=== PATIENT | female | born 1975 | race Caucasian/White ===

== ENCOUNTER 2023-05-18 08:14 | Outpatient (OUT) | payer OTHER, SELFPAY ==
--- NOTE | 2023-05-18 | MM_ITS ---
Patient: JOHN MONTAÑO Exam Date: 05/18/2023 : 1975 Gender:F Ordering : DR Pelon Tierney . Admission #: [id number] Family : Order #: [id number] CLICK HERE TO VIEW EXAM RADIOLOGY REPORT PROCEDURE: MM DIAGNOSTIC MAMMO BI COMPARISON: MG MAMM SCREEN 3D LLOYD CAD, 08/06/2022. MG MAMM DIAGNOSTIC 3D LLOYD CAD, 08/18/2022. MG STEREO CORE NDL W CLIP RT, 09/22/2022. MAMMO POST BIOPSY RIGHT, 09/22/2022. INDICATIONS: Z87.898 Calculator Name NCI Breast Cancer Risk Assessment Tool 5 Year Breast Cancer Risk Not Reported. Lifetime Breast Cancer Risk Not Reported. Personal Breast Cancer No Personal Ovarian Cancer No Treatments None Family Cancers None LOCATION: [facility] BREAST COMPOSITION: Heterogeneously dense,which may obscure small masses. FINDINGS: DIAGNOSTIC CATEGORY 2--BENIGN FINDING. NO CHANGE FROM COMPARISON. Scattered benign-appearing nodules are present. Scattered benign-appearing calcifications are present. Scattered benign-appearing lymph nodes are present. RIGHT BREAST: No significant suspicious finding. Stable area of density with microcalcifications partially sampled on previous biopsy. Micro clip marker adjacent on the CC projection but more cranial on the MLO projection, unchanged. LEFT BREAST: No significant suspicious finding. RECOMMENDATIONS: ROUTINE MAMMOGRAM AND CLINICAL EVALUATION IN 12 MONTHS. PLEASE NOTE: A NORMAL MAMMOGRAM DOES NOT EXCLUDE THE POSSIBILITY OF BREAST CANCER. A CLINICALLY SUSPICIOUS PALPABLE LUMP SHOULD BE BIOPSIED. Dictated by: Ercik Hughes MD on 05/18/2023 at 09:08 Approved by: Erick Hughes MD on 05/18/2023 at 09:22
== END 2023-05-18 08:15 | disposition home or self-care (01) ==
PROVIDERS: PCP Family Medicine; Visit Provider Family Medicine
DX: R92.8 Other abnormal and inconclusive findings on diagnostic imaging of breast (principal)
CPT/HCPCS: 77066

== ENCOUNTER 2023-06-22 06:55 | Outpatient (OUT) | payer OTHER, SELFPAY ==
[2023-06-22 07:57] LABS: Basophils Absolute Auto 0.1 10^3/uL (0.0-0.1); Basophils Percent Auto 0.6 % (0.2-2.0); Eosinophils Absolute Auto 0.4 10^3/uL (0.0-0.7); Eosinophils Percent Auto 4.3 % (0.9-7.0); Hematocrit 44.1 % (36.0-48.0); Hemoglobin 14.6 g/dL (12.0-16.0); Immature Granulocytes Abs Auto 0.02 10^3/uL (0.00-0.03); Immature Granulocytes Pct Auto 0.2 % (0.0-0.5); Mean Corpuscular HGB Conc 33.1 g/dL (29.9-35.2); Mean Corpuscular Hemoglobin 32.3 pg (26.7-34.0); Mean Corpuscular Volume 97.6 fL (81.0-99.0); Mean Platelet Volume 11.2 fL (9.5-13.5); Monocytes Absolute Auto 0.8 10^3/uL (0.3-0.8); Monocytes Percent Auto 8.9 % (1.7-12.0); Neutrophils Absolute Auto 4.6 10^3/uL (1.4-6.5); Platelet Count 362 10^3/uL (150-450); Red Blood Count 4.52 10^6/uL (4.20-5.40); Red Cell Distribution Width 12.4 % (11.0-15.0); White Blood Count 8.8 10^3/uL (4.0-11.0)
[2023-06-22 08:07] LABS: Alanine Aminotransferase 14 U/L (14-59); Albumin Globulin Ratio 1.1; Albumin Level 3.9 g/dL (3.4-5.0); Alkaline Phosphatase 61 U/L (46-116); Anion Gap 12.8; Aspartate Amino Transferase 15 U/L (15-37); BUN Creatinine Ratio 18.1; Bilirubin Total 0.4 mg/dL (0.2-1.0); Calcium 8.6 mg/dL (8.5-10.1); Carbon Dioxide 24.7 mmol/L (21.0-32.0); Chloride 102 mmol/L (98-107); Chol HDL Ratio 2.2; Cholesterol 205 mg/dL (<=200); Estimated GFR (African America >60 (>=60); Estimated GFR (Non-African Ame >60 (>=60); Free T3 2.71 pg/mL (2.18-3.98); Globulin 3.5 g/dL; Glucose 86 mg/dL (74-106); HDL Cholesterol 92 mg/dL (40-60); Potassium 3.5 mmol/L (3.5-5.1); Sodium 136 mmol/L (136-145); Thyroid Stimulating Hormone 1.326 uIU/mL (0.358-3.740); Total Protein 7.4 g/dL (6.4-8.2); Triglycerides 60 mg/dL (<=150)
[2023-06-22 08:15] LABS: Estimated Average Glucose 103 mg/dL; Glycohemoglobin A1C 5.2 % (4.5-6.2)
== END 2023-06-22 06:56 | disposition home or self-care (01) ==
LOC: LAB 06:56
PROVIDERS: PCP Family Medicine; Visit Provider Family Medicine
DX: Z00.00 Encounter for general adult medical examination without abnormal findings (principal)
CPT/HCPCS: 36415; 80053; 80061; 82306; 83036; 84436; 84443; 84481; 85025

== ENCOUNTER 2023-06-26 08:01 | Outpatient (OUT) | payer OTHER, SELFPAY | END 2023-06-26 08:02 | disposition home or self-care (01) | LOC: VC 08:02 | PROVIDERS: PCP Family Medicine; Visit Provider Radiology Diagnostic Radiology | DX: I83.813 Varicose veins of bilateral lower extremities with pain (principal) ==

== ENCOUNTER 2023-07-07 07:57 | Outpatient (OUT) | payer OTHER, SELFPAY ==
--- NOTE | 2023-07-07 07:58 | VEIN_ITS ---
Patient: JOHN MONTAÑO Exam Date: 07/07/2023 : 1975 Gender:F Ordering : DR Pelon Tierney . Admission #: [id number] Family : Order #: [id number] CLICK HERE TO VIEW EXAM RADIOLOGY REPORT PROCEDURE: VC EXT VENOUS REFLUX LLOYD LMTD COMPARISON: None. INDICATIONS: I83.813 Painful varicose veins of bilat lower extremities TECHNIQUE: Duplex imaging of the lower extremity to assess the deep and superficial venous system for the presence of deep or superficial venous incompetence and to document the location and severity of disease. The study includes evaluation of the great saphenous vein (GSV), anterior accessory saphenous vein (AASV) and small saphenous vein (SSV). Patient scanned in reverse Trendelenburg and standing. FINDINGS: RIGHT LOWER EXTREMITY: Saphenofemoral Junction Reflux: Yes 11.4mm 3.3 sec GSV: Diam (mm) Reflux/ Time (sec) Proximal Thigh 8.2 Yes 2.5 Mid Thigh 8.8 Yes 2.6 Distal Thigh 9.2 Yes 3.4 Prox Calf 7.2 Yes 0.6 Mid Calf 4.1 Yes 3.2 Saphenopopliteal Junction Reflux: 4.6mm 1.3 SSV: Proximal Calf 2.8 Yes 0.6 Mid Calf 2.9 No AASV: Not present Thrombi: No acute or chronic thrombus visualized Compressibility: Normal Flow: Normal Preforator: Dist/med calf 3.1mm with 0.6s reflux. Tech Note: Incompetent SFJ and GSV. Patent varicose vein mid/med calf 6.1mm with 1.4s reflux. Patent varicose vein prox/med calf 6.3mm with 1.8s reflux. Patent varicose vein mid/med thigh 5.3mm with 1.3s reflux. LEFT LOWER EXTREMITY: Saphenofemoral Junction Reflux: Yes 7.4 mm 3.3 sec GSV: Diam (mm) Reflux/Time (sec) Proximal Thigh 8.1 Yes 2.0 Mid Thigh 5.5 Yes 1.8 Distal Thigh 6.2 Yes 1.7 Prox Calf 8.0 Yes 3.7 Mid Calf 5.6 Yes 3.4 Saphenopopliteal Junction Relux: 3.1 mm No SSV: Proximal Calf 3.1 No Mid Calf 3.9 No AASV: Not present Thrombi: No acute or chronic thrombus visualized Compressibility: Normal Flow: Normal Coin Machine Supervisor: Dist/med calf 4.2mm with 1.1s reflux. Tech Note: Incompetent SFJ and GSV. GSV goes extrafascial at distal thigh and goes intrafascial again at distal calf. Patent varicose vein mid/med calf 6.5mm with 3.4s reflux. Patent varicose vein dist/med thigh 5.6mm with 1.9s reflux. CONCLUSION: 1. Moderate to severe bilateral great saphenous vein venous insufficiency with saphenofemoral junction reflux and dilatation 2. Mild right small saphenous vein venous insufficiency with saphenopopliteal junction reflux 3. Mild bilateral incompetent grey roll worker veins, left greater than right 4. Bilateral incompetent varicose veins 1. Dictated by: Erick Hughes MD on 07/07/2023 at 09:18 Approved by: Erick Hughes MD on 07/07/2023 at 09:20
== END 2023-07-07 07:58 | disposition home or self-care (01) ==
LOC: VC 07:57
PROVIDERS: PCP Family Medicine; Visit Provider Family Medicine
DX: I83.813 Varicose veins of bilateral lower extremities with pain (principal)
CPT/HCPCS: 93970

== ENCOUNTER 2023-07-28 07:24 | Outpatient (OUT) | payer OTHER, SELFPAY ==
--- NOTE | 2023-07-28 07:28 | VEIN_ITS ---
Patient Name: JOHN MONTAÑO MR#: [id number] : 1975 Exam Date: 07/28/2023 Ordering Doctor: DR Pelon Tierney . RADIOLOGY REPORT PROCEDURE: VC FACILITY EST COMPREHENSIVE VEIN CENTER - OFFICE VISIT INITIAL COMPARISON: None. PROGRESS NOTES: [age] year old female who presents with a 15 year history of leg cramping, swelling, dilated and discolored veins. The patient's leg symptoms are symmetric bilaterally There has been a progression of symptoms over time. This increases with prolonged leg dependency. The patient describes an improvement with rest, elevation, exercise, and [id number] medication. The patient denies any signs and symptoms to suggest arterial ischemia. The patient describes a family history varicose veins on paternal side, heart disease, diabetes. The patient has drinking and smoking history of: alcohol consumption and current smoker. Patient has a past medical history significant for asthma, back and knee pain, varicose veins. The patient denies a history of deep venous thrombus or pulmonary embolus. See separate history and physical for medication list. No prior treatment for varicose or spider veins. Current use of compression stockings. After review of nurse notes, history and physical exam I discussed at length the pathophysiology of venous hypertension and possible treatments, therapies and strategies available. We discussed at length the importance of elevating the lower extremities above the level of the heart, increased physical activity and compression stocking use. Ultrasound venous reflux study performed on July 07, 2023 was discussed at length with the patient. The report demonstrates abnormally dilated and markedly incompetent great saphenous veins bilaterally with associated incompetent branch saphenous varicosities. Incompetent calf oil winterizer veins bilaterally.. PHYSICAL EXAM: The right leg demonstrates multiple varicosities, multiple large spider veins, no ulceration, moderate edema, no skin discoloration. The left leg demonstrates multiple varicosities, multiple large spider veins, no ulceration, moderate edema, no skin discoloration. Both thighs, legs and feet were symmetrically warm to the touch. Good posterior tibial and dorsalis pedis pulses were present bilaterally. VEIN/VC Facility EST Comprehensive IMPRESSION: 1. Bilateral lower extremity venous insufficiency 2. Bilateral lower extremity varicose veins 3. Moderate bilateral lower extremity subcutaneous edema 4. No flow significant arterial disease 5. CEAP: C3, EC, , NM PLAN: 1. Continued use of compression stockings 2. Elevated legs and increased physical activity symptomatic relief 3. Endovenous laser ablation of right great saphenous and left great saphenous veins. 4. Microfoam chemical ablation of bilateral lower extremity incompetent branch saphenous varicosities is recommended, but may not be approved bypatient's insurance. 5. Bilateral lower extremity sclerotherapy for extensive spider veins and reticular veins. Nurse notes, history and physical were reviewed and confirmed, see attached forms. The nurse was present throughout the physical exam and consultation Dictated by: Fahad Barrett M.D. on 07/28/2023 at 09:44 Approved by: Fahad Barrett M.D. on 07/28/2023 at 09:50
== END 2023-07-28 07:25 | disposition home or self-care (01) ==
LOC: VC 07:24
PROVIDERS: PCP Family Medicine; Visit Provider Family Medicine
DX: I83.813 Varicose veins of bilateral lower extremities with pain (principal)
CPT/HCPCS: G0463

== ENCOUNTER 2023-08-12 08:48 | Outpatient (OUT) | payer OTHER, SELFPAY ==
--- NOTE | 2023-08-12 08:49 | VEIN_ITS ---
The [address] [address] Patient Name: JOHN MONTAÑO MRN: [id number] date: 1975 Sex: F Assigned Patient Location: Current Patient Location: Accession/Order Number: [id number] Exam Date: 08/12/2023 08:52 Report Date: 08/12/2023 10:03 At the request of: TARYN RUTHERFORD Procedure: VC Endovenous Ablation 1VeinRT EXAMINATION: VC Endovenous Ablation 1VeinRT HISTORY: I83.813 Bilateral painful varicose veins The risks and benefits of the procedure had been previously discussed, and were rediscussed at length. Informed written consent was obtained. Sebastián Dalton RN and Nidia Parks RDMS, RVT assisted. Time out procedure was performed. The right lower extremity was prepared and draped in the usual sterile fashion to allow knee flexion in the sterile field. Duplex ultrasound probe was draped in a sterile cover, sterile transmission gel was used. Venous mapping was performed with the areas of dilation and large tributaries marked. The total length was 36 cm from the entry proximal calf to 3 cm below the Saphenofemoral junction. The diameter of the right great saphenous vein ranged from 9.2 mm. A 30 gauge needle and 1% buffered lidocaine was used to anesthetize the entry site. A 4 mm incision was made with a scalpel and the saphenous vein was entered percutaneously under direct ultrasound guidance with a micropuncture set, a single stick was successful in gaining access. A micro-guide wire was inserted and the needle removed. A micro-set including a dilator was inserted over the microwire and the needle and dilator were removed. A guide wire was inserted through the micro-set and guided through the saphenous vein to the saphenofemoral junction. The dilator was removed and an introducer sheath was inserted over the wire until the end of the sheath entered the saphenofemoral junction. The dilator and wire were removed and the 600 micron fiber was introduced and placed and positioned so that it extended beyond the sheath and was 3 cm distal to the saphenofemoral or saphenopopliteal junction. Final position of the fiber was determined by ultrasound guidance and duplex imaging. Tumescent anesthetic was delivered by ultrasound guidance. 175 cc of fluid was delivered along the entire course of the saphenous vein. The solution consisted of 1000 cc of normal saline with 40 mL of 1% lidocaine and 20 mL of sodium bicarbonate. A final positioning check was made. The energy source was turned on by means of the foot pedal and the fiber and sheath were withdrawn. The total number of Joules delivered was 2371. The laser was active for 296 seconds under continuous pulse, average laser use of 8 J. Laser start time 9:36 AM, 08/12/2023. Laser stop time 9:41 AM, 08/12/2023. A duplex ultrasound revealed compressibility and flow at the saphenofemoral junction immediately after the procedure. Hemostasis at the access site was achieved. The skin incision of the saphenous vein was closed with a 4 x 4. A compression stocking was applied. Postop instructions were given. A follow up appointment was recommended and scheduled. The patient tolerated the procedure well. Electronically authenticated by: VALERIANO ECHEVARRIA Date: 08/12/2023 10:03
[2023-08-12] MEDS: 0.9 % SODIUM CHLORIDE 500 ML, LIDOCAINE HCL 20 ML, SODIUM BICARBONATE 10 MEQ INJ (08:55)
[2023-08-12] MEDS: LIDOCAINE HCL 1% 100 MG/10 ML MDV INJ (08:55)
== END 2023-08-12 08:49 | disposition home or self-care (01) ==
LOC: VC 08:48
PROVIDERS: PCP Family Medicine; Visit Provider Radiology Diagnostic Radiology
DX: I83.813 Varicose veins of bilateral lower extremities with pain (principal)
CPT/HCPCS: 36478

== ENCOUNTER 2023-08-17 12:52 | Outpatient (OUT) | payer OTHER, SELFPAY ==
--- NOTE | 2023-08-17 12:54 | VEIN_ITS ---
Patient Name: JOHN MONTAÑO MR#: [id number] : 1975 Exam Date: 08/17/2023 Ordering Doctor: DR ERICK HUGHES M.D. RADIOLOGY REPORT PROCEDURE: VC EXT VENOUS RT LMTD COMPARISON: None. INDICATIONS: I80.01 Phlebitis of superficial veins of rt lower extremity TECHNIQUE: Lower extremity mayo scale and Duplex Doppler evaluation of the deep venous system from the inguinal ligament through the calf veins. FINDINGS: REGION: Right lower extremity. THROMBI: Negative for DVT. Heat induced thrombus visualized 3.8cm from the SFJ. The heat induced thrombus extends from groin to proximal calf. COMPRESSIBILITY: Non-compressible segments corresponding to thrombus FLOW: Areas of absent flow corresponding to thrombus CONCLUSION: Post ablation occlusion of the right great saphenous vein with heat induced thrombus 3.8 cm from the saphenous femoral junction, this slightly increased distance was necessary to maintain a patent epigastric vein. Dictated by: Erick Hughes MD on 08/17/2023 at 13:11 Approved by: Erick Hughes MD on 08/17/2023 at 13:13
--- NOTE | 2023-08-17 12:54 | VEIN_ITS ---
Patient Name: JOHN MONTAÑO MR#: [id number] : 1975 Exam Date: 08/17/2023 Ordering Doctor: DR ERICK HUGHES M.D. RADIOLOGY REPORT PROCEDURE: VC FACILITY EST LMTD VEIN CENTER - OFFICE VISIT FOLLOW UP COMPARISON: None. PROGRESS NOTES: The patient reports no significant problems following intravenous laser ablation of the right great saphenous vein. The patient did require analgesics. The patient has worn her compression stocking. The patient has followed our recommendations to walk 20-30 minutes once or twice per day since the procedure. Physical exam demonstrates 2 areas of bruising on the medial right thigh the largest area measuring 8 cm in diameter, likely related to tumescence injection. The incision site along the mid calf is sealed. The thrombosed right great saphenous vein can be partially palpated. No erythema or warmth to suggest cellulitis or thrombophlebitis. No ulceration Review of the ultrasound performed the same day demonstrates occlusive thrombus extending throughout the treated right great saphenous vein with heat induced thrombus 3.8 cm from the saphenofemoral junction, this extended length was necessary to keep the epigastric vein patent. No deep vein thrombus. The patient expressed a desire to proceed with treatment of incompetent left great saphenous vein. VEIN/VC Facility EST LMTD IMPRESSION: 1. Successful ablation of the right great saphenous vein 2. Persistent incompetent left great saphenous vein. PLAN: Intravenous laser ablation left great saphenous vein Nurse notes, history and physical were reviewed and confirmed, see attached forms. The nurse was present throughout the physical exam and consultation Dictated by: Erick Hughes MD on 08/17/2023 at 13:17 Approved by: Erick Hughes MD on 08/17/2023 at 13:30
== END 2023-08-17 12:53 | disposition home or self-care (01) ==
LOC: VC 12:52
PROVIDERS: PCP Family Medicine; Visit Provider Radiology Diagnostic Radiology
DX: I80.01 Phlebitis and thrombophlebitis of superficial vessels of right lower extremity (principal)
CPT/HCPCS: 93971; G0463

== ENCOUNTER 2023-08-21 10:29 | Outpatient (OUT) | payer OTHER, SELFPAY ==
--- NOTE | 2023-08-21 10:29 | VEIN_ITS ---
[address] [address] Patient Name: JOHN MONTAÑO MRN: [id number] date: 1975 Sex: F Assigned Patient Location: Current Patient Location: Accession/Order Number: [id number] Exam Date: 08/21/2023 10:29 Report Date: 08/21/2023 11:54 At the request of: TARYN RUTHERFORD Procedure: VC Endovenous Ablation 1VeinLT EXAMINATION: VC Endovenous Ablation 1VeinLT HISTORY: I83.813 Bilateral painful varicose veins The risks and benefits of the procedure had been previously discussed, and were rediscussed at length. Informed written consent was obtained. Lonnie Quezada RDMS and Nidia Parks RDMS, TOMASZ assisted. Time out procedure was performed. The left lower extremity was prepared and draped in the usual sterile fashion to allow knee flexion in the sterile field. Duplex ultrasound probe was draped in a sterile cover, sterile transmission gel was used. Venous mapping was performed with the areas of dilation and large tributaries marked. The total length was 53 cm from the entry 5 cm above the ankle to 3 cm below the Saphenofemoral junction. The diameter of the left great saphenous vein ranged from 8.1 mm. A 30 gauge needle and 1% buffered lidocaine was used to anesthetize the entry site. A 4 mm incision was made with a scalpel and the saphenous vein was entered percutaneously under direct ultrasound guidance with a micropuncture set, a single stick was successful in gaining access. A micro-guide wire was inserted and the needle removed. A micro-set including a dilator was inserted over the microwire and the needle and dilator were removed. A guide wire was inserted through the micro-set and guided through the saphenous vein to the saphenofemoral junction. The dilator was removed and an introducer sheath was inserted over the wire until the end of the sheath entered the saphenofemoral junction. The dilator and wire were removed and the 600 micron fiber was introduced and placed and positioned so that it extended beyond the sheath and was 3 cm distal to the saphenofemoral or saphenopopliteal junction. Final position of the fiber was determined by ultrasound guidance and duplex imaging. Tumescent anesthetic was delivered by ultrasound guidance. 200 cc of fluid was delivered along the entire course of the saphenous vein. The solution consisted of 1000 cc of normal saline with 40 mL of 1% lidocaine and 20 mL of sodium bicarbonate. A final positioning check was made. The energy source was turned on by means of the foot pedal and the fiber and sheath were withdrawn. The total number of Joules delivered was 3021. The laser was active for 378 seconds under continuous pulse, average laser use of 8 J. Laser start time 11:12 AM, 08/21/2023. Laser stop time 11:17 AM, 08/21/2023. A duplex ultrasound revealed compressibility and flow at the saphenofemoral junction immediately after the procedure. Hemostasis at the access site was achieved. The skin incision of the saphenous vein was closed with a 4 x 4. A compression stocking was applied. Postop instructions were given. A follow up appointment was recommended and scheduled. The patient tolerated the procedure well. Electronically authenticated by: VALERIANO ECHEVARRIA Date: 08/21/2023 11:54
== END 2023-08-21 10:30 | disposition home or self-care (01) ==
LOC: VC 10:29
PROVIDERS: PCP Radiology Diagnostic Radiology; Visit Provider Radiology Diagnostic Radiology
DX: I83.813 Varicose veins of bilateral lower extremities with pain (principal)
CPT/HCPCS: 36478

== ENCOUNTER 2023-08-27 14:20 | Outpatient (OUT) | payer OTHER, SELFPAY ==
--- NOTE | 2023-08-27 14:22 | VEIN_ITS ---
Patient Name: JOHN MONTAÑO MR#: [id number] : 1975 Exam Date: 08/27/2023 Ordering Doctor: DR TARYN RUTHERFORD M.D. RADIOLOGY REPORT PROCEDURE: VC EXT VENOUS LT LIMITED COMPARISON: None. INDICATIONS: I80.02 Phlebitis of superficial veins of lt lower extremity TECHNIQUE: Lower extremity mayo scale and Duplex Doppler evaluation of the deep venous system from the inguinal ligament through the calf veins. FINDINGS: REGION: Left lower extremity. THROMBI: Negative for DVT. Heat induced thrombus visualized 2.4cm from the SFJ. The heat induced thrombus extends from groin to distal thigh. COMPRESSIBILITY: Non-compressible segments corresponding to thrombus FLOW: Areas of no flow corresponding to thrombus OTHER: CONCLUSION: 1. Successful post ablation occlusion of left great saphenous vein. Dictated by: Fahad Barrett M.D. on 08/27/2023 at 15:15 Approved by: Fahad Barrett M.D. on 08/27/2023 at 15:15
--- NOTE | 2023-08-27 14:22 | VEIN_ITS ---
Patient Name: JOHN MONTAÑO MR#: [id number] : 1975 Exam Date: 08/27/2023 Ordering Doctor: DR TARYN RUTHERFORD M.D. RADIOLOGY REPORT PROCEDURE: [facility] EST LMTD VEIN CENTER - OFFICE VISIT FOLLOW UP COMPARISON: [facility] EST TD, 08/17/2023. PROGRESS NOTES: The patient reports improvement in leg symptoms. There has been interval reduction in varicosities. The patient has followed our recommendations to walk 20-30 minutes once or twice per day since the procedure. Physical exam demonstrates decrease in varicosities of the leg. Persistent varicosities are identified along the legs bilaterally. Review of the ultrasound performed the same day demonstrates occlusive thrombus extending throughout the treated vein(s), see separate report, consistent with a successful ablation. No thrombus extending into or beyond the saphenofemoral junction. VEIN/[facility] EST LMTD IMPRESSION: 1. Successful ablation of the left great saphenous vein(s). 2. Persistent bilateral lower extremity varicose veins and lower extremity symptoms. PLAN: 1. Patient's insurance plan did not approve treatment with microfoam chemical ablation, although this would be helpful for the patient. Treatment of bilateral lower extremity incompetent dilated branch saphenous varicosities is recommended whenever this treatment becomes available for the patient. Nurse notes, history and physical were reviewed and confirmed, see attached forms. The nurse was present throughout the physical exam and consultation Dictated by: Fahad Barrett M.D. on 08/27/2023 at 15:15 Approved by: Fahad Barrett M.D. on 08/27/2023 at 15:18
--- OUTSIDE RECORDS SUMMARY | 2023-08-27 14:26 | XMS_ITS | CCD ---
Author Name Unknown Address [address] [place] [address] [address] [place] [address] Organization [facility] Care Team Providers Care End Maker Name Role Phone Gina Tierney Primary Care Provider DR GINA TIERNEY Admitting Unavailable YESICA, DR FUENTES Primary Care Unavailable YESICA, DR FUENTES Consulting Unavailable YESICA, DR FUENTES Attending Unavailable SHANNONY, DR FUENTES Primary Care Unavailable HOSamuel, DR FUENTES Consulting Unavailable YESICA, DR FUENTES Attending Unavailable SHANNONY, DR FUENTES Admitting Unavailable Zieber, DR Vásquez Consulting Unavailable Gina Tierney MD Primary Care Provider [phone] GINA TIERNEY Primary Care Unavailable HOY, GINA M Referring Unavailable HOY, GINA M Primary Care Unavailable SELF REFERRAL, MAMMOGRAPHY Referring Unava ilable RADIOLOGIST, [facility] Attending Unavailable HOY, GINA M Referring Unavailable HOY, GINA M Primary Care Unavailable RADIOLOGIST, [facility] Attending Unavailable HOY, GINA M Referring Unavailable HOY, GINA M Primary Care Unavailable HOY, GINA M Primary Care Unavailable HOY, GINA M Referring Unavailable MYAH BRUSH Referring Unavailabl e HOY, GINA M Primary Care Unavailable MYAH BRUSH Referring Unavailabl e HOY, GINA M Primary Care Unavailable HOY, GINA M Primary Care Unavailable HOY, GINA M Referring Unavailable HOY, GINA M Primary Care Unavailable HOY, GINA M Referring Unavailable Medications Current Medications Medication Drug Class(es) Dates Sig (Normalized) Sig (Original) [id number] 200 actuat albuterol 0.09 mg/actuat metered dose inhaler (1 source) beta2-Adrenergic Agonist Start: 09-01-2022 take 2 puff(s) by mouth four times daily as needed albuterol sulfate HFA (PROVENTIL;VENTOLIN ;PROAIR) 108 (90 Base) MCG/ACT inhaler INHALE 2 PUFFS BY MOUTH 4 TIMES DAILY NEEDED 0 09/01/2022 Active citalopram 20 mg oral tablet (9 sources) Serotonin Reuptake Inhibitor Start: 07-27-2018 take 1 tablet by mouth once daily citalopram (CELEXA) 20 MG tablet Indications: Adjustment disorder with mixed anxiety and depressed mood Take 1 tablet by mouth daily 30 tablet 5 07/27/2018 Active pantoprazole 40 mg delayed release oral tablet (10 sources) Proton Pump Inhibitor Start: 07-31-2019 take 1 tablet by mouth once daily pantoprazole (PROTONIX) 40 MG tablet TAKE 1 TABLET BY MOUTH ONCE DAILY 0 07/31/2019 Active sucralfate 1000 mg oral tablet (9 sources) Aluminum Complex Start: 07-31-2019 take 1 tablet by mouth at bedtime sucralfate (CARAFATE) 1 GM tablet TAKE 1 TABLET BY MOUTH BEFORE MEAL(S) AND AT BEDTIME 0 07/31/2019 Active Problems Active Problems Problem Classification Problem Date Documented Date Episodic/Chronic Genitourinary symptoms and ill-defined conditions (1 source) Splitting of urinary stream; Translations: [Urinary stream splitting] Episodic Menstrual disorders (2 sources) Irregular periods; Translations: [Irregular menstruation, unspecified] Onset: 12-03-2022 Chronic Miscellaneous mental health disorders (1 source) Sexual dysfunction, unspecified; Translations: [Sexual dysfunction, unspecified] Onset: 12-03-2022 Episodic Nonmalignant breast conditions (6 sources) Mammographic calcification found on diagnostic imaging of breast; Translations: [Other benign mammary dysplasias of right breast] Onset: 09-18-2022 Episodic Other screening for suspected conditions (not mental disorders or infectious disease) (4 sources) Mammography abnormal; Translations: [Other abnormal and inconclusive findings on diagnostic imaging of breast] Onset: 08-18-2022 Episodic Residual codes; unclassified (1 source) Procedure and treatment not carried out for other reasons; Translations: [PROC AND TX NOT CARRIED OUT OTH REASONS] Onset: 09-18-2022 Episodic Unclassified (1 source) Patient encounter status Past or Other Problems Problem Classification Problem Date Documented Date Episodic/Chronic Other female genital disorders (10 sources) Cervical intraepithelial neoplasia grade 2; Translations: [Moderate cervical dysplasia] Onset: 06-23-2017 06-23-2017 Episodic Other non-traumatic joint disorders (4 sources) Pain in right knee; Translations: [Pain in joint, lower leg] Onset: 06-20-2022 Episodic Results Test Name Value Interpretation Reference Range Facility Provider Letteron 07-03-2023 Provider Letter July 03, 2023 JOHN MONTA[address]O [address] [place] [address] : 1975 Dear Cory Deena, We have been trying to reach you with no success regarding a referral from Dr Tierney. It is important that you return our call upon receiving this letter so that we can set up an appointment for you. Also, at the time of your call, please provide us with your current demographic and insurance information. Thank you for your prompt attention to this matter. Sincerely, [facility] General Surgery [phone] Normal [facility] Physician Referralon 023 Physician Referral [phone] [id number] Normal [facility] Estradiolon 12-12-2022 Estradiol 134.9 pg/mL Normal 27-314 [facility] Comment on above: Result Comment: FEMALES: Normally menstruating Luteal phase 33-298 Follicular phase 27-156 Midcycle phase 48-314 Postmenopausal (untreated) 5-50 Fulvestrant treatment will show an increased estradiol concentration with this methodology. Alternate methodologies are available upon request. Performed By: #### L H, FSH, E2 #### [employer] [address] [place], [place] [id number] Glazing Department Supervisor: Tc Atkins MD Follicle Stim. Hormon 2022 Follicle Stim. Horm 9.4 mIU/mL Normal 1.7-21.5 [facility] Comment on above: Result Comment: Refe rence Range: Male: 1.5-12.4 Ovulating Female: Follicular Phase 3.5-12.5 Ovulation Phase 4.7-21.5 Luteal Phase 1.7-7.7 Postmenopausal Female: 25.8-134.8 Performed By: #### L H, FSH, E2 #### [employer] [address] [place], [place] [id number] Glazing Department Supervisor: Tc Atkins MD Luteinizing Hormoneon 2022 Luteinizing Hormone 8.4 mIU/mL Normal 1.0-95.6 [facility] Comment on above: Result Comment: Refe rence Range: Male: 1.7-8.6 Ovulating Female: Follicular Phase 2.4-12.6 Ovulation Phase 14.0-95.6 Luteal Phase 1.0-11.4 Postmenopausal Female: 7.7-58.5 Performed By: #### P PPVP #### [employer] [address] [place], [place] [id number] Glazing Department Supervisor: Tc Atkins MD Estradiolon 12-11-2022 Estradiol 134.9 pg/mL 27 - 314 pg/mL [employer] Comment on above: FEMALES: Normally menstruating Luteal phase 33-298 Follicular phase 27-156 Midcycle phase 48-314 Postmenopausal (untreated) 5-50 Fulvestrant treatment will show an increased estradiol concentration with this methodology. Alternate methodologies are available upon request. Follicle Stimulating Hormone on 12-11-2022 FSH 9.4 [employer] Comment on above: Reference Range: Male: 1.5-12.4 Ovulating Female: Follicular Phase 3.5-12.5 Ovulation Phase 4.7-21.5 Luteal Phase 1.7-7.7 Postmenopausal Female: 25.8-134.8 Luteinizing Hormoneon 2022 LH 8.4 [employer] Comment on above: Reference Range: Male: 1.7-8.6 Ovulating Female: Follicular Phase 2.4-12.6 Ovulation Phase 14.0-95.6 Luteal Phase 1.0-11.4 Postmenopausal Female: 7.7-58.5 No Panel Informationon 12-11 [employer] Cult,Genitalon 12-06-2022 Cult,Genital Specimen Description .VAGINA Culture NORMAL URO-GENITAL MERCEDES NEGATIVE FOR NEISSERIA GONORRHOEAE NEGATIVE FOR GROUP B STREPTOCOCCI Report Status FINAL 12/06/2022 Normal [facility] Comment on above: Performed By: #### F T4 #### [address] [address] Glazing Department Supervisor: Tc Atkins MD #### TSH #### [facility] [address] [place] [address] Glazing Department Supervisor: Erick Renae MD Chlamydia/GC DNA, TPon 12-04 Chlamydia Probe, TP Negative Normal NEG [facility] Comment on above: Result Comment: CHLA MYDIA TRACHOMATIS DNA not detected by nucleic acid amplification. This test is intended for medical purposes only and is not valid for the evaluation of suspected sexual abuse or for other forensic purposes. In certain contexts, culture may be required to meet applicable laws and regulations for diagnosis of C. trachomatis and N. gonorrhoeae infections. Per 2014 CDC recommendations, this test does not include confirmation of positive results by an alternative nucleic acid target. Performed By: #### P PPVP #### [address] [address] Glazing Department Supervisor: Tc Atkins MD Gonorrhea Probe, TP Negative Normal NEG [facility] Comment on above: Result Comment: NEIS SERIA GONORRHOEAE DNA not detected by nucleic acid amplification. This test is intended for medical purposes only and is not valid for the evaluation of suspected sexual abuse or for other forensic purposes. In certain contexts, culture may be required to meet applicable laws and regulations for diagnosis of C. trachomatis and N. gonorrhoeae infections. Per 2014 CDC recommendations, this test does not include confirmation of positive results by an alternative nucleic acid target. Performed By: #### P PPVP #### [address] [address] Glazing Department Supervisor: Tc Atkins MD Cytologyon 12-03-2022 Cytology (NOTE) INTERPRETATION Cervical material, (ThinPrep vial, Imaging-assisted review): Specimen Adequacy: Satisfactory for evaluation. - Endocervical/transform ation zone component present. Descriptive Diagnosis: Negative for intraepithelial lesion or malignancy. Senior Asic Design Engineer: KATLYN MENJIVAR(ASCP) Electronically Signed Out katlyn/12/10/2022 Source: A: Cervical material, (ThinPrep vial, Imaging-assisted review) Clinical History Z12.4 Encounter for screening for malignant neoplasm of cervix High Risk HPV DNA testing is requested if the diagnosis is ASC-US LMP: 11/06/2022 GYNECOLOGIC CYTOLOGY REPORT Patient Name: JOHN MONTAÑO [facility] Rec: [id number] Path Number: [id number] [facility] PATHOLOGISTS [facility] ANATOMIC PATHOLOGY [address] [place] [id number] Normal [facility] Comment on above: Performed By: #### P PPVP #### [address] [id number] Glazing Department Supervisor: Tc Atkins MD Thyroid Stim. Horm.on 2022 Thyroid Stim. Horm. 1.52 uIU/mL Normal 0.30-5.00 [facility] Comment on above: Performed By: #### F T4 #### [address] [id number] Glazing Department Supervisor: Tc Atkins MD #### TSH #### [facility] [address] [place] [address] [place] [address] Glazing Department Supervisor: Erick Renae MD Thyroxine, Freeon 12-03-2022 Thyroxine, Free 1.50 ng/dL Normal 0.93-1.70 [facility] Comment on above: Performed By: #### F T4 #### [address] [id number] Glazing Department Supervisor: Tc Atkins MD #### TSH #### [facility] [address] [place] [address] Glazing Department Supervisor: Erick Renae MD MAMMO POST BIOPSY RIGHTon MAMMO POST BIOPSY RIGHT Patient: JOHN MONTAÑO Exam Date: 09/22/2022 : 1975 Gender:F Ordering : DR GINA TIERNEY . Admission #: [id number] Family : Order #: [id number] CLICK HERE TO VIEW EXAM This report includes an Addendum and supersedes previous reports for this exam. RADIOLOGY REPORT PROCEDURE: MAMMOGRAM POST BIOPSY IMAGES COMPARISON: MG STEREO CORE NDL W CLIP RT, 09/22/2022. INDICATIONS: Post biopsy; cluster of microcalcifications posterior upper-outer quadrant BREAST COMPOSITION: Heterogeneously dense,which may obscure small masses. FINDINGS: BIOPSY MARKER: A metallic marker has been placed in the targeted location within the posterior upper-outer quadrant of the right breast. BREAST FINDINGS: Expected post biopsy findings. RECOMMENDATIONS: Dictated by: Fahad Barrett M.D. on 09/22/2022 at 10:16 Approved by: Fahad Barrett M.D. on 09/22/2022 at 10:40 ADDENDUM: FINDINGS: DIAGNOSTIC CATEGORY 3--PROBABLY BENIGN FINDING. THE FOLLOWING FINDING(S) HAS A HIGH PROBABILITY OF A BENIGN ETIOLOGY: RECOMMENDATIONS: SHORT TERM FOLLOW-UP DIAGNOSTIC MAMMOGRAM RIGHT BREAST IN 6 MONTHS. Dictated by: Fahad Barrett M.D. on 09/25/2022 at 10:36 Approved by: Fahad Barrett M.D. on 09/25/2022 at 10:37 Normal [facility] MG STEREO CORE NDL W CLIP RT on 09-22-2022 MG STEREO CORE NDL W CLIP RT Patient: JOHN MONTAÑO Exam Date: 09/22/2022 : 1975 Gender:F Ordering : DR GINA TIERNEY . Admission #: [id number] Family : Order #: [id number] CLICK HERE TO VIEW EXAM This report includes an Addendum and supersedes previous reports for this exam. RADIOLOGY REPORT PROCEDURE: MAMMOGRAM STEREO CORE DANNIELLE WITH CLIP RIGHT COMPARISON: MG MAMM SCREEN 3D LLOYD CAD, 08/06/2022. MG MAMM DIAGNOSTIC 3D LLOYD CAD, 08/18/2022. INDICATIONS: Mammographic calcification of right breast DESCRIPTION: Following informed consent, digital stereotactic mammographic views were obtained to localize the lesion. Multiple vacuum-assisted core biopsies were obtained. Specimen images were obtained to confirm proper sampling. The location of the biopsy was then marked as indicated below. FINDINGS: RECOMMENDATIONS: SPECIMEN #, LOCATION: 8 core samples; posterior upper outer quadrant microcalcifications. SPECIMEN IMAGE: Cluster of microcalcifications within core 7. BIOPSY NEEDLE: 10 gauge Revolve(r) vacuum core biopsy needle. MARKER(S) PLACED: A single metallic marker was placed in the appropriate targeted location. MEDICATION: Buffered 1% lidocaine superficial;1% lidocaine with epinephrine deep. COMPLICATIONS: None. PATHOLOGY / LAB: Pending. CONCLUSION: 1. Technically successful biopsy of the breast lesion. 2. Pathology results are pending. An addendum will be added when pathology results are final. Dictated by: Fahad Barrett M.D. on 09/22/2022 at 10:13 Approved by: Fahad aBrrett M.D. on 09/22/2022 at 10:15 ADDENDUM: Final pathologic diagnosis: Negative for malignancy. Fibrocystic changes, usual ductal hyperplasia, and Kavita current metaplasia with associated microcalcifications. This report was transmitted to the referring physician's office on September 25, 2022, and the office called to confirm receipt. Dictated by: Fahad Barrett M.D. on 09/25/2022 at 10:35 Approved by: Fahad Barrett M.D. on 09/25/2022 at 10:36 Normal [facility] ARIELLE DIGITAL DIAGNOSTIC BILATERALon 08-18-2022 [facility] ARIELLE DIGITAL DIAGNOSTIC BILATERAL EXAMINATION: DIAGNOSTIC DIGITAL BILATERAL BREASTS MAMMOGRAM WITH TOMOSYNTHESIS; TARGETED ULTRASOUND OF THE LEFT BREAST 08/18/2022 1:59 pm; 08/18/2022 2:13 pm TECHNIQUE: Diagnostic mammography of the bilateral breasts was performed with tomosynthesis. 2D standard and 3D tomosynthesis combination imaging performed through both breasts. Computer aided detection was utilized in the interpretation of this exam.; Target ultrasound of the left breast was performed. VIEWS: 90 degree lateral views of both breasts. Spot compression views left breast. Magnification views upper outer posterior right breast. COMPARISON: 06 August 2022; 15 September 2018; 25 August 2017 HISTORY: ORDERING SYSTEM PROVIDED HISTORY: Abnormal screening mammogram TECHNOLOGIST PROVIDED HISTORY: Is the patient ?->No; ORDERING SYSTEM PROVIDED HISTORY: Abnormal screening mammogram Workup of interval developing calcifications upper outer posterior right breast and nodules left breast FINDINGS: Mammogram: Density: Heterogeneously dense parenchyma is noted. No skin thickening, nipple contour changes or suspicious calcifications are noted. Right breast: Calcifications upper outer right breast are pleomorphic, interval developing and suspicious with tissue sampling using stereotactic mammographic guidance advised. Calcifications are difficult to include in the spot views due to extreme posterior location. Left breast: Nodularity persists behind the left nipple and in the medial aspect of the left breast middle depth, with ultrasound evaluation advised. Comparison to the patient's 2019 study on tomosynthesis suggests that these nodules are stable since that time. However, ultrasound evaluation advised. Ultrasound: Targeted ultrasonography of the left breast in the area of concern reveals no worrisome cystic or solid mass lesions. There is no definite ultrasound corollary to the nodularity, although the nodularity is suggestively unchanged from remote studies when direct comparison is made using tomosynthesis. Findings are probably benign. Six-month mammographic follow-up of the left breast is recommended. Evaluation of the left axilla reveals no abnormality. IMPRESSION: Right breast: Suspicious calcifications upper-outer posterior right breast with tissue sampling using stereotactic mammographic assessment. BIRADS - CATEGORY 4B, suspicious Left breast: Nodularity left breast likely stable from remote studies and has no ultrasound corollary. Findings are likely benign, with six-month mammographic follow-up of the left breast advised. BI-RADS 3 BIRADS: RIGHT BREAST: BIRADS - CATEGORY 4B Moderate suspicion for malignancy. Suspicious Abnormality. Biopsy should be considered at this time. OVERALL ASSESSMENT - SUSPICIOUS A letter of notification will be sent to the patient regarding the results. My findings and recommendations were discussed with the patient at the time of service. A correspondence representative from the radiology department will be contacting your office and assisting the patient in getting appropriate follow-up. LEFT BREAST: BIRADS - CATEGORY 3 Findings are probably benign. A short interval follow-up left breast mammogram is recommended in 6 months. OVERALL ASSESSMENT - PROBABLY BENIGN. A letter of notification will be sent to the patient regarding the results. Interpreted by: Angie Moore MD Signed by: Angie Moore MD 08/18/22 Final result Normal [facility] Radiology Study observation (narrative) [facility] [employer] Phone: No Panel InformationOrdered By: Angie Moore on 08-18-2022 Interpretation and review of laboratory results Abnormal [facility] Phone: [facility] Phone: No Panel Informationon 08-18 Right breast: Suspicious calcifications upper-outer posterior right breast with tissue sampling using stereotactic mammographic assessment. BIRADS - CATEGORY 4B, suspicious Left breast: Nodularity left breast likely stable from remote studies and has no ultrasound corollary. Findings are likely benign, with six-month mammographic follow-up of the left breast advised. BI-RADS 3 BIRADS: RIGHT BREAST: BIRADS - CATEGORY 4B Moderate suspicion for malignancy. Suspicious Abnormality. Biopsy should be considered at this time. OVERALL ASSESSMENT - SUSPICIOUS A letter of notification will be sent to the patient regarding the results. My findings and recommendations were discussed with the patient at the time of service. A correspondence representative from the radiology department will be contacting your office and assisting the patient in getting appropriate follow-up. LEFT BREAST: BIRADS - CATEGORY 3 Findings are probably benign. A short interval follow-up left breast mammogram is recommended in 6 months. OVERALL ASSESSMENT - PROBABLY BENIGN. A letter of notification will be sent to the patient regarding the results. [facility] RIS CONSOLIDATED EXAMINATION: DIAGNOSTIC DIGITAL BILATERAL BREASTS MAMMOGRAM WITH TOMOSYNTHESIS; TARGETED ULTRASOUND OF THE LEFT BREAST 08/18/2022 1:59 pm; 08/18/2022 2:13 pm TECHNIQUE: Diagnostic mammography of the bilateral breasts was performed with tomosynthesis. 2D standard and 3D tomosynthesis combination imaging performed through both breasts. Computer aided detection was utilized in the interpretation of this exam.; Target ultrasound of the left breast was performed. VIEWS: 90 degree lateral views of both breasts. Spot compression views left breast. Magnification views upper outer posterior right breast. COMPARISON: 06 August 2022; 15 September 2018; 25 August 2017 HISTORY: ORDERING SYSTEM PROVIDED HISTORY: Abnormal screening mammogram TECHNOLOGIST PROVIDED HISTORY: Is the patient ?->No; ORDERING SYSTEM PROVIDED HISTORY: Abnormal screening mammogram Workup of interval developing calcifications upper outer posterior right breast and nodules left breast FINDINGS: Mammogram: Density: Heterogeneously dense parenchyma is noted. No skin thickening, nipple contour changes or suspicious calcifications are noted. Right breast: Calcifications upper outer right breast are pleomorphic, interval developing and suspicious with tissue sampling using stereotactic mammographic guidance advised. Calcifications are difficult to include in the spot views due to extreme posterior location. Left breast: Nodularity persists behind the left nipple and in the medial aspect of the left breast middle depth, with ultrasound evaluation advised. Comparison to the patient's 2019 study on tomosynthesis suggests that these nodules are stable since that time. However, ultrasound evaluation advised. Ultrasound: Targeted ultrasonography of the left breast in the area of concern reveals no worrisome cystic or solid mass lesions. There is no definite ultrasound corollary to the nodularity, although the nodularity is suggestively unchanged from remote studies when direct comparison is made using tomosynthesis. Findings are probably benign. Six-month mammographic follow-up of the left breast is recommended. Evaluation of the left axilla reveals no abnormality. [facility] RIS CONSOLIDATED US BREAST LIMITED LEFTon US BREAST LIMITED LEFT EXAMINATION: DIAGNOSTIC DIGITAL BILATERAL BREASTS MAMMOGRAM WITH TOMOSYNTHESIS; TARGETED ULTRASOUND OF THE LEFT BREAST 08/18/2022 1:59 pm; 08/18/2022 2:13 pm TECHNIQUE: Diagnostic mammography of the bilateral breasts was performed with tomosynthesis. 2D standard and 3D tomosynthesis combination imaging performed through both breasts. Computer aided detection was utilized in the interpretation of this exam.; Target ultrasound of the left breast was performed. VIEWS: 90 degree lateral views of both breasts. Spot compression views left breast. Magnification views upper outer posterior right breast. COMPARISON: 06 August 2022; 15 September 2018; 25 August 2017 HISTORY: ORDERING SYSTEM PROVIDED HISTORY: Abnormal screening mammogram TECHNOLOGIST PROVIDED HISTORY: Is the patient ?->No; ORDERING SYSTEM PROVIDED HISTORY: Abnormal screening mammogram Workup of interval developing calcifications upper outer posterior right breast and nodules left breast FINDINGS: Mammogram: Density: Heterogeneously dense parenchyma is noted. No skin thickening, nipple contour changes or suspicious calcifications are noted. Right breast: Calcifications upper outer right breast are pleomorphic, interval developing and suspicious with tissue sampling using stereotactic mammographic guidance advised. Calcifications are difficult to include in the spot views due to extreme posterior location. Left breast: Nodularity persists behind the left nipple and in the medial aspect of the left breast middle depth, with ultrasound evaluation advised. Comparison to the patient's 2019 study on tomosynthesis suggests that these nodules are stable since that time. However, ultrasound evaluation advised. Ultrasound: Targeted ultrasonography of the left breast in the area of concern reveals no worrisome cystic or solid mass lesions. There is no definite ultrasound corollary to the nodularity, although the nodularity is suggestively unchanged from remote studies when direct comparison is made using tomosynthesis. Findings are probably benign. Six-month mammographic follow-up of the left breast is recommended. Evaluation of the left axilla reveals no abnormality. IMPRESSION: Right breast: Suspicious calcifications upper-outer posterior right breast with tissue sampling using stereotactic mammographic assessment. BIRADS - CATEGORY 4B, suspicious Left breast: Nodularity left breast likely stable from remote studies and has no ultrasound corollary. Findings are likely benign, with six-month mammographic follow-up of the left breast advised. BI-RADS 3 BIRADS: RIGHT BREAST: BIRADS - CATEGORY 4B Moderate suspicion for malignancy. Suspicious Abnormality. Biopsy should be considered at this time. OVERALL ASSESSMENT - SUSPICIOUS A letter of notification will be sent to the patient regarding the results. My findings and recommendations were discussed with the patient at the time of service. A correspondence representative from the radiology department will be contacting your office and assisting the patient in getting appropriate follow-up. LEFT BREAST: BIRADS - CATEGORY 3 Findings are probably benign. A short interval follow-up left breast mammogram is recommended in 6 months. OVERALL ASSESSMENT - PROBABLY BENIGN. A letter of notification will be sent to the patient regarding the results. Interpreted by: Angie Moore MD Signed by: Angie Moore MD 08/18/22 Final result Normal [facility] Radiology Study observation (narrative) [facility] [employer] Work Phone: [facility] DIGITAL SCREEN SELF REFERRAL W OR WO CAD BILATERALon 08-06-2022 [facility] DIGITAL SCREEN SELF REFERRAL W OR WO CAD BILATERAL EXAMINATION: SCREENING DIGITAL BILATERAL MAMMOGRAM WITH TOMOSYNTHESIS, 08/06/2022 TECHNIQUE: Screening mammography of the bilateral breasts was performed with tomosynthesis. 2D standard and 3D tomosynthesis combination imaging performed through both breasts in the MLO and CC projection. Computer aided detection was utilized in the interpretation of this exam. COMPARISON: Multiple prior studies with the most recent bilateral mammogram dated 09/15/2018. HISTORY: Screening. Annual mammogram. FINDINGS: There are heterogeneously dense fibroglandular breast tissue which may obscure small masses. Right breast: New cluster of calcifications in the superolateral right breast, posterior depth. Left breast: Focal asymmetry in the slightly lateral left breast, anterior depth. Oval-shaped focal asymmetry in the medial left breast, posterior depth. IMPRESSION: 1. New cluster calcifications in the superolateral right breast. Recommend diagnostic mammogram spot magnification views for further evaluation. 2. Two focal asymmetries in the medial and lateral left breast. Recommend diagnostic mammogram spot tomosynthesis views and possible ultrasound for further evaluation. BI-RADS 0 BIRADS: BIRADS - CATEGORY 0 Incomplete: Needs Additional Imaging Evaluation OVERALL ASSESSMENT - INCOMPLETE:NEED ADDITIONAL IMAGING EVALUATION. Interpreted by: Ara Turner MD Signed by: Ara Turner MD 08/06/22 Final result Normal [facility] 1. New cluster calcifications in the superolateral right breast. Recommend diagnostic mammogram spot magnification views for further evaluation. 2. Two focal asymmetries in the medial and lateral left breast. Recommend diagnostic mammogram spot tomosynthesis views and possible ultrasound for further evaluation. BI-RADS 0 BIRADS: BIRADS - CATEGORY 0 Incomplete: Needs Additional Imaging Evaluation OVERALL ASSESSMENT - INCOMPLETE:NEED ADDITIONAL IMAGING EVALUATION. [facility] EXAMINATION: SCREENING DIGITAL BILATERAL MAMMOGRAM WITH TOMOSYNTHESIS, 08/06/2022 TECHNIQUE: Screening mammography of the bilateral breasts was performed with tomosynthesis. 2D standard and 3D tomosynthesis combination imaging performed through both breasts in the MLO and CC projection. Computer aided detection was utilized in the interpretation of this exam. COMPARISON: Multiple prior studies with the most recent bilateral mammogram dated 09/15/2018. HISTORY: Screening. Annual mammogram. FINDINGS: There are heterogeneously dense fibroglandular breast tissue which may obscure small masses. Right breast: New cluster of calcifications in the superolateral right breast, posterior depth. Left breast: Focal asymmetry in the slightly lateral left breast, anterior depth. Oval-shaped focal asymmetry in the medial left breast, posterior depth. [facility] Radiology Study observation (narrative) [facility] [employer] Work Phone: [facility] DIGITAL SCREEN SELF REFERRAL W OR WO CAD BILATERALOrdered By: Ara Turner on 08-06-2022 [facility] Phone: Occ Bld, Fecal Scrnon 2021 Occult Blood 1 Negative Normal NEG [facility] in Hospital Comment on above: Performed By: #### O BS #### [facility] [address] [place] [address] Glazing Department Supervisor: Erick Renae MD Specimen 1 Date [id number] [facility] Comment on above: Performed By: #### O BS #### [facility] [address] [place] [address] Glazing Department Supervisor: Erick Renae MD Specimen 1 Time 0730 [facility] Comment on above: Performed By: #### O BS #### [facility] [address] [place], [place] [id number] Glazing Department Supervisor: Erick Renae MD Occult Blood Screenon 2021 Date, Stool #1 [id number] [facility] Hemoglobin.gastrointe stinal spec 1 Ql (Stl) Negative NEGATIVE [facility] Time, Stool #1 [id number] [facility] Miscellaneouson 06-23-2022 Send Out Report (NOTE) [facility] Comment on above: Result Comment: T3 U ptake T3 Uptake 34 % (Ref Interval: 28-41) INTERPRETIVE INFORMATION: T3 Uptake Thyroxine, Free (Free T4) ([id number]) is the preferred test alternative for the T3 uptake and Free Thyroxine Index tests. [facility] Performed By: #### P PPVP #### [address] [place] [address] Glazing Department Supervisor: Tc Atkins MD Hemoglobin A1Con 06-21-2022 Glucose [Mass/Vol] 108 mg/dL [facility] Comment on above: Result Comment: The ADA and AACC recommend providing the estimated average glucose result to permit better patient understanding of their HBA1c result. Performed By: #### P PPVP #### [facility] [address] [place] [address] Glazing Department Supervisor: Tc Atkins MD HbA1c (Bld) [Mass fraction] 5.4 % Normal 4.0-6.0 [facility] Comment on above: Performed By: #### P PPVP #### [facility] [address] [place] [address] Glazing Department Supervisor: Tc Atkins MD Ironon 06-21-2022 Iron [Mass/Vol] 118 ug/dL Normal 37-145 [facility] Comment on above: Performed By: #### P PPVP #### [address] [address] Glazing Department Supervisor: Tc Atkins MD Lipid Profileon 06-21-2022 Cholesterol [Mass/Vol] 188 mg/dL Normal <200 [facility] Comment on above: Result Comment: Cholesterol Guidelines: <200 Desirable 200-240 Borderline >240 Undesirable Performed By: #### P PPVP #### [address] [address] Glazing Department Supervisor: Tc Atkins MD Cholesterol in HDL [Mass/Vol] 83 mg/dL Normal >40 [facility] Comment on above: Result Comment: HDL Guidelines: <40 Undesirable 40-59 Borderline >59 Desirable Performed By: #### P PPVP #### [address] [address] Glazing Department Supervisor: Tc Atkins MD Cholesterol in LDL [Mass/Vol] 95 mg/dL Normal 0-130 [facility] Comment on above: Result Comment: LDL Guidelines: <100 Desirable 100-129 Near to/above Desirable 130-159 Borderline >159 Undesirable Direct (measured) LDL and calculated LDL are not interchangeable tests. Performed By: #### P PPVP #### [address] [address] Glazing Department Supervisor: Tc Atkins MD Cholesterol.total/Cho lesterol in HDL [Mass ratio] 2.3 {ratio} Normal <5 [facility] Comment on above: Performed By: #### P PPVP #### [address] [address] Glazing Department Supervisor: Tc Atkins MD Triglyceride [Mass/Vol] 50 mg/dL Normal <150 [facility] Comment on above: Result Comment: Triglyceride Guidelines: <150 Desirable 150-199 Borderline 200-499 High >499 Very high Based on AHA Guidelines for fasting triglyceride, May 2012. Performed By: #### P PPVP #### [address] [place], [place] [id number] Glazing Department Supervisor: Tc Atkins MD Thyroxine T4on 06-21-2022 T4 [Mass/Vol] 12.1 ug/dL High 4.5-10.9 [facility] Comment on above: Result Comment: SAMANTHA ECTED ON 06/21 AT 0948: PREVIOUSLY REPORTED 9.1 Performed By: #### P PPVP #### [facility] [employer] [address] [place] [address] Glazing Department Supervisor: Tc Atkins MD XR KNEE RIGHT (3 VIEWS)on XR KNEE RIGHT (3 VIEWS) EXAMINATION: THREE XRAY VIEWS OF THE RIGHT KNEE 06/20/2022 3:21 pm COMPARISON: None. HISTORY: ORDERING SYSTEM PROVIDED HISTORY: Right knee pain, unspecified chronicity FINDINGS: The bone mineralization is within normal limits. There is joint space narrowing involving the patellofemoral compartment. No acute fractures or dislocations are seen. Note is made of chondrocalcinosis. IMPRESSION: 1. No acute abnormality involving the right knee. 2. Degenerative changes involving the patellofemoral compartment. 3. Chondrocalcinosis. Interpreted by: Donal Nesbitt MD Signed by: Donal Nesbitt MD 06/21/22 Final result Normal [facility] 1. No acute abnormality involving the right knee. 2. Degenerative changes involving the patellofemoral compartment. 3. Chondrocalcinosis. [facility] EXAMINATION: THREE XRAY VIEWS OF THE RIGHT KNEE 06/20/2022 3:21 pm COMPARISON: None. HISTORY: ORDERING SYSTEM PROVIDED HISTORY: Right knee pain, unspecified chronicity FINDINGS: The bone mineralization is within normal limits. There is joint space narrowing involving the patellofemoral compartment. No acute fractures or dislocations are seen. Note is made of chondrocalcinosis. [facility] Donal Nesbitt MD - 06/21/2022 EXAMINATION: THREE XRAY VIEWS OF THE RIGHT KNEE 06/20/2022 3:21 pm COMPARISON: None. HISTORY: ORDERING SYSTEM PROVIDED HISTORY: Right knee pain, unspecified chronicity FINDINGS: The bone mineralization is within normal limits. There is joint space narrowing involving the patellofemoral compartment. No acute fractures or dislocations are seen. Note is made of chondrocalcinosis. IMPRESSION: 1. No acute abnormality involving the right knee. 2. Degenerative changes involving the patellofemoral compartment. 3. Chondrocalcinosis. [facility] [employer] Phone: XR KNEE RIGHT (3 VIEWS)Order ed By: Donal Nesbitt on 06-21-2022 [facility] [employer] Phone: CBC with Diffon 06-20-2022 Abs. Basophil 0.03 k/uL Normal 0.00-0.20 [facility] Comment on above: Performed By: #### P PPVP #### [address] [address] Glazing Department Supervisor: Tc Atkins MD Abs.Imm.Granulocyte <0.03 Normal 0.00-0.30 [facility] Comment on above: Performed By: #### P PPVP #### [address] [address] Glazing Department Supervisor: Tc Atkins MD Abs.Neutrophil (Seg) 1.85 k/uL Normal 1.50-8.10 [facility] Comment on above: Performed By: #### P PPVP #### [address] [address] Glazing Department Supervisor: Tc Atkins MD Basophils/100 WBC (Bld) 1 % Normal 0-2 [facility] Comment on above: Performed By: #### P PPVP #### [address] [address] Glazing Department Supervisor: Tc Atkins MD Eosinophils (Bld) [#/Vol] 0.72 10*3/uL High 0.00-0.44 [facility] Comment on above: Performed By: #### P PPVP #### [address] [address] Glazing Department Supervisor: Tc Atkins MD Eosinophils/100 WBC (Bld) 12 % High 1-4 [facility] Comment on above: Performed By: #### P PPVP #### [address] [address] Glazing Department Supervisor: Tc Atkins MD Erythrocyte distribution width (RBC) [Ratio] 12.0 % Normal 11.8-14.4 [facility] Comment on above: Performed By: #### P PPVP #### [address] [address] Glazing Department Supervisor: Tc Atkins MD Hematocrit (Bld) [Volume fraction] 46.6 % Normal 36.3-47.1 [facility] Comment on above: Performed By: #### P PPVP #### [address] [address] Glazing Department Supervisor: Tc Atkins MD Hemoglobin (Bld) [Mass/Vol] 15.5 g/dL High 11.9-15.1 [facility] Comment on above: Performed By: #### P PPVP #### [address] [address] Glazing Department Supervisor: Tc Atkins MD Immature granulocytes/100 WBC (Bld) 0 % Normal 0 [facility] Comment on above: Performed By: #### P PPVP #### [address] [address] Glazing Department Supervisor: Tc Atkins MD Lymphocytes (Bld) [#/Vol] 2.82 10*3/uL Normal 1.10-3.70 [facility] Comment on above: Performed By: #### P PPVP #### [address] [address] Glazing Department Supervisor: Tc Atkins MD Lymphocytes/100 WBC (Bld) 45 % High 24-43 [facility] Comment on above: Performed By: #### P PPVP #### [address] [address] Glazing Department Supervisor: Tc Atkins MD MCH (RBC) [Entitic mass] 32.8 pg Normal 25.2-33.5 [facility] Comment on above: Performed By: #### P PPVP #### [address] [address] Glazing Department Supervisor: Tc Atkins MD MCHC (RBC) [Mass/Vol] 33.3 g/dL Normal 28.4-34.8 [facility] Comment on above: Performed By: #### P PPVP #### [address] [address] Glazing Department Supervisor: cT Atkins MD MCV (RBC) [Entitic vol] 98.7 fL Normal 82.6-102.9 [facility] Comment on above: Performed By: #### P PPVP #### [address] [address] Glazing Department Supervisor: Tc Atkins MD Monocytes (Bld) [#/Vol] 0.71 10*3/uL Normal 0.10-1.20 [facility] Comment on above: Performed By: #### P PPVP #### [address] [address] Glazing Department Supervisor: Tc Atkins MD Monocytes/100 WBC (Bld) 12 % Normal 3-12 [facility] Comment on above: Performed By: #### P PPVP #### [address] [address] Glazing Department Supervisor: Tc Atkins MD Neutrophil (Seg) 30 % Low 36-65 [facility] Comment on above: Performed By: #### P PPVP #### [address] [address] Glazing Department Supervisor: Tc Atkins MD NRBC Automated 0.0 per 100 WBC Normal 0.0 [facility] Comment on above: Performed By: #### P PPVP #### [address] [address] Glazing Department Supervisor: Tc Atkins MD Platelet mean volume (Bld) [Entitic vol] 10.9 fL Normal 8.1-13.5 [facility] Comment on above: Performed By: #### P PPVP #### [address] [address] Glazing Department Supervisor: Tc Atkins MD Platelets (Bld) [#/Vol] 344 10*3/uL Normal 138-453 [facility] Comment on above: Performed By: #### P PPVP #### [address] [address] Glazing Department Supervisor: Tc Atkins MD RBC (Bld) [#/Vol] 4.72 10*6/uL Normal 3.95-5.11 [facility] Comment on above: Performed By: #### P PPVP #### [address] [address] Glazing Department Supervisor: Tc Atkins MD WBC (Bld) [#/Vol] 6.1 10*3/uL Normal 3.5-11.3 [facility] Comment on above: Performed By: #### P PPVP #### [address] [address] Glazing Department Supervisor: Tc Atkins MD Comp Metabolic Profon 2021 Albumin [Mass/Vol] 4.4 g/dL Normal 3.5-5.2 [facility] Comment on above: Performed By: #### P PPVP #### [address] [address] Glazing Department Supervisor: Tc Atkins MD Albumin/Glob Ratio 1.6 Normal 1.0-2.5 [facility] Comment on above: Performed By: #### P PPVP #### [facility] [employer] [address] [place] [address] Glazing Department Supervisor: Tc Atkins MD Alkaline Phos 64 U/L Normal 35-104 [facility] Comment on above: Performed By: #### P PPVP #### [facility] [address] [place] [address] Glazing Department Supervisor: Tc Atkins MD ALT [Catalytic activity/Vol] 11 U/L Normal 5-33 [facility] Comment on above: Performed By: #### P PPVP #### [facility] [address] [place] [address] Glazing Department Supervisor: Tc Atkins MD Anion gap [Moles/Vol] 12 mmol/L Normal 9-17 [facility] Comment on above: Performed By: #### P PPVP #### [address] [address] Glazing Department Supervisor: Tc Atkins MD AST [Catalytic activity/Vol] 19 U/L Normal <32 [facility] Comment on above: Performed By: #### P PPVP #### [facility] [address] [place] [address] Glazing Department Supervisor: Tc Atkins MD Bilirubin [Mass/Vol] 0.5 mg/dL Normal 0.3-1.2 [facility] Comment on above: Performed By: #### P PPVP #### [address] [address] Glazing Department Supervisor: Tc Atkins MD BUN/CRE Ratio 17 Normal 9-20 [facility] Comment on above: Performed By: #### P PPVP #### [facility] [address] [place] [address] Glazing Department Supervisor: Tc Atkins MD Calcium [Mass/Vol] 9.7 mg/dL Normal 8.6-10.4 [facility] Comment on above: Performed By: #### P PPVP #### [address] [address] Glazing Department Supervisor: Tc Atkins MD Chloride [Moles/Vol] 103 mmol/L Normal 98-107 [facility] Comment on above: Performed By: #### P PPVP #### [address] [place] [address] Glazing Department Supervisor: Tc Atkins MD CO2 [Moles/Vol] 21 mmol/L Normal 20-31 [facility] Comment on above: Performed By: #### P PPVP #### [address] [address] Glazing Department Supervisor: Tc Atkins MD Creatinine [Mass/Vol] 0.58 mg/dL Normal 0.50-0.90 [facility] Comment on above: Performed By: #### P PPVP #### [address] [address] Glazing Department Supervisor: Tc Atkins MD GFR/1.73 sq M.predicted among non-blacks MDRD (S/P/Bld) [Vol rate/Area] mL/min/{1.73_m2} Normal >60 [facility] Comment on above: Result Comment: Effective Jun 02, 2022 These results are not intended for use in patients <18 years of age. eGFR results are calculated without a race factor using the 2020 CKD-EPI equation. Careful clinical correlation is recommended, particularly when comparing to results calculated using previous equations. The CKD-EPI equation is less accurate in patients with extremes of muscle mass, extra-renal metabolism of creatine, excessive creatine ingestion, or following therapy that affects renal tubular secretion. Performed By: #### P PPVP #### [address] [place] [address] Glazing Department Supervisor: Tc Atkins MD Glucose [Mass/Vol] 85 mg/dL Normal 70-99 [facility] Comment on above: Performed By: #### P PPVP #### [address] [place] [address] Glazing Department Supervisor: Tc Atkins MD Potassium [Moles/Vol] 3.7 mmol/L Normal 3.7-5.3 [facility] Comment on above: Performed By: #### P PPVP #### [address] [address] Glazing Department Supervisor: Tc Atkins MD Protein [Mass/Vol] 7.1 g/dL Normal 6.4-8.3 [facility] Comment on above: Performed By: #### P PPVP #### [address] [address] Glazing Department Supervisor: Tc Atkins MD Sodium [Moles/Vol] 136 mmol/L Normal 135-144 [facility] Comment on above: Performed By: #### P PPVP #### [address] [address] Glazing Department Supervisor: Tc Atkins MD Urea nitrogen [Mass/Vol] 10 mg/dL Normal 6-20 [facility] Comment on above: Performed By: #### P PPVP #### [address] [address] Glazing Department Supervisor: Tc Atkins MD Miscellaneouson 06-20-2022 Test Name T3 UPTAKE Normal [facility] Comment on above: Performed By: #### P PPVP #### [address] [address] Glazing Department Supervisor: Tc Atkins MD Thyroid Stim. Horm.on 2021 Thyroid Stim. Horm. 2.05 uIU/mL Normal 0.30-5.00 [facility] Comment on above: Performed By: #### P PPVP #### [address] [address] Glazing Department Supervisor: Tc Atkins MD XR KNEE RIGHT (3 VIEWS)on Radiology Study observation (narrative) [facility] Work Phone: Urinalysis with Microscopico n 11-03-2019 Amorphous, UA NOT REPORTED None [facility] [place], [place] Bacteria, UA TRACE Abnormal None [place], [place] Bilirubin Urine Negative NEGATIVE [facility], [place] Casts UA NOT REPORTED /LPF [facility], [place] Color, UA YELLOW YELLOW [place], [place] Crystals, UA NOT REPORTED None /HPF [facility], [place] Epithelial Cells UA 0 TO 2 [place], [place] Glucose, Ur Negative NEGATIVE [place] Interpretation and review of laboratory results Abnormal [place], [place] Ketones Ql (U) Negative NEGATIVE [place], [place] Leukocyte esterase Test strip Ql (U) Negative NEGATIVE [place] Mucus, UA NOT REPORTED None [place], [place] Nitrite, Urine Negative NEGATIVE [place], [place] Other Observations UA NOT REPORTED NOT REQ. M [place], [place] pH, UA 7.5 [place], [place] Protein (U) [Mass/Vol] Negative NEGATIVE [place] RBC (U) [#/Vol] None [facility], [place] Renal Epithelial, UA NOT REPORTED 0 /HPF Me [place], [place] Specific [place], UA 1.010 [place], [place] Trichomonas, UA NOT REPORTED None [facility] [place] Turbidity UA CLEAR CLEAR [place], [place] Urinalysis Comments NOT REPORTED [place], [place] Urine Hgb Negative NEGATIVE [place], [place] Urobilinogen, Urine Normal Normal [place], [place] WBC, UA 0 TO 2 [place] Yeast, UA NOT REPORTED None [place], [place] Encounters Encounter Date Encounter Type Care Provider Facility Start: 12-11-2022 End: 12-12-2022 [facility]ulatory [facility] [place] [facility] Start: 12-11-2022 End: 12-11-2022 Subsequent hospital visit by physician Gina Tierney MD Work Phone: [facility] Laboratory Comment on above: Irregular menses Start: 12-03-2022 End: 12-04-2022 ambulatory [facility] [place] [facility] Start: 09-22-2022 End: 09-22-[address] GINA TIERNEY Facility:[facility] Start: 09-12-2022 End: 09-12-[address] GINA TIERNEY Facility:[facility] Start: 08-18-2022 End: 08-21-2022 ambulatory [facility] [place] [facility] Start: 08-18-2022 End: 08-20-2022 Subsequent hospital visit by physician Pino Dahl Radiologist [facility] Ultrasound Comment on above: Abnormal screening m ammogram Start: 08-06-2022 End: 08-09-2022 ambulatory [facility] [place] [facility] Start: 08-06-2022 Encounter for genera l adult medical examination without abnormal findings [facility] Start: 08-06-2022 End: 08-08-2022 Patient encounter status [facility] Mammography Start: 08-06-2022 End: 08-08-2022 Subsequent hospital visit by physician Pino Mammography [facility] Mammography Comment on above: Well adult exam Start: 07-01-2022 End: 07-02-2022 ambulatory [facility] Start: 07-01-2022 End: 07-02-2022 Encounter for general adult medical examination without abnormal findings [facility] Start: 07-01-2022 End: 07-01-2022 Subsequent hospital visit by physician Gina Tierney MD Work Phone: [facility] Laboratory Start: 06-20-2022 End: 06-23-2022 [facility]ulatory [facility] Start: 06-20-2022 End: 06-22-2022 Subsequent hospital visit by physician Pino Yen Dr Room 2 [facility] Radiology Comment on above: Right knee pain, uns pecified chronicity Start: 03-19-2021 End: 03-19-2021 Subsequent hospital visit by physician Js Covid Screening Schedule [facility] Covid Screening Comment on above: Arrived Start: 11-03-2019 End: 11-03-2019 Subsequent hospital visit by physician Gina PRATHER Laboratory Comment on above: Urinary stream split ting Start: 09-20-2019 End: 09-20-2019 Subsequent hospital visit by physician Gina Tierney MD Work Phone: [facility] Laboratory Comment on above: Encounter for annual routine gynecological examination Procedures Date Procedure Procedure Detail Performing Clinician Start: 12-11-2022 Gonadotropin follicl e stimulating hormone Myah Brush [employer] Work Phone: Start: 12-03-2022 Microscopic observat ion [Identifier] in Cervix by Cyto stain Gina Tierney MD Work Phone: Start: 08-18-2022 Us breast uni real t willie with image limited Gina Tierney MD Work Phone: Start: 08-18-2022 Diagnostic mammograp hy computer-aided detcj bi Gina Tierney MD Work Phone: Start: 08-06-2022 Screening mammograph y bi 2-view breast inc cad Gina Tierney MD Work Phone: Start: 07-01-2022 Blood occult peroxid ase actv qual other sources Gina Tierney MD Work Phone: Start: 06-20-2022 Radiologic examinati on knee 3 views Gina Tierney MD Work Phone: Start: 11-03-2019 Urnls dip stick/tabl et reagent auto microscopy Maribel Hmamonds Work Phone: Start: 09-20-2019 Microscopic observat ion [Identifier] in Cervix by Cyto stain Gina Tierney MD Work Phone: Plan of Treatment Date Care Activity Detail Author Start: 06-20-2027 Lipid panel Lipids [facility] [employer] Start: 12-03-2025 [facility] malign [facility] Start: 09-20-2024 Cervical cancer screen Cervical canc er screen [place], [place] Start: 09-20-2024 [facility]ening for malign ant [facility] Start: 2024 Shingles Vaccine (1 of 2) Shingles Vaccine (1 of 2) [place], [place] Start: 12-10-2023 End: 12-10-2023 Patient encounter procedure 12/10/2023 Office Visit Obstetrics and Gynecology Myah Brush, MASTER POLICE DETECTIVE - CNWilly [address] [place] [address] [facility] OBSTETRICS & GYNECOLOGY [facility] of [facility] Start: 07-27-2023 Cervical cancer screen Cervical canc er screen [facility] Phone: Start: 07-01-2023 Screening for malign ant neoplasm of colon [facility] Start: 03-31-2023 Influenza vaccination Flu vacc ine (Season Ended) [facility] Start: 09-20-2022 Screening for malign ant neoplasm of cervix Pap smear [facility] Start: 08-18-2022 End: 08-18-2022 Patient encounter procedure 08/18/2022 Appointment Radiology Radiologist, [facility] Start: 08-06-2022 End: 08-06-2022 Patient encounter procedure 08/06/2022 Appointment Radiology [facility] Start: 03-31-2022 Influenza vaccination Flu vaccine (# 1) [facility] Start: 09-15-2021 COVID-19 Vaccine (3 - Booster for Pfizer series) COVID-19 Vaccine (3 - Booster for Pfizer series) [facility] Start: 05-31-2021 Diabetes screen Diabetes screen [facility] [employer] Phone: Start: 05-01-2021 Influenza vaccination Flu vaccine (# 1) [facility] Phone: Start: 09-20-2020 Influenza vaccination Flu vaccine (# 1) [facility] Phone: Comment on above: Postponed from 05/01 (Patient Refused) Start: 09-20-2020 Lipid screen Lipid screen [facility] Work Phone: Comment on above: Postponed from 07/05 (Not Indicated) Start: 09-20-2020 Pneumococcal 0-64 ye ars Vaccine (1 of 1 - PPSV23) Pneumococcal 0-64 years Vaccine (1 of 1 - PPSV23) [facility] Phone: Comment on above: Postponed from 07/05 (Unavailable) Start: 11-03-2019 DTaP/Tdap/Td vaccine (1 - Tdap) DTaP/Tdap/Td vaccine (1 - Tdap) [facility] [place] [place] Comment on above: Postponed from 07/05 (Not Indicated) Start: 10-13-2019 End: 10-13-2019 Patient encounter procedure 10/13/2019 Office Visit Obstetrics and Gynecology Myah Brush, MASTER POLICE DETECTIVE - CNM [address] [place] [address] [facility] OBSTETRICS & GYNECOLOGY Start: 10-13-2019 End: 10-13-2019 Professional / ancillary services management 10/13/2019 Ancillary Procedure Obstetrics and Gynecology [facility]STETR[facility] & [facility]YNECOLOGY Start: 10-11-2019 DTaP/Tdap/Td vaccine (1 - Tdap) DTaP/Tdap/Td vaccine (1 - Tdap) [facility] Phone: Comment on above: Postponed from 07/05 (Not Indicated) Start: 2019 Screening for malign ant neoplasm of colon [facility] Start: 2014 Lipid panel Lipid screen [facility] Phone: Start: 1993 DTaP/Tdap/Td vaccine (1 - Tdap) DTaP/Tdap/Td vaccine (1 - Tdap) [facility] Start: 1992 Hepatitis C screening Hepatitis C sc reen [facility] Start: 1986 COVID-19 Vaccine (1) COVID-19 Vaccin e (1) [facility] Phone: Start: 1986 Depression Screen Depression Screen [facility] Start: 1980 Pneumococcal 0-64 ye ars Vaccine (1 - PCV) Pneumococcal 0-64 years Vaccine (1 - PCV) [facility] Start: 1980 Pneumococcal 0-64 ye ars Vaccine (1 of 2 - PPSV23) Pneumococcal 0-64 years Vaccine (1 of 2 - PPSV23) [facility] Phone: Start: 1974 Hepatitis C screening Hepatitis C sc reen [employer] Phone: End: 11-03-2019 Bacteria identified Cx Nom (U) Urine Culture Microbiology Routine Urinary stream splitting 1 Occurrences starting 11/03/2019 until 11/03/2019 [employer] Comment on above: 1 Occurrences starti ng 11/03/2019 until 11/03/2019 Bacteria identified Cx Nom (U) Urine Culture Microbiology Routine Urinary stream splitting 11/03/2019 11:16 AM EST [employer] [place], [place] End: 03-19-2021 COVID-19 COVID-19 Lab Routine Once for 1 Occurrences starting 03/19/2021 until 03/19/2021 [employer] Phone: Comment on above: Once for 1 Occurrenc es starting 03/19/2021 until 03/19/2021 COVID-19 COVID-19 Lab Rou yamel 03/19/2021 3:31 PM EDT [employer] Phone: End: 09-20-2019 Cytopathology procedure, preparation of smear, genital source PAP SMEAR Lab Routine Encounter for annual routine gynecological examination 1 Occurrences starting 09/20/2019 until 09/20/2019 [employer] Phone: Comment on above: 1 Occurrences starti ng 09/20/2019 until 09/20/2019 End: 08-18-2022 US BREAST COMPLETE RIGHT US BREAST COMPLETE RIGHT Imaging Routine Abnormal screening mammogram 1 Occurrences starting 08/18/2022 until 08/18/2022 [facility] [employer] Phone: Comment on above: 1 Occurrences starti ng 08/18/2022 until 08/18/2022 Payers Date Payer Category Payer Unknown [employer] xxxxxxxxx 2016-Present [phone] [address] [place] [address] xxxxxxxxx [id number] 2016 Unknown [id number] 1974 Unknown [id number] 3 1974 Unknown [id number] 3 1974 Unknown [id number] 3 1974 Unknown [id number] 3 1974 Unknown [id number] 3 1974 Unknown [id number] 3 1974 Unknown [id number] 3 1974 Unknown [id number] 3 1974 Unknown [id number] 3 1974 Unknown [id number] 3 1974 Unknown [id number] 3 1959 Unknown [id number] Social History Date Type Detail Facility Start: 11-03-2019 End: 08-06-2022 Tobacco smoking status [facility] Current every day smoker [employer] Phone: Start: 11-03-2019 End: 12-11-2022 Alcohol intake Current drinker of alcohol (finding) [employer] Phone: Start: 07-27-2018 Alcohol Comment Social [facility] Work Phone: Start: 1975 Sex Assigned At Not on file [employer] Phone: Start: 02-22-2020 End: 08-06-2022 Tobacco use and exposure Never used [employer] Start: 08-08-2022 End: 08-18-2022 Exposure to SARS-CoV-2 (event) Not sure [facility] Start: 1975 Sex Assigned At Female [facility] Evaluation note Note Date & Type Note Facility Evaluation note Diagnosis Encounter for annual routine gynecological examination [facility] Evaluation note Note Date & Type Note Facility Evaluation note Diagnosis Right knee pain, unspecified chronicity documented in this encounter [facility] [employer] Phone: Evaluation note Note Date & Type Note Facility Evaluation note Diagnosis Well adult exam Routine general medical examination at a health care facility documented in this encounter [facility] [employer] Phone: Evaluation note Note Date & Type Note Facility Evaluation note Diagnosis Abnormal screening mammogram documented in this encounter [facility] [employer] Phone: Evaluation note Note Date & Type Note Facility Evaluation note Diagnosis Abnormal screening mammogram documented in this encounter [facility] [employer] Phone: Evaluation note Note Date & Type Note Facility Evaluation note Diagnosis Irregular menses Irregular menstrual cycle documented in this encounter [facility] [employer] Phone: Assessments Diagnosis Urinary stream splitting Splitting of urinary stream Advance Directives No Advanced Directives Records FoundDocuments on File Type Date 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 Advance Directives and Living Will Power of Cook Relief Documents on File Type Date 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 ACP-Advance Directive ACP-Power of Cook Relief Reason for Referral Specialty Diagnoses / Procedures Referred By Samantha hampton Referred To Contact Radiology Diagnoses Abnormal screening mammogram Procedures US BREAST COMPLETE RIGHT Gina Tierney MD [address] [place] [address] Referral ID Status Reason Start Date Expiration Date Visits Re quested Visits Authorized [id number] Open 08/07/2022 08/07/2023 1 1 Specialty Diagnoses / Procedures Referred By Contac t Referred To Contact Radiology Diagnoses Abnormal screening mammogram Procedures JORDAN ARIELLE DIGITAL DIAGNOSTIC BILATERAL Gina Tierney MD [address] [place] [phone] Phone: Referral ID Status Reason Start Date Expiration Date Visits Re quested Visits Authorized [id number] Closed 08/07/2022 08/07/2023 1 1 Summary Purpose Family History No Family History Records FoundNo Family History Records FoundNo Family History Records Found Additional Source Comments Care Teams (unrecognized sec tion and content) End Maker Relationship Specialty Start Date End Date Gina Tierney MD [address] [phone] PCP - General 04/02/15 End Maker Relationship Specialty Start Date End Date Gina Tierney MD [address] [phone] PCP - General 04/02/15 End Maker Relationship Specialty Start Date End Date Gina Tierney MD [address] [place] [phone] PCP - General 04/02/15 End Maker Relationship Specialty Start Date End Date Gina Tierney MD [address] [phone] PCP - General 04/02/15 End Maker Relationship Specialty Start Date End Date Gina Tierney MD [address] [phone] PCP - General 04/02/15 Reason for Visit (unrecogniz ed section and content) Specialty Diagnoses / Procedures Referred By Samantha hampton Referred To Contact Radiology Diagnoses Well adult exam Procedures JORDAN ARIELLE DIGITAL SCREEN SELF REFERRAL W OR WO CAD BILATERAL JORDAN DIGITAL SCREEN W OR WO CAD BILATERAL Gina Tierney MD [address] [place] [address] Phone: Referral ID Status Reason Start Date Expiration Date Visits Re quested Visits Authorized [id number] Closed 06/17/2022 06/17/2023 1 1 Specialty Diagnoses / Procedures Referred By Contac t Referred To Contact Radiology Diagnoses Abnormal screening mammogram Procedures US BREAST LIMITED LEFT US BREAST COMPLETE LEFT Gina Tierney MD [address] [place] [address] Referral ID Status Reason Start Date Expiration Date Visits Re quested Visits Authorized [id number] Open 08/07/2022 08/07/2023 1 1 Specialty Diagnoses / Procedures Referred By Contac t Referred To Contact Radiology Diagnoses Abnormal screening mammogram Procedures JORDAN ARIELLE DIGITAL DIAGNOSTIC BILATERAL Gina Tierney MD [address] [place] [address] Referral ID Status Reason Start Date Expiration Date Visits Re quested Visits Authorized [id number] Closed 08/07/2022 08/07/2023 1 1 INFORMATION SOURCE (unrecogn ized section and content) DATE CREATED AUTHOR 09/25/2022 [facility] DATE CREATED AUTHOR AUTHOR'S ORGANIZ ATION 12/12/2022 [facility] DATE CREATED AUTHOR AUTHOR'S ORGANIZ ATION 2023 [facility] FOR RECORDS PERTAINING TO PATIENTS WHO ARE OR HAVE BEEN ENROLLED IN A CHEMICAL DEPENDENCY/SUBSTANCEABUSE PROGRAM, SOME INFORMATION MAY BE OMITTED. This clinical summary was aggregated from multiple sources. Caution should be exercised in using it in the provision of clinical care. This summary normalizes information from multiple sources, and as a consequence, information in this document may materially change the coding, format and clinical context of patient data. In addition, data may be omitted in some cases. CLINICAL DECISIONS SHOULD BE BASED ON THE PRIMARY CLINICAL RECORDS. [facility]. provides no warranty or guarantee of the accuracy or completeness of information in this document.
== END 2023-08-27 14:21 | disposition home or self-care (01) ==
LOC: VC 14:20
PROVIDERS: PCP Radiology Diagnostic Radiology; Visit Provider Radiology Diagnostic Radiology
DX: I80.02 Phlebitis and thrombophlebitis of superficial vessels of left lower extremity (principal)
CPT/HCPCS: 93971; G0463

== ENCOUNTER 2023-09-28 07:05 | Outpatient (RCR) | payer OTHER, SELFPAY | END 2023-10-21 16:47 | disposition home or self-care (01) | LOC: PT 07:05 | PROVIDERS: PCP Radiology Diagnostic Radiology; Visit Provider Family Medicine | DX: M75.100 Unspecified rotator cuff tear or rupture of unspecified shoulder, not specified as traumatic (principal); M25.511 Pain in right shoulder | CPT/HCPCS: 97110; 97161 ==

== ENCOUNTER 2023-11-16 16:39 | Outpatient (OUT) | payer OTHER, SELFPAY ==
--- OUTSIDE RECORDS SUMMARY | 2023-11-16 16:58 | XMS_ITS | CCD ---
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 Role Phone Gina Tierney Primary Care Provider [phone] DR GINA TIERNEY Admitting Unavailable YESICA, DR FUENTES Primary Care Unavailable YESICA, DR FUENTES Consulting Unavailable YESICA, DR FUENTES Attending Unavailable SHANNONY, DR FUENTES Primary Care Unavailable HOSamuel, DR FUENTES Consulting Unavailable YESICA, DR FUENTES Attending Unavailable SHANNONY, DR FUENTES Admitting Unavailable Zieber, DR Vásquez Consulting Unavailable Gina Tierney MD Primary Care Provider GINA TIERNEY Primary Care Unavailable HOY, GINA M Referring Unavailable HOY, GINA M Primary Care Unavailable SELF REFERRAL, MAMMOGRAPHY Referring Unava ilable RADIOLOGIST, [facility] Attending Unavailable HOY, GINA M Referring Unavailable HOY, GINA M Primary Care Unavailable RADIOLOGIST, [facility] Attending Unavailable HOY, GINA M Referring Unavailable [...] Drug Class(es) Dates Sig (Normalized) Sig (Original) [id number] 200 actuat albuterol 0.09 mg/actuat metered dose [...] Letter July 03, 2023 JOHN MONTA[address]O [address] [place] [address] : 1975 Dear Cory Deena, We have [...] your prompt attention to this matter. Sincerely, [facility] General Surgery [phone] Normal [facility] Physician Referralon 023 Physician Referral [phone] [id number] Normal [facility] Estradiolon 12-12-2022 Estradiol 134.9 pg/mL Normal 27-314 [facility] Comment on above: Result Comment: FEMALES: Normally menstruating Luteal phase 33-298 Follicular phase 27-156 Midcycle phase 48-314 Postmenopausal (untreated) 5-50 Fulvestrant treatment will show an increased estradiol concentration with this methodology. Alternate methodologies are available upon request. Performed By: #### L H, FSH, E2 #### [employer] [address] [place], [place] [id number] Computer Field Technician: Tc Atkins MD Follicle Stim. Hormon 2022 Follicle Stim. Horm 9.4 mIU/mL Normal 1.7-21.5 [facility] Comment on above: Result Comment: Refe rence Range: Male: 1.5-12.4 Ovulating Female: Follicular Phase 3.5-12.5 Ovulation Phase 4.7-21.5 Luteal Phase 1.7-7.7 Postmenopausal Female: 25.8-134.8 Performed By: #### L H, FSH, E2 #### [employer] [address] [place], [place] [id number] Computer Field Technician: Tc Atkins MD Luteinizing Hormoneon 2022 Luteinizing Hormone 8.4 mIU/mL Normal 1.0-95.6 [facility] Comment on above: Result Comment: Refe rence Range: Male: 1.7-8.6 Ovulating Female: Follicular Phase 2.4-12.6 Ovulation Phase 14.0-95.6 Luteal Phase 1.0-11.4 Postmenopausal Female: 7.7-58.5 Performed By: #### P PPVP #### [employer] [address] [place], [place] [id number] Computer Field Technician: Tc Atkins MD Estradiolon 12-11-2022 Estradiol 134.9 pg/mL 27 - 314 pg/mL [facility] Comment on above: FEMALES: Normally menstruating Luteal phase 33-298 Follicular phase 27-156 Midcycle phase 48-314 Postmenopausal (untreated) 5-50 Fulvestrant treatment will show an increased estradiol concentration with this methodology. Alternate methodologies are available upon request. Follicle Stimulating Hormone on 12-11-2022 FSH 9.4 [facility] Comment on above: Reference Range: Male: 1.5-12.4 Ovulating Female: Follicular Phase 3.5-12.5 Ovulation Phase 4.7-21.5 Luteal Phase 1.7-7.7 Postmenopausal Female: 25.8-134.8 Luteinizing Hormoneon 2022 LH 8.4 [facility] Comment on above: Reference Range: Male: 1.7-8.6 Ovulating Female: Follicular Phase 2.4-12.6 Ovulation Phase 14.0-95.6 Luteal Phase 1.0-11.4 Postmenopausal Female: 7.7-58.5 No Panel Informationon 12-11 [facility] Cult,Genitalon 12-06-2022 Cult,Genital Specimen Description .VAGINA Culture NORMAL URO-GENITAL MERCEDES NEGATIVE FOR NEISSERIA GONORRHOEAE NEGATIVE FOR GROUP B STREPTOCOCCI Report Status FINAL 12/06/2022 Normal [facility] Comment on above: Performed By: #### F T4 #### [address] [address] Computer Field Technician: Tc Atkins MD #### TSH #### [facility] [address] [place] [address] Computer Field Technician: Erick Renae MD Chlamydia/GC DNA, TPon 12-04 Chlamydia Probe, TP Negative Normal NEG [facility] Comment on above: Result Comment: CHLA MYDIA [...] target. Performed By: #### P PPVP #### [address] [address] Computer Field Technician: Tc Atkins MD Gonorrhea Probe, TP Negative Normal NEG [facility] Comment on above: Result Comment: NEIS SERIA [...] target. Performed By: #### P PPVP #### [address] [address] Computer Field Technician: Tc Atkins MD Cytologyon 12-03-2022 Cytology (NOTE) INTERPRETATION Cervical material, (ThinPrep vial, Imaging-assisted review): Specimen Adequacy: Satisfactory for evaluation. - Endocervical/transform ation zone component present. Descriptive Diagnosis: Negative for intraepithelial lesion or malignancy. Enamel Applier: KATLYN MENJIVAR(ASCP) Electronically Signed Out katlyn/12/10/2022 Source: A: Cervical material, (ThinPrep vial, Imaging-assisted review) Clinical History Z12.4 Encounter for screening for malignant neoplasm of cervix High Risk HPV DNA testing is requested if the diagnosis is ASC-US LMP: 11/06/2022 GYNECOLOGIC CYTOLOGY REPORT Patient Name: JOHN MONTAÑO [facility] Rec: [id number] Path Number: [id number] [facility] PATHOLOGISTS [facility] ANATOMIC PATHOLOGY [address] [place] [id number] Normal [facility] Comment on above: Performed By: #### P PPVP #### [address] [id number] Computer Field Technician: Tc Atkins MD Thyroid Stim. Horm.on 2022 Thyroid Stim. Horm. 1.52 uIU/mL Normal 0.30-5.00 [facility] Comment on above: Performed By: #### F T4 #### [address] [id number] Computer Field Technician: Tc Atkins MD #### TSH #### [facility] [address] [place] [address] [place] [address] Computer Field Technician: Erick Renae MD Thyroxine, Freeon 12-03-2022 Thyroxine, Free 1.50 ng/dL Normal 0.93-1.70 [facility] Comment on above: Performed By: #### F T4 #### [address] [id number] Computer Field Technician: Tc tAkins MD #### TSH #### [facility] [address] [place] [address] Computer Field Technician: Erick Renae MD MAMMO POST BIOPSY RIGHTon MAMMO POST BIOPSY RIGHT Patient: JOHN MONTAÑO Exam Date: 09/22/2022 : 1975 Gender:F Ordering : DR GINA TIERNEY . Admission #: [id number] Family : Order #: [id number] CLICK HERE TO VIEW EXAM This report [...] M.D. on 09/25/2022 at 10:36 Approved by: aFhad Barrett M.D. on 09/25/2022 at 10:37 Normal [facility] MG STEREO CORE NDL W CLIP RT on 09-22-2022 MG STEREO CORE NDL W CLIP RT Patient: JOHN MONTAÑO Exam Date: 09/22/2022 : 1975 Gender:F Ordering : DR GINA TIERNEY . Admission #: [id number] Family : Order #: [id number] CLICK HERE TO VIEW EXAM This report [...] on 09/22/2022 at 10:13 Approved by: Fahad Barrett M.D. on 09/22/2022 at 10:15 ADDENDUM: Final pathologic diagnosis: Negative for malignancy. Fibrocystic changes, usual ductal hyperplasia, and Kavita current metaplasia with associated microcalcifications. This report was transmitted to the referring physician's office on September 25, 2022, and the office called to confirm receipt. Dictated by: Fahad Barrett M.D. on 09/25/2022 at 10:35 Approved by: Fahad Barrett M.D. on 09/25/2022 at 10:36 Normal [facility] ARIELLE DIGITAL DIAGNOSTIC BILATERALon 08-18-2022 [facility] ARIELLE DIGITAL DIAGNOSTIC BILATERAL EXAMINATION: DIAGNOSTIC DIGITAL [...] patient at the time of service. A commissary representative from the radiology department will be [...] Angie Moore MD 08/18/22 Final result Normal [facility] Radiology Study observation (narrative) [facility] [employer] Phone: No Panel InformationOrdered By: Angie Moore on 08-18-2022 Interpretation and review of laboratory results Abnormal [facility] Phone: [facility]: No Panel Informationon 08-18 Right breast: [...] patient at the time of service. A commissary representative from the radiology department will be contacting your office and assisting the patient in getting appropriate follow-up. LEFT BREAST: BIRADS - CATEGORY 3 Findings are probably benign. A short interval follow-up left breast mammogram is recommended in 6 months. OVERALL ASSESSMENT - PROBABLY BENIGN. A letter of notification will be sent to the patient regarding the results. [facility]IS CONSOLIDATED EXAMINATION: DIAGNOSTIC DIGITAL BILATERAL BREASTS [...] patient at the time of service. A commissary representative from the radiology department will be [...] Angie Moore MD 08/18/22 Final result Normal [facility] Radiology Study observation (narrative) [facility] [employer] Work Phone: [facility] ARIELLE DIGITAL SCREEN SELF REFERRAL W OR WO CAD BILATERALon 08-06-2022 [facility] ARIELLE DIGITAL SCREEN SELF REFERRAL W OR [...] Ara Turner MD 08/06/22 Final result Normal [facility] 1. New cluster calcifications in the superolateral right breast. Recommend diagnostic mammogram spot magnification views for further evaluation. 2. Two focal asymmetries in the medial and lateral left breast. Recommend diagnostic mammogram spot tomosynthesis views and possible ultrasound for further evaluation. BI-RADS 0 BIRADS: BIRADS - CATEGORY 0 Incomplete: Needs Additional Imaging Evaluation OVERALL ASSESSMENT - INCOMPLETE:NEED ADDITIONAL IMAGING EVALUATION. [facility] CONSOLIDATED EXAMINATION: SCREENING DIGITAL BILATERAL MAMMOGRAM WITH [...] in the medial left breast, posterior depth. [facility] Radiology Study observation (narrative) [facility] [employer] Work Phone: [facility] ARIELLE DIGITAL SCREEN SELF REFERRAL W OR WO CAD BILATERALOrdered By: Ara Turner on 08-06-2022 [facility] [employer] Phone: Occ Bld, Fecal Scrnon 2021 Occult Blood 1 Negative Normal NEG [facility] Comment on above: Performed By: #### O BS #### [facility] [address] [place] [address] Computer Field Technician: Erick Renae MD Specimen 1 Date [id number] [facility] Comment on above: Performed By: #### O BS #### [facility] [address] [place] [address] Computer Field Technician: Erick Renae MD Specimen 1 Time 0730 [facility] Comment on above: Performed By: #### O BS #### [facility] [address] [place], [place] [id number] Computer Field Technician: Erick Renae MD Occult Blood Screenon 2021 Date, Stool #1 [id number] [facility] Hemoglobin.gastrointe stinal spec 1 Ql (Stl) Negative NEGATIVE [facility] Time, Stool #1 [id number] [facility] Miscellaneouson 06-23-2022 Send Out Report (NOTE) [facility] Comment on above: Result Comment: T3 U ptake T3 Uptake 34 % (Ref Interval: 28-41) INTERPRETIVE INFORMATION: T3 Uptake Thyroxine, Free (Free T4) ([id number]) is the preferred test alternative for the T3 uptake and Free Thyroxine Index tests. [facility] Performed By: #### P PPVP #### [address] [place] [address] Computer Field Technician: Tc Atkins MD Hemoglobin A1Con 06-21-2022 Glucose [Mass/Vol] 108 mg/dL [facility] Comment on above: Result Comment: The ADA and AACC recommend providing the estimated average glucose result to permit better patient understanding of their HBA1c result. Performed By: #### P PPVP #### [facility] [address] [place] [address] Computer Field Technician: Tc Atkins MD HbA1c (Bld) [Mass fraction] 5.4 % Normal 4.0-6.0 [facility] Comment on above: Performed By: #### P PPVP #### [facility] [address] [place] [address] Computer Field Technician: Tc Atkins MD Ironon 06-21-2022 Iron [Mass/Vol] 118 ug/dL Normal 37-145 [facility] Comment on above: Performed By: #### P PPVP #### [address] [address] Computer Field Technician: Tc Atkins MD Lipid Profileon 06-21-2022 Cholesterol [Mass/Vol] 188 mg/dL Normal <200 [facility] Comment on above: Result Comment: Cholesterol Guidelines: <200 Desirable 200-240 Borderline >240 Undesirable Performed By: #### P PPVP #### [address] [address] Computer Field Technician: Tc Atkins MD Cholesterol in HDL [Mass/Vol] 83 mg/dL Normal >40 [facility] Comment on above: Result Comment: HDL Guidelines: <40 Undesirable 40-59 Borderline >59 Desirable Performed By: #### P PPVP #### [address] [address] Computer Field Technician: Tc Atkins MD Cholesterol in LDL [Mass/Vol] 95 mg/dL Normal 0-130 [facility] Comment on above: Result Comment: LDL Guidelines: <100 Desirable 100-129 Near to/above Desirable 130-159 Borderline >159 Undesirable Direct (measured) LDL and calculated LDL are not interchangeable tests. Performed By: #### P PPVP #### [address] [address] Computer Field Technician: Tc Atkins MD Cholesterol.total/Cho lesterol in HDL [Mass ratio] 2.3 {ratio} Normal <5 [facility] Comment on above: Performed By: #### P PPVP #### [address] [address] Computer Field Technician: Tc Atkins MD Triglyceride [Mass/Vol] 50 mg/dL Normal <150 [facility] Comment on above: Result Comment: Triglyceride Guidelines: <150 Desirable 150-199 Borderline 200-499 High >499 Very high Based on AHA Guidelines for fasting triglyceride, May 2012. Performed By: #### P PPVP #### [address] [place], [place] [address] Computer Field Technician: Tc Atkins MD Thyroxine T4on 06-21-2022 T4 [Mass/Vol] 12.1 ug/dL High 4.5-10.9 [facility] Comment on above: Result Comment: SAMANTHA ECTED ON 06/21 AT 0948: PREVIOUSLY REPORTED 9.1 Performed By: #### P PPVP #### [facility] [employer] [address] [place] [address] Computer Field Technician: Tc Atkins MD XR KNEE RIGHT (3 [...] Donal Nesbitt MD 06/21/22 Final result Normal [facility] 1. No acute abnormality involving the right knee. 2. Degenerative changes involving the patellofemoral compartment. 3. Chondrocalcinosis. [facility] EXAMINATION: THREE XRAY VIEWS OF THE RIGHT KNEE 06/20/2022 3:21 pm COMPARISON: None. HISTORY: ORDERING SYSTEM PROVIDED HISTORY: Right knee pain, unspecified chronicity FINDINGS: The bone mineralization is within normal limits. There is joint space narrowing involving the patellofemoral compartment. No acute fractures or dislocations are seen. Note is made of chondrocalcinosis. [facility] Donal Nesbitt MD - 06/21/2022 EXAMINATION: [...] changes involving the patellofemoral compartment. 3. Chondrocalcinosis. [facility] [employer] Phone: XR KNEE RIGHT (3 VIEWS)Order ed By: Donal Nesbitt on 06-21-2022 [facility] [employer] Phone: CBC with Diffon 06-20-2022 Abs. Basophil 0.03 k/uL Normal 0.00-0.20 [facility] Comment on above: Performed By: #### P PPVP #### [address] [address] Computer Field Technician: Tc Atkins MD Abs.Imm.Granulocyte <0.03 Normal 0.00-0.30 [facility] Comment on above: Performed By: #### P PPVP #### [address] [address] Computer Field Technician: Tc Atkins MD Abs.Neutrophil (Seg) 1.85 k/uL Normal 1.50-8.10 [facility] Comment on above: Performed By: #### P PPVP #### [address] [address] Computer Field Technician: Tc Atkins MD Basophils/100 WBC (Bld) 1 % Normal 0-2 [facility] Comment on above: Performed By: #### P PPVP #### [address] [address] Computer Field Technician: Tc Atkins MD Eosinophils (Bld) [#/Vol] 0.72 10*3/uL High 0.00-0.44 [facility] Comment on above: Performed By: #### P PPVP #### [address] [address] Computer Field Technician: Tc Atkins MD Eosinophils/100 WBC (Bld) 12 % High 1-4 [facility] Comment on above: Performed By: #### P PPVP #### [address] [address] Computer Field Technician: Tc Atkins MD Erythrocyte distribution width (RBC) [Ratio] 12.0 % Normal 11.8-14.4 [facility] Comment on above: Performed By: #### P PPVP #### [address] [address] Computer Field Technician: Tc Atkins MD Hematocrit (Bld) [Volume fraction] 46.6 % Normal 36.3-47.1 [facility] Comment on above: Performed By: #### P PPVP #### [address] [address] Computer Field Technician: Tc Atkins MD Hemoglobin (Bld) [Mass/Vol] 15.5 g/dL High 11.9-15.1 [facility] Comment on above: Performed By: #### P PPVP #### [address] [address] Computer Field Technician: Tc Atkins MD Immature granulocytes/100 WBC (Bld) 0 % Normal 0 [facility] Comment on above: Performed By: #### P PPVP #### [address] [address] Computer Field Technician: Tc Atkins MD Lymphocytes (Bld) [#/Vol] 2.82 10*3/uL Normal 1.10-3.70 [facility] Comment on above: Performed By: #### P PPVP #### [address] [address] Computer Field Technician: Tc Atkins MD Lymphocytes/100 WBC (Bld) 45 % High 24-43 [facility] Comment on above: Performed By: #### P PPVP #### [address] [address] Computer Field Technician: Tc Atkins MD MCH (RBC) [Entitic mass] 32.8 pg Normal 25.2-33.5 [facility] Comment on above: Performed By: #### P PPVP #### [address] [address] Computer Field Technician: Tc Atkins MD MCHC (RBC) [Mass/Vol] 33.3 g/dL Normal 28.4-34.8 [facility] Comment on above: Performed By: #### P PPVP #### [address] [address] Computer Field Technician: Tc Atkins MD MCV (RBC) [Entitic vol] 98.7 fL Normal 82.6-102.9 [facility] Comment on above: Performed By: #### P PPVP #### [address] [address] Computer Field Technician: Tc Atkins MD Monocytes (Bld) [#/Vol] 0.71 10*3/uL Normal 0.10-1.20 [facility] Comment on above: Performed By: #### P PPVP #### [address] [address] Computer Field Technician: Tc Atkins MD Monocytes/100 WBC (Bld) 12 % Normal 3-12 [facility] Comment on above: Performed By: #### P PPVP #### [address] [address] Computer Field Technician: Tc Atkins MD Neutrophil (Seg) 30 % Low 36-65 [facility] Comment on above: Performed By: #### P PPVP #### [address] [address] Computer Field Technician: Tc Atkins MD NRBC Automated 0.0 per 100 WBC Normal 0.0 [facility] Comment on above: Performed By: #### P PPVP #### [address] [address] Computer Field Technician: Tc Atkins MD Platelet mean volume (Bld) [Entitic vol] 10.9 fL Normal 8.1-13.5 [facility] Comment on above: Performed By: #### P PPVP #### [address] [address] Computer Field Technician: Tc Atkins MD Platelets (Bld) [#/Vol] 344 10*3/uL Normal 138-453 [facility] Comment on above: Performed By: #### P PPVP #### [address] [address] Computer Field Technician: Tc Atkins MD RBC (Bld) [#/Vol] 4.72 10*6/uL Normal 3.95-5.11 [facility] Comment on above: Performed By: #### P PPVP #### [address] [address] Computer Field Technician: Tc Atkins MD WBC (Bld) [#/Vol] 6.1 10*3/uL Normal 3.5-11.3 [facility] Comment on above: Performed By: #### P PPVP #### [address] [address] Computer Field Technician: Tc Atkins MD Comp Metabolic Profon 2021 Albumin [Mass/Vol] 4.4 g/dL Normal 3.5-5.2 [facility] Comment on above: Performed By: #### P PPVP #### [address] [address] Computer Field Technician: Tc Atkins MD Albumin/Glob Ratio 1.6 Normal 1.0-2.5 [facility] Comment on above: Performed By: #### P PPVP #### [facility] [employer] [address] [place] [address] Computer Field Technician: Tc Atkins MD Alkaline Phos 64 U/L Normal 35-104 [facility] Comment on above: Performed By: #### P PPVP #### [facility] [address] [place] [address] Computer Field Technician: Tc Atkins MD ALT [Catalytic activity/Vol] 11 U/L Normal 5-33 [facility] Comment on above: Performed By: #### P PPVP #### [facility] [address] [place] [address] Computer Field Technician: Tc Atkins MD Anion gap [Moles/Vol] 12 mmol/L Normal 9-17 [facility] Comment on above: Performed By: #### P PPVP #### [address] [address] Computer Field Technician: Tc Atkins MD AST [Catalytic activity/Vol] 19 U/L Normal <32 [facility] Comment on above: Performed By: #### P PPVP #### [facility] [address] [place] [address] Computer Field Technician: Tc Atkins MD Bilirubin [Mass/Vol] 0.5 mg/dL Normal 0.3-1.2 [facility] Comment on above: Performed By: #### P PPVP #### [address] [address] Computer Field Technician: Tc Atkins MD BUN/CRE Ratio 17 Normal 9-20 [facility] Comment on above: Performed By: #### P PPVP #### [facility] [address] [place] [address] Computer Field Technician: Tc Atkins MD Calcium [Mass/Vol] 9.7 mg/dL Normal 8.6-10.4 [facility] Comment on above: Performed By: #### P PPVP #### [address] [address] Computer Field Technician: Tc Atkins MD Chloride [Moles/Vol] 103 mmol/L Normal 98-107 [facility] Comment on above: Performed By: #### P PPVP #### [address] [place] [address] Computer Field Technician: Tc Atkins MD CO2 [Moles/Vol] 21 mmol/L Normal 20-31 [facility] Comment on above: Performed By: #### P PPVP #### [address] [address] Computer Field Technician: Tc Atkins MD Creatinine [Mass/Vol] 0.58 mg/dL Normal 0.50-0.90 [facility] Comment on above: Performed By: #### P PPVP #### [address] [address] Computer Field Technician: Tc Atkins MD GFR/1.73 sq M.predicted among non-blacks MDRD (S/P/Bld) [Vol rate/Area] mL/min/{1.73_m2} Normal >60 [facility] Comment on above: Result Comment: Effective Jun [...] secretion. Performed By: #### P PPVP #### [address] [place] [address] Computer Field Technician: Tc Atkins MD Glucose [Mass/Vol] 85 mg/dL Normal 70-99 [facility] Comment on above: Performed By: #### P PPVP #### [address] [place] [address] Computer Field Technician: Tc Atkins MD Potassium [Moles/Vol] 3.7 mmol/L Normal 3.7-5.3 [facility] Comment on above: Performed By: #### P PPVP #### [address] [address] Computer Field Technician: Tc Atkins MD Protein [Mass/Vol] 7.1 g/dL Normal 6.4-8.3 [facility] Comment on above: Performed By: #### P PPVP #### [address] [address] Computer Field Technician: Tc Atkins MD Sodium [Moles/Vol] 136 mmol/L Normal 135-144 [facility] Comment on above: Performed By: #### P PPVP #### [address] [address] Computer Field Technician: Tc Atkins MD Urea nitrogen [Mass/Vol] 10 mg/dL Normal 6-20 [facility] Comment on above: Performed By: #### P PPVP #### [address] [address] Computer Field Technician: Tc Atkins MD Miscellaneouson 06-20-2022 Test Name T3 UPTAKE Normal [facility] Comment on above: Performed By: #### P PPVP #### [address] [address] Computer Field Technician: Tc Atkins MD Thyroid Stim. Horm.on 2021 Thyroid Stim. Horm. 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: Urinalysis with Microscopico n 11-03-2019 Amorphous, UA NOT REPORTED None [facility]- [place], [place] Bacteria, UA TRACE Abnormal None [place], [place] Bilirubin Urine Negative NEGATIVE [facility], [place] Casts UA NOT REPORTED /LPF [facility], [place] Color, UA YELLOW YELLOW [place], [place] Crystals, UA NOT REPORTED None /HPF [facility], [place] Epithelial Cells UA 0 TO 2 [place], [place] Glucose, Ur Negative NEGATIVE [place] Interpretation and review of laboratory results Abnormal [place] Ketones Ql (U) Negative NEGATIVE [place] Leukocyte esterase Test strip Ql (U) Negative NEGATIVE [place] Mucus, UA NOT REPORTED None [place] Nitrite, Urine Negative NEGATIVE [place] Other Observations UA NOT REPORTED NOT REQ. M [place] pH, UA 7.5 [place] Protein (U) [Mass/Vol] Negative NEGATIVE [place] RBC (U) [#/Vol] None [facility], [place] Renal Epithelial, UA NOT REPORTED 0 /HPF Me [place], [place] Specific [place], UA 1.010 [place], [place] Trichomonas, UA NOT REPORTED None [facility] [place] Turbidity UA CLEAR CLEAR [place] Urinalysis Comments NOT REPORTED [place] Urine Hgb Negative NEGATIVE [place] Urobilinogen, Urine Normal Normal [place] WBC, UA 0 TO 2 [place] Yeast, UA NOT REPORTED None [place] Encounters Encounter Date Encounter Type Care Provider Facility Start: 12-11-2022 End: 12-12-2022 [facility]ulatory [facility] Start: 12-11-2022 End: 12-11-2022 Subsequent hospital visit by physician Gina Tierney MD Work Phone: [facility] Laboratory Comment on above: Irregular menses Start: 12-03-2022 End: 12-04-2022 ambulatory [facility] Start: 09-22-2022 End: 09-22-[address] GINA TIERNEY Facility:[facility]1 Start: 09-12-2022 End: 09-12-[address] GINA TIERNEY Facility:[facility] Start: 08-18-2022 End: 08-21-2022 ambulatory [facility] RADIOLOGIST [facility] Start: 08-18-2022 End: 08-20-2022 Subsequent hospital visit by physician Pino Dahl Radiologist [facility] Ultrasound Comment on above: Abnormal screening m ammogram Start: 08-06-2022 End: 08-09-2022 ambulatory [facility] Start: 08-06-2022 Encounter for genera l adult medical examination without abnormal findings [facility] Start: 08-06-2022 End: 08-08-2022 Patient encounter status [facility]fin Mammography Start: 08-06-2022 End: 08-08-2022 Subsequent hospital visit by physician Pino Mammography [facility] Mammography Comment on above: Well adult exam Start: 07-01-2022 End: 07-02-2022 ambulatory [facility] Start: 07-01-2022 End: 07-02-2022 Encounter for general adult medical examination without abnormal findings [facility] Start: 07-01-2022 End: 07-01-2022 Subsequent hospital visit by physician Gina Tierney MD Work Phone: [facility] Laboratory Start: 06-20-2022 End: 06-23-2022 ambulatory [facility] Start: 06-20-2022 End: 06-22-2022 Subsequent hospital visit by physician Pino Yen Dr Room 2 [facility] Radiology Comment on above: Right knee pain, uns pecified chronicity Start: 03-19-2021 End: 03-19-2021 Subsequent hospital visit by physician Js Covid Screening Schedule [facility] Covid Screening Comment on above: Arrived Start: 11-03-2019 End: 11-03-2019 Subsequent hospital visit by physician Gina PRATHER Laboratory Comment on above: Urinary stream split ting Start: 09-20-2019 End: 09-20-2019 Subsequent hospital visit by physician Gina Tierney MD Work Phone: [facility] Laboratory Comment on above: Encounter for annual routine gynecological examination Procedures Date Procedure Procedure Detail Performing Clinician Start: 12-11-2022 Gonadotropin follicl e stimulating hormone Myah Brush BANDSAW OPERATOR - CNM Work Phone: Start: 12-03-2022 Microscopic [...] dip stick/tabl et reagent auto microscopy Maribel Hammonds Work Phone: Start: 09-20-2019 Microscopic observat ion [Identifier] in Cervix by Cyto stain Gina Tierney MD Work Phone: Plan of Treatment Date Care Activity Detail Author Start: 06-20-2027 Lipid panel Lipids [facility] [employer] Start: 12-03-2025 Screening for malign ant neoplasm [facility] cervix [facility] Start: 09-20-2024 Cervical cancer screen Cervical canc er screen [place] Start: 09-20-2024 Screening for malign ant neoplasm of cervix [facility] Start: 2024 Shingles Vaccine (1 of 2) Shingles Vaccine (1 of 2) [place] Start: 12-10-2023 End: 12-10-2023 Patient encounter procedure 12/10/2023 Office Visit Obstetrics and Gynecology Myah Brush, BANDSAW OPERATOR - CNWilly [address] [place] [address] [facility] OBST[facility]RICS [facility]ECOLOGY [facility] Start: 07-27-2023 Cervical cancer screen Cervical canc er screen [facility] [employer] Phone: Start: 07-01-2023 Screening for malign ant neoplasm of colon [facility] Start: 03-31-2023 Influenza vaccination Flu vacc ine (Season Ended) [facility] Start: 09-20-2022 Screening for malign ant neoplasm of cervix Pap smear [facility] Start: 08-18-2022 End: 08-18-2022 Patient encounter procedure 08/18/2022 Appointment Radiology Radiologist, [facility] Mammography Start: 08-06-2022 End: 08-06-2022 Patient encounter procedure 08/06/2022 Appointment Radiology [facility] Mammography Start: 03-31-2022 Influenza vaccination Flu vaccine (# 1) [facility] Start: 09-15-2021 COVID-19 Vaccine (3 - Booster for Pfizer series) COVID-19 Vaccine (3 - Booster for Pfizer series) [facility] Start: 05-31-2021 Diabetes screen Diabetes screen [facility] [employer] Phone: Start: 05-01-2021 Influenza vaccination Flu vaccine (# 1) [facility] [employer] Phone: Start: 09-20-2020 Influenza vaccination Flu vaccine (# 1) [facility] [employer] Phone: Comment on above: Postponed from 05/01 (Patient Refused) Start: 09-20-2020 Lipid screen Lipid screen [facility] Work Phone: Comment on above: Postponed from 07/05 (Not Indicated) Start: 09-20-2020 Pneumococcal 0-64 ye ars Vaccine (1 of 1 - PPSV23) Pneumococcal 0-64 years Vaccine (1 of 1 - PPSV23) [facility] [employer] Phone: Comment on above: Postponed from 07/05 (Unavailable) Start: 11-03-2019 DTaP/Tdap/Td vaccine (1 - Tdap) DTaP/Tdap/Td vaccine (1 - Tdap) [facility] [place], [place] Comment on above: Postponed from 07/05 (Not Indicated) Start: 10-13-2019 End: 10-13-2019 Patient encounter procedure 10/13/2019 Office Visit Obstetrics and Gynecology Myah Brush, BANDSAW OPERATOR - CNM [address] [place] [address] [facility] OBSTETRICS & [facility]YNECOLOGY Start: 10-13-2019 End: 10-13-2019 Professional / ancillary services management 10/13/2019 Ancillary Procedure Obstetrics and Gynecology [facility]OLOG[facility] Start: 10-11-2019 DTaP/Tdap/Td vaccine (1 - Tdap) DTaP/Tdap/Td vaccine (1 - Tdap) [facility] [employer] Phone: Comment on above: Postponed from 07/05 (Not Indicated) Start: 2019 Screening for malign ant neoplasm of colon [facility] Start: 2014 Lipid panel Lipid screen [facility] [employer] Phone: Start: 1993 DTaP/Tdap/Td vaccine (1 - Tdap) DTaP/Tdap/Td vaccine (1 - Tdap) [facility] Start: 1992 Hepatitis C screening Hepatitis C sc reen [facility] Start: 1986 COVID-19 Vaccine (1) COVID-19 Vaccin e (1) [facility] [employer] Phone: Start: 1986 Depression Screen Depression Screen [facility] Start: 1980 Pneumococcal 0-64 ye ars Vaccine (1 - PCV) Pneumococcal 0-64 years Vaccine (1 - PCV) [facility] Start: 1980 Pneumococcal 0-64 ye ars Vaccine (1 of 2 - PPSV23) Pneumococcal 0-64 years Vaccine (1 of 2 - PPSV23) [facility] [employer] Phone: Start: 1974 Hepatitis C screening Hepatitis C sc reen [facility] Phone: End: 11-03-2019 Bacteria identified Cx Nom (U) Urine Culture Microbiology Routine Urinary stream splitting 1 Occurrences starting 11/03/2019 until 11/03/2019 [place] Comment on above: 1 Occurrences starti ng 11/03/2019 until 11/03/2019 Bacteria identified Cx Nom (U) Urine Culture Microbiology Routine Urinary stream splitting 11/03/2019 11:16 AM EST [facility] End: 03-19-2021 COVID-19 COVID-19 Lab Routine Once for 1 Occurrences starting 03/19/2021 until 03/19/2021 [facility] Phone: Comment on above: Once for 1 Occurrenc es starting 03/19/2021 until 03/19/2021 COVID-19 COVID-19 Lab Rou yamel 03/19/2021 3:31 PM EDT [facility] Phone: End: 09-20-2019 Cytopathology procedure, preparation of smear, genital source PAP SMEAR Lab Routine Encounter for annual routine gynecological examination 1 Occurrences starting 09/20/2019 until 09/20/2019 [facility] Phone: Comment on above: 1 Occurrences starti ng 09/20/2019 until 09/20/2019 End: 08-18-2022 US BREAST COMPLETE RIGHT US BREAST COMPLETE RIGHT Imaging Routine Abnormal screening mammogram 1 Occurrences starting 08/18/2022 until 08/18/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 2016 Unknown [id number] 1974 Unknown [id number] 3 1974 Unknown [id number] 3 1974 Unknown [id number] 3 1974 Unknown [id number] 3 1974 Unknown [id number] 3 1974 Unknown [id number] 3 1974 Unknown [id number] 3 1974 Unknown [id number] 3 1974 Unknown [id number] 3 1974 Unknown [id number] 3 1974 Unknown [id number] 3 1959 Unknown [id number] Social History Date Type Detail Facility Start: 11-03-2019 End: 08-06-2022 Tobacco smoking status [facility] Current every day smoker [facility] Phone: Start: 11-03-2019 End: 12-11-2022 Alcohol intake Current drinker of alcohol (finding) [facility] Phone: Start: 07-27-2018 Alcohol Comment Social [facility] Work Phone: Start: 1975 Sex Assigned At Not on file [facility] Phone: Start: 02-22-2020 End: 08-06-2022 Tobacco use and exposure Never used [employer] Start: 08-08-2022 End: 08-18-2022 Exposure to SARS-CoV-2 (event) Not sure [facility] [employer] Start: 1975 Sex Assigned At Female [facility] [employer] Evaluation note Note Date & Type Note Facility Evaluation note Diagnosis Encounter for annual routine gynecological examination [facility] Evaluation note Note Date & Type Note Facility Evaluation note Diagnosis Right knee pain, unspecified chronicity documented in this encounter [facility] [employer] Phone: Evaluation note Note Date & Type Note Facility Evaluation note Diagnosis Well adult exam Routine general medical examination at a health care facility documented in this encounter [facility] [employer] Phone: Evaluation note Note Date & Type Note Facility Evaluation note Diagnosis Abnormal screening mammogram documented in this encounter [facility] [employer] Phone: Evaluation note Note Date & Type Note Facility Evaluation note Diagnosis Abnormal screening mammogram documented in this encounter [facility] [employer] Phone: Evaluation note Note Date & Type Note Facility Evaluation note Diagnosis Irregular menses Irregular menstrual cycle documented in this encounter [facility] [employer] Phone: Assessments Diagnosis Urinary stream splitting Splitting of urinary stream Advance Directives No Advanced Directives Records FoundDocuments on File Type Date Recorded 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 Advance Directives and Living Will Power of Site Worker Documents on File Type Date Recorded 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 ACP-Advance Directive ACP-Power of Site Worker Reason for Referral Specialty Diagnoses / Procedures Referred By Samantha hampton Referred To Contact Radiology Diagnoses Abnormal screening mammogram Procedures US BREAST COMPLETE RIGHT Gina Tierney MD [address] [place] [address] Referral ID Status Reason Start Date Expiration Date Visits Re quested Visits Authorized [id number] Open 08/07/2022 08/07/2023 1 1 Specialty Diagnoses / Procedures Referred By Contac t Referred To Contact Radiology Diagnoses Abnormal screening mammogram Procedures JORDAN ARIELLE DIGITAL DIAGNOSTIC BILATERAL Gina Tierney MD [address] [place] [phone] Phone: Referral ID Status Reason Start Date Expiration Date Visits Re quested Visits Authorized [id number] Closed 08/07/2022 08/07/2023 1 1 Summary Purpose Family History No Family History Records FoundNo Family History Records FoundNo Family History Records Found Additional Source Comments Care Teams (unrecognized sec tion and content) [employer] 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 Relationship Specialty Start Date End Date Gina Tierney MD [address] [place] [phone] PCP - General 04/02/15 [employer] 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 Relationship Specialty Start Date End Date Gina Tierney MD [address] [place] [id number] PCP - General 04/02/15 [employer] 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 Relationship Specialty Start Date End Date Gina Tierney MD [address] [place] [id number] PCP - General 04/02/15 [employer] 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 Relationship Specialty Start Date End Date Gina Tierney MD [address] [place] [phone] PCP - General 04/02/15 [employer] Lieutenant Relationship Specialty Start Date End Date Gina Tierney MD [address] [phone] PCP - General 04/02/15 Reason for Visit (unrecogniz ed section and content) Specialty Diagnoses / Procedures Referred By Samantha hampton Referred To Contact Radiology Diagnoses Well adult exam Procedures JORDAN ARIELLE DIGITAL SCREEN SELF REFERRAL W OR WO CAD BILATERAL JORDAN DIGITAL SCREEN W OR WO CAD BILATERAL Gina Tierney MD [address] [place] [address] Phone: Referral ID Status Reason Start Date Expiration Date Visits Re quested Visits Authorized [id number] Closed 06/17/2022 06/17/2023 1 1 Specialty Diagnoses / Procedures Referred By Contac t Referred To Contact Radiology Diagnoses Abnormal screening mammogram Procedures US BREAST LIMITED LEFT US BREAST COMPLETE LEFT Gina Tierney MD [address] [place] [address] Referral ID Status Reason Start Date Expiration Date Visits Re quested Visits Authorized [id number] Open 08/07/2022 08/07/2023 1 1 Specialty Diagnoses / Procedures Referred By Contac t Referred To Contact Radiology Diagnoses Abnormal screening mammogram Procedures JORDAN ARIELLE DIGITAL DIAGNOSTIC BILATERAL Gina Tierney MD [address] [place] [address] Referral ID Status Reason Start Date Expiration Date Visits Re quested Visits Authorized [id number] Closed 08/07/2022 08/07/2023 1 1 INFORMATION SOURCE (unrecogn ized section and content) DATE CREATED AUTHOR 09/25/2022 [facility] DATE CREATED AUTHOR AUTHOR'S ORGANIZ ATION 12/12/2022 [facility] DATE CREATED AUTHOR AUTHOR'S ORGANIZ ATION 2023 [facility] FOR RECORDS PERTAINING TO PATIENTS WHO ARE [...] BE BASED ON THE PRIMARY CLINICAL RECORDS. [facility] provides no warranty or guarantee of the accuracy or completeness of information in this document.
[2023-11-16 17:16] LABS: Basophils Absolute Auto 0.1 10^3/uL (0.0-0.1); Basophils Percent Auto 0.7 % (0.2-2.0); Eosinophils Absolute Auto 0.4 10^3/uL (0.0-0.7); Eosinophils Percent Auto 5.7 % (0.9-7.0); Hematocrit 44.4 % (36.0-48.0); Hemoglobin 14.3 g/dL (12.0-16.0); Immature Granulocytes Abs Auto 0.02 10^3/uL (0.00-0.03); Immature Granulocytes Pct Auto 0.3 % (0.0-0.5); Lymphocytes Absolute Auto 2.6 10^3/uL (1.2-3.8); Lymphocytes Percent Auto 35.5 % (20.5-60.0); Mean Corpuscular HGB Conc 32.2 g/dL (29.9-35.2); Mean Corpuscular Volume 99.3 fL (81.0-99.0); Mean Platelet Volume 10.3 fL (9.5-13.5); Monocytes Absolute Auto 0.9 10^3/uL (0.3-0.8); Neutrophils Absolute Auto 3.4 10^3/uL (1.4-6.5); Neutrophils Percent Auto 45.8 % (43.0-75.0); Platelet Count 423 10^3/uL (150-450); Red Blood Count 4.47 10^6/uL (4.20-5.40); White Blood Count 7.4 10^3/uL (4.0-11.0)
[2023-11-16 17:22] LABS: Estimated Average Glucose 100 mg/dL; Glycohemoglobin A1C 5.1 % (4.5-6.2)
[2023-11-16 18:05] LABS: Alanine Aminotransferase 28 U/L (14-59); Albumin Level 3.5 g/dL (3.4-5.0); Alkaline Phosphatase 71 U/L (46-116); Anion Gap 11.4; Aspartate Amino Transferase 22 U/L (15-37); BUN Creatinine Ratio 18.8; Bilirubin Total 0.3 mg/dL (0.2-1.0); Calcium 8.9 mg/dL (8.5-10.1); Carbon Dioxide 27.4 mmol/L (21.0-32.0); Chloride 100 mmol/L (98-107); Chol HDL Ratio 2.2; Cholesterol 246 mg/dL (<=200); Estimated GFR (African America >60 (>=60); Estimated GFR (Non-African Ame >60 (>=60); Free T3 2.75 pg/mL (2.18-3.98); Globulin 3.6 g/dL; Glucose 82 mg/dL (74-106); HDL Cholesterol 114 mg/dL (40-60); Potassium 3.8 mmol/L (3.5-5.1); Sodium 135 mmol/L (136-145); Thyroid Stimulating Hormone 2.304 uIU/mL (0.358-3.740); Total Protein 7.1 g/dL (6.4-8.2); Triglycerides 64 mg/dL (<=150); VLDL CHOLESTEROL 12.8 mg/dL
[2023-11-18 06:09] LABS: HBsAg Screen Negative (Negative); HCV Ab Non Reactive (Non Reactive); HIV Ab/p24 Ag Screen Non Reactive (Non Reactive); Hep A Ab, IgM Negative (Negative); Hep B Core Ab, IgM Negative (Negative)
[2023-11-18 12:09] LABS: Rapid Plasma Reagin, Quant Non Reactive titer (NonRea<1:1)
[2023-11-18 15:09] LABS: Thyroglobulin Antibody <1.0 IU/mL (0.0-0.9); Thyroid Peroxidase (TPO) Ab 80 IU/mL (0-34)
[2023-11-19 06:09] LABS: Neisseria gonorrhoeae, NAA Negative (Negative)
== END 2023-11-16 16:40 | disposition home or self-care (01) ==
LOC: LAB 16:41
PROVIDERS: PCP Family Medicine; Visit Provider Family Medicine
DX: Z00.00 Encounter for general adult medical examination without abnormal findings (principal); E03.9 Hypothyroidism, unspecified
CPT/HCPCS: 36415; 80053; 80061; 80074; 82306; 83036; 84436; 84443; 84481; 85025; 86376; 86592; 86695; 86696; 86800; 87389; 87491; 87591

== ENCOUNTER 2024-04-12 16:06 | Outpatient (OUT) | payer OTHER, SELFPAY ==
--- OUTSIDE RECORDS SUMMARY | 2024-04-12 16:37 | XMS_ITS | CCD ---
Author Organization [facility] Care Team Providers Care Offal Worker Name Role Phone Gina Tierney Primary Care Provider [phone] DR GINA TIERNEY Admitting Unavailable YESICA, DR FUENTES Primary Care Unavailable YESICA, DR FUENTES Consulting Unavailable YESICA, DR FUENTES Attending Unavailable YESICA, DR FUENTES Primary Care Unavailable YESICA, DR FUENTES Consulting Unavailable YESICA, DR FUENTES Attending Unavailable YESICA, DR FUENTES Admitting Unavailable Zioksana, DR Vásquez Consulting Unavailable Gina Tierney MD Primary Care Provider [phone] MYAH BRUSH Referring GINA Elizabeth Primary Care Unavailable MYAH BRUSH Referring GINA Elizabeth Primary Care Unavailable Medications Current Medications Medication Drug Class(es) Dates Sig (Normalized) Sig (Original) [id number] 200 actuat albuterol 0.09 mg/actuat metered dose [...] Irregular periods; Translations: [Irregular menstruation, unspecified] Onset: 12-10-2023 Chronic Nonmalignant breast conditions (6 sources) Mammographic calcification found on diagnostic imaging of breast; Translations: [Other benign mammary dysplasias of right breast] Onset: 09-18-2022 Episodic Other non-traumatic joint disorders (1 source) Pain in right knee; Translations: [Pain in joint, lower leg] Episodic Other screening for suspected conditions (not mental disorders or infectious disease) (4 sources) Mammography abnormal; Translations: [Other abnormal and inconclusive findings on diagnostic imaging of breast] Onset: 12-10-2023 Episodic Residual codes; unclassified (1 source) Procedure and treatment not carried out for other reasons; Translations: [PROC AND TX NOT CARRIED OUT OTH REASONS] Onset: 09-18-2022 Episodic Unclassified (1 source) Patient encounter status Past or Other Problems Problem Classification Problem Date Documented Date Episodic/Chronic Other female genital disorders (10 sources) Cervical intraepithelial neoplasia grade 2; Translations: [Moderate cervical dysplasia] Onset: 06-23-2017 06-23-2017 Episodic Results Test Name Value Interpretation Reference Range Facility [facility] ARIELLE DIGITAL SCREEN TYLER Greene 12-21-2023 [facility] ARIELLE DIGITAL SCREEN BILATERAL EXAMINATION: SCREENING DIGITAL BILATERAL MAMMOGRAM WITH TOMOSYNTHESIS, 12/21/2023 TECHNIQUE: Screening mammography was performed with tomosynthesis including MLO and CC views of the bilateral breasts. Computer aided detection was used for the interpretation of this exam. COMPARISON: May 18, 2023 and August 18, 2022 HISTORY: Screening. FINDINGS: The breasts are heterogeneously dense which can obscure small masses. There is no dominant mass architectural distortion or concerning grouping of microcalcification in either breast. IMPRESSION: No mammographic evidence of malignancy BIRADS: BIRADS - CATEGORY 1 Negative. Normal interval follow-up is recommended in 12 months. OVERALL ASSESSMENT - NEGATIVE A letter of notification will be sent to the patient regarding the results. The [employer] recommends annual mammograms for women 40 years and older. Interpreted by: Julio Armendariz DO Signed by: Julio Armendariz DO 12/21/23 Final result [facility] Cytology Reporton 12-10-2023 Cytology report Cyto stain.thin prep Doc (Cvx/Vag) (NOTE) Path Number: [id number] DIAGNOSIS Imaged ThinPrep Pap - Cervical (1 monolayer slide): Specimen Adequacy: Satisfactory for evaluation. - Endocervical/transform ation zone component present. Descriptive Diagnosis: Negative for intraepithelial lesion or malignancy. Cytotech Screener: EY Electronically Signed Out Artem MENJIVAR(ASCP) ey/12/23/2023 Source of Specimen: A: Imaged ThinPrep Pap - Cervical (1 monolayer slide) HPV Reflex?............... .......HPV if ASCUS Clinical History Z12.4 Encounter for screening for malignant neoplasm of cervix LMP: 12/04/2023 Processing Lab: [address] [address] Interpretation performed at [address] [address] This Pap Test has been evaluated with the assistance of the ThinPrep Pap Test Imaging System. The Pap smear is a screening test primarily for squamous epithelial lesions, which is subject to both false negative and false positive results. Your patient should be reminded to consult you immediately if she experiences any suspicious signs or symptoms, regardless of her Pap smear result. GYNECOLOGIC CYTOLOGY REPORT Patient Name: JOHN SAHFFER [facility] Rec: [id number] [employer] [facility] ANATOMIC PATHOLOGY [address] [place] [address]. [place], [place] [address] [facility] Estradiolon 12-10-2023 Estradiol 139.0 pg/mL [facility] Comment on above: Result Comment: FEMALES: Normally menstruating Luteal phase 60-232 Follicular phase 31-90 Midcycle phase 60-533 Postmenopausal (untreated) <138 Fulvestrant treatment will show an increased estradiol concentration with this methodology. Alternate methodologies are available upon request. Performed By: #### F SH, E2, LH #### [address] [place] [address] Bankruptcy Judge: Tc Atkins MD Follicle Stim. Hormon 2023 Follicle Stim. Horm 17.6 mIU/mL Normal [facility] Comment on above: Result Comment: Refe rence Range: Male: 1.5-12.4 Ovulating Female: Follicular Phase 3.5-12.5 Ovulation Phase 4.7-21.5 Luteal Phase 1.7-7.7 Postmenopausal Female: 25.8-134.8 Performed By: #### F RUIZ, E2, LH #### [address] [place] [address] Bankruptcy Judge: Tc Atkins MD Luteinizing Hormoneon 2023 Luteinizing Hormone 12.8 mIU/mL High 1.7-8.6 [facility] Comment on above: Result Comment: Refe rence Range: Male: 1.7-8.6 Ovulating Female: Follicular Phase 2.4-12.6 Ovulation Phase 14.0-95.6 Luteal Phase 1.0-11.4 Postmenopausal Female: 7.7-58.5 Performed By: #### F RUIZ, E2, LH #### [address] [place] [address] Bankruptcy Judge: Tc Atkins MD Provider Letteron 07-03-2023 Provider Letter July 03, 2023 JOHN SHAFFER [address] [place] [id number] : 1975 Dear Ms. Shaffer, We have been trying to reach you [...] your prompt attention to this matter. Sincerely, [facility] Surgery [phone] Normal [facility] Physician Referralon 023 Physician Referral [phone] [id number] Normal [facility] Estradiolon 12-11-2022 Estradiol 134.9 pg/mL 27 - 314 pg/mL [facility] Comment on above: FEMALES: Normally menstruating Luteal phase 33-298 Follicular phase 27-156 Midcycle phase 48-314 Postmenopausal (untreated) 5-50 Fulvestrant treatment will show an increased estradiol concentration with this methodology. Alternate methodologies are available upon request. Follicle Stimulating Hormone on 12-11-2022 FSH 9.4 [facility] Comment on above: Reference Range: Male: 1.5-12.4 Ovulating Female: Follicular Phase 3.5-12.5 Ovulation Phase 4.7-21.5 Luteal Phase 1.7-7.7 Postmenopausal Female: 25.8-134.8 Luteinizing Hormoneon 2022 LH 8.4 [facility] Comment on above: Reference Range: Male: 1.7-8.6 Ovulating Female: Follicular Phase 2.4-12.6 Ovulation Phase 14.0-95.6 Luteal Phase 1.0-11.4 Postmenopausal Female: 7.7-58.5 No Panel Informationon 12-11 [facility] MAMMO POST BIOPSY RIGHTon MAMMO POST BIOPSY RIGHT Patient: JOHN SHAFFER Exam Date: 09/22/2022 : 1975 Gender:F Ordering : DR GINA TIERNEY . Admission #: [id number] Family : Order #: [id number] CLICK HERE TO VIEW EXAM This report [...] Barrett M.D. on 09/25/2022 at 10:37 Normal [facility] MG STEREO CORE NDL W CLIP RT on 09-22-2022 MG STEREO CORE NDL W CLIP RT Patient: JOHN SHAFFER Exam Date: 09/22/2022 : 1975 Gender:F Ordering : DR GINA TIERNEY . Admission #: [id number] Family : Order #: [id number] CLICK HERE TO VIEW EXAM This report [...] Barrett M.D. on 09/25/2022 at 10:36 Normal [facility] ARIELLE DIGITAL DIAGNOSTIC BILATERALon 08-18-2022 Radiology Study observation (narrative) [facility] Phone: No Panel InformationOrdered By: Angie Moore on 08-18-2022 Interpretation and review of laboratory results Abnormal [facility] Phone: [facility] Phone: No Panel Informationon 08-18 Right breast: [...] patient at the time of service. A sales representative health insurance from the radiology department will be contacting your office and assisting the patient in getting appropriate follow-up. LEFT BREAST: BIRADS - CATEGORY 3 Findings are probably benign. A short interval follow-up left breast mammogram is recommended in 6 months. OVERALL ASSESSMENT - PROBABLY BENIGN. A letter of notification will be sent to the patient regarding the results. [facility] RIS CONSOLIDATED EXAMINATION: DIAGNOSTIC DIGITAL BILATERAL BREASTS [...] of the left axilla reveals no abnormality. [facility] CONSOL[facility] US BREAST LIMITED LEFTon Radiology Study observation (narrative) [facility] Work Phone: [facility] ARIELLE DIGITAL SCREEN SELF REFERRAL W OR WO CAD BILATERALon 08-06-2022 1. New cluster calcifications in the superolateral right breast. Recommend diagnostic mammogram spot magnification views for further evaluation. 2. Two focal asymmetries in the medial and lateral left breast. Recommend diagnostic mammogram spot tomosynthesis views and possible ultrasound for further evaluation. BI-RADS 0 BIRADS: BIRADS - CATEGORY 0 Incomplete: Needs Additional Imaging Evaluation OVERALL ASSESSMENT - INCOMPLETE:NEED ADDITIONAL IMAGING EVALUATION. [facility] CONSOL[facility] EXAMINATION: SCREENING DIGITAL BILATERAL [...] in the medial left breast, posterior depth. [facility] Radiology Study observation (narrative) [facility] Work Phone: JORDAN ARIELLE DIGITAL SCREEN SELF REFERRAL W OR WO CAD BILATERALOrdered By: Ara Turner on 08-06-2022 [facility] Work Phone: Occult Blood Screenon 2021 Date, Stool #1 [id number] [employer] Hemoglobin.gastrointe stinal spec 1 Ql (Stl) Negative NEGATIVE [facility] Time, Stool #1 [id number] [facility] [employer] [facility] [employer] XR KNEE RIGHT (3 VIEWS)on 1. No acute abnormality involving the right knee. 2. Degenerative changes involving the patellofemoral compartment. 3. Chondrocalcinosis. [facility] CONSOLID[facility] EXAMINATION: THREE XRAY VIEWS OF THE RIGHT KNEE 06/20/2022 3:21 pm COMPARISON: None. HISTORY: ORDERING SYSTEM PROVIDED HISTORY: Right knee pain, unspecified chronicity FINDINGS: The bone mineralization is within normal limits. There is joint space narrowing involving the patellofemoral compartment. No acute fractures or dislocations are seen. Note is made of chondrocalcinosis. [facility] Donal Nesbitt MD - [...] changes involving the patellofemoral compartment. 3. Chondrocalcinosis. [facility] Phone: XR KNEE RIGHT (3 VIEWS)Order ed By: Donal Nesbitt on 06-21-2022 [facility] Phone: XR KNEE RIGHT (3 VIEWS)on Radiology Study observation (narrative) [facility] Phone: Urinalysis with Microscopico n 11-03-2019 Amorphous, UA NOT REPORTED None [facility] [place], [place] Bacteria, UA TRACE Abnormal None [place], [place] Bilirubin Urine Negative NEGATIVE [facility], [place] Casts UA NOT REPORTED /LPF [place], [place] Color, UA YELLOW YELLOW [place], [place] Crystals, UA NOT REPORTED None /HPF [place], [place] Epithelial Cells UA 0 TO 2 [place], [place] Glucose, Ur Negative NEGATIVE [place] Interpretation and review of laboratory results Abnormal [place], [place] Ketones Ql (U) Negative NEGATIVE [place] Leukocyte esterase Test strip Ql (U) Negative NEGATIVE [facility], [place] Mucus, UA NOT REPORTED None [place], [place] Nitrite, Urine Negative NEGATIVE [place] Other Observations UA NOT REPORTED NOT REQ. M [facility], [place] pH, UA 7.5 [place], [place] Protein (U) [Mass/Vol] Negative NEGATIVE [place] RBC (U) [#/Vol] None [facility] [place], [place] Renal Epithelial, UA NOT REPORTED 0 /HPF Me [facility], [place] Specific [place], UA 1.010 [place], [place] Trichomonas, UA NOT REPORTED None [facility] [place] [place] [place] Turbidity UA CLEAR CLEAR [facility] - [place], [place] Urinalysis Comments NOT REPORTED [facility] [employer], [place] Urine Hgb Negative NEGATIVE [facility] [place] Urobilinogen, Urine Normal Normal [facility]- [place], [place] WBC, UA 0 TO 2 [facility] [employer], [place] Yeast, UA NOT REPORTED None [facility] - [place], [place] - [facility] [employer] Encounters Encounter Date Encounter Type Care Provider Facility Start: 12-21-2023 End: 12-24-2023 ambulatory [facility] Start: 12-10-2023 End: 12-11-2023 ambulatory [facility]USH [facility] Start: 12-11-2022 End: 12-11-2022 Subsequent hospital visit by physician Gina Tierney MD Work Phone: [facility] Laboratory Comment on above: Irregular menses Start: 09-22-2022 End: 09-22-[address] GINA TIERNEY Facility:[facility]1 Start: 09-12-2022 End: 09-12-[address] GINA TIERNEY Facility:[facility] Start: 08-18-2022 End: 08-20-2022 Subsequent hospital visit by physician Pino Dahl Radiologist [facility] Ultrasound Comment on above: Abnormal screening m ammogram Start: 08-06-2022 End: 08-08-2022 Patient encounter status [facility] Mammography Start: 08-06-2022 End: 08-08-2022 Subsequent hospital visit by physician Pino Mammography [facility] At [facility] Mammography Comment on above: Well adult exam Start: 07-01-2022 End: 07-01-2022 Subsequent hospital visit by physician Gina Tierney MD Work Phone: [facility] Laboratory Start: 06-20-2022 End: 06-22-2022 Subsequent hospital visit by physician Pino Yen Dr Room 2 [facility] Radiology Comment on above: Right knee pain, uns pecified chronicity Start: 03-19-2021 End: 03-19-2021 Subsequent hospital visit by physician Js Covid Screening Schedule [facility] Covid Screening Comment on above: Arrived Start: 11-03-2019 End: 11-03-2019 Subsequent hospital visit by physician Gina PRATHER Laboratory Comment on above: Urinary stream split ting Start: 09-20-2019 End: 09-20-2019 Subsequent hospital visit by physician Gina Tierney MD Work Phone: [facility] Laboratory Comment on above: Encounter for annual routine gynecological examination Procedures Date Procedure Procedure Detail Performing Clinician Start: 12-11-2022 Gonadotropin follicl e stimulating hormone Myah Brush CHESS INSTRUCTOR - CNM Work Phone: Start: 12-03-2022 Microscopic observat ion [Identifier] in Cervix by Cyto stain Gina Tierney MD Work Phone: Start: 08-18-2022 Us breast uni real t willie with image limited Gina Teirney MD Work Phone: Start: 08-18-2022 Diagnostic mammograp [...] Detail Author Start: 06-20-2027 Lipid panel Lipids [facility] [employer] Start: 12-03-2025 Screening for malign ant neoplasm of cervix [facility] [employer] Start: 09-20-2024 Cervical cancer screen Cervical canc er screen [employer] [place], [place] Start: 09-20-2024 Screening for malign ant neoplasm of cervix [facility] [employer] Start: 2024 Shingles Vaccine (1 of 2) Shingles Vaccine (1 of 2) [email or web address], [place] Start: 12-10-2023 End: 12-10-2023 Patient encounter procedure 12/10/2023 Office Visit Obstetrics and Gynecology Myah Brush, CHESS INSTRUCTOR - CNM [address] [facility] [facility] [address] [place], [place] [address] [facility] OBSTETRICS & GYNECOLOGY [facility] Start: 07-27-2023 Cervical cancer screen Cervical canc er screen [facility] [employer] Phone: Start: 07-01-2023 Screening for malign ant neoplasm of colon [facility] Start: 03-31-2023 Influenza vaccination Flu vacc ine (Season Ended) [facility] Start: 09-20-2022 Screening for malign ant neoplasm of cervix Pap smear [facility] Start: 08-18-2022 End: 08-18-2022 Patient encounter procedure 08/18/2022 Appointment Radiology Radiologist, [facility] Mammography Start: 08-06-2022 End: 08-06-2022 Patient encounter procedure 08/06/2022 Appointment Radiology [facility] Mammography Start: 03-31-2022 Influenza vaccination Flu vaccine (# 1) [facility] Start: 09-15-2021 COVID-19 Vaccine (3 - Booster for Pfizer series) COVID-19 Vaccine (3 - Booster for Pfizer series) [facility] Start: 05-31-2021 Diabetes screen Diabetes screen [facility] [address] Phone: Start: 05-01-2021 Influenza vaccination Flu vaccine (# 1) [facility] [employer] Phone: Start: 09-20-2020 Influenza vaccination Flu vaccine (# 1) [facility] [employer] Phone: Comment on above: Postponed from 05/01 (Patient Refused) Start: 09-20-2020 Lipid screen Lipid screen [facility] Work Phone: Comment on above: Postponed from 07/05 (Not Indicated) Start: 09-20-2020 Pneumococcal 0-64 ye ars Vaccine (1 of 1 - PPSV23) Pneumococcal 0-64 years Vaccine (1 of 1 - PPSV23) [facility] [employer] Phone: Comment on above: Postponed from 07/05 (Unavailable) Start: 11-03-2019 DTaP/Tdap/Td vaccine (1 - Tdap) DTaP/Tdap/Td vaccine (1 - Tdap) [facility], [place] Comment on above: Postponed from 07/05 (Not Indicated) Start: 10-13-2019 End: 10-13-2019 Patient encounter procedure 10/13/2019 Office Visit Obstetrics and Gynecology Myah Brush, CHESS INSTRUCTOR - CNM [address] [facility] [address] [place] [address] [facility] Start: 10-13-2019 End: 10-13-2019 Professional / ancillary services management 10/13/2019 Ancillary Procedure Obstetrics and Gynecology [facility] Start: 10-11-2019 DTaP/Tdap/Td vaccine (1 - Tdap) DTaP/Tdap/Td vaccine (1 - Tdap) [facility] [employer] Phone: Comment on above: Postponed from 07/05 (Not Indicated) Start: 2019 Screening for malign ant neoplasm of colon [facility] Start: 2014 Lipid panel Lipid screen [facility] Work Phone: Start: 1993 DTaP/Tdap/Td vaccine (1 - Tdap) DTaP/Tdap/Td vaccine (1 - Tdap) [facility] Start: 1992 Hepatitis C screening Hepatitis C sc reen [facility] Start: 1986 COVID-19 Vaccine (1) COVID-19 Vaccin e (1) [facility] [employer] Phone: Start: 1986 Depression Screen Depression Screen [facility] Start: 1980 Pneumococcal 0-64 ye ars Vaccine (1 - PCV) Pneumococcal 0-64 years Vaccine (1 - PCV) [facility] Start: 1980 Pneumococcal 0-64 ye ars Vaccine (1 of 2 - PPSV23) Pneumococcal 0-64 years Vaccine (1 of 2 - PPSV23) [employer] Phone: Start: 1975 Hepatitis C screening Hepatitis C sc reen [employer] Phone: End: 11-03-2019 Bacteria identified Cx Nom (U) Urine Culture Microbiology Routine Urinary stream splitting 1 Occurrences starting 11/03/2019 until 11/03/2019 [facility] [place] Comment on above: 1 Occurrences starti ng 11/03/2019 until 11/03/2019 Bacteria identified Cx Nom (U) Urine Culture Microbiology Routine Urinary stream splitting 11/03/2019 11:16 AM EST [facility] [place] End: 03-19-2021 COVID-19 COVID-19 Lab Routine Once for 1 Occurrences starting 03/19/2021 until 03/19/2021 [employer] Phone: Comment on above: Once for 1 Occurrenc es starting 03/19/2021 until 03/19/2021 COVID-19 COVID-19 Lab Rou yamel 03/19/2021 3:31 PM EDT [facility] Phone: End: 09-20-2019 Cytopathology procedure, preparation of smear, genital source PAP SMEAR Lab Routine Encounter for annual routine gynecological examination 1 Occurrences starting 09/20/2019 until 09/20/2019 [employer] Phone: Comment on above: 1 Occurrences starti ng 09/20/2019 until 09/20/2019 End: 08-18-2022 US BREAST COMPLETE RIGHT US BREAST COMPLETE RIGHT Imaging Routine Abnormal screening mammogram 1 Occurrences starting 08/18/2022 until 08/18/2022 [facility] [employer] Phone: Comment on above: 1 Occurrences starti ng 08/18/2022 until 08/18/2022 Payers Date Payer Category Payer Unknown [employer] xxxxxxxxx 2016-Present [phone] [address] [place] [address] xxxxxxxxx [id number] 2016 Unknown [id number] 1975 Unknown [id number] 3 1975 Unknown [id number] 3 1975 Unknown [id number] 3 1975 Unknown [id number] 3 1960 Unknown [id number] Social History Date Type Detail Facility Start: 11-03-2019 End: 08-06-2022 Tobacco smoking status [facility] Current every day smoker [employer] Phone: Start: 11-03-2019 End: 12-11-2022 Alcohol intake Current drinker of alcohol (finding) [employer] Phone: Start: 07-27-2018 Alcohol Comment Social [facility] [employer] Work Phone: Start: 1975 Sex Assigned At Not on file [email or web address] Phone: Start: 02-22-2020 End: 08-06-2022 Tobacco use and exposure Never used [email or web address] Start: 08-08-2022 End: 08-18-2022 Exposure to SARS-CoV-2 (event) Not sure [facility] [employer] Start: 1975 Sex Assigned At Female B [facility] [employer] Evaluation note Note Date & Type Note Facility Evaluation note Diagnosis Encounter for annual routine gynecological examination documented in this encounter [employer] Phone: Evaluation note Note Date & Type Note Facility Evaluation note Diagnosis Right knee pain, unspecified chronicity documented in this encounter [facility] [employer] Phone: Evaluation note Note Date & Type Note Facility Evaluation note Diagnosis Well adult exam Routine general medical examination at a health care facility documented in this encounter [employer] Phone: Evaluation note Note Date & Type Note Facility Evaluation note Diagnosis Abnormal screening mammogram documented in this encounter [facility] [employer] Phone: Evaluation note Note Date & Type Note Facility Evaluation note Diagnosis Abnormal screening mammogram documented in this encounter [facility] [employer] Phone: Evaluation note Note Date & Type Note Facility Evaluation note Diagnosis Irregular menses Irregular menstrual cycle documented in this encounter [facility] [employer] Phone: Assessments Diagnosis Urinary stream splitting Splitting of urinary stream Advance Directives No Advanced Directives Records FoundDocuments on File Type Date Recorded Patient Chief Internal Auditor Expl anation Advance Directives and Living Will Power of Rehab Care Assistant Documents on File Type Date Recorded Patient Chief Internal Auditor Expl anation ACP-Advance Directive ACP-Power of Rehab Care Assistant Reason for Referral Specialty Diagnoses / Procedures Referred By Samantha hampton Referred To Contact Radiology Diagnoses Abnormal screening mammogram Procedures US BREAST COMPLETE RIGHT Gina Tiernye MD [address] [place] [address] Phone: Referral ID Status Reason Start Date Expiration Date Visits Re quested Visits Authorized [id number] Open 08/07/2022 08/07/2023 1 1 Specialty Diagnoses / Procedures Referred By Samantha hampton Referred To Contact Radiology Diagnoses Abnormal screening mammogram Procedures JORDAN ARIELLE DIGITAL DIAGNOSTIC BILATERAL Gina Tierney MD [address] [place] [address] Phone: Referral ID Status Reason Start Date Expiration Date Visits Re quested Visits Authorized [id number] Closed 08/07/2022 08/07/2023 1 1 Summary Purpose Family History No Family History Records FoundNo Family History Records FoundNo Family History Records Found Additional Source Comments Care Teams (unrecognized sec tion and content) Offal Worker Relationship Specialty Start Date End Date Gina Tierney MD [address] [place] [address] PCP - General 04/02/15 Offal Worker Relationship Specialty Start Date End Date Gina Tierney MD [address] [phone] PCP - General 04/02/15 Offal Worker Relationship Specialty Start Date End Date Gina Tierney MD [address] [phone] PCP - General 04/02/15 Offal Worker Relationship Specialty Start Date End Date Gina Tierney MD [address] [phone] PCP - General 04/02/15 Offal Worker Relationship Specialty Start Date End Date Gina Tierney MD [address] [phone] PCP - General 04/02/15 Reason for Visit (unrecogniz ed section and content) Specialty Diagnoses / Procedures Referred By Samantha t Referred To Contact Radiology Diagnoses Well adult exam Procedures JORDAN ARIELLE DIGITAL SCREEN SELF REFERRAL W OR WO CAD BILATERAL JORDAN DIGITAL SCREEN W OR WO CAD BILATERAL Gina Tierney MD [address] [phone] Phone: Referral ID Status Reason Start Date Expiration Date Visits Re quested Visits Authorized [id number] Closed 06/17/2022 06/17/2023 1 1 Specialty Diagnoses / Procedures Referred By Contac t Referred To Contact Radiology Diagnoses Abnormal screening mammogram Procedures US BREAST LIMITED LEFT US BREAST COMPLETE LEFT Gina Tierney MD [address] [phone] Phone: Referral ID Status Reason Start Date Expiration Date Visits Re quested Visits Authorized [id number] Open 08/07/2022 08/07/2023 1 1 Specialty Diagnoses / Procedures Referred By Contac t Referred To Contact Radiology Diagnoses Abnormal screening mammogram Procedures JORDAN ARIELLE DIGITAL DIAGNOSTIC BILATERAL Gina Tierney MD [address] [phone] Phone: Referral ID Status Reason Start Date Expiration Date Visits Re quested Visits Authorized [id number] Closed 08/07/2022 08/07/2023 1 1 INFORMATION SOURCE (unrecogn ized section and content) DATE CREATED AUTHOR 09/25/2022 [facility] DATE CREATED AUTHOR AUTHOR'S ORGANIZ ATION 2023 Edward Barajas [facility] DATE CREATED AUTHOR AUTHOR'S ORGANIZ ATION 12/24/2023 Fiorella Martinez [facility] pital FOR RECORDS PERTAINING TO PATIENTS WHO ARE [...] BE BASED ON THE PRIMARY CLINICAL RECORDS. [facility]. provides no warranty or guarantee of the accuracy or completeness of information in this document.
[2024-04-12 17:31] LABS: Free T4 1.09 ng/dL (0.76-1.46)
[2024-04-12 17:36] LABS: Free T3 3.09 pg/mL (2.18-3.98); Thyroid Stimulating Hormone 1.772 uIU/mL (0.358-3.740)
== END 2024-04-12 16:07 | disposition home or self-care (01) ==
LOC: LAB 16:07
PROVIDERS: PCP Family Medicine; Visit Provider Internal Medicine
DX: R94.6 Abnormal results of thyroid function studies (principal); E66.9 Obesity, unspecified; Z71.3 Dietary counseling and surveillance
CPT/HCPCS: 36415; 84439; 84443; 84481

== ENCOUNTER 2024-10-19 16:54 | Outpatient (OUT) | payer OTHER, SELFPAY ==
--- OUTSIDE RECORDS SUMMARY | 2024-10-19 17:02 | XMS_ITS | CCD ---
Author Organization [facility] Care Team Providers Care Teacher Of The Deaf Name Role Phone Gina Tierney Primary Care Provider [phone] DR GINA TIERNEY Admitting Unavailable YESICA, DR FUENTES Primary Care Unavailable YESICA, DR FUENTES Consulting Unavailable YESICA, DR FUENTES Attending Unavailable YESICA, DR FUENTES Primary Care Unavailable YESICA, DR FUENTES Consulting Unavailable YESICA, DR FUENTES Attending Unavailable YESICA, DR FUENTES Admitting Unavailable Zieber, DR Vásquez Consulting Unavailable Gina Tierney MD Primary Care Provider [phone] Gina Tierney MD Primary Care Provider [phone] GINA TIERNEY Primary Care Unavailable MYAH BRUSH Referring UnavailGINA Lozada Primary Care Unavailable GINA TIERNEY Referring Unavailable GINA TIERNEY Primary Care Unavailable MYAH BRUSH Referring UnavailGINA Lozada Primary Care Unavailable GINA TIERNEY Referring Unavailable Medications Current Medications Medication Drug Class(es) Dates Sig (Normalized) Sig (Original) [id number] actuat albuterol 0.09 mg/actuat metered dose inhaler (2 sources) beta2-Adrenergic Agonist Start: 09-01-2022 take 2 puff(s) by mouth four times daily as needed albuterol sulfate HFA (PROVENTIL;VENTOLI N;PROAIR) 108 (90 Base) MCG/ACT inhaler INHALE 2 PUFFS BY MOUTH 4 TIMES DAILY NEEDED 09/01/2022 Active citalopram 20 mg oral tablet (9 sources) Serotonin Reuptake Inhibitor Start: 07-27-2018 take 1 tablet by mouth once daily citalopram (CELEXA) 20 MG tablet Indications: Adjustment disorder with mixed anxiety and depressed mood Take 1 tablet by mouth daily 30 tablet 5 07/27/2018 Active pantoprazole 40 mg delayed release oral tablet (11 sources) Proton Pump Inhibitor Start: 07-31-2019 take 1 tablet by mouth once daily pantoprazole (PROTONIX) 40 MG tablet TAKE 1 TABLET BY MOUTH ONCE DAILY 07/31/2019 Active sucralfate 1000 mg oral tablet (9 sources) Aluminum Complex Start: 07-31-2019 take 1 tablet by mouth at bedtime sucralfate (CARAFATE) 1 GM tablet TAKE 1 TABLET BY MOUTH BEFORE MEAL(S) AND AT BEDTIME 0 07/31/2019 Active varenicline 1 mg oral tablet (1 source) Partial Cholinergic Nicotinic Agonist CHANTIX CONTINUING MONTH MARGY 1 MG tablet 1 capsule Active Problems Active Problems Problem Classification Problem [...] [Pain in joint, lower leg] Episodic Other non-traumatic joint disorders (4 sources) Pain in left knee; Translations: [Pain in joint, lower leg] Onset: 04-19-2024 04-19-2024 Episodic Residual codes; unclassified (1 source) Procedure and treatment not carried out for other reasons; Translations: [PROC AND TX NOT CARRIED OUT OTH REASONS] Onset: 09-18-2022 Episodic Unclassified (1 source) Patient encounter status Past or Other Problems Problem Classification Problem Date Documented Date Episodic/Chronic Other female genital disorders (11 sources) Cervical intraepithelial neoplasia grade 2; Translations: [Moderate cervical dysplasia] Onset: 06-23-2017 06-23-2017 Episodic Other screening for suspected conditions (not mental disorders or infectious disease) (4 sources) Mammography abnormal; Translations: [Other abnormal and inconclusive findings on diagnostic imaging of breast] Onset: 12-10-2023 Episodic Results Test Name Value Interpretation Reference Range Facility XR KNEE LEFT (3 VIEWS)on XR KNEE LEFT (3 VIEWS) EXAMINATION: THREE XRAY VIEWS OF THE LEFT KNEE 04/19/2024 10:17 am COMPARISON: None. HISTORY: ORDERING SYSTEM PROVIDED HISTORY: Pain, joint, knee, left FINDINGS: Minimal osteoarthritis affects the left knee. There is chondrocalcinosis. No radiographic evidence of acute fracture or dislocation seen there is small knee joint effusion. No radiopaque foreign body seen IMPRESSION: Minimal osteoarthritis affecting the left knee with chondrocalcinosis. Nonspecific small knee joint effusion. Interpreted by: Jeancarlos Lopes MD Signed by: Jeancarlos Lopes MD 04/19/24 Final result Normal [facility] XR Knee - left 3 Viewson Minimal osteoarthrit is affecting the left knee with chondrocalcinosis. Nonspecific small knee joint effusion. [facility] EXAMINATION: THREE XRAY VIEWS OF THE LEFT KNEE 04/19/2024 10:17 am COMPARISON: None. HISTORY: ORDERING SYSTEM PROVIDED HISTORY: Pain, joint, knee, left FINDINGS: Minimal osteoarthritis affects the left knee. There is chondrocalcinosis. No radiographic evidence of acute fracture or dislocation seen there is small knee joint effusion. No radiopaque foreign body seen [facility] Jeancarlos Lopes MD - 04/19/2024 EXAMINATION: THREE XRAY VIEWS OF THE LEFT KNEE 04/19/2024 10:17 am COMPARISON: None. HISTORY: ORDERING SYSTEM PROVIDED HISTORY: Pain, joint, knee, left FINDINGS: Minimal osteoarthritis affects the left knee. There is chondrocalcinosis. No radiographic evidence of acute fracture or dislocation seen there is small knee joint effusion. No radiopaque foreign body seen IMPRESSION: Minimal osteoarthritis affecting the left knee with chondrocalcinosis. Nonspecific small knee joint effusion. [facility] Radiology Study observation (narrative) [facility] XR Knee - left 3 ViewsOrdere d By: Jeancarlos Lopes on 04-19-2024 [facility] Work Phone: [facility] DIGITAL SCREEN LLOYDManisha ROSALESVivienne 12-21-2023 [facility] DIG[facility] SCRE[facility] BILATERAL EXAMINATION: SCREENING [...] to the patient regarding the results. [employer] recommends annual mammograms for women 40 years and older. Interpreted by: Julio Armendariz DO Signed by: Julio Armendariz DO 12/21/23 Final result Normal [facility] Cytology Reporton 12-10-2023 Cytology report Cyto stain.thin prep Doc (Cvx/Vag) (NOTE) Path Number: [id number] DIAGNOSIS Imaged ThinPrep Pap - Cervical (1 monolayer slide): Specimen Adequacy: Satisfactory for evaluation. - Endocervical/transform ation zone component present. Descriptive Diagnosis: Negative for intraepithelial lesion or malignancy. Cytotech Screener: EY Electronically Signed Out Artem Barreto CT(ASCP) ey/12/23/2023 Source of Specimen: A: Imaged ThinPrep Pap - Cervical (1 monolayer slide) HPV Reflex?............... .......HPV if ASCUS Clinical History Z12.4 Encounter for screening for malignant neoplasm of cervix LMP: 12/04/2023 Processing Lab: [address] [id number] Interpretation performed at [address] [id number] This Pap Test has been evaluated with [...] smear result. GYNECOLOGIC CYTOLOGY REPORT Patient Name: TOYA SHAFFER [facility] Rec: [id number] viseto [facility] ANATOMIC PATHOLOGY [address] [place] [address]. [place], [place] [address] Normal [facility] Estradiolon 12-10-2023 Estradiol 139.0 pg/mL [facility] Comment on above: Result Comment: FEMALES: Normally menstruating Luteal phase 60-232 Follicular phase 31-90 Midcycle phase 60-533 Postmenopausal (untreated) <138 Fulvestrant treatment will show an increased estradiol concentration with this methodology. Alternate methodologies are available upon request. Performed By: #### F SH, E2, LH #### [facility] [address] [place] [address] [id number] Behaviorist: Tc Atkins MD Follicle Stim. Hormon 2023 Follicle Stim. Horm 17.6 mIU/mL [facility] Comment on above: Result Comment: Refe rence Range: Male: 1.5-12.4 Ovulating Female: Follicular Phase 3.5-12.5 Ovulation Phase 4.7-21.5 Luteal Phase 1.7-7.7 Postmenopausal Female: 25.8-134.8 Performed By: #### F SH, E2, LH #### [facility] [address] [place] [id number] Behaviorist: Tc Atkins MD Luteinizing Hormoneon 2023 Luteinizing Hormone 12.8 mIU/mL High 1.7-8.6 [facility] Comment on above: Result Comment: Refe rence Range: Male: 1.7-8.6 Ovulating Female: Follicular Phase 2.4-12.6 Ovulation Phase 14.0-95.6 Luteal Phase 1.0-11.4 Postmenopausal Female: 7.7-58.5 Performed By: #### F SH, E2, LH #### [facility] [address] [place] [id number] Behaviorist: Tc Atkins MD Provider Letteron 07-03-2023 Provider Letter July 03, 2023 TOYA SHAFFER [address] [place] [id number] : 1975 Dear Ms. Shaffer, We have [...] your prompt attention to this matter. Sincerely, [facility] Surgery [phone] Normal [facility] Physician Referralon 023 Physician Referral [phone] 00 [id number] Normal [facility] Estradiolon 12-11-2022 Estradiol 134.9 pg/mL 27 - 314 pg/mL [facility] Comment on above: FEMALES: Normally menstruating Luteal phase 33-298 Follicular phase 27-156 Midcycle phase 48-314 Postmenopausal (untreated) 5-50 Fulvestrant treatment will show an increased estradiol concentration with this methodology. Alternate methodologies are available upon request. Follicle Stimulating Hormone on 12-11-2022 FSH 9.4 [facility] Comment on above: Reference Range: Male: 1.5-12.4 Ovulating Female: Follicular Phase 3.5-12.5 Ovulation Phase 4.7-21.5 Luteal Phase 1.7-7.7 Postmenopausal Female: 25.8-134.8 Luteinizing Hormoneon 2022 LH 8.4 [facility] Comment on above: Reference Range: Male: 1.7-8.6 Ovulating Female: Follicular Phase 2.4-12.6 Ovulation Phase 14.0-95.6 Luteal Phase 1.0-11.4 Postmenopausal Female: 7.7-58.5 No Panel Informationon 12-11 [facility] MAMMO POST BIOPSY RIGHTon MAMMO POST BIOPSY RIGHT Patient: TOYA SHAFFER. Exam Date: 09/22/2022 : 1975 Gender:F Ordering : DR GINA TIERNEY . Admission #: [id number] Family : Order #: [id number] CLICK HERE TO VIEW EXAM This report [...] M.D. on 09/25/2022 at 10:37 Normal [facility] MG STEREO CORE NDL W CLIP RT on 09-22-2022 MG STEREO CORE NDL W CLIP RT Patient: TOYA SHAFFER Exam Date: 09/22/2022 : 1975 Gender:F Ordering : DR GINA TIERNEY . Admission #: [id number] Family : Order #: [id number] CLICK HERE TO VIEW EXAM This report [...] M.D. on 09/25/2022 at 10:36 Normal [facility] DIGITAL DIAGNOSTIC BILATERALon 08-18-2022 Radiology Study observation (narrative) [facility] Phone: No Panel InformationOrdered By: Angie Moore on 08-18-2022 Interpretation and review of laboratory results Abnormal [facility] Phone: [facility] Phone: No Panel Informationon 08-18 Right breast: [...] patient at the time of service. A franchise sales representative from the radiology department will be contacting your office and assisting the patient in getting appropriate follow-up. LEFT BREAST: BIRADS - CATEGORY 3 Findings are probably benign. A short interval follow-up left breast mammogram is recommended in 6 months. OVERALL ASSESSMENT - PROBABLY BENIGN. A letter of notification will be sent to the patient regarding the results. [facility] EXAMINATION: DIAGNOSTIC DIGITAL BILATERAL BREASTS MAMMOGRAM [...] of the left axilla reveals no abnormality. [facility] US BREAST LIMITED LEFTon Radiology Study observation (narrative) [facility] [employer] Phone: [facility] DIGITAL SCREEN SELF REFERRAL W [...] OVERALL ASSESSMENT - INCOMPLETE:NEED ADDITIONAL IMAGING EVALUATION. [facility] EXAMINATION: SCREENING DIGITAL BILATERAL [...] in the medial left breast, posterior depth. [facility] Radiology Study observation (narrative) [facility] Work Phone: [facility] DIGITAL SCREEN SELF REFERRAL W OR WO CAD BILATERALOrdered By: Ara Turner on 08-06-2022 [facility] Work Phone: Occult Blood Screenon 2021 Date, Stool #1 [id number] [facility] Hemoglobin.gastrointe stinal spec 1 Ql (Stl) Negative NEGATIVE [facility] Time, Stool #1 [id number] [facility] XR KNEE RIGHT (3 VIEWS)on 1. No acute abnormality involving the right knee. 2. Degenerative changes involving the patellofemoral compartment. 3. Chondrocalcinosis. [facility] EXAMINATION: THREE XRAY VIEWS OF THE RIGHT KNEE 06/20/2022 3:21 pm COMPARISON: None. HISTORY: ORDERING SYSTEM PROVIDED HISTORY: Right knee pain, unspecified chronicity FINDINGS: The bone mineralization is within normal limits. There is joint space narrowing involving the patellofemoral compartment. No acute fractures or dislocations are seen. Note is made of chondrocalcinosis. MHPN Donal Betancourt MD - 06/21/2022 EXAMINATION: THREE XRAY VIEWS [...] changes involving the patellofemoral compartment. 3. Chondrocalcinosis. [facility] Phone: XR KNEE RIGHT (3 VIEWS)Order ed By: Donal Nesbitt on 06-21-2022 [facility] Phone: XR KNEE RIGHT (3 VIEWS)on Radiology Study observation (narrative) [facility] Phone: Urinalysis with Microscopico n 11-03-2019 Amorphous, UA NOT REPORTED None [facility] [place] Bacteria, UA TRACE Abnormal None [facility] [place] Bilirubin Urine Negative NEGATIVE [facility] [place] Casts UA NOT REPORTED /LPF [facility] [place] Color, UA YELLOW YELLOW [facility] [place] Crystals, UA NOT REPORTED None /HPF [facility] [place] Epithelial Cells UA 0 TO 2 [facility] [place] Glucose, Ur Negative NEGATIVE [facility] [place] Interpretation and review of laboratory results Abnormal [facility] [place] Ketones Ql (U) Negative NEGATIVE [facility] [place] Leukocyte esterase Test strip Ql (U) Negative NEGATIVE [facility] [place] Mucus, UA NOT REPORTED None [facility] [place] Nitrite, Urine Negative NEGATIVE [facility] [place] Other Observations UA NOT REPORTED NOT REQ. M [facility] [place] pH, UA 7.5 [facility] Protein (U) [Mass/Vol] Negative NEGATIVE [facility] [place] RBC (U) [#/Vol] None [facility] [place] Renal Epithelial, UA NOT REPORTED 0 /HPF [facility] [place] Specific [place], UA 1.010 [facility] [place] Trichomonas, UA NOT REPORTED None [facility] [place] Turbidity UA CLEAR CLEAR [facility], [place] Urinalysis Comments NOT REPORTED [facility] [place] Urine Hgb Negative NEGATIVE [facility] [place] Urobilinogen, Urine Normal Normal [facility], [place] WBC, UA 0 TO 2 [facility] Yeast, UA NOT REPORTED None [facility] [place] - [facility] [place] Encounters Encounter Date Encounter Type Care Provider Facility Start: 04-19-2024 End: 04-21-2024 Subsequent hospital visit by physician Pino Yen Dr Room 2 [facility] Radiology Comment on above: Pain, joint, knee, l eft Start: 04-19-2024 End: 04-21-2024 ambulatory [facility] Start: 12-21-2023 End: 12-23-2023 ambulatory [facility]NEY [facility] Start: 12-10-2023 End: 12-10-2023 ambulatory [facility]ERNEY [facility] Start: 12-11-2022 End: 12-11-2022 Subsequent hospital visit by physician Gina Tierney MD Work Phone: [facility] Laboratory Comment on above: Irregular menses Start: 09-22-2022 End: 09-22-[address] GINA TIERNEY Facility:H1 Start: 09-12-2022 End: 09-12-[address] GINA TIERNEY Facility:H1 Start: 08-18-2022 End: 08-20-2022 Subsequent hospital visit by physician Pino Gen Radiologist [facility] Ultrasound Comment on above: Abnormal screening m ammogram Start: 08-06-2022 End: 08-08-2022 Patient encounter status [facility] Mammography Start: 08-06-2022 End: 08-08-2022 Subsequent hospital visit by physician Pino Mammography [facility] Mammography Comment on above: Well adult exam Start: 07-01-2022 End: 07-01-2022 Subsequent hospital visit by physician Gina Tierney MD Work Phone: [facility] Laboratory Start: 06-20-2022 End: 06-22-2022 Subsequent hospital visit by physician Pino Yen Dr Room 2 [facility] Radiology Comment on above: Right knee pain, uns pecified chronicity Start: 03-19-2021 End: 03-19-2021 Subsequent hospital visit by physician [facility] Comment on above: Arrived Start: 11-03-2019 End: 11-03-2019 Subsequent hospital visit by physician Gina PRATHER Laboratory Comment on above: Urinary stream split ting Start: 09-20-2019 End: 09-20-2019 Subsequent hospital visit by physician Gina Tierney MD [facility] Comment on above: Encounter for annual routine gynecological examination Procedures Date Procedure Procedure Detail Performing Clinician Start: 04-19-2024 Radiologic examinati on knee 3 views Gina Tierney MD Work Phone: Start: 12-10-2023 Microscopic observat ion [Identifier] in Cervix by Cyto stain [facility] 2 Start: 12-11-2022 Gonadotropin follicl e stimulating hormone Myah Mckeon Gonsalo INTELLIGENCE CLERK - CNM Work Phone: Start: 12-03-2022 Microscopic [...] dip stick/tabl et reagent auto microscopy Maribel W Nasra Work Phone: Start: 09-20-2019 Microscopic observat ion [Identifier] in Cervix by Cyto stain Gina Tierney MD Work Phone: Plan of Treatment Date Care Activity Detail Author Start: 06-20-2027 Lipid panel Lipids [facility] Start: 12-09-2026 Screening for malign ant neoplasm of cervix [facility] Start: 12-20-2025 Screening for malign ant neoplasm of breast Breast cancer screen [facility] Start: 12-03-2025 Screening for malign ant neoplasm of cervix [facility] Start: 12-14-2024 End: 12-14-2024 Patient encounter procedure 12/14/2024 8:15 AM EDT Office Visit [facility] [address] [place], [place] [id number] Myah Brush APRN - TAD [address] [place] [address] Dr [address] [place] [address] PAP [facility] Comment on above: PAP Start: 12-09-2024 Depression Screen Depression Screen [facility] Start: 09-20-2024 Cervical cancer screen Cervical canc er screen [place], [place] Start: 09-20-2024 Screening for malign ant neoplasm of cervix [facility] Start: 2024 Shingles Vaccine (1 of 2) Shingles Vaccine (1 of 2) [place], [place] Start: 03-31-2024 Influenza vaccination Flu vaccine (# 1) [facility] Start: 12-10-2023 End: 12-10-2023 Patient encounter procedure 12/10/2023 Office Visit Obstetrics and Gynecology Myah Brush APRN - TAD [address] [place] [address] Dr [address] [place] [address] [facility] Start: 07-27-2023 Cervical cancer screen Cervical canc er screen [facility] Work Phone: Start: 07-01-2023 Screening for malign ant neoplasm of colon [facility] Start: 05-01-2023 COVID-19 Vaccine ( season) COVID-19 Vaccine ( season) [facility] Start: 03-31-2023 Influenza vaccination Flu vacc ine (Season Ended) [facility] Start: 09-20-2022 Screening for malign ant neoplasm of cervix Pap smear [facility] Start: 08-18-2022 End: 08-18-2022 Patient encounter procedure 08/18/2022 Appointment Radiology Radiologist, [facility] Mammography Start: 08-06-2022 End: 08-06-2022 Patient encounter procedure 08/06/2022 Appointment Radiology [facility] Mammography Start: 03-31-2022 Influenza vaccination Flu vaccine (# 1) [facility] Start: 09-15-2021 COVID-19 Vaccine (3 - Booster for Pfizer series) COVID-19 Vaccine (3 - Booster for Pfizer series) [facility] Start: 05-31-2021 Diabetes screen Diabetes screen [facility] [email or web address] Phone: Start: 05-01-2021 Influenza vaccination Flu vaccine (# 1) [facility] [employer] Phone: Start: 09-20-2020 Influenza vaccination Flu vaccine (# 1) [facility] [employer] Phone: Comment on above: Postponed from 05/01 (Patient Refused) Start: 09-20-2020 Lipid screen Lipid screen [facility] Work Phone: Comment on above: Postponed from 07/05 (Not Indicated) Start: 09-20-2020 Pneumococcal 0-64 ye ars Vaccine (1 of 1 - PPSV23) Pneumococcal 0-64 years Vaccine (1 of 1 - PPSV23) [facility] [employer] Phone: Comment on above: Postponed from 07/05 (Unavailable) Start: 11-03-2019 DTaP/Tdap/Td vaccine (1 - Tdap) DTaP/Tdap/Td vaccine (1 - Tdap) [facility] [place] Comment on above: Postponed from 07/05 (Not Indicated) Start: 10-13-2019 End: 10-13-2019 Patient encounter procedure 10/13/2019 Office Visit Obstetrics and Gynecology Myah Brush, INTELLIGENCE CLERK - CNM [address] [facility] [place] [address] [phone] [facility] Start: 10-13-2019 End: 10-13-2019 Professional / ancillary services management 10/13/2019 Ancillary Procedure Obstetrics and Gynecology [facility] Start: 10-11-2019 DTaP/Tdap/Td vaccine (1 - Tdap) DTaP/Tdap/Td vaccine (1 - Tdap) [facility] Work Phone: Comment on above: Postponed from 07/05 (Not Indicated) Start: 2019 Screening for malign ant neoplasm of colon [facility] Start: 2014 Lipid panel Lipid screen [facility] Work Phone: Start: 1993 DTaP/Tdap/Td vaccine (1 - Tdap) DTaP/Tdap/Td vaccine (1 - Tdap) [facility] Start: 1993 Hepatitis B vaccine (1 of 3 - 19+ 3-dose series) Hepatitis B vaccine (1 of 3 - 19+ 3-dose series) [facility] Start: 1992 Hepatitis C screening Hepatitis C sc reen [facility] Start: 1986 COVID-19 Vaccine (1) COVID-19 Vaccin e (1) [facility] Work Phone: Start: 1986 Depression Screen Depression Screen [facility] Start: 1980 Pneumococcal 0-64 ye ars Vaccine (1 - PCV) Pneumococcal 0-64 years Vaccine (1 - PCV) [facility] Start: 1980 Pneumococcal 0-64 ye ars Vaccine (1 of 2 - PPSV23) Pneumococcal 0-64 years Vaccine (1 of 2 - PPSV23) [facility] Phone: Start: 1975 Hepatitis C screening Hepatitis C sc reen [employer] Phone: End: 11-03-2019 Bacteria identified Cx Nom (U) Urine Culture Microbiology Routine Urinary stream splitting 1 Occurrences starting 11/03/2019 until 11/03/2019 [facility] [place] Comment on above: 1 Occurrences starti ng 11/03/2019 until 11/03/2019 Bacteria identified Cx Nom (U) Urine Culture Microbiology Routine Urinary stream splitting 11/03/2019 11:16 AM EST [email or web address] [place], [place] End: 03-19-2021 COVID-19 COVID-19 Lab Routine Once for 1 Occurrences starting 03/19/2021 until 03/19/2021 [employer] Phone: Comment on above: Once for 1 Occurrenc es starting 03/19/2021 until 03/19/2021 COVID-19 COVID-19 Lab Rou yamel 03/19/2021 3:31 PM EDT [facility] Phone: End: 09-20-2019 Cytopathology procedure, preparation of smear, genital source PAP SMEAR Lab Routine Encounter for annual routine gynecological examination 1 Occurrences starting 09/20/2019 until 09/20/2019 [facility] Phone: Comment on above: 1 Occurrences starti ng 09/20/2019 until 09/20/2019 End: 08-18-2022 US BREAST COMPLETE RIGHT US BREAST COMPLETE RIGHT Imaging Routine Abnormal screening mammogram 1 Occurrences starting 08/18/2022 until 08/18/2022 [facility] [employer] Phone: Comment on above: 1 Occurrences starti ng 08/18/2022 until 08/18/2022 Payers Date Payer Category Payer Unknown [employer] xxxxxxxxx 2016-Present [phone] [address] [place] [address] xxxxxxxxx [id number] 2016 Unknown [id number] 1975 Unknown [id number] 3 1975 Unknown [id number] 3 1975 Unknown [id number] 3 1975 Unknown [id number] 3 1975 Unknown [id number] 3 1975 Unknown [id number] 3 1960 Unknown [id number] Social History Date Type Detail Facility Start: 11-03-2019 End: 08-06-2022 Tobacco smoking status [facility] Current every day smoker [employer] Phone: Start: 11-03-2019 End: 12-21-2023 Alcohol intake Current drinker of alcohol (finding) [employer] Phone: Start: 07-27-2018 Alcohol Comment Social [employer] [facility] Work Phone: Start: 1975 Sex Assigned At Not on file M [employer] Phone: Start: 02-22-2020 End: 12-21-2023 Tobacco use and exposure Never used Is That Odd Start: 08-08-2022 End: 08-18-2022 Exposure to SARS-CoV-2 (event) Not sure [facility] Start: 1975 Sex Assigned At Female [facility] Start: 12-21-2023 Tobacco smoking stat [facility] Never smoked tobacco [facility] Start: 08-31-1989 End: 08-19-2023 History of tobacco use Cigarette Smoker [facility] Start: 12-10-2023 End: 12-21-2023 Cigarettes smoked current (pack per day) - Reported 3 [facility] History of tobacco use Passive smoker [facility] Start: 12-10-2023 End: 12-21-2023 Tobacco use panel [facility] How hard is it for y ou to pay for the very basics like food, housing, medical care, and heating Not hard at all [facility] (I/We) worried wheth er (my/our) food would run out before (I/we) got money to buy more. Never true [facility] Start: 12-21-2023 Tobacco Comment Quit for 4 mon ths now only once and a while [facility] Start: 12-02-2022 Gender identity Identifies as female gender (finding) [facility] Evaluation note Note Date & Type Note Facility Evaluation note Diagnosis Encounter for annual routine gynecological examination documented in this encounter [employer] Phone: Evaluation note Note Date & Type Note Facility Evaluation note Diagnosis Right knee pain, unspecified chronicity documented in this encounter [facility] Phone: Evaluation note Note Date & Type Note Facility Evaluation note Diagnosis Well adult exam Routine general medical examination at a health care facility documented in this encounter [facility] Phone: Evaluation note Note Date & Type Note Facility Evaluation note Diagnosis Abnormal screening mammogram documented in this encounter [facility] Phone: Evaluation note Note Date & Type Note Facility Evaluation note Diagnosis Abnormal screening mammogram documented in this encounter [facility] Phone: Evaluation note Note Date & Type Note Facility Evaluation note Diagnosis Irregular menses Irregular menstrual cycle documented in this encounter [facility] Phone: Evaluation note Note Date & Type Note Facility Evaluation note Diagnosis Pain, joint, knee, left Pain in joint, lower leg documented in this encounter [facility] Assessments Diagnosis Urinary stream splitting Splitting of urinary stream Advance Directives No Advanced Directives Records FoundDocuments on File Type Date Recorded Patient Integrated Program Teacher Expl anation Advance Directives and Living Will Power of Director Of Product Design Documents on File Type Date Recorded Patient Integrated Program Teacher Expl anation ACP-Advance Directive ACP-Power of Director Of Product Design Reason for Referral Specialty Diagnoses / Procedures Referred By Samantha hampton Referred To Contact Radiology Diagnoses Abnormal screening mammogram Procedures US BREAST COMPLETE RIGHT Gina Tierney MD [address] [phone] Phone: Referral ID Status Reason Start Date Expiration Date Visits Re quested Visits Authorized [id number] Open 08/07/2022 08/07/2023 1 1 Specialty Diagnoses / Procedures Referred By Samantha hampton Referred To Contact Radiology Diagnoses Abnormal screening mammogram Procedures JORDAN ARIELLE DIGITAL DIAGNOSTIC BILATERAL Gina Tierney MD [address] [phone] Phone: Referral ID Status Reason Start Date Expiration Date Visits Re quested Visits Authorized [id number] Closed 08/07/2022 08/07/2023 1 1 Summary Purpose Family History No Family History Records FoundNo Family History Records FoundNo Family History Records Found Additional Source Comments Care Teams (unrecognized sec tion and content) Teacher Of The Deaf Relationship Specialty Start Date End Date Gina Tierney MD [address] [id number] PCP - General 04/02/15 Teacher Of The Deaf Relationship Specialty Start Date End Date Gina Tierney MD [address] [id number] PCP - General 04/02/15 Teacher Of The Deaf Relationship Specialty Start Date End Date Gina Tierney MD [address] [id number] PCP - General 04/02/15 Teacher Of The Deaf Relationship Specialty Start Date End Date Gina Tierney MD [address] [id number] PCP - General 04/02/15 Teacher Of The Deaf Relationship Specialty Start Date End Date Gina Tierney MD [address] [id number] PCP - General 04/02/15 Teacher Of The Deaf Relationship Specialty Start Date End Date Gina Tierney MD [address] [place] [address] PCP - General 04/02/15 Reason for Visit (unrecogniz ed section and content) Specialty Diagnoses / Procedures Referred By Contac t Referred To Contact Radiology Diagnoses Well adult exam Procedures JORDAN ARIELLE DIGITAL SCREEN SELF REFERRAL W OR WO CAD BILATERAL JORDAN DIGITAL SCREEN [place] [address] [place] [address] Referral ID Status Reason Start Date Expiration Date Visits Re quested Visits Authorized [id number] Closed 06/17/2022 06/17/2023 1 1 Specialty Diagnoses / Procedures Referred By Contac t Referred To Contact Radiology Diagnoses Abnormal screening mammogram Procedures US BREAST LIMITED LEFT [place] [address] [place] [address] Referral ID Status Reason Start Date Expiration Date Visits Re quested Visits Authorized [id number] Open 08/07/2022 08/07/2023 1 1 Specialty Diagnoses / Procedures Referred By Contac t Referred To Contact Radiology Diagnoses Abnormal screening mammogram Procedures JORDAN ARIELLE DIGITAL [place]NOSTIC [place] [address] [place] [address] Referral ID Status Reason Start Date Expiration Date Visits Re quested Visits Authorized [id number] Closed 08/07/2022 08/07/2023 1 1 INFORMATION SOURCE (unrecogn ized section and content) DATE CREATED AUTHOR 09/25/2022 [facility] DATE CREATED AUTHOR AUTHOR'S ORGANIZ ATION 2023 [facility] DATE CREATED AUTHOR AUTHOR'S ORGANIZ ATION 04/22/2024 Fiorella Monzon pitaz FOR RECORDS PERTAINING TO PATIENTS WHO ARE [...] BE BASED ON THE PRIMARY CLINICAL RECORDS. [facility]. provides no warranty or guarantee of the accuracy or completeness of information in this document.
[2024-10-19 17:26] LABS: Basophils Absolute Auto 0.1 10^3/uL (0.0-0.1); Basophils Percent Auto 0.7 % (0.2-2.0); Eosinophils Absolute Auto 0.6 10^3/uL (0.0-0.7); Eosinophils Percent Auto 8.7 % (0.9-7.0); Hematocrit 43.3 % (36.0-48.0); Hemoglobin 14.7 g/dL (12.0-16.0); Immature Granulocytes Abs Auto 0.02 10^3/uL (0.00-0.03); Immature Granulocytes Pct Auto 0.3 % (0.0-0.5); Lymphocytes Absolute Auto 3.4 10^3/uL (1.2-3.8); Lymphocytes Percent Auto 48.1 % (20.5-60.0); Mean Corpuscular HGB Conc 33.9 g/dL (29.9-35.2); Mean Corpuscular Hemoglobin 32.4 pg (26.7-34.0); Mean Corpuscular Volume 95.4 fL (81.0-99.0); Mean Platelet Volume 10.6 fL (9.5-13.5); Monocytes Absolute Auto 0.6 10^3/uL (0.3-0.8); Monocytes Percent Auto 8.7 % (1.7-12.0); Neutrophils Absolute Auto 2.4 10^3/uL (1.4-6.5); Neutrophils Percent Auto 33.5 % (43.0-75.0); Platelet Count 400 10^3/uL (150-450); Red Blood Count 4.54 10^6/uL (4.20-5.40); Red Cell Distribution Width 12.6 % (11.0-15.0); White Blood Count 7.1 10^3/uL (4.0-11.0)
[2024-10-19 17:34] LABS: Estimated Average Glucose 111 mg/dL; Glycohemoglobin A1C 5.5 % (4.5-6.2)
[2024-10-19 17:54] LABS: Alanine Aminotransferase 17 U/L (14-59); Albumin Globulin Ratio 1.1; Albumin Level 3.7 g/dL (3.4-5.0); Alkaline Phosphatase 60 U/L (46-116); Anion Gap 12.6; Aspartate Amino Transferase 14 U/L (15-37); BUN Creatinine Ratio 15.9; Bilirubin Total 0.6 mg/dL (0.2-1.0); Calcium 8.9 mg/dL (8.5-10.1); Carbon Dioxide 25.1 mmol/L (21.0-32.0); Chloride 105 mmol/L (98-107); Chol HDL Ratio 2.4; Cholesterol 212 mg/dL (<=200); Estimated GFR (African America >60 (>=60 mL/min/1.73m^2); Estimated GFR (Non-African Ame >60 (>=60 mL/min/1.73m^2); Free T3 2.54 pg/mL (2.18-3.98); Globulin 3.4 g/dL; Glucose 91 mg/dL (74-106); HDL Cholesterol 89 mg/dL (40-60); Potassium 3.7 mmol/L (3.5-5.1); Sodium 139 mmol/L (136-145); Thyroid Stimulating Hormone 2.168 uIU/mL (0.358-3.740); Total Protein 7.1 g/dL (6.4-8.2); Triglycerides 73 mg/dL (<=150); VLDL CHOLESTEROL 14.6 mg/dL
[2024-10-21 03:07] LABS: Insulin 12.8 uIU/mL (2.6-24.9)
== END 2024-10-19 16:55 | disposition home or self-care (01) ==
PROVIDERS: PCP Family Medicine; Visit Provider Family Medicine
DX: Z00.00 Encounter for general adult medical examination without abnormal findings (principal)
CPT/HCPCS: 36415; 80053; 80061; 83036; 83525; 83540; 84436; 84443; 84481; 85025

== ENCOUNTER 2025-03-16 15:44 | Outpatient (OUT) | payer OTHER, SELFPAY ==
--- NOTE | 2025-03-16 15:49 | XR_ITS ---
[address] [address] Patient Name: JOHN MONTAÑO MRN: [id number] date: 1975 Sex: F Assigned Patient Location: [facility] Current Patient Location: [facility] Accession/Order Number: [id number] Exam Date: 03/16/2025 20:14 Report Date: 03/16/2025 20:15 At the request of: GINA ROBERT MD Procedure: XR lumbar spine min 4V 5 views Lumbar Spine HISTORY: Low back pain COMPARISON: None POSTSURGICAL CHANGES: None BONY ALIGNMENT: Mild scoliosis with curvature to the right HYPERMOBILITY:No bending imaging. LISTHESIS:None FRACTURE: None DEGENERATIVE CHANGES: Extensive L4-5 and L5-S1 disc space narrowing and endplate spurring. Lower lumbar facet degeneration. SOFT TISSUES: Unremarkable BONY MINERALIZATION:Adequate XR/XR lumbar spine min 4V IMPRESSION: Extensive lower lumbar degeneration. Moderate scoliosis. Impression dictated by: Yosef Gaines M.D. 03/16/2025 8:15 PM Dictation Location: [facility]PITALInfogram Electronically authenticated by: [id number] Y Date: 03/16/2025 20:15
== END 2025-03-16 15:45 | disposition home or self-care (01) ==
LOC: RAD 15:45
PROVIDERS: PCP Family Medicine; Visit Provider Family Medicine
DX: M54.50 Low back pain, unspecified (principal); M51.369 Other intervertebral disc degeneration, lumbar region without mention of lumbar back pain or lower extremity pain
CPT/HCPCS: 72110

== ENCOUNTER 2025-03-29 07:45 | Outpatient (OUT) | payer OTHER, SELFPAY ==
--- OUTSIDE RECORDS SUMMARY | 2024-10-19 15:24 | XMS_ITS ---
Author Organization The [facility] [place] Address [address] [place] [address] Care Team Providers Care Couture Dressmaker Name Role Phone Rylan Tierney Primary Care Provider [phone] REASON FOR VISIT lab results Encounters Encounter Location Date Provider Diagnosis [facility] [address] [place] [address] 10/19/2024 Rylan Tierney Plan Of Treatment No Information Progress Notes * Gwen MONTAÑOOB:1975 ([age] yo F)Acc No.[id number]:10/19/2024 Patient: Toya DEL VALLE :1975 A ge:49 Y S ex:Female Address:[address] [place] [id number] * true * Date: Generated for Karsteni cb/Bladimirg/eTransmitting on: 0 03/29/2025 07:46 AM EDT
--- OUTSIDE RECORDS SUMMARY | 2025-03-16 11:00 | XMS_ITS ---
Author Organization [facility] in [place] Address [address] [place] [address] Care Team Providers Care Business Rules Developer Name Role Phone Rylan Tierney Primary Care Provider [phone] Allergies No Known Allergies REASON FOR VISIT low back pain- ongoing since March 03- did ease up but came back again- said did it while putting on pants, Needs refill of Chantix to [facility] Medications Medication SIG (Take, Route, Frequency, Duration) Notes Start Date End Date Status Breo Ellipta 100-25 MCG/ACT 1 puff Inhalation Once a day 10/19/2024 Active Protonix 40 MG 1 tablet Orally Ever y Evening for 30 day(s) Active Meloxicam 15 MG 1 tablet Orally Once a day for 30 days 10/19/2024 Active tiZANidine HCl 4 MG 2 tabs Orally qhs fo r 30 days PRN 04/18/2024 Active Albuterol Sulfate HFA 108 (90 Base) MCG/ACT INHALE 2 PUFFS BY MOUTH 4 TIMES DAILY NEEDED for 25 days Active Chantix 1 MG 1 capsule Orally bid Active Social History Tobacco Use: Social History Observation Description Date Details (start date - stop date) Former Smoker NA - 08/31/2023 Tobacco Use/Smoking Question Answer Notes Patient is a former smoker When did you stop smoking? 08/31/2023 How long has it been since you last smoked? < 1 month Vital Signs Weight 188.8 lbs 03/16/2025 Height 63 in 03/16/2025 Blood pressure systolic 126 mm Hg 03/16/20 25 Blood pressure diastolic 92 mm Hg 025 BMI 33.44 kg/m2 03/16/2025 Encounters Encounter Location Date Provider Diagnosis [facility] [address] [place] [address] 03/16/2025 Rylan Tierney Low back pain at multiple sites M54.50 and Well adult Z00.00 Assessments Encounter Date Diagnosis (ICD Code) Assessment Notes Treatment Notes Treatment Clinical Notes Section Notes 03/16/2025 Low back pain at multiple sites (ICD-10 - M54.50) 03/16/2025 Well adult (ICD-10 - Z00.00) 03/16/2025 Other Recommended to rest and use a heating pad on the area. Take NSAIDs for pain as needed Plan Of Treatment Medication Medication Name Sig Start Date Stop Date Notes Chantix 1 MG 1 capsule Orally bid Treatment Notes Assessment Notes Other Recommended to rest and use a heating pad on the area. Take NSAIDs for pain as needed Pending Test Test Name Order Date MRI LSPINE WO CON 03/16/2025 XR LSPINE MIN 4 VIEWS 03/16/2025 Medications Administered Medication Instructions Date of Administration Dosage Notes Ketorolac Tromethamine 03/16/2025 60 mg Orphenadrine Citrate 03/16/2025 60 mg Triamcinolone 40 mg/ml 03/16/2025 120 mg Progress Notes * Gwen MONTAÑOOB:1975 ([age] yo F)Acc No.[id number]:03/16/2025 Progress Note Patient: Toya DEL VALLE Provider: Angie Tierney ([facility])MD :1975 A ge:49 Y S ex:Female Date:03/16/2025 Address:[address] [place], [place] [id number] Check In:02:54 PM ESTCheck O ut:03:34 PM EST Subjective: * Chief Complaints: * l ow back pain- ongoing since March 03- did ease up but came back again- said did it while putting on pantsNeeds refill of Chantix to [facility] * HPI: B ack Pain: The patient complains of -. The symptoms have been present for 1-2 days. The patient believes symptoms are injury related No. The symptoms are mild. Symptomatic treatment has included heating pad, stretching. Associated symptoms include None. NO shoks into leg s- some pain radiates intl Left groin - down to knee. * ROS: G eneral/Constitutional: Lightheadedness d enies. C hange in appetite d enies. W eight Change d enies. C ardiovascular: Irregular heartbeat d enies. S welling in hands/feet?denies. R espiratory: Shortness of breath d enies. S hortness of breath with exertion d enies. W heezing d enies. M usculoskeletal: Comments S [facility] for details. N eurologic: Dizziness d enies. F ainting d enies. H eadache?denies. * Active Problem List Z00.00 Well adult Modified On:11/16/2023/U Status:confirmed I83.893 Varicose veins of bi lateral lower extremities with other complications Modified On:09/18/2023/U Status:confirmed I87.2 Venous insufficiency (chronic) (peripheral) Modified On:07/07/2023/U Status:confirmed M75.100 Rotator cuff tear Modified On:11/16/2023/U Status:confirmed N93.8 Dysfunctional uterin e bleeding Modified On:11/16/2023/U Status:confirmed E03.9 Hypothyroid Modified On:11/19/2023/U Status:confirmed M25.562 Left knee pain Modified On:04/18/2024/U Status:confirmed * Medical History: * Surgical History: R ight GSV Ablation colonoscopy- dr yu 12/02/2024 * Hospitalization/Major Diagno stic Procedure: D enies Past Hospitalization * Family History: F ather: , diagnosed with Diabetes mellitus without mention of complication, type II or unspecified type, not stated as uncontrolled, Unspecified essential hypertension. M other: alive, diagnosed with Diabetes mellitus without mention of complication, type II or unspecified type, not stated as uncontrolled. 2 daughter(s) . . * Social History: T obacco Use: T obacco Use/Smoking P atient is a f ormer smoker W hen did you stop smoking? 0 08/31/2023 H ow long has it been since you last smoked??< 1 month * Medications: T akingAlbuterol Sulfate HFA 108 (90 Base) MCG/ACT Aerosol Solution INHALE 2 PUFFS BY MOUTH 4 TIMES DAILY NEEDED Breo Ellipta(Fluticasone Furoate-Vilanterol) 100- 25 MCG/ACT Aerosol Powder Breath Activated 1 puff Inhalation Once a day Chantix 1 MG Tablet 1 capsule Orally bid Meloxicam 15 MG Tablet 1 tablet Orally Once a day Protonix(Pantoprazole Sodium) 40 MG Tablet Delayed Release 1 tablet Orally Every Evening tiZANidine HCl 4 MG Tablet 2 tabs Orally qhs , Notes to Pharmacist: PRNMedication List reviewed and reconciled with the patientTaking Albuterol Sulfate HFA 108 (90 Base) MCG/ACT Aerosol Solution INHALE 2 PUFFS BY MOUTH 4 TIMES DAILY NEEDED Taking Breo Ellipta(Fluticasone Furoate-Vilanterol) 100-25 MCG/ACT Aerosol Powder Breath Activated 1 puff Inhalation Once a day Taking Chantix 1 MG Tablet 1 capsule Orally bid Taking Meloxicam 15 MG Tablet 1 tablet Orally Once a day Taking Protonix(Pantoprazole Sodium) 40 MG Tablet Delayed Release 1 tablet Orally Every Evening Taking tiZANidine HCl 4 MG Tablet 2 tabs Orally qhs , Notes to Pharmacist: PRNMedication List reviewed and reconciled with the patient * Allergies: N .K.D.A.no[Allergies Verified] Objective: * Vitals: W t:188.8lbs, Ht: 63 in, BP:126/92mm Hg, BMI:33.44Index, Ht-cm: 160.02 cm, Wt-k.64 kg. * Examination: G eneral Examination: GENERAL APPEARANCE: i n no acute distress, well developed, well nourished. LUNGS: clear to auscultation bilaterally. CARDIO: S1, S2 normal, no murmurs, rubs, gallops. MUSCULOSKELETAL: P oor romin back due aracely paon - + POP midline and + SLR on the left with strength diminished 3/5 Dimijnished patellar reflex. EXTREMITIES: no clubbing, cyanosis, or edema. NEUROLOGIC: alert, oriented to time, place, & person.? Assessment: * Assessment: 1. L ow back pain at multiple sites - M54.50 (Primary) 2 . W ell adult - Z00.00 Plan: * Treatment: 2. W ell adult Refill Chantix Tablet, 1 MG, 1 capsule, Orally, bid, 60, Refills 11. 3. O thers Notes: Recommended to rest and use a heating pad on the area. Take NSAIDs for pain as needed ? * Therapeutic Injections: Triamcinolone 40 mg/ml : 120 mg (Route: Intramuscular) given by Lois Rosenthal SA on right gluteus (Low back pain at multiple sites) Ketorolac Tromethamine : 60 mg (Route: Intramuscular) given by Lois Rosenthal , on left gluteus (Low back pain at multiple sites) Orphenadrine Citrate : 60 mg (Route: Intramuscular) given by Lois Rosenthal SA on left gluteus (Low back pain at multiple sites) * Procedure Codes: 9 6372 THERAP.INJ. OF MED. INTRAMUSCULAR OR [id number] TMC ACET,PER 10MG., Units: 12.00 J1885 TORADOL, PER 15 MG, Units: 4.00 J2360 NORFLEX,UP TO 60MG. * Preventive Medicine: Screenings/Counseling: B WA ACTION PLAN Above Normal BMI Follow-up D ietary management education, guidance, and counseling * * Sign off status: Completed Visit Status: C HK (Check Out) true * Provider: Angie Tierney ([facility])MD Date: 0 03/16/2025 Generated for Karsteni cb/Pedro/eTransmitting on: 03/29/2025 07:47 AM EDT History and Physical Notes * Examination Category Sub-Category Detail Notes Category Not es General Examination GENERAL APPEARANCE: in no ac jose alberto distress, well developed, well nourished CARDIO: S1, S2 normal, no mu rmurs, rubs, gallops LUNGS: clear to auscultatio n bilaterally NEUROLOGIC: alert, oriented to t willie, place, & person EXTREMITIES: no clubbing, cyanosi s, or edema MUSCULOSKELETAL: Poor romin back due aracely paon - + POP midline and + SLR on the left with strength diminished 3/5 Dimijnished patellar reflex
--- OUTSIDE RECORDS SUMMARY | 2025-03-18 11:29 | XMS_ITS ---
Author Organization The [facility] in [place] Address [address] [place] [address] Care Team Providers Care Quantitative Analyst Name Role Phone Rylan Tierney Primary Care Provider REASON FOR VISIT X-Ray Results Encounters Encounter Location Date Provider Diagnosis [facility] [address] [place] [address] 03/18/2025 Rylan Tierney Plan Of Treatment No Information Progress Notes * Gwen MONTAÑOOB:1975 ([age] yo F)Acc No.[id number]:03/18/2025 Patient: Toya DEL VALLE :1975 A ge:49 Y S ex:Female Address:[address] [place] [id number] * true * Date: Generated for Karsteni ng/Faeding/eTransmitting on: 0 03/29/2025 07:46 AM EDT
--- OUTSIDE RECORDS SUMMARY | 2025-03-29 07:46 | XMS_ITS | Encounter Summary ---
Author Organization [facility] Address [address], [address] [place] [address] Care Team Providers Care Wire Basket Maker Name Role Phone Pelon Tierney MD Primary Care Provider +-2 Reason for Referral * Imaging (Routine) - Closed Specialty Diagnoses / Procedures Referred By Samantha t Referred To Contact Radiology Diagnoses Abnormal screening mammogram Procedures US BREAST COMPLETE RIGHT Pelon Tierney MD [address] [phone] Phone: tel: fax: Referral ID Status Reason Start Date Expiration Date Visits Re quested Visits Authorized [id number] Closed 08/07/2022 08/07/2023 1 1 * Other (Routine) - Closed Specialty Diagnoses / Procedures Referred By Contac t Referred To Contact Radiology Diagnoses Abnormal screening mammogram Procedures JORDAN ARIELLE DIGITAL DIAGNOSTIC BILATERAL Pelon Tierney MD [address] [place] [address] Phone: tel: fax: Referral ID Status Reason Start Date Expiration Date Visits Re quested Visits Authorized [id number] Closed 08/07/2022 08/07/2023 1 1 Encounter Details Date Type Department Care Team (Latest Contact Info) Description 08/07/2022 Transcribe Orders [facility] [address] [place] [address] Pelon Tierney MD [address] [phone] Abnormal screening mammogram (Primary Dx) Social History Tobacco Use Types Packs/Day Years Used Date Smoking Tobacco: Every Day Smokeless Tobacco: Never Alcohol Use Standard Drinks/Week Comments Yes 0 (1 standard drink = 0.6 oz pur e alcohol) Social PHQ-2 Answer Date Recorded PHQ-2 Score 2 09/20/2019 Comments No Sex and Gender Information Value Date Recorded Sex Assigned at Female 12/02/2022 8:16 AM EDT Legal Sex Female 9:22 AM EST Gender Identity Female 12/02/2022 8:16 AM EDT Sexual Orientation Not on file documented as of this encounter Plan of Treatment Upcoming Encounters Date Type Department Care Team (Late st Contact Info) Description 04/20/2025 9:00 AM EDT Office Visit [facility] [address] [place] [id number] Myah Brush, SOLUTIONS DEVELOPMENT ANALYST - [address] [place] [address] 3 month med check, RS from 03/16 per pt 12/21/2025 8:45 AM EDT Office Visit [facility] [address] [place] [address] Myah Brush, ERIC - TDA [address] [place] [address] [address] [place] [address] yearly Scheduled Orders Name Type Priority Associated Diagnoses Orde r Schedule US BREAST COMPLETE RIGHT Imaging Routine Abnormal screening mammogram Expected: 08/07/2022, Expires: 08/07/2023 documented as of this encounter Results * (ABNORMAL) JORDAN ARIELLE DIGITAL DIAGNOSTIC BILATERAL (08/18/2022 1:59 PM EST) Anatomical Region Laterality Modality Breast Bilateral Mammography 08/18/2022 2:01 PM EST Impressions 08/18/2022 7:26 PM EST Right breast: Suspicious calcifications upper-outer posterior right [...] patient at the time of service. A customer retention representative from the radiology department will be contacting your office and assisting the patient in getting appropriate follow-up. LEFT BREAST: BIRADS - CATEGORY 3 Findings are probably benign. A short interval follow-up left breast mammogram is recommended in 6 months. OVERALL ASSESSMENT - PROBABLY BENIGN. A letter of notification will be sent to the patient regarding the results. Narrative 08/18/2022 7:26 PM EST EXAMINATION: DIAGNOSTIC DIGITAL BILATERAL BREASTS MAMMOGRAM WITH [...] of the left axilla reveals no abnormality. us Pelon Tierney MD IMG MAMMOGRAPHY ORDERABLES Nadia pickens Result documented in this encounter Visit Diagnoses Diagnosis Abnormal screening mammogram- Primary Abnormal screening mammogram documented in this encounter Care Teams Wire Basket Maker Relationship Specialty Start Date End Date Pelon Tierney MD [address] [place] [address] PCP - General 04/02/15 documented as of this encounter
--- OUTSIDE RECORDS SUMMARY | 2025-03-29 07:46 | XMS_ITS | Clinical Summary ---
Author Organization [facility] Address [address] [place] [address] Care Team Providers Care [employer] Name Role Phone Unavailable Primary Care Provider Unavailabl e Medications albuterol HFA 90 mcg/act inhaler Inhale 2 puffs every 4 (four) hours if needed for wheezing Active pantoprazole (ProtoNix) 40 MG EC tablet Take 40 mg by mouth in the morning. Take before meals. Do not crush, chew, or split. Active varenicline (Chantix) 1 MG tablet Take 1 mg by mouth in the morning and 1 mg before bedtime. Take with full glass of water. Active Social History Tobacco Use Types Packs/Day Years Used Date Smoking Tobacco: Former Cigarettes Tobacco Cessation:Counseling Given: Not Answered Comments:Former Smoker 01/12/2024 Alcohol Use Standard Drinks/Week Comments Yes 0 (1 standard drink = 0.6 oz pur e alcohol) Social Comments Unknown Sex and Gender Information Value Date Recorded Sex Assigned at Not on file Legal Sex Female 1:01 PM EDT Gender Identity Not on file Sexual Orientation Not on file Last Filed Vital Signs Vital Sign Reading Time Taken Comments Blood Pressure 160/92 04/20/2024 11:32 AM EDT Pulse 81 04/20/2024 11:32 AM EDT Temperature - - Respiratory Rate 18 04/20/2024 11:3 2 AM EDT Oxygen Saturation - - Inhaled Oxygen Concentration - - Weight 84.8 kg (186 lb 15.9 oz) 024 11:32 AM EDT Height 160 cm (5' 2.99 ) 04/20/2024 11: 32 AM EDT Body Mass Index 33.13 04/20/2024 11:32 AM EDT Plan of Treatment Not on file
--- OUTSIDE RECORDS SUMMARY | 2025-03-29 07:46 | XMS_ITS | Encounter Summary ---
Author Organization [facility] Address [address], [address] [place] [address] Care Team Providers Care Computer Security Coordinator Name Role Phone Pelon Tierney MD Primary Care Provider [phone] Reason for Referral * Imaging (Routine) - Closed Specialty Diagnoses / Procedures Referred By Contac t Referred To Contact Radiology Diagnoses Chronic obstructive pulmonary disease, unspecified COPD type (HCC) Procedures Low Dose Chest CT -Abnormal Lung Screen Follow up Pelon Tierney MD [address] [place] [address] Phone: tel: fax: Referral ID Status Reason Start Date Expiration Date Visits Re quested Visits Authorized [id number] Closed 06/23/2022 06/23/2023 1 1 Encounter Details Date Type Department Care Team (Latest Contact Info) Description 06/23/2022 Transcribe Orders [facility] [address] [phone] Pelon Tierney MD [address] [place] [address] Chronic obstructive pulmonary disease, unspecified COPD type (HCC) (Primary Dx) Social History Tobacco Use Types [...] Description 04/20/2025 9:00 AM EDT Office Visit [facility] [address] [place], [place] [id number] Myah Brush, [employer] CONTR[employer] LAB TECHNICIAN - CNM [address] [place] [address] [address] [place] [address] 3 month med check, RS from 03/16 per pt 12/21/2025 8:45 AM EDT Office Visit [facility] [address] [place] [address] Myah Brush, QUALITY CONTROL LAB TECHNICIAN - [address] [place] [address] yearly Scheduled Orders Name Type Priority Associated Diagnoses Orde r Schedule Low Dose Chest CT -Abnormal Lung Screen Follow up Imaging Routine Chronic obstructive pulmonary disease, unspecified COPD type (HCC) Expected: 06/23/2022, Expires: 06/23/2023 documented as of this encounter Visit Diagnoses Diagnosis Chronic obstructive pulmonary disease, unspecified COPD type (HCC)- Primary documented in this encounter Care Teams Computer Security Coordinator Relationship Specialty Start Date End Date Pelon Tierney MD [address] [place] [address] PCP - General 04/02/15 documented as of this encounter
--- OUTSIDE RECORDS SUMMARY | 2025-03-29 07:47 | XMS_ITS | CCD ---
Author Organization [facility] Care Team Providers Care 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 Name Role Phone Gina Tierney Primary Care Provider YESICA, DR FUENTES Admitting Unavailable YESICA, DR FUENTES Primary Care Unavailable YESICA, DR FUENTES Consulting Unavailable YESICA, DR FUENTES Attending Unavailable YESICA, DR FUENTES Primary Care Unavailable YESICA, DR FUENTES Consulting Unavailable YESICA, DR FUENTES Attending Unavailable YESICA, DR FUENTES Admitting Unavailable Zieber, DR Vásquez Consulting Unavailable Gina Tierney MD Primary Care Provider [phone] Gina Tierney MD Primary Care Provider [phone] Gina Tierney Primary Care Physician Blayne MORELOS Admitting Unavailable NILLBlayne Attending Unavailable Blayne MORELOS Referring Unavailable Blayne MORELOS Attending Unavailable Gina Tierney Referring Unavailable MYAH BRUSH Referring Unavailabl e GINA TIERNEY Primary Care Unavailable GINA TIERNEY Primary Care Unavailable GINA TIERNEY Referring Unavailable GINA TIERNEY Referring Unavailable GINA TIERNEY Primary Care Unavailable Allergies Allergy Classification Reported Allergen(s) Allergy Type Date of Onset Reaction(s) Facility (1 source) No Known Medication Allergies; Translations: [No Known Medication Allergies] Propensity to adverse reactions (disorder) [facility] Repository Medications Current Medications Medication Drug Class(es) Dates Sig (Normalized) Sig (Original) Albuterol (4 sources) beta2-Adrenergic Agonist Start: 10-31-2024 take 2 puff(s) by inhalation every six hours Albuterol (Eqv-ProAir HFA) 2 puff(s), Inhalation, q6hr Shortness of breath or wheezing, Refill(s) 0 Start Date: 10/31/24 Status: Ordered Repeat number: 1 Start: 09-01-2022 take 2 puff(s) by mo ut four times daily as needed albuterol sulfate HFA (PROVENTIL;VENTOLIN;PROAIR) 108 (90 Base) MCG/ACT inhaler INHALE 2 PUFFS BY MOUTH 4 TIMES DAILY NEEDED 09/01/2022 Active 24 hr buPROPion hydrochloride 150 mg extended release oral tablet (1 source) Aminoketone Start: 12-15-2024 take 1 tablet by mouth once daily in the morning buPROPion (WELLBUTRIN XL) 150 MG extended release tablet Indications: Smoking trying to quit Take 1 tablet by mouth every morning 30 tablet 3 12/15/2024 Active citalopram 20 mg oral tablet (9 sources) Serotonin Reuptake Inhibitor Start: 07-27-2018 take 1 tablet by mouth once daily citalopram (CELEXA) 20 MG tablet Indications: Adjustment disorder with mixed anxiety and depressed mood Take 1 tablet by mouth daily 30 tablet 5 07/27/2018 Active meloxicam 15 mg oral tablet (2 sources) Nonsteroidal Anti-inflammatory Drug Start: 10-31-2024 meloxicam (MOBIC) 15 MG tablet Take 1 tablet by mouth 10/31/2024 Active pantoprazole 40 mg delayed release oral tablet (13 sources) Proton Pump Inhibitor Start: 07-31-2019 take 1 tablet by mouth once daily Protonix 40 mg Tab-DR 40 mg = 1 tab(s), Oral, Daily, Refills(s) 0, Control of stomach acid Start Date: 10/31/24 Status: Ordered Repeat number: 1 sucralfate 1000 mg oral tablet (9 sources) Aluminum Complex Start: 07-31-2019 take 1 tablet by mouth at bedtime sucralfate (CARAFATE) 1 GM tablet TAKE 1 TABLET BY MOUTH BEFORE MEAL(S) AND AT BEDTIME 0 07/31/2019 Active varenicline 1 mg oral tablet (2 sources) Partial Cholinergic Nicotinic Agonist CHANTIX CONTINUING MONTH MARGY 1 MG tablet 1 capsule Active Problems Active Problems Problem Classification Problem Date Documented Da te Episodic/Chronic Chronic obstructive pulmonary disease and bronchiectasis (1 source) Chronic obstructive lung disease 10-31-2024 Chronic Genitourinary symptoms and ill-defined conditions (1 source) Splitting of urinary stream; Translations: [Urinary stream splitting] Episodic Headache; including migraine (1 source) Migraine 10-31-2024 Chronic Menstrual disorders (1 source) Irregular periods; Translations: [Irregular menstruation, unspecified] Chronic Nonmalignant breast conditions (6 sources) Mammographic calcification found on diagnostic imaging of breast; Translations: [Other benign mammary dysplasias of right breast] Onset: 09-18-2022 Episodic Other circulatory disease (1 source) Vascular insufficiency 10-31-2024 Episodic Other gastrointestinal disorders (1 source) Dysphagia 05-24-2019 Episodic Other non-traumatic joint disorders (1 source) Pain in right knee; Translations: [Pain in joint, lower leg] Episodic Other nutritional; endocrine; and metabolic disorders (1 source) Body mass index 30+ - obesity 05-24-2019 Chronic Other nutritional; endocrine; and metabolic disorders (1 source) Obesity caused by energy imbalance 10-31-2024 Chronic Other screening for suspected conditions (not mental disorders or infectious disease) (5 sources) Mammography abnormal; Translations: [Other abnormal and inconclusive findings on diagnostic imaging of breast] Onset: 12-02-2024 Episodic Residual codes; unclassified (1 source) Procedure and treatment not carried out for other reasons; Translations: [PROC AND TX NOT CARRIED OUT OTH REASONS] Onset: 09-18-2022 Episodic Residual codes; unclassified (1 source) Tobacco user 11-07-2024 Episodic Spondylosis; intervertebral disc disorders; other back problems (1 source) Cervical disc disorder 10-31-2024 Chronic Thyroid disorders (1 source) Hypothyroidism 10-31-2024 Chronic Unclassified (2 sources) Patient encounter status Varicose veins of lower extremity (1 source) Varicose veins of lower extremity 10-31-2024 Episodic Past or Other Problems Problem Classification Problem Date Documented Date Episodic/Chronic Other female genital disorders (13 sources) Cervical intraepithelial neoplasia grade 2; Translations: [Moderate cervical dysplasia] Onset: 06-23-2017 06-23-2017 Episodic Other non-traumatic joint disorders (4 sources) Pain in left knee; Translations: [Pain in joint, lower leg] Onset: 04-19-2024 04-19-2024 Episodic Results Test Name Value Interpretation Reference Range Facility Cytology Reporton 12-15-2024 Cytology report Cyto stain.thin prep Doc (Cvx/Vag) (NOTE) Path Number: [id number] DIAGNOSIS Imaged ThinPrep Pap - Cervical (1 monolayer slide): Specimen Adequacy: Satisfactory for evaluation. - Endocervical/transformation zone component present. Descriptive Diagnosis: Negative for intraepithelial lesion or malignancy. Comments: Specimen was screened at [facility], [address] [place] [address] Cytotech Screener: ANTONIETTE Electronically Signed Out TIARA Aguilera(ASCP) cs/12/24/2024 Source of Specimen: A: Imaged ThinPrep Pap - Cervical (1 monolayer slide) HPV Reflex?.................... ..HPV if ASCUS Clinical History Prior cervical dysplasia LEEP Z12.4 Encounter for screening for malignant neoplasm of cervix LMP: 11/19/2024 Processing Lab: [address] [id number] Interpretation performed at [facility], [address] [place] [address] This Pap Test has been evaluated with [...] GYNECOLOGIC CYTOLOGY REPORT Patient Name: TOYA SHAFFER Med Rec: [id number] [facility] ANATOMIC PATHOLOGY [address] [place] [id number] [facility] Main OR Intraoperative Recor don 12-05-2024 Main OR Intraoperative Record Main OR Intraoperative Record IntraOp Document Type FT Summary Primary Physician: Blayne MORELOS MD Finalized Date/Time: 12/05/24 14:54:01 Pt. Name: TOYA SHAFFER/Sex: 1975 Female Med Rec #: [id number] Physician: Blayne MORELOS MD Financial #: [id number] Pt. Type: O Room/Bed: / Admit/Disch: 12/02/24 07:54:28 - 12/03/24 23:59:59 Institution: Case Times FT Entry 1 Patient Times In Room 12/02/24 08:56:00 Out Room 12/02/24 09:15:00 Procedure Times Start 12/02/24 09:00:00 Stop 12/02/24 09:13:00 Anesthesia Times Start 12/02/24 08:56:00 Stop 12/02/24 09:15:00 Time at [facility] 12/02/24 09:06:00 Last Modified By: Andrew ROSS, Radha Hoffman 12/02/24 09:15:34 Case Attendance FT Entry 1 Entry 2 Entry 3 Case Attendee Nic Willis CRNA, MD, Blayne Moralse RN, Radha Hoffman Role Performed MAINTENANCE SUPERINTENDENT Surgeon - Primary Scale Installer - Primary Time In 12/02/24 08:56:00 12/02/24 08:56:00 12/02/24 08:56:00 Time Out 12/02/24 09:15:00 12/02/24 09:15:00 12/02/24 09:15:00 Procedure COLONOSCOPY(.) COLONOSCOPY(.) COLONOSCOPY(.) Comments DR. Christian supervising case Last Modified By: Andrew RN, Radha Morales RN, Radha Morales RN, Radha Hoffman 12/02/24 09:15:35 F 12/02/24 09:15:35 F 12/02/24 09:15:35 Entry 4 Case Attendee Tristan Mckeon Role Performed Scrub - Primary Time In 12/02/24 08:56:00 Time Out 12/02/24 09:15:00 Procedure COLONOSCOPY(.) Comments Last Modified By: Andrew ROSS, Radha Hoffman 12/02/24 09:15:35 Perioperative Protocols FT Pre-Care Text: Implements protective measures prior to operative or invasive procedure, confirms identity before the operative or invasive procedure, verifies operative procedure, surgical site, and laterality Entry 1 Procedure(s) COLONOSCOPY(.) Patient Identity Birthday, ID Band Verified (select at Check, Patient least 2): Participation Consents / H and P Anesthesia Consent, Operative Site N/A Verified H&P, Surgery/Procedure Marking Verified Consent Surgical Site No Laterality Verified n/a Verified Procedure Verified Yes Correct Patient Yes Position Verified Availability Equipment, Medication Prep Dry n/a Verified (If Applicable) PreOp Antibiotic No Time Out Nic Willis CRNA, Given Participants MALLORY BENAVIDES, Andrew Estrada RNRadha Sparks, Micala E Time Out Complete 12/02/24 08:58:00 Outcomes Met? Yes Last Modified By: Radha Morales RN 12/02/24 08:59:40 Post-Care Text: The patient is free from signs and symptoms of injury caused by extraneous objects Allergy Information FT Pre-Care Text: Verifies allergies Entry 1 Allergies Reviewed? Yes Allergies Reviewed Self/Patient With Outcomes Met? Yes Last Modified By: Radha Morales RN 12/02/24 09:00:17 Post-Care Text: The patient received appropriate medication(s) safely administered during the perioperative period Surgical Procedures FT Entry 1 Procedure Description Procedure COLONOSCOPY Modifiers . Surgeon Description Colonoscopy Primary Procedure Yes Primary Surgeon Blayne MORELOS MD 12/02/24 09:00:00 Stop 12/02/24 09:13:00 Anesthesia Type General Surgical Service General Wound Class 2 - Clean-Contaminated Last Modified By: Radha Morales RN 12/02/24 09:14:27 General Case Data FT Pre-Care Text: Classifies surgical wound, implements aseptic technique, initiates traffic control Entry 1 Case Information OR ENDO 2 FT Case Level Level 2 Wound Class 2 - Clean-Contaminated Specialty General ASA Class 2 Preop Diagnosis Screening Postop Same As Preop No Postop Diagnosis Normal colonoscopy Outcomes Met? Yes Last Modified By: Radha Morales RN 12/02/24 09:14:25 Post-Care Text: The patient is free from signs and symptoms of infection Skin Assessment (Pre Procedure) FT Pre-Care Text: Implements protective measures to prevent skin/ tissue injury due to thermal or mechanical sources Evaluates for signs and symptoms of physical injury to skin and tissue Entry 1 Skin Integrity Intact, Harold, Warm, & Skin Abnormality No Dry Outcomes Met? Yes Last Modified By: Radha Morales RN 12/02/24 09:00:45 Post-Care Text: The patient is free from signs and symptoms of injury caused by extraneous objects Patient Positioning FT Pre-Care Text: Identifies physical alterations that require additional precautions for procedure-specific positioning, verifies presence of prosthetics or corrective devices, positions the patient, evaluates the patient for signs and symptoms of injury as a result of positioning Entry 1 Procedure COLONOSCOPY(.) Body Position Lateral, right side up Feet Uncrossed? Yes Left Arm Position Resting at Side Right Arm Position Resting at Side Left Leg Position Extended Right Leg Position Extended Positioning Device Safety Strap, Pillow Under Head Large Press Points Checked Yes By Andrew ROSS, Radha Williamson (more content not included)... Normal [facility] Reminderson 12-05-2024 Reminders Reminders From: Vickie Yanez LPN To: N - Clinical; Sent: 12/05/2024 09:53:35 EDT Show up: 11/01/2034 07:00:00 EST Subject: colonoscopy recall Due Date/Time: 12/02/2034 07:00:00 EDT Reminder/Recall Patient due for screening colonoscopy 12/02/2034. Normal [facility] Discharge Instructionson Discharge Instructions Discharge Instructions TOYA SHAFFER :1975 Visit Date:12/02/2024 Inpatient Discharge Instructions Your Care Team Admitting Physician - Blayne MORELOS MD Referring Physician - Blayne MORELOS MD Reason for Your Visit SCREENING This Is Your Medications List albuterol (Albuterol (Eqv-ProAir HFA)) meloxicam (Mobic 15 mg Tab) pantoprazole (Protonix 40 mg Tab-) Procedure History EGD - esophagogastroduodenoscopy (05/25/2019), Percutaneous radiofrequency ablation of great saphenous vein using ultrasonographic guidance. Discharge Vitals Temperature (Temporal Artery) 36.5 ???C Heart Rate (Monitored) 90 Respiratory Rate 17 Blood Pressure 110/82 Height 160 cm Weight 83.1 kg BMI 32.46 What to do next Instructions From Your Doctor No qualifying data available. New Follow Up Appointments after Discharge Follow Up with Blayne MORELOS When: Comments: Call for any problems. Where: [facility] Gian Horn, [facility] [address] [address] [facility] [place] (1) Medications What How Much When Instructions Next Dose Unchanged albuterol (Albuterol (Eqv-ProAir HFA)) 2 Puffs Inhalation Every 6 hours as needed for Shortness of breath or wheezing Unchanged meloxicam (Mobic 15 mg Tab) 1 Tablets By Mouth Every day Unchanged pantoprazole (Protonix 40 mg Tab-DR) 1 Tablets By Mouth Every day Test Results No qualifying data available. Allergies No Known Allergies No Known Medication Allergies Problems Ongoing - Any problem that you are currently receiving treatment for. BMI 32.0-32.9,adult Cervical disc disease Cervical intraepithelial neoplasia grade 2 Chronic obstructive pulmonary disease Dysphagia Hypothyroidism Migraines Obesity due to excess calories Screening for malignant neoplasm of colon Varicose veins of lower extremity Vascular insufficiency Education Materials Colonoscopy Care After Surgery Please read the instructions outlined below and refer to this sheet in the next few weeks. These discharge instructions provide you with general information on caring for yourself after you leave the hospital. Your doctor may also give you specific instructions. While your treatment has been planned according to the most current medical practices available, unavoidable complications occasionally occur. If you have any problems or questions after discharge, please call your doctor. ACTIVITY You may resume your regular activity, but move at a slower pace for the next 24 hours. Take frequent rest periods for the next 24 hours. Walking will help get rid of the air and reduce the bloated feeling in your abdomen (belly). No driving for 24 hours (because of the anesthesia (medicine) used during the test). You may shower. Do not sign any important legal documents or operate any machinery for 24 hours (because of the anesthesia used during the test). NUTRITION Drink plenty of fluids. You may resume your normal diet as instructed by your doctor. Begin with a light meal and progress to your normal diet. Heavy or fried foods are harder to digest and may make you feel nauseated (sick to your stomach). Avoid alcoholic beverages for 24 hours or as instructed. MEDICATIONS You may resume your normal medications unless your doctor tells you otherwise. WHAT YOU CAN EXPECT TODAY Some feelings of bloating in the abdomen. Passage of more gas than usual. Spotting of blood in your stool or on the toilet paper. FOLLOW-UP Your doctor will discuss the results of your test with you. SEEK IMMEDIATE MEDICAL ATTENTION IF: There is more than a spotting of blood in your stool. There is abdominal distention (your abdomen is swollen). There is vomiting. You have a temperature over 101.5 F. There is abdominal pain or discomfort that is severe or gets worse throughout the day. Common Emergency Awareness Tips IS IT A STROKE? Act FAST and Check for these signs: FACE Does the face look uneven? ARM Does one arm drift down? SPEECH Does their speech sound strange? TIME Call at any sign of stroke Heart Attack Signs Chest discomfort: Most heart attacks involve discomfort in the center of the chest and lasts more than a few minutes, or goes away and comes back. It can feel like uncomfortable pressure, squeezing, fullness or pain. Discomfort in upper body: Symptoms can include pain or discomfort in one or both arms, back, neck, jaw or stomach. Shortness of breath: With or without discomfort. Other signs: Breaking out in a cold sweat, nausea, or lightheaded. Remember, MINUTES DO MATTER. If you experience any of these heart attack warning signs, call to get immediate medical attention! Patient Survey You may receive a survey in the mail asking you about your stay with us. We want to hear from you, please share your experience with us by completing your survey. Thank you for choosing (more content not included)... Normal [facility] Comment on above: Result Comment: Elec tronically Signed By: Juan Luis ROSS, Tayla\.br\Date and Time Signed: 12/02/24 09:24 EDT Main OR PACU II Recordon Main OR PACU II Record Main OR PACU II Record PACU Phase II Document Type FT Summary Primary Physician: Blayne MORELOS MD Finalized Date/Time: 12/02/24 12:29:57 Pt. Name: JASON SHAFFERManny Pickard/Sex: 1975 Female Med Rec #: [id number] Physician: Blayne MORELOS MD Financial #: [id number] Pt. Type: O Room/Bed: / Admit/Disch: 12/02/24 07:54:28 - Institution: Case Times PACU II FT Pre-Care Text: Identifies barriers to communication and implements measures to provide psychological support and determines knowledge level Develops individualized plan of care, and ensures continuity of care Maintains patient's dignity and privacy, and maintains patient confidentiality Identifies and reports philosophical, cultural, and spiritual beliefs and values Identifies individual values and wishes concerning care administers prescribed antibiotic therapy and immunizing agents as ordered, Evaluates postoperative tissue perfusion Implements thermoregulation measures, and monitors body temperature Evaluates postoperative respiratory status Evaluates postoperative cardiac status Evaluates postoperative neurological status Assesses pain control, collaborated in initiating patient-controlled analgesia and implements alternative methods of pain control Verifies allergies, administers prescribed medications and solutions, evaluates response to medications Entry 1 In PACU II 12/02/24 09:17:00 Discharge from PACU 12/02/24 09:50:00 II Outcomes Met? Yes Last Modified By: Tayla Mcknight RN 12/02/24 12:29:53 Post-Care Text: The patient demonstrates knowledge of the expected response to the operative or invasive procedure The patient's care is consistent with the individualized perioperative plan of care The patient's right to privacy is maintained The patient's value system, lifestyle, ethnicity, and culture are considered, respected, and incorporated into the perioperative plan of care The patient participates in decisions affecting his or her perioperative plan of care. The patient is free from signs and symptoms of infection The patient has wound/tissue perfusion consistent with or improved from baseline levels established preoperatively The patient is at or returning to normothermia at the conclusion of the immediate postoperative period The patient's respiratory function is consistent with or improved from baseline levels established preoperatively The patient's cardiovascular status is consistent with or improved from baseline levels established preoperatively The patient's neurological status is consistent with or improved from baseline levels established preoperatively The patient demonstrates and/or reports adequate pain control throughout the perioperative period The patient received appropriate medication(s), safely administered during the perioperative period Finalized By: Tayla Mcknight RN Document Signatures Signed By: Tayla Mcknight RN 12/02/24 12:29 Normal [facility] Main OR Preoperative Recordo n 12-02-2024 Main OR Preoperative Record Main OR Preoperative Record Holding Area Document Type FT Summary Primary Physician: Blayne MORELOS MD Finalized Date/Time: 12/02/24 08:28:03 Pt. Name: TOYA SHAFFER/Sex: 1975 Female Med Rec #: [id number] Physician: Blayne MORELOS MD Financial #: [id number] Pt. Type: O Room/Bed: / Admit/Disch: 12/02/24 07:54:28 - Institution: Case Times Holding FT Pre-Care Text: Verifies consent for planned procedure, identifies individual values and wishes concerning care, includes family members in perioperative teaching Secures patient's records' belongings, and valuables, maintains patient's dignity and privacy, and maintains patient confidentiality Entry 1 In Holding 12/02/24 08:17:00 Outcomes Met? Yes Last Modified By: Haim Neri RN 12/02/24 08:25:26 Post-Care Text: The patient participates in decisions affecting his or her perioperative plan of care The patient's right to privacy is maintained Surgery Checklist FT Entry 1 Patient Birthday, ID Band Procedure History and Physical, Identification: Check, Patient Verification: Surgical Consent, With Participation Patient NPO after Midnight: No Date/Time: 12/02/24 03:00:00 Results Reviewed bright yellow liquid Personal Items: Jewelry Comments: bowel results Personal Items earrings, clothing, Limitations: none Comment: shoes Complaints of Pain: No Pain Comment: denies Operative Site n/a Marked By: n/a Marking: Location: n/a Availability Equipment Verified: Does Patient Smoke No Patient states Yes Comment - Adult Orestes in waiting room postop adult Supervision supervision available Case Cancelled in No Holding Area see comments below for reason Last Modified By: Haim Neri RN 12/02/24 08:28:01 General Comments: pt finished bowel prep at 0300, per patient nothing to eat or drink since MSRN Finalized By: Haim Neri RN Document Signatures Signed By: Haim Neri RN 12/02/24 08:28 Normal [facility] XR KNEE LEFT (3 VIEWS)on XR KNEE [...] Jeancarlos Lopes MD 04/19/24 Final result Normal [facility] XR Knee - left 3 Viewson Minimal osteoarthrit is affecting the left knee with chondrocalcinosis. Nonspecific small knee joint effusion. [facility] EXAMINATION: THREE XRAY VIEWS OF THE LEFT KNEE 04/19/2024 10:17 am COMPARISON: None. HISTORY: ORDERING SYSTEM PROVIDED HISTORY: Pain, joint, knee, left FINDINGS: Minimal osteoarthritis affects the left knee. There is chondrocalcinosis. No radiographic evidence of acute fracture or dislocation seen there is small knee joint effusion. No radiopaque foreign body seen [facility] Jeancarlos Lopes MD - 04/19/2024 EXAMINATION: [...] with chondrocalcinosis. Nonspecific small knee joint effusion. [facility] Rad[facility] Study observation (narrative) [facility] XR Knee - left 3 ViewsOrdere d By: Jeancarlos Lopes on 04-19-2024 [facility] Work Phone: Estradiolon 12-11-2022 Estradiol 134.9 pg/mL 27 - 314 pg/mL [facility] Comment on above: FEMALES: Normally menstruating Luteal phase 33-298 Follicular phase 27-156 Midcycle phase 48-314 Postmenopausal (untreated) 5-50 Fulvestrant treatment will show an increased estradiol concentration with this methodology. Alternate methodologies are available upon request. Follicle Stimulating Hormone on 12-11-2022 FSH 9.4 [facility] Comment on above: Reference Range: Male: 1.5-12.4 Ovulating Female: Follicular Phase 3.5-12.5 Ovulation Phase 4.7-21.5 Luteal Phase 1.7-7.7 Postmenopausal Female: 25.8-134.8 Luteinizing Hormoneon 2022 LH 8.4 [facility] Comment on above: Reference Range: Male: 1.7-8.6 Ovulating Female: Follicular Phase 2.4-12.6 Ovulation Phase 14.0-95.6 Luteal Phase 1.0-11.4 Postmenopausal Female: 7.7-58.5 No Panel Informationon 12-11 [facility] MAMMO POST BIOPSY RIGHTon MAMMO POST BIOPSY RIGHT Patient: TOYA SHAFFER. Exam Date: 09/22/2022 : 1975 Gender:F Ordering : DR GINA TIERNEY . Admission #: [id number] Family : Order #: [id number] CLICK HERE TO VIEW EXAM This report [...] Fahad Barrett M.D. on 09/25/2022 at 10:37 [facility] MG STEREO CORE NDL W CLIP RT on 09-22-2022 MG STEREO CORE NDL W CLIP RT Patient: TOYA SHAFFER. Exam Date: 09/22/2022 : 1975 Gender:F Ordering : DR GINA TIERNEY . Admission #: [id number] Family : Order #: [id number] CLICK HERE TO VIEW EXAM This report [...] M.D. on 09/25/2022 at 10:36 Normal [facility] ARIELLE DIGITAL DIAGNOSTIC BILATERALon 08-18-2022 Radiology Study observation (narrative) [facility] Phone: No Panel InformationOrdered By: Angie Moore on 08-18-2022 Interpretation and review of laboratory results Abnormal [facility] Phone: [facility] Phone: No Panel Informationon 08-18 Right breast: Suspic ious calcifications upper-outer posterior right breast with tissue [...] patient at the time of service. A welding equipment sales representative from the radiology department will be contacting your office and assisting the patient in getting appropriate follow-up. LEFT BREAST: BIRADS - CATEGORY 3 Findings are probably benign. A short interval follow-up left breast mammogram is recommended in 6 months. OVERALL ASSESSMENT - PROBABLY BENIGN. A letter of notification will be sent to the patient regarding the results. [facility] RIS CONSOLIDATED EXAMINATION: DIAGNOSTIC DIGITAL BILATERAL [...] of the left axilla reveals no abnormality. [facility] CONSOL[facility] US BREAST LIMITED LEFTon Radiology Study observation (narrative) [facility] Phone: JORDAN ARIELLE DIGITAL SCREEN SELF REFERRAL [...] OVERALL ASSESSMENT - INCOMPLETE:NEED ADDITIONAL IMAGING EVALUATION. [facility] CONSOL[facility] EXAMINATION: SCREENING DIGITAL BILATERAL MAMMOGRAM WITH [...] in the medial left breast, posterior depth. [facility] Radiology Study observation (narrative) [facility] Phone: JORDAN ARIELLE DIGITAL SCREEN SELF REFERRAL W OR WO CAD BILATERALOrdered By: Ara Turner on 08-06-2022 [facility] Phone: Occult Blood Screenon 2021 Date, Stool #1 [id number] [facility] [place] [employer] Hemoglobin.gastroint estinal spec 1 Ql (Stl) Negative NEGATIVE [employer] Time, Stool #1 [id number] [facility] [employer] CoSTILLMAN INFIRMARY [employer] [facility] DICKINSON HOSPITALAeria Games & Entertainment XR KNEE RIGHT (3 VIEWS)on 1. No acute abnormal ity involving the right knee. 2. Degenerative changes involving the patellofemoral compartment. 3. Chondrocalcinosis. [facility] EXAMINATION: THREE XRAY VIEWS OF THE RIGHT KNEE 06/20/2022 3:21 pm COMPARISON: None. HISTORY: ORDERING SYSTEM PROVIDED HISTORY: Right knee pain, unspecified chronicity FINDINGS: The bone mineralization is within normal limits. There is joint space narrowing involving the patellofemoral compartment. No acute fractures or dislocations are seen. Note is made of chondrocalcinosis. [facility] Donal Nesbitt MD - 06/21/2022 EXAMINATION: [...] changes involving the patellofemoral compartment. 3. Chondrocalcinosis. [employer] Work Phone: XR KNEE RIGHT (3 VIEWS)Order ed By: Donal Nesbitt on 06-21-2022 [employer] Work Phone: XR KNEE RIGHT (3 VIEWS)on Radiology Study observation (narrative) [facility] [place] Phone: Urinalysis with Microscopico n 11-03-2019 Amorphous, UA NOT REPORTED None [facility] [place] [place] Bacteria, UA TRACE Abnormal None [facility] [place] Bilirubin Urine Negative NEGATIVE [facility] [place] Casts UA NOT REPORTED /LPF [facility] [place] Color, UA YELLOW YELLOW [facility] [place] Crystals, UA NOT REPORTED None /HPF [facility] [place] Epithelial Cells UA 0 TO 2 [place], [place] Glucose, Ur Negative NEGATIVE [place] Interpretation and review of laboratory results Abnormal [place] Ketones Ql (U) Negative NEGATIVE [place] Leukocyte esterase Test strip Ql (U) Negative NEGATIVE [place] Mucus, UA NOT REPORTED None [place], [place] Nitrite, Urine Negative NEGATIVE [place] Other Observations UA NOT REPORTED NOT REQ. [place] pH, UA 7.5 [place] Protein (U) [Mass/Vol] Negative NEGATIVE [place] RBC (U) [#/Vol] None [place] Renal Epithelial, UA NOT REPORTED 0 /HPF [place] Specific [place], UA 1.010 [place], [place] Trichomonas, UA NOT REPORTED None [facility] [place] [place] Turbidity UA CLEAR CLEAR [place] Urinalysis Comments NOT REPORTED [place], [place] Urine Hgb Negative NEGATIVE [place] Urobilinogen, Urine Normal Normal [place] WBC, UA 0 TO 2 [place] Yeast, UA NOT REPORTED None [place] Vital Signs Date Time Vital Sign Value Performing Clinician Frank fallon 12-02-2024 09:38-0400 Heart rate 78 /min Blayne MORELOS [facility] 12-02-2024 09:38-0400 SaO2% (BldA) [Mass fraction] 98 % Blayne ALDRIDGEL [facility] 12-02-2024 09:38-0400 Respiratory rate 14 /min Blayne ALDRIDGEL [facility] 12-02-2024 09:37-0400 Heart rate 76 /min Blayne MORELOS [facility] 12-02-2024 09:37-0400 Respiratory rate 13 /min Blayne MORELOS [facility] 12-02-2024 09:37-0400 SaO2% (BldA) [Mass fraction] 97 % Blayne NILL [facility] 12-02-2024 09:37-0400 Diastolic blood pressure 80 mm[Hg] Blayne NILL [facility] 12-02-2024 09:37-0400 Systolic blood pressure 122 mm[Hg] Blayne NILL [facility] 12-02-2024 09:37-0400 Blood Pressure Location Blayne NILL [facility] 12-02-2024 09:37-0400 Mean blood pressure 94 mm[Hg] Blayne NILL [facility] 12-02-2024 09:30-0400 SaO2% (BldA) [Mass fraction] 97 % Blayne NILL [facility] 12-02-2024 09:30-0400 Heart rate 73 /min Blayne NILL [facility] 12-02-2024 09:30-0400 Respiratory rate 18 /min Blayne NILL [facility] 12-02-2024 09:30-0400 Blood Pressure Location Blayne NILL [facility] 12-02-2024 09:30-0400 Diastolic blood pressure 78 mm[Hg] Blayne NILL [facility] 12-02-2024 09:30-0400 Mean blood pressure 92 mm[Hg] Blayne NILL [facility] 12-02-2024 09:30-0400 Systolic blood pressure 119 mm[Hg] Blayne NILL [facility] 12-02-2024 09:26-0400 Diastolic blood pressure 85 mm[Hg] Blayne NILL [facility] 12-02-2024 09:26-0400 Systolic blood pressure 117 mm[Hg] Blayne NILL [facility] 12-02-2024 09:26-0400 Blood Pressure Location Blayne NILL [facility] 12-02-2024 09:26-0400 Mean blood pressure 96 mm[Hg] Blayne NILL [facility] 12-02-2024 09:18-0400 Body temperature 97.7 [degF] Blayne NILL [facility] 12-02-2024 08:24-0400 Body temperature 98.06 [degF] Blayne NILL [facility] Encounters Encounter Date Encounter Type Care Provider Facility Start: 12-15-2024 End: 12-15-2024 ambulatory MYAH BRUSH [facility] Start: 12-15-2024 End: 12-15-2024 Subsequent hospital visit by physician Gina Tierney MD Work Phone: [facility] Comment on above: Screening for malign ant neoplasm of cervix Start: 12-02-2024 End: 12-02-2024 ambulatory Blayne R NILL Facility:[facility] Start: 12-02-2024 End: 12-03-2024 Patient encounter procedure Blayne R NILL [facility] Start: 11-09-2024 End: 11-09-2024 ambulatory Blayne R NILL Facility: [facility] Start: 04-19-2024 End: 04-21-2024 Subsequent hospital visit by physician Pino Yen Dr Room 2 [facility] Rad[facility] Comment on above: Pain, joint, knee, l eft Start: 04-19-2024 End: 04-21-2024 [facility] Start: 12-11-2022 End: 12-11-2022 Subsequent hospital visit by physician Gina Tierney MD Work Phone: [facility] Comment on above: Irregular menses Start: 09-22-2022 End: 09-22-[address] GINA TIERNEY Facility:[facility] Start: 09-12-2022 End: 09-12-[address] GINA TIERNEY Facility:[facility] Start: 08-18-2022 End: 08-20-2022 Subsequent hospital visit by physician Pino Gen Radiologist [facility] Ultrasound Comment on above: Abnormal screening m ammogram Start: 08-06-2022 End: 08-08-2022 Patient encounter [facility] Start: 08-06-2022 End: 08-08-2022 Subsequent hospital visit by physician Pino Mammography [facility] Mammography Comment on above: Well adult exam Start: 07-01-2022 End: 07-01-2022 Subsequent hospital visit by physician Gina Tierney MD Work Phone: [facility] Start: 06-20-2022 End: 06-22-2022 Subsequent hospital visit by physician Pino Yen Dr Room 2 [facility] Comment on above: Right knee pain, uns pecified chronicity Start: 03-19-2021 End: 03-19-2021 Subsequent hospital visit by physician Js Covid Screening Schedule [facility] Covid Screening Comment on above: Arrived Start: 11-03-2019 End: 11-03-2019 Subsequent [facility] visit [facility] Comment on above: Urinary stream split ting Start: 09-20-2019 End: 09-20-2019 Subsequent hospital visit by physician Gina Tierney MD Work Phone[facility] Comment on above: Encounter for annual routine gynecological examination Procedures Date Procedure Procedure Detail Performing Clinician Start: 12-02-2024 Colonoscopy Blayne NILAmanda Start: 04-19-2024 Radiologic examination knee 3 views Rylan Tierney MD Work Phone: Start: 12-10-2023 Microscopic observation [Identifier] in Cervix by Cyto stain [facility] 2 Start: 12-11-2022 Gonadotropin follicle stimulating hormone Myah Brush CAR BUILDER - CNM Work Phone: Start: 12-03-2022 Microscopic observation [Identifier] in Cervix by Cyto stain Gina Tierney MD Work Phone: Start: 08-18-2022 Us breast uni real time with image limited Gina Tierney MD Work Phone: Start: 08-18-2022 Diagnostic mammography computer-aided detcj bi Gina Tierney MD Work Phone: Start: 08-06-2022 Screening mammography bi 2-view breast inc cad Gina Tierney MD Work Phone: Start: 07-01-2022 Blood occult peroxidase actv qual other sources Gina Tierney MD Work Phone: Start: 06-20-2022 Radiologic examination knee 3 views Rylan Tierney MD Work Phone: Start: 11-03-2019 Urnls dip stick/tablet reagent auto microscopy Maribel Hammonds Work Phone: Start: 09-20-2019 Microscopic observation [Identifier] in Cervix by Cyto stain Gina Tierney MD Work Phone: Start: 05-25-2019 Esophagogastroduodenoscopy Blayne MORELOS Ultrasonography guid ed percutaneous radiofrequency ablation of long saphenous vein Blayne MORELOS Plan of Treatment Date Care Activity Detail Author Start: 06-20-2027 Lipid panel Lipids [facility] Start: 12-09-2026 Screening for malign ant neoplasm of cervix [facility] Start: 12-21-2025 End: 12-21-2025 Patient encounter procedure 12/21/2025 8:45 AM EDT Office Visit [facility] [address] [place] [address] Myah Brush, CAR BUILDER - CNWilly [address] [place] [address] yearly [facility] Part [facility] Comment on above: yearly Start: 12-20-2025 Screening for malign ant neoplasm of breast Breast cancer screen [facility] Start: 12-03-2025 Screening for malign ant neoplasm of cervix [facility] Start: 03-31-2025 Influenza vaccination Flu vacc ine (Season Ended) [facility] Start: 03-16-2025 End: 03-16-2025 Patient encounter procedure 03/16/2025 8:00 AM EDT Office Visit [address] [place] [address] Myah Brush, CAR BUILDER - CNM [address] [place] [address] Dr [address] [place] [address] 3 month med check [facility] Comment on above: 3 month med check Start: 12-14-2024 End: 12-14-2024 Patient encounter procedure 12/14/2024 8:15 AM EDT Office Visit [address] [place] [address] Myah Brush, CAR BUILDER - CNM [address] [place] [address] Dr [facility] [address] [place] [address] PAP [facility] Comment on above: PAP Start: 12-09-2024 Depression Screen Depression Screen [facility] Start: 09-20-2024 Cervical cancer screen Cervical canc er screen [facility] [place] Start: 09-20-2024 Screening for malign ant neoplasm of cervix [facility] Start: 2024 Pneumococcal 50+ yea rs Vaccine (1 of 1 - PCV) Pneumococcal 50+ years Vaccine (1 of 1 - PCV) [facility] Start: 2024 Screening for malign ant neoplasm of lung Lung Cancer Screening &/or Counseling [facility] Start: 2024 Shingles Vaccine (1 of 2) Shingles Vaccine (1 of 2) [facility] Start: 05-01-2024 COVID-19 Vaccine ( season) COVID-19 Vaccine ( season) [facility] Start: 03-31-2024 Influenza vaccination Flu vaccine (# 1) [facility] Start: 12-10-2023 End: 12-10-2023 Patient encounter procedure 12/10/2023 Office Visit Obstetrics and Gynecology Myah Brush, CAR BUILDER - CNM [address] [facility] [address] [place] [address] [facility] Part [facility] Start: 07-27-2023 Cervical cancer screen Cervical canc er screen [facility] [employer] Phone: Start: 07-01-2023 Screening for malign ant neoplasm of colon [facility] Start: 05-01-2023 COVID-19 Vaccine ( season) COVID-19 Vaccine ( season) [facility] Start: 03-31-2023 Influenza vaccination Flu vacc ine (Season Ended) [facility] Start: 09-20-2022 Screening for malign ant neoplasm of cervix Pap smear [facility] Start: 08-18-2022 End: 08-18-2022 Patient encounter procedure 08/18/2022 Appointment Radiology Radiologist, [facility] Mamm[facility] Start: 08-06-2022 End: 08-06-2022 Patient encounter procedure 08/06/2022 Appointment Radiology [facility] Start: 03-31-2022 Influenza vaccination Flu vaccine (# 1) [facility] Start: 09-15-2021 COVID-19 Vaccine (3 - Booster for Pfizer series) COVID-19 Vaccine (3 - Booster for Pfizer series) [facility] Start: 05-31-2021 Diabetes screen Diabetes screen [facility] Phone: Start: 05-01-2021 Influenza vaccination Flu vaccine (# 1) [facility] Phone: Start: 09-20-2020 Influenza vaccination Flu vaccine (# 1) [place] Phone: Comment on above: Postponed from 05/01 (Patient Refused) Start: 09-20-2020 Lipid screen Lipid screen [facility] Work Phone: Comment on above: Postponed from 07/05 (Not Indicated) Start: 09-20-2020 Pneumococcal 0-64 ye ars Vaccine (1 of 1 - PPSV23) Pneumococcal 0-64 years Vaccine (1 of 1 - PPSV23) [facility] Work Phone: Comment on above: Postponed from 07/05 (Unavailable) Start: 11-03-2019 DTaP/Tdap/Td vaccine (1 - Tdap) DTaP/Tdap/Td vaccine (1 - Tdap) [facility] [place], [place] Comment on above: Postponed from 07/05 (Not Indicated) Start: 10-13-2019 End: 10-13-2019 Patient encounter procedure 10/13/2019 Office Visit Obstetrics and Gynecology Myah Brush, CAR BUILDER - CNM [address] [place] [id number] [facility] Start: 10-13-2019 End: 10-13-2019 Professional / ancillary services management 10/13/2019 Ancillary Procedure Obstetrics and Gynecology [facility] Start: 10-11-2019 DTaP/Tdap/Td vaccine (1 - Tdap) DTaP/Tdap/Td vaccine (1 - Tdap) [facility] Work Phone: Comment on above: Postponed from 07/05 (Not Indicated) Start: 2019 Screening for malign ant neoplasm of colon [facility] Start: 2014 Lipid panel Lipid screen [facility] Work Phone: Start: 1993 DTaP/Tdap/Td vaccine (1 - Tdap) DTaP/Tdap/Td vaccine (1 - Tdap) [facility] Start: 1993 Hepatitis B vaccine (1 of 3 - 19+ 3-dose series) Hepatitis B vaccine (1 of 3 - 19+ 3-dose series) [facility] Start: 1992 Hepatitis C screening Hepatitis C sc maciel WILLIAM [employer] Start: 1986 COVID-19 Vaccine (1) COVID-19 Vaccin e (1) [place] Phone: Start: 1986 Depression Screen Depression Screen [facility] [employer] Start: 1980 Pneumococcal 0-64 ye ars Vaccine (1 - PCV) Pneumococcal 0-64 years Vaccine (1 - PCV) [facility] [employer] Start: 1980 Pneumococcal 0-64 ye ars Vaccine (1 of 2 - PPSV23) Pneumococcal 0-64 years Vaccine (1 of 2 - PPSV23) [facility] Phone: Start: 1974 Hepatitis C screening Hepatitis C [facility] [place] Phone: End: 11-03-2019 Bacteria identified Cx Nom (U) Urine Culture Microbiology Routine Urinary stream splitting 1 Occurrences starting 11/03/2019 until 11/03/2019 [facility] [place] [place] Comment on above: 1 Occurrences starti ng 11/03/2019 until 11/03/2019 Bacteria identified Cx Nom (U) Urine Culture Microbiology Routine Urinary stream splitting 11/03/2019 11:16 AM EST [facility] End: 03-19-2021 COVID-19 COVID-19 Lab Routine Once for 1 Occurrences starting 03/19/2021 until 03/19/2021 [place] Phone: Comment on above: Once for 1 Occurrenc es starting 03/19/2021 until 03/19/2021 COVID-19 COVID-19 Lab Rou yamel 03/19/2021 3:31 PM EDT [place] Phone: End: 09-20-2019 Cytopathology procedure, preparation of smear, genital source [facility] Lab Routine Encounter for annual routine gynecological examination 1 Occurrences starting 09/20/2019 until 09/20/2019 [place] Phone: Comment on above: 1 Occurrences starti ng 09/20/2019 until 09/20/2019 End: 12-15-2024 Cytopathology procedure, preparation of smear, genital source [facility] Lab Routine Screening for malignant neoplasm of cervix 1 Occurrences starting 12/15/2024 until 12/15/2024 [place] Comment on above: 1 Occurrences starti cb 12/15/2024 until 12/15/2024 End: 08-18-2022 US BREAST COMPLETE RIGHT US BREAST COMPLETE RIGHT Imaging Routine Abnormal screening mammogram 1 Occurrences starting 08/18/2022 until 08/18/2022 [employer] Work Phone: Comment on above: 1 Occurrences starti ng 08/18/2022 until 08/18/2022 Immunizations Immunization Date Immunization Notes Care Provider Fa [facility] 07-21-2021 SARS-CoV-2 (COVID-19 ) mRNA BNT-162b2 [employer] [facility] [place] 06-28-2021 SARS-CoV-2 (COVID-19 ) mRNA BNT-162b2 [employer] [facility] Payers Date Payer Category Payer Unknown [id number] 2016 Unknown [employer] xxxxxxxxx 2016-Present [phone] [address] [place] [address] xxxxxxxxx [id number] 2016 Unknown [id number] 1974 Unknown [id number] 3 1975 Unknown [id number] 3 1974 Unknown [id number] 7 1974 Unknown [id number] 7 1974 Unknown [id number] 3 1974 Unknown [id number] 3 1974 Unknown [id number] 3 1959 Unknown [id number] Social History Date Type Detail Facility Start: 08-31-1989 End: 12-15-2024 Tobacco smoking status FLIS Current every day smoker [place] Phone: Start: 11-03-2019 End: 12-15-2024 Alcohol intake Current drinker of alcohol (finding) [place] Phone: Start: 07-27-2018 Alcohol Comment Social [employer] [facility] [employer] Work Phone: Start: 1975 Sex Assigned At Not on file [employer] Phone: Start: 02-22-2020 End: 12-15-2024 Tobacco use and exposure Never used [employer] Start: 08-08-2022 End: 08-18-2022 Exposure to SARS-CoV-2 (event) Not sure [employer] Start: 1975 Sex Assigned At Female B [facility] [employer] Start: 12-21-2023 Tobacco smoking stat [facility] Never smoked tobacco [employer] Start: 08-31-1989 End: 08-19-2023 History of tobacco use Cigarette Smoker [facility] Start: 12-21-2023 End: 12-15-2024 Cigarettes smoked current (pack per day) - Reported 3 [employer] History of tobacco use Passive smoker [employer] Start: 12-21-2023 End: 12-15-2024 Tobacco use panel [employer] How hard is it for y ou to pay for the very basics like food, housing, medical care, and heating Not hard at all [employer] (I/We) worried chapin er (my/our) food would run out before (I/we) got money to buy more. Never true [employer] Start: 12-21-2023 Tobacco Comment Quit for 4 mon ths now only once and a while [employer] Start: 12-02-2022 Gender identity Identifies as female gender (finding) [employer] Start: 11-09-2024 Tobacco smoking status Heavy t obacco smoker (finding) [facility] [place] Sexual Orientation [facility] Start: 10-10-2012 End: 11-18-2018 Sex Female (finding) [facility] Has the electric, ga s, oil, or water company threatened to shut off services in your home in past 12Mo No [place] Functional Status Date Assessment Result Facility 12-02-2024 Functional Status N/A [facility] Clinical Notes 11-09-2024 to 12-04-2024 Note Date & Type Note Facility 12-04-2024 Note Progress Note-Physic osmar Patient: TOYA SHAFFER Age: 49 years Sex: Female : 1975 Associated Diagnoses: None Author: Kenneth Christian MD Postoperative Information Postoperative disposition: Postoperative disposition: To PACU. Optimetrix number: Optimetrix number [id number]. Anesthetic utilized: General. Health Status Allergies: Allergic Reactions (Selected) No Known Allergies No Known Medication Allergies Physical Examination VS/Measurements Pain Assessment: Controlled. General: Awake, Appropriate. Respiratory: Adequate air exchange. Cardiovascular: Stable. Neurological Assessment Anesthetic outcome No anesthetic complications noted. Adequate pain relief. Review / Management Condition: Stable. Plan Transfer/Discharge: Transfer/Discharge Discharge when meets criteria ( To home ). [facility] Comment on above: Result Comment: Elec tronically Signed By: Kenneth Christian MD\.br\Date and Time Signed: 12/04/24 12:30 EDT 12-02-2024 Evaluation + Plan note Extrac ash from: Title:ANES Pre-operative Note 2022 Author:Kenneth Winslow Date:12/02/24 Plan [place] [employer] Anesthesiologists (ASA) physical status classification: Class II. Anesthetic Preoperative Plan: Anesthesia General. [facility] 04-04-2025 NoteColonoscopy Procedure Report Patient: TOYA SHAFFER Age: 49 years Sex: Female : 1975 Associated Diagnoses: None Author: Blayne MORELOS MD Pre-Procedure Procedure Date 12/02/2024 09:35:00 . Procedure Type: Colonoscopy. Procedure provider Blayne Morelos MD. Referred by Gina Tierney MD. Current history and physical Documented on chart. Colorectal neoplasm risk assessment Average risk. Informed Consent After discussing the rationale, risks and benefits, and alternatives to this procedure, the patient provided signed consent for the procedure. Pre-procedure diagnosis: Age 50 years or over. ASA Classification: Class II. . Monitoring: See anesthesia record. . Procedure The procedure was performed in the hospital. See anesthesia record for sedation given during procedure. Rectal exam was performed and was normal. The patient was positioned starting in the left lateral decubitus position. Endoscope type used was an adult-size. The endoscope was lubricated then introduced through the anus. The scope was advanced to the cecum verified by photographing the appendiceal orifice, verified by photographing the ileocecal valve. No difficulties encountered during the procedure. The bowel preparation quality was good and was adequate (see polyps greater than or equal to 6 millimeters). The patient tolerated the procedure well. Findings The bowel was normal throughout the extent examined. Images Procedure images: appendiceal orifice ileocecal valve . Post-Procedure Complications: none. Estimated blood loss: none. Specimens: none. Devices/ implants: none left in place. Impression and Plan Diagnosis: Encounter for colorectal cancer screening ([id number]-AN Z12.11, Working, Medical). Course: Progressing as expected. Recommendations: Repeat colonoscopy:: In 10 years. Follow-up:: if problems/questions. Diet:: Regular diet. Medication resumption:: Continue current medications. Return to activities:: After 24 hours. Education and Follow-up: Counseled: [facility]:Other Comment: Missing Attachment - attachment storage system not supported [id number] Can be viewed in source system Missing Attachment - attachment storage system not supported [id number] Can be viewed in source [id number] Hospital Discharge instructions Patient Education 12/02/2024 09:23:53 Colonoscopy, Care After Surgery Salam (CUSTOM) Colonoscopy Care After Surgery Please read the instructions outlined below and refer to this sheet in the next few weeks. These discharge instructions provide you with general information on caring for [facility] Your doctor may also give you specific instructions. While your treatment has been planned according to the most current medical practices available, unavoidable complications occasionally occur. If you have any problems or questions after discharge, please call your doctor. ACTIVITY You may resume your regular activity, but move at a slower pace for the next 24 hours. Take frequent rest periods for the next 24 hours. Walking will help get rid of the air and reduce the bloated feeling in your abdomen (belly). No driving for 24 hours (because of the anesthesia (medicine) used during the test). You may shower. Do not sign any important legal documents or operate any machinery for 24 hours (because of the anesthesia used during the test). NUTRITION Drink plenty of fluids. You may resume your normal diet as instructed by your doctor. Begin with a light meal and progress to your normal diet. Heavy or fried foods are harder to digestand may make you feel nauseated (sick to your stomach). Avoid alcoholic beverages for 24 hours or as instructed. MEDICATIONS You may resume your normal medications unless your doctor tells you otherwise. WHAT YOU CAN EXPECT TODAY Some feelings of bloating in the abdomen. Passage of more gas than usual. Spotting of blood in your stool or on the toilet paper. FOLLOW-UP Your doctor will discuss the results of your test with you. SEEK IMMEDIATE MEDICAL ATTENTION IF: There is more than a spotting of blood in your stool. There is abdominal distention (your abdomen is swollen). There is vomiting. You have a temperature over 101.5 F. There is abdominal pain or discomfort that is severe or gets worse throughout the day. Follow Up Care 11/09/2024 16:09:19 With:Blayne MORELOS Address: [address] [place] [address], [address] [place] [phone]- Business (1) When: Unknown Comments:Call for any problems. [facility] [id number] NotePatient Education - Text Colonoscopy Care After Surgery Please read the instructions outlined below and refer to this sheet in the next few weeks. These discharge instructions provide you with general information on caring for [facility] Your doctor may also give you specific instructions. While your treatment has been planned according to the most current medical practices available, unavoidable complications occasionally occur. If you have any problems or questions after discharge, please call your doctor. ACTIVITY You may resume your regular activity, but move at a slower pace for the next 24 hours. Take frequent rest periods for the next 24 hours. Walking will help get rid of the air and reduce the bloated feeling in your abdomen (belly). No driving for 24 hours (because of the anesthesia (medicine) used during the test). You may shower. Do not sign any important legal documents or operate any machinery for 24 hours (because of the anesthesia used during the test). NUTRITION Drink plenty of fluids. You may resume your normal diet as instructed by your doctor. Begin with a light meal and progress to your normal diet. Heavy or fried foods are harder to digestand may make you feel nauseated (sick to your stomach). Avoid alcoholic beverages for 24 hours or as instructed. MEDICATIONS You may resume your normal medications unless your doctor tells you otherwise. WHAT YOU CAN EXPECT TODAY Some feelings of bloating in the abdomen. Passage of more gas than usual. Spotting of blood in your stool or on the toilet paper. FOLLOW-UP Your doctor will discuss the results of your test with you. SEEK IMMEDIATE MEDICAL ATTENTION IF: There is more than a spotting of blood in your stool. There is abdominal distention (your abdomen is swollen). There is vomiting. You have a temperature over 101.5 F. There is abdominal pain or discomfort that is severe or gets worse throughout the day.[facility]04[facility] NoteHistory and Physical Patient: TOYA SHAFFER Age: 49 years Sex: Female : 1975 Associated Diagnoses: None Author: MALLROY BENAVIDES, Blayne Mcallister Subjective no changes to H & PFisher [facility] CenterComment on above:Result Comment: Electronically Signed By: MALLORY BENAVIDES, Blayne Mcallister\.br\Date and Time Signed: 12/02/24 08:53 [id number] NoteProgress Note-Physician Patient: TOYA SHAFFER Age: 49 years Sex: Female : 1975 Associated Diagnoses: None Author: Kenneth Christian MD Preoperative Information Anesthesia Preop Info: Time patient last ate or drank 12/02/2024 00:00:00. Anesthesia history: Patient history: None. Family history+: None. Informed consent: Signed by patient. Re-evaluation prior to induction: Initial evaluation reviewed: No significant change. Review of Systems Eye Ear/Nose/Mouth/Throat Respiratory: No shortness of breath, No cough. Cardiovascular: Negative, No chest pain. Gastrointestinal: No heartburn. Musculoskeletal Neurologic Health Status Allergies: Allergic Reactions (Selected) No Known Allergies No Known Medication Allergies, Allergies (2) Active Severity Reaction No Known Allergies None Documented No Known Medication Allergies None Documented Current medications: (Selected) Inpatient Medications Ordered Sodium Chloride 0.9% IV Juliet 1000 mL 1,000 mL: 1,000 mL, IV, 20 mL/hr, Routine, Start date 12/02/24 6:40:00 EDT, 50 hour(s), Total volume (mL): 1,000, 83.1 kg, 1.92, m2 Documented Medications Documented Albuterol (Eqv-ProAir HFA): 2 puff(s), Inhalation, q6hr Shortness of breath or wheezing, Refill(s) 0 Mobic 15 mg Tab: 15 mg = 1 tab(s), Oral, Daily, Refills(s) 0, Inflammation Protonix 40 mg Tab-DR: 40 mg = 1 tab(s), Oral, Daily, Refills(s) 0, Control of stomach acid, Home Medications (3) Active Albuterol (Eqv-ProAir HFA) 2 puff(s), PRN, Inhalation, q6hr Mobic 15 mg Tab 15 mg = 1 tab(s), Oral, Daily Protonix 40 mg Tab-DR 40 mg = 1 tab(s), Oral, Daily , Medications (1) Active Scheduled: (0) Continuous: (1) Sodium Chloride 0.9% 1,000 mL 1,000 mL, IV, 20 mL/hr PRN: (0) Problem list: All Problems BMI 32.0-32.9,adult / SNOMED CT 570553518 / Confirmed Cervical disc disease / SNOMED CT 5330214289 / Confirmed Cervical intraepithelial neoplasia grade 2 / SNOMED CT 203502799 / Confirmed Chronic obstructive pulmonary disease / SNOMED CT 746356388 / Confirmed Dysphagia / SNOMED CT 64908682 / Confirmed Hypothyroidism / SNOMED CT 04401792 / Confirmed Migraines / SNOMED CT 67062909 / Confirmed Obesity due to excess calories / SNOMED CT 0478916605 / Confirmed Screening for malignant neoplasm of colon / SNOMED CT 799363505 / Confirmed Tobacco use / SNOMED CT 6057778460 / Confirmed Varicose veins of lower extremity / SNOMED CT 457136675 / Confirmed Vascular insufficiency / SNOMED CT 576610029 / Confirmed, Active Problems (12) BMI 32.0-32.9,adult Cervical disc disease Cervical intraepithelial neoplasia grade 2 Chronic obstructive pulmonary disease Dysphagia Hypothyroidism Migraines Obesity due to excess calories Screening for malignant neoplasm of colon Tobacco use Varicose veins of lower extremity Vascular insufficiency Histories Past Medical History: No active or resolved past medical history items have been selected or recorded. Family History: Hypertension Father Diabetes mellitus type 2 Father Mother Procedure history: EGD - esophagogastroduodenoscopy ([id number]) on 05/25/2019 at 43 Years. Percutaneous radiofrequency ablation of great saphenous vein using ultrasonographic guidance ([id number]). Social History Social & Psychosocial Habits Alcohol 11/09/2024 Risk Assessment: Denies Alcohol Use Substance Abuse 11/09/2024 Risk Assessment: Denies Substance Abuse Tobacco 11/09/2024 Tobacco Use: 10 or more cigarettes (1/ Smokeless tobacco use: Never Type: Cigarettes Tobacco use per day: 0.5 Started at age: 13.0 Years Smoking Cessation Yes . Physical Examination Vital Signs 12/02/2024 8:24 EDT Temperature Temporal Artery 36.7 DegC Heart Rate Monitored 76 bpm Respiratory Rate Monitored 13 br/min Systolic Blood Pressure 133 mmHg Diastolic Blood Pressure 98 mmHg HI Blood Pressure Location Left arm SpO2 97 % Vital Signs (last 24 hrs) Last Charted Temp Temporal 36.7 DegC (DEC 02 08:24) Heart Rate Monitored 76 bpm (DEC 02:24) Resp Rate 13 br/min (DEC 02:) SBP 133 mmHg (DEC 02:) DBP H 98 mmHg (DEC 02 08:) Weight 83.1 kg (DEC 02 08:) BMI 32.46 (DEC 02:) Measurements from flowsheet : Measurements 12/02/2024 8:28 EDT Height/Length Measured 160 cm Height/Length Dosing 160.0 cm Weight Dosing 83.1 kg BSA Measured 1.92 m2 Body Mass Index Measured 32.46 kg/m2 Weight Measured 83.1 kg Airway: Mallampati classification: II (soft palate, fauces, uvula visible). Respiratory: Lungs are clear to auscultation, Respirations are non-labored, adequate air exchange. Cardiovascular: Regular rhythm, No murmur. Review / Management Results review: No qualifying data available . Plan [place] [employer] Anesthesiologists (ASA) physical status classification: Class II. Anesthetic Preoperative Plan: Anesthesia General.[facility] Comment on above:Result Comment: Electronically Signed By: Gino BENAVIDES, Kenneth Conde\.br\Date and Time Signed: 12/02/24 08:42 [id number] NoteGeneral Surgery Office/Clinic Note Chief Complaint consultation for colonoscopy HPI Staff 49 year old female presents on consultation from Dr. Tierney for screening colonoscopy. Denies abdominal or rectal pain. No rectal bleeding or change in bowel habits. Denies nausea or vomiting. No unexplained weight loss. Never had colonoscopy in the past. No known family history of colon cancer. History of Present Illness 49 yo female with h/o COPD, hypothyroidism, migraines, venous insufficiency; varicose veins; cervical disc disease, referred for colorectal screening; denies change in bms or blood in stools, no abd complaints; no abd operations or previous colonoscopy; on Meloxicam daily, no asa; smokes daily; no fmhx of GI malignancy or IBD. Review of Systems PHQ Score Initial Depression Screen Score: 0 SCORE ROS - Provider Constitutional: no fever, no sweats, no weight loss. Eyes: no glasses, no blurred vision, no visual loss. ENMT: no dentures, no hoarseness, no swallowing difficulties, no hearing loss, no ear infection(s),no nose bleeds. Cardiovascular: normal blood pressure, no chest pain, regular heartbeat, no heart murmur. Respiratory: no shortness of breath, no cough, no asthma, no wheezing. Gastrointestinal: no nausea, no vomiting, no diarrhea, no constipation, no blood in stool, no change in bowel habits, no abdominal pain, no hepatitis. Genitourinary: no kidney stones, no urine infection, no dysuria. Musculoskeletal: no pain, no weakness. Skin: no changing moles, no rash, no skin lumps. Neurologic: no seizures, no epilepsy, no headache. Psychiatric: no emotional or psychiatric problem. Heme/Lymph: no bleeding problems, no anemia, no blood clots, no transfusions. Allergy/Immunologic: no swollen lymph nodes/glands, no IV drug abuse. Other: Additional ROS info: Except as noted in the above Review of Systems and in the History of Present Illness, all other systems have been reviewed and are negative or noncontributory. Physical Exam Vitals & Measurements HR: 72(Peripheral) RR: 16 BP: 122/80 HT: 63 in HT: 160 cm WT: 83.1 kg WT: 183.204 lb BMI: 32.46 HEENT: normal conjunctiva, sclera clear, no scleral icterus, EOM intact, PERRLA, oral mucosa moist without lesions. Neck: trachea midline, no mass, symmetric, no thyromegaly or nodules, no adenopathy Respiratory: lungs CTA, respirations non labored. Cardiovascular: regular rate and rhythm, no murmur, no pedal edema or varicosities. Gastrointestinal: obese, soft, non distended, no tenderness, no masses, no palpable hernias, diastasis recti no, no hepatosplenomegaly; normal bs Lymphatic: no cervical adenopathy, no supraclavicular adenopathy. Musculoskeletal: normal gait, digits and nails without infection, nodes, cyanosis, clubbing. Skin: no rashes, no lesions, no ulcers, no subcutaneous nodules, induration. Psychiatric/Neuro: oriented to time, place, person, judgement normal, affect appropriate for age, insight intact, no focal deficits. Tests: , review of old records completed , Discussed surgical options, risks, and possible complications with patient. Assessment/Plan 1. Screening for malignant neoplasm of colon (Z12.11: Encounter for screening for malignant neoplasm of colon) plan colonoscopy under anesthesia, informed consent obtained. 2. Tobacco use (Z72.0: Tobacco use) We strongly recommend to quit tobacco use. Cigarette smoking harms nearly every organ of the body, causes many diseases, and reduces the health of smokers in general. Quitting smoking lowers your risk for smoking-related diseases and can add years to your life. We encourage you to visit www.smokefree.gov access to helpful resources including free telephone support. If you decide on prescription treatment to help you quit, your family doctor would be happy to provide these. Follow-up No qualifying data available Problem List/Past Medical History Ongoing BMI 32.0-32.9,adult Cervical disc disease Cervical intraepithelial neoplasia grade 2 Chronic obstructive pulmonary disease Dysphagia Hypothyroidism Migraines Obesity due to excess calories Screening for malignant neoplasm of colon Varicose veins of lower extremity Vascular insufficiency Historical No qualifying data Procedure/Surgical History EGD - esophagogastroduodenoscopy (05/25/2019), Percutaneous radiofrequency ablation of great saphenous vein using ultrasonographic guidance. Medications Albuterol (Eqv-ProAir HFA), 2 puff(s), Inhalation, q6hr, PRN Mobic 15 mg Tab, 15 mg= 1 tab(s), Oral, Daily Protonix 40 mg Tab-DR, 40 mg= 1 tab(s), Oral, Daily Allergies No Known Allergies No Known Medication Allergies Social History Alcohol - Denies Alcohol Use, 05/18/2019 Current. Beer. 1-2 times per month., 11/07/2024 Substance Abuse - Denies Substance Abuse, 05/18/2019 Never., 11/07/2024 Tobacco 10 or more cigarettes (1/2 pack or more)/day in last 30 days Tobacco Use:. Never Smokeless Tobacco Use:. 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 Phone: evalfedtjy note* Diagnosis Abnormal screening mammogram documented in this encounter [facility] Phone: evallxoara note* Diagnosis Irregular menses Irregular menstrual cycle documented in this encounter [facility] [employer] Phone: evalxyarbq note* Diagnosis Pain, joint, knee, left Pain in joint, lower leg documented in this encounter [employer] [facility]* Diagnosis Screening for malignant neoplasm of cervix Screening for malignant neoplasm of the cervix documented in this encounter [facility] [employer] [facility] course Narrative No data available for this section [facility] Progress note No data available for this section [facility] Assessments Diagnosis Urinary stream splitting Splitting of urinary stream Advance Directives No Advanced Directives Records FoundDocuments on File Type Date Recorded Patient Automatic I Threading Machine Feeder Expl anation Advance Directives and Living Will Power of Architectural Manager Documents on File Type Date Recorded Patient Automatic I Threading Machine Feeder Expl anation ACP-Advance Directive ACP-Power of Architectural Manager Reason for Referral Specialty Diagnoses / Procedures Referred By Samantha hampton Referred To Contact Radiology Diagnoses Abnormal screening mammogram Procedures US BREAST COMPLETE RIGHT Gina Tierney MD [address] [place] [address] Phone: Referral ID Status Reason Start Date Expiration Date Visits Re quested Visits Authorized [id number] Open 08/07/2022 08/07/2023 1 1 Specialty Diagnoses / Procedures Referred By Contac t Referred To Contact Radiology Diagnoses Abnormal screening mammogram Procedures JORDAN ARIELLE DIGITAL [place]ST[place] [address] [place] [id number] Phone: Referral ID Status Reason Start Date Expiration Date Visits Re quested Visits Authorized [id number] Closed 08/07/2022 08/07/2023 1 1 Summary Purpose Family History No Family History Records Found No data available for this section No Family History Records FoundNo Family History Records Found Additional Source Comments Care Teams (unrecognized sec tion and content) 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 Relationship Specialty Start Date End Date Gina Tierney MD [address] [place] [address] PCP - General 04/02/15 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 Relationship Specialty Start Date End Date Gina Tierney MD [address] [place] [address] PCP - General 04/02/15 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 Relationship Specialty Start Date End Date Gina Tierney MD [address] [place] [address] PCP - General 04/02/15 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 Relationship Specialty Start Date End Date Gina Tierney MD [address] [place] [address] PCP - General 04/02/15 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 Relationship Specialty Start Date End Date Gina Tierney MD [address] [place] [address] PCP - General 04/02/15 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 Relationship Specialty Start Date End Date Gina Tierney MD [address] [place] [address] PCP - General 04/02/15 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 Relationship Specialty Start Date End Date Gina Tierney MD [address] [place] [address] PCP - General 04/02/15 Reason for Visit (unrecogniz ed section and content) Specialty Diagnoses / Procedures Referred By Samantha t Referred To Contact Radiology Diagnoses Well adult exam Procedures JORDAN ARIELLE DIGITAL SCREEN SELF REFERRAL W OR WO CAD BILATERAL JORDAN DIGITAL SCREEN W OR WO CAD BILATERAL Gina Tierney MD [address] [place] [phone] Referral ID Status Reason Start Date Expiration Date Visits Re quested Visits Authorized [id number] Closed 06/17/2022 06/17/2023 1 1 Specialty Diagnoses / Procedures Referred By Contac t Referred To Contact Radiology Diagnoses Abnormal screening mammogram Procedures US BREAST LIMITED LEFT US BREAST COMPLETE LEFT Gina Tierney MD [address] [place] [phone] Referral ID Status Reason Start Date Expiration Date Visits Re quested Visits Authorized [id number] Open 08/07/2022 08/07/2023 1 1 Specialty Diagnoses / Procedures Referred By Contac t Referred To Contact Radiology Diagnoses Abnormal screening mammogram Procedures JORDAN ARIELLE DIGITAL DIAGNOSTIC BILATERAL Gina Tierney MD [address] [place] [phone] Referral ID Status Reason Start Date Expiration Date Visits Re quested Visits Authorized [id number] Closed 08/07/2022 08/07/2023 1 1 INFORMATION SOURCE (unrecogn ized section and content) DATE CREATED AUTHOR 09/25/2022 [facility] DATE CREATED AUTHOR AUTHOR'S ORGANIZ ATION 12/08/2024 [facility] DATE CREATED AUTHOR AUTHOR'S ORGANIZ ATION 12/25/2024 [facility] FOR RECORDS PERTAINING TO PATIENTS WHO [...] BE BASED ON THE PRIMARY CLINICAL RECORDS. [email or web address] provides no warranty or guarantee of the accuracy or completeness of information in this document.
--- OUTSIDE RECORDS SUMMARY | 2025-03-29 07:47 | XMS_ITS | Clinical Summary ---
Author Organization [facility] Address [address], [address] [place] [address] Care Team Providers Care Customer Relations Representative Name Role Phone Pelon Tierney MD Primary Care Provider [phone] Allergies No known active allergies Medications pantoprazole (PROTONIX) 40 MG tablet TAKE 1 TABLET BY MOUTH ONCE DAILY 07/31/2019 Active albuterol sulfate HFA (PROVENTIL;VENT TJ;PROAIR) 108 (90 Base) MCG/ACT inhaler INHALE 2 PUFFS BY MOUTH 4 TIMES DAILY NEEDED 09/01/2022 Active meloxicam (MOBIC) 15 MG tablet Take 1 tablet by mouth 10/31/2024 Active buPROPion (WELLBUTRIN XL) 150 MG extended release tabletIndicatio ns:Smoking trying to quit Take 1 tablet by mouth every morning 30 tablet 3 12/15/2024 Active Active Problems Patient Care Coordination No te Formatting of this note migh t be different from the original. Next pap cotest 07/19 Problem Noted Date Diagnosed Date Moderate cervical dysplasia, histologically conf irmed 06/23/2017 Family History Medical History Relation Name Comments High Blood Pressure Father Diabetes Mother Other Other No family h/o o varian or breast cancer. No family h/o DVt. Relation Name Status Comments Brother Alive Father Maternal Grandfather Maternal Grandmother Mother Alive Other Other Paternal Grandfather Paternal Grandmother Sister 1 Alive Sister 2 Alive Social History Tobacco Use Types Packs/Day Years Used Date Smoking Tobacco: Every Day Cigarettes 3 34 Started: 08/31/1989; Last attempted to quit: 08/19/2023 Passive Smoke Exposure: Yes Smokeless Tobacco: Never Tobacco Cessation:Ready to Q uit: Not Asked; Counseling Given: Not Answered Comments:Quit for 4 months now only once and a while Alcohol Use Standard Drinks/Week Comments Yes 5 (1 standard drink = 0.6 oz pur e alcohol) Social [facility] Utilities Answer Date Recorded In the past 12 months has th e electric, gas, oil, or water company threatened to shut off services in your home? No 12/15/2024 Overall Financial Resource Strain (CARDIA) Answe r Date Recorded How hard is it for you to pa y for the very basics like food, housing, medical care, and heating? Not hard at all 12/10/2023 PHQ-2 Answer Date Recorded PHQ-9 Total Score 2 12/10/2023 Hunger Vital Sign Answer Date Recorded Within the past 12 months, y ou worried that your food would run out before you got the money to buy more. Never true 12/16/19 Within the past 12 months, t he food you bought just didn't last and you didn't have money to get more. Never true 12/15/2024 PRAPARE - Transportation Answer Date Re corded In the past 12 months, has l ack of transportation kept you from medical appointments or from getting medications? No 11/29 In the past 12 months, has l ack of transportation kept you from meetings, work, or from getting things needed for daily living? No 12/15/2024 Housing Stability Vital Sign Answer Juan e Recorded Unable to Pay for Housing in the Last Year Not o n file 12/10/2023 Number of Places Lived in the Last Year Not on f ile 12/10/2023 In the last 12 months, was t here a time when you did not have a steady place to sleep or slept in a snf (including now)? No 12/10/2023 Housing Stability Vital Sign Answer Juan e Recorded In the last 12 months, was t here a time when you were not able to pay the mortgage or rent on time? No 12/15/2024 In the past 12 months, how m any times have you moved where you were living? 0 12/15/2024 At any time in the past 12 m [facility], were you homeless or living in a snf (including now)? No 12/15/2024 Food Insecurity Answer Date Recorded Within the past 12 months, y ou worried that your food would run out before you got the money to buy more. 1 12/15/2024 Within the past 12 months, t he food you bought just didn't last and you didn't have money to get more. 1 12/15/2024 Comments No Sex and Gender Information Value Date Recorded Sex Assigned at Female 12/02/2022 8:16 AM EDT Legal Sex Female 9:22 AM EST Gender Identity Female 12/02/2022 8:16 AM EDT Sexual Orientation Not on file Last Filed Vital Signs Vital Sign Reading Time Taken Comments Blood Pressure 134/82 12/15/2024 8:23 AM EDT Pulse - - Temperature 36.4 C (97.5 F) 02/22/2020 8:28 AM EDT Respiratory Rate - - Oxygen Saturation - - Inhaled Oxygen Concentration - - Weight 83 kg (183 lb) 12/15/2024 8:23 AM EDT Height 160 cm (5' 3 ) 12/15/2024 8:23 AM EDT Body Mass Index 32.42 12/15/2024 8:23 AM EDT Plan of Treatment Upcoming Encounters Date Type Department Care Team (Late st Contact Info) Description 04/20/2025 9:00 AM EDT Office Visit [facility] Part [address] [place] [address] Myah Brush APRN - CNM [address] [place] [address] Dr Torres [address] [facility] [place] [address] 3 month med check, RS from 03/16 per pt 12/21/2025 8:45 AM EDT Office Visit [facility] Part [address] [place] [address] Myah Brush APRN - CNM [address] [place] [address] Dr [address] [place] [address] yearly Health Maintenance Due Date Last Done Comments Hepatitis C screen 1992 DTaP/Tdap/Td vaccine (1 - Tdap) 1993 Hepatitis B vaccine (1 of 3 - 19+ 3-dose series) 1993 Pneumococcal 50+ years Vaccine (1 of 2 - PCV) 1993 Colonoscopy 2019 Fecal-DNA (Cologuard): Average risk 2019 Sigmoidoscopy/CT colonography 2019 Colorectal Cancer Screen 07/01/2023 FIT/FOBT: Average risk 07/01/2023 07/01/2022 COVID-19 Vaccine ( season) 2024 07/21/2021, 06/28/2021 Lung Cancer Screening &/or Counseling 2024 Shingles vaccine (1 of 2) 2024 HPV (without or with Pap) 09/20/20242019, 07/27/2018, 12/24/2017 Depression Screen 12/09/2024 12/10/2023 Flu vaccine (#1) 03/31/2025 Breast cancer screen 12/20/2025 12/21/2023, 08/18/2022, 08/06/2022, Additional history exists Lipids 06/20/2027 06/20/2022 Cervical cancer screen 12/16/2027 Pap smear 12/16/2027 12/15/2024, 11/29, 12/03/2022, Additional history exists HIV screen Completed 05/31/2017 Diabetes screen Discontinued 06/20/2022, 05/31/2018 Hepatitis A vaccine Aged Out No longe r eligible based on patient's age to complete this topic Hib vaccine Aged Out No longer eligi ble based on patient's age to complete this topic Meningococcal (ACWY) vaccine Aged Out No longer eligible based on patient's age to complete this topic Meningococcal B vaccine Aged Out No l onger eligible based on patient's age to complete this topic Polio vaccine Aged Out No longer elig ible based on patient's age to complete this topic Procedures Procedure Name Priority Date/Time Associated Diagnosis Comments PALM AND BACK FORGER CYTOLOGY Routine 12/15/2024 12:00 AM EDT JORDAN ARIELLE DIGITAL SCREEN BILATERAL Routine 12/21/2023 8:41 AM EDT Screening mammogram, encounter for OCCULT BLOOD SCREEN Routine 07/01/2022 8 :06 AM EDT HEMOGLOBIN A1C Routine 06/20/2022 3:00 PM EDT LIPID PANEL Routine 06/20/2022 3:00 PM EDT HUMAN PAPILLOMAVIRUS (HPV) DNA PROBE THIN PREP HIGH RISK Routine 09/20/2019 8:00 PM EST from Last 3 Months or Most Recently Relevant to Health Maintenance Results * PALM AND BACK FORGER Cytology (12/15/2024 12:00 AM EDT) Cytology Report Path Number: [id number] DIAGNOSIS Imaged ThinPrep Pap - Cervical (1 monolayer slide): Specimen Adequacy: Satisfactory for evaluation. - Endocervical/trans formation zone component present. Descriptive Diagnosis: Negative for intraepithelial lesion or malignancy. Comments: Specimen was screened at [facility], [address] [place] [address] [employer] Screener: CS Electronically Signed Out TIARA Aguilera(ASCP) cs/12/24/2024 Source of Specimen: A: Imaged ThinPrep Pap - Cervical (1 monolayer slide) HPV Reflex?........... ...........HPV if ASCUS Clinical History Prior cervical dysplasia LEEP Z12.4 Encounter for screening for malignant neoplasm of cervix LMP: 11/19/2024 Processing Lab: [address] [id number] [place] [address] This Pap Test has been evaluated with [...] result. GYNECOLOGIC CYTOLOGY REPORT Patient Name: TOYA MONTAÑO [facility] Rec: [id number] [facility] [employer] [facility] ANATOMIC PATHOLOGY [address] [place] [address]. [place], [place] [address] [facility] [employer] CERVICAL MATERIAL 12/15/2024 025 7:28 AM EDT Myah Brush APRN - TAD PATHOLOGY/CYTOLO GY ORDERABLES Final Result [facility] [address] [phone] [facility] * JORDAN ARIELLE DIGITAL SCREEN BILATERAL (12/21/2023 8:41 AM EDT) Anatomical Region Laterality Modality Breast Bilateral Mammography 12/21/2023 10:3 6 AM EDT Impressions 12/21/2023 10:37 AM EDT No mammographic evidence of malignancy BIRADS: BIRADS - CATEGORY 1 Negative. Normal interval follow-up is recommended in 12 months. OVERALL ASSESSMENT - NEGATIVE A letter of notification will be sent to the patient regarding the results. The [employer] recommends annual mammograms for women 40 years and older. Narrative 12/21/2023 10:37 AM EDT EXAMINATION: SCREENING DIGITAL BILATERAL MAMMOGRAM WITH TOMOSYNTHESIS, [...] concerning grouping of microcalcification in either breast. Myah Brush APRN - TAD IMG MAMMOGRAPHY ORDERABLES Final Result * Occult Blood Screen (07/01/2022 8:06 AM EDT) Occult Blood, Stool #1 NEGATIVE NEGATIVE 07/01/2022 8:06 AM EDT [facility] Date, Stool #1 [phone] 07/01/2022 8:06 AM EDT [facility] Time, Stool #1 [id number] 07/01/2022 8:06 AM EDT [facility] 07/01/2022 8:06 AM EDT 07/01/2022 8:07 AM EDT us Pelon Tierney MD BODY FLUIDS AND STOOLS ORDERABL ES Final Result Performing Organization Address [facility]/ZIP Co de Phone Number [facility] [address] [phone] * Hemoglobin A1C (06/20/2022 3:00 PM EDT) Hemoglobin A1C 5.4 4.0 - 6.0 % 06/20/2022 3:00 PM EDT [facility] Estimated Avg Glucose 108 mg/dL 06/20/2022 3:00 PM EDT [facility] Comment: The ADA and AACC recommend providing the estimated average glucose result to permit better patient understanding of their HBA1c result. 06/20/2022 3:00 PM EDT 06/20/2022 3:01 PM EDT us Pelon Tierney MD CHEMISTRY ORDERABLES Final Resu lt Performing Organization Address [facility]/ZIP Co de Phone Number [facility] [address] [phone] [facility] [address] [phone] * Lipid Panel (06/20/2022 3:00 PM EDT) Cholesterol 188 <200 mg/dL 06/20/2022 3:00 PM EDT [facility] Comment: Cholesterol Guidelines: <200 Desirable 200-240 Borderline >240 Undesirable HDL 83 >40 mg/dL 06/20/2022 3:00 PM EDT [facility] Comment: HDL Guidelines: <40 Undesirable 40-59 Borderline >59 Desirable LDL Cholesterol 95 0 - 130 mg/dL 06/20/2022 3:00 PM EDT [facility] Comment: LDL Guidelines: <100 Desirable 100-129 Near to/above Desirable 130-159 Borderline >159 Undesirable Direct (measured) LDL and calculated LDL are not interchangeable tests. Chol/HDL Ratio 2.3 <5 06/20/2022 3:00 PM EDT [facility] Comment: Triglycerides 50 <150 mg/dL 06/20/2022 3:00 PM EDT [facility] Comment: Triglyceride Guidelines: <150 Desirable 150-199 Borderline 200-499 High >499 Very high Based on AHA Guidelines for fasting triglyceride, May 2012. 06/20/2022 3:00 PM EDT 06/20/2022 3:01 PM EDT us Pelon Tierney MD CHEMISTRY ORDERABLES Final Resu lt [facility] [address] [place] [address], [facility] [phone] [place] [id number], [facility] [phone] * Human papillomavirus (HPV) DNA probe thin prep high risk (09/20/2019 8:00 PM EST) Specimen Description .CERVIX 09/20/2019 8:00 PM EST [facility] HPV Sample .THIN PREP 09/20/2019 8:00 PM EST [facility] HPV, Genotype 16 Not Detected Not Detected 09/20/2019 8:00 PM EST [facility] HPV, Genotype 18 Not Detected Not Detected 09/20/2019 8:00 PM EST [facility] HPV, High Risk Other Not Detected Not Detected 09/20/2019 8:00 PM EST [facility] HPV, Interpretation 09/20/2019 8:00 PM EST [facility] Comment: This test amplifies and detects DNA of 14 high-risk HPV types associated with cervical cancer and its precursor lesions (HPV types 16,18, 31, 33, 35, 39, 45, 51, 52, 56, 58, 59, 66, and 68). Sensitivity may be affected by specimen collection methods, stage of infection, and the presence of interfering substances. Results should be interpreted in conjunction with other available laboratory and clinical data. A negative high-risk HPV result does not exclude the possibility of future cytologic HSIL or underlying CIN2-3 or cancer. This test is intended for medical purposes only and is not valid for the evaluation of suspected sexual abuse or for other forensic purposes. CERVICAL SWAB / Unknown 09/20/2019 8:00 PM EST 09/20/2019 8:00 PM EST Myah Brush [employer]ER - CNM HEMATOLOGY ORDER [place] Final Result [facility] [address] [place] [address], [facility] [phone] [facility] [address] [place] [address], [facility] [phone] from Last 3 Months or Most Recently Relevant to Health Maintenance Insurance [employer] Care Teams Customer Relations Representative Relationship Specialty Start Date End Date Pelon Tierney MD [address] [place] [address] PCP - General 04/02/15
--- OUTSIDE RECORDS SUMMARY | 2025-03-29 07:47 | XMS_ITS | Patient Health Record ---
Author Organization [facility] in [place] Address [address] [place] [address] Care Team Providers Care Strategies Analyst Name Role Phone Rylan Robert Primary Care Provider [phone] Allergies No Known Allergies Results Component Value Reference Range Notes CBC AUTO DIFF Reviewed date:10/19/2024 07:25:20 PM Interpretation: Performing Lab: Notes/Report: [facility] , White Blood Count 7.1 4.0-11.0 10 3/uL Red Blood Count 4.54 4.20-5.40 10 6/uL Hemoglobin 14.7 12.0-16.0 g/dL Hematocrit 43.3 36.0-48.0 % Mean Corpuscular Volume 95.4 81.0-99.0 fL Mean Corpuscular Hemoglobin 32.4 26.7-34.0 pg Mean Corpuscular HGB Conc 33.9 29.9-35.2 g/dL Red Cell Distribution Width 12.6 11.0-15.0 % Platelet Count 400 150-450 10 3/uL Mean Platelet Volume 10.6 9.5-13.5 fL Neutrophils Percent Auto 33.5 43.0-75.0 % Lymphocytes Percent Auto 48.1 20.5-60.0 % Monocytes Percent Auto 8.7 1.7-12.0 % Eosinophils Percent Auto 8.7 0.9-7.0 % Basophils Percent Auto 0.7 0.2-2.0 % Immature Granulocytes Pct Auto 0.3 0.0-0.5 % Neutrophils Absolute Auto 2.4 1.4-6.5 10 3/uL Lymphocytes Absolute Auto 3.4 1.2-3.8 10 3/uL Monocytes Absolute Auto 0.6 0.3-0.8 10 3/uL Eosinophils Absolute Auto 0.6 0.0-0.7 10 3/uL Basophils Absolute Auto 0.1 0.0-0.1 10 3/uL Immature Granulocytes Abs Auto 0.02 0.00-0.03 10 3/uL Performing Lab: see note ML - [facility] FREE T3 Reviewed date:10/19/2024 07:25:20 PM Interpretation: Performing Lab: Notes/Report: [facility] , Free T3 2.54 2.18-3.98 pg/mL Performing Lab: see note ML - [facility] INSULIN Reviewed date:10/23/2024 10:02:02 AM Interpretation: Performing Lab: Notes/Report: [facility] , Insulin 12.8 2.6-24.9 uIU/mL Chaser Apprentice: Alejandro Paige PhD, Phone: [phone] [address] [place], [place] [phone] Performed at: - [facility] Performing Lab: see note - [facility] LB LIPID PROFILE Reviewed date:10/19/2024 07:25:20 PM Interpretation: Performing Lab: Notes/Report: [facility] , Triglycerides 73 <=150 mg/dL Cholesterol 212 <=200 mg/dL HDL Cholesterol 89 40-60 mg/dL <40 mg/dl - HIGH CARDIOVASCULAR RISK > or =60 mg/dl - LOW CARDIOVASCULAR RISK LDL Cholesterol Calculated 109.0 130-159 mg/dl BORDERLINE HIGH 160-189 mg/dl HIGH >190 mg/dl VERY HIGH 100-129 mg/dl NEAR OR ABOVE OPTIMAL <100 mg/dl OPTIMAL VLDL CHOLESTEROL 14.6 Chol HDL Ratio 2.4 3.3 - 4.4 LOW RISK 4.4 - 7.1 AVERAGE RISK 7.1 - 11.0 MODERATE RISK >11.0 HIGH RISK Performing Lab: see note - [facility] LB PROF 14(COMP METB) Reviewed date:10/19/2024 07:25:20 PM Interpretation: Performing Lab: Notes/Report: [facility] , Sodium 139 136-145 mmol/L Potassium 3.7 3.5-5.1 mmol/L Chloride 105 98-107 mmol/L Carbon Dioxide 25.1 21.0-32.0 mmol/L Anion Gap 12.6 Glucose 91 74-106 mg/dL Blood Urea Nitrogen 11.0 7.0-18.0 mg/dL Creatinine 0.69 0.55-1.02 mg/dL Estimated GFR ( Latrice >60 >=60 mL/min/1.73m 2 Estimated GFR (Non- Kelly >60 >=60 mL/min/1.73m 2 BUN Creatinine Ratio 15.9 Calcium 8.9 8.5-10.1 mg/dL Bilirubin Total 0.6 0.2-1.0 mg/dL Aspartate Amino Transferase 14 15-37 U/L Alanine Aminotransferase 17 14-59 U/L Alkaline Phosphatase 60 46-116 U/L Total Protein 7.1 6.4-8.2 g/dL Albumin Level 3.7 3.4-5.0 g/dL Globulin 3.4 Albumin Globulin Ratio 1.1 Performing Lab: see note ML - [facility] LB T4 Reviewed date:10/19/2024 07:25:20 PM Interpretation: Performing Lab: Notes/Report: [facility] , T4 Thyroxine 11.20 4.80-13.90 ug/dL Performing Lab: see note ML - [facility] LB TSH Reviewed date:10/19/2024 07:25:20 PM Interpretation: Performing Lab: Notes/Report: [facility] , Thyroid Stimulating Hormone 2.168 0.358-3.740 uIU/mL Performing Lab: see note ML - [facility] LB IRON Reviewed date:10/19/2024 07:25:20 PM Interpretation: Performing Lab: Notes/Report: [facility] , Iron 146.0 50.0-170.0 ug/dL Performing Lab: see note ML - [facility] LB GLYCOHEMOGLOBIN A1C Reviewed date:10/19/2024 07:25:20 PM Interpretation: Performing Lab: Notes/Report: [facility] , Glycohemoglobin A1C 5.5 4.5-6.2 % ADA THERAPEUTIC TARGET < 7.0 ACTION SUGGESTED > 7.0 ADA RECOMMENDED LIMIT 4.0 - 6.0 Estimated Average Glucose 111 Performing Lab: see note ML - [facility] LB XR KNEE LEFT (3 VIEWS) Reviewed date:04/19/2024 02:40:29 PM Interpretation: Performing Lab: Notes/Report: EXAMINATION: Performed at: [address] [place] [address] Performed at: [facility] Reviewed date:04/12/2024 08:57:20 PM Interpretation: Performing Lab: Notes/Report: [facility] , Thyroid Stimulating Hormone 1.772 0.358-3.740 uIU/mL Performing Lab: see note ML - [facility] LB FREE T4 Reviewed date:04/12/2024 08:57:20 PM Interpretation: Performing Lab: Notes/Report: [facility] , Free T4 1.09 0.76-1.46 ng/dL Performing Lab: see note ML - [facility] LB FREE T3 Reviewed date:04/12/2024 08:57:20 PM Interpretation: Performing Lab: Notes/Report: [facility] , Free T3 3.09 2.18-3.98 pg/mL Performing Lab: see note ML - [facility] LB XR lumbar spine min 4V Reviewed date:03/18/2025 03:29:39 PM Interpretation: Performing Lab: Notes/Report: Source Facility: [facility]-[address] [place] [address] XRay Report Signed Patient: TOYA MONTAÑO MR#: [id number] : 1975 Acct:[id number] Age/Sex: 49 / F ADM Date: 03/16/25 Loc: RAD Attending Dr: Pelon Robert M.D. Ordering Physician: Pelon Robert M.D. Date of Service: 03/16/25 Procedure(s): XR lumbar spine min 4V Accession Number(s): [id number] cc: Pelon Robert M.D. [place] [id number] Patient Name: TOYA MONTAÑO MRN: [id number] date: 1975 Sex: F Assigned Patient Location: RAD Current Patient Location: RAD Accession/Order Number: [id number] Exam Date: 03/16/2025 20:14 Report Date: 03/16/2025 20:15 At the request of: PELON ROBERT MD Procedure: XR lumbar spine min 4V 5 views Lumbar Spine HISTORY: Low back pain COMPARISON: None POSTSURGICAL CHANGES: None BONY ALIGNMENT: Mild scoliosis with curvature to the right HYPERMOBILITY:No bending imaging. LISTHESIS:None FRACTURE: None DEGENERATIVE CHANGES: Extensive L4-5 and L5-S1 disc space narrowing and endplate spurring. Lower lumbar facet degeneration. SOFT TISSUES: Unremarkable BONY MINERALIZATION:Adequate XR/XR lumbar spine min 4V IMPRESSION: Extensive lower lumbar degeneration. Moderate scoliosis. Impression dictated by: Yosef Gaines M.D. 03/16/2025 8:15 PM Dictation Location: [place] [address] Electronically authenticated by: [id number] Y Date: 03/16/2025 20:15 Dictated By: Yosef Gaines D.O. 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 Ordering Physician: Pelon Robert M.D. Date of Service: 03/16/25 Procedure(s): XR lumbar spine min 4V Accession Number(s): [id number] cc: Pelon Robert M.D. [place] [id number] Patient Name: TOYA MONTAÑO MRN: [id number] date: 1975 Sex: F Assigned Patient Location: [facility] Current Patient Location: [facility] Accession/Order Number: [id number] Exam Date: 03/16/2025 20:14 Report Date: 03/16/2025 20:15 At the request of: PELON ROBERT MD Procedure: XR lumbar spine min 4V 5 views Lumbar Spine HISTORY: Low back pain COMPARISON: None POSTSURGICAL CHANGES : None BONY ALIGNMENT: Mild scoliosis with curvature to the right HYPERMOBILITY:No bending imaging. LISTHESIS:None FRACTURE: None DEGENERATIVE CHANGES : Extensive L4-5 and L5-S1 disc space narrowing and endplate spurring. Lower lumbar facet degeneration. SOFT TISSUES: Unremarkable BONY MINERALIZATION:Adequat e XR/XR lumbar spine min 4V IMPRESSION: Extensiv e lower lumbar degeneration. Moderate scoliosis. Impression dictated by: Yosef Gaines M.D. 03/16/2025 8:15 PM Dictation Location: [employer] Electronically authenticated by: [id number] Y Date: 03/16/2025 20:15 Dictated By: Yosef Gaines D.O. Signed By: 03/16/252016 DD/ 14 TD/TT: Power Plant Technician: Reason For Referral Diagnosis 1 Encounter for screen ing for malignant neoplasm of colon (Z12.11) Referral Organization [facility] Referring Provider First Name Rylan Referring Provider Last Name Kelsy Referring Provider Speciality Family Med lorena Referred Provider Blayne Yu Referred Provider Specialty General Surg cyndee Referral Priority Routine Medications Medication SIG (Take, Route, Frequency, Duration) Notes Start Date End Date Status Chantix 1 MG 1 capsule Orally bid Active Breo Ellipta 100-25 MCG/ACT 1 puff Inhalation [...] TIMES DAILY NEEDED for 25 days Active Social History Tobacco Use: Social History Observation Description Date Details (start date - stop date) Former Smoker NA - 08/31/2023 Tobacco Use/Smoking Question Answer Notes Patient is a former smoker When did you stop smoking? 08/31/2023 How long has it been since you last smoked? < 1 month Alcohol Screen (Audit-C) Question Answer Notes Did you have a drink contain ing alcohol in the past year? Yes How often did you have 6 or more drinks on one occasion in the past year? Never (0 point) How many drinks did you have on a typical day when you were drinking in the past year? 1 or 2 drinks (0 point) How often did you have a dri nk containing alcohol in the past year? Weekly (3 points) Points 3 Interpretation Positive AUDIT-C (Standard) Question Answer Notes Did you have a drink contain ing alcohol in the past year? Yes How often did you have six o r more drinks on one occasion in the past year? 2 to 4 times a month (2 points) How many drinks did you have on a typical day when you were drinking in the past year? 5 or 6 drinks (2 points) How often did you have a dri nk containing alcohol in the past year? 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 (I83.893) Active confirmed Problem 81034378 Venous insufficiency (chronic) (peripheral) (I87.2) Active confirmed Problem Hypothyroid (47094895) Hypothyroid (E03.9) Active confirmed Problem Left knee pain (223456561812459) Left knee pain (M25.562) Active confirmed Problem Well adult (741864791) Well adult (Z00.00) Active confirmed Problem Rotator cuff tear (308974147) Rotator cuff tear (M75.100) Active confirmed Problem Dysfunctional uterine bleeding (91720677785969) Dysfunctional uterine bleeding (N93.8) Active confirmed Vital Signs Blood pressure diastolic 92 mm Hg 03/16/2025 Height 63 in 03/16/2025 Blood pressure systolic 126 mm Hg 03/16/2025 Weight 188.8 lbs 03/16/2025 BMI 33.44 kg/m2 03/16/2025 Encounters Encounter Location Date Provider Diagnosis [facility] [address] [place] [address] 04/18/2024 Rylan Hoy Left knee pain M25.5 62 [facility] [address] [place] [address] 10/19/2024 Rylan Hoy Well adult Z00.00 [facility] [address] [place] [address] 03/16/2025 Rylan Hoy Low back pain at multiple sites M54.50 and Well adult Z00.00 [facility] [address] [place] [address] 04/19/2024 Rylan Robert [facility] [address] [place] [address] 10/19/2024 Rylan Robert Encounter for screening for malignant neoplasm of colon Z12.11 [facility] [address] [place] [address] 10/19/2024 Rylan Robert [facility] [address] [place] [address] 03/18/2025 Rylan Robert Assessments Encounter Date Diagnosis (ICD Code) Assessment Notes Treatment Notes Treatment Clinical Notes Section Notes 03/16/2025 Low back pain at multiple sites (ICD-10 - M54.50) 03/16/2025 Well adult (ICD-10 - Z00.00) 10/19/2024 Encounter for screening for malignant neoplasm of colon (ICD-10 - Z12.11) 04/18/2024 Left knee pain (ICD-10 - M25.562) 10/19/2024 Well adult (ICD-10 - Z00.00) 03/16/2025 Other Recommended to rest and use a heating pad on the area. Take NSAIDs for pain as needed Plan Of Treatment Pending Test Test Name Order Date CMP (COMPLETE METABOLIC PANEL) 3 CMP (COMPLETE METABOLIC PANEL) 4 HEMOGLOBIN A1C (GLYCO) 06/18/2023 HEMOGLOBIN A1C (GLYCO) 11/16/2023 HEMOGLOBIN A1C (GLYCO) 10/19/2024 IRON, TOTAL 10/19/2024 LIPID PANEL (CHOL/TRIG/HDL/LDL) 10/19/19 25 LIPID PANEL (CHOL/TRIG/HDL/LDL) 06/18/20 23 LIPID PANEL (CHOL/TRIG/HDL/LDL) 11/16/19 24 CBC WITH DIFF 11/16/2023 CBC WITH DIFF 06/18/2023 CBC WITH DIFF 10/19/2024 VITAMIN D, 25 LEVEL (TOTAL) 06/18/2023 VITAMIN D, 25 LEVEL (TOTAL) 11/16/2023 MAMM Mammograms CAD 11/16/2023 Insulin Level 10/19/2024 HERPES SIMPLEX 1,2 IGM AB (IFA) 11/16/19 CHLAMYDIA AND GC (URINE, VAG, OR SWAB) - IH 11/16/2023 STOOL OCCULT BLOOD 10/19/2024 STOOL OCCULT BLOOD 11/16/2023 MRI Shoulder Arthrogram w/Contrast Right 11/16/2023 CHLAMYDIA or GONOCOCCUS DAVID (SWAB or URI NE or PAP 11/16/2023 HEPATITIS PANEL, ACUTE 11/16/2023 HERPES SIMPLEX 1 or 2 IGG 11/16/2023 HIV 1 AND 2 WITH REFLEX 11/16/2023 RPR QUANT 11/16/2023 MG MAMM LLOYD DIAG W CAD 04/21/2023 MRI LSPINE WO CON 03/16/2025 US BREAST LLOYD LIMITED 04/21/2023 US PELVIS 11/16/2023 XR KNEE LT 3V 04/18/2024 XR LSPINE MIN 4 VIEWS 03/16/2025 THYROID PANEL (T4/TSH/FREE T3) 5 THYROID PANEL (T4/TSH/FREE T3) 4 THYROID PANEL (T4/TSH/FREE T3) 3 MM screening mammo BI 10/19/2024 CMP (COMP MET LUIS) w/eGFR CKD-EPI 2024 Insurance Providers Payer Name Payer Address Payer Phone Subscriber Number Group Number Insured Name Patient Relationship to Insured Coverage Start Date Coverage End Date [employer] [address] [address] [place] [phone] [id number] Toya Montaño Self - patient is the insured Medications Administered Medication Instructions Date of Administration Dosage Notes Kenalog-40 09/18/2023 120 mg 120 Ketorolac Tromethamine 09/18/2023 60 mg 60 Ketorolac Tromethamine 03/16/2025 60 mg Orphenadrine Citrate 03/16/2025 60 mg Triamcinolone 40 mg/ml 03/16/2025 120 mg Medical (General) History Medical History History ICD Code Degenerative cervical disc M50.30 Chronic obstructive pulmonary disease (C OPD) J44.9 Complete rotator cuff tear o r rupture of right shoulder, not specified as traumatic M75.121 Dysphagia R13.10 Acute eczema L30.9 Bilateral low back pain without sciatica , unspecified chronicity M54.50 Migraine G43.909 Varicose veins of lower extremities with inflammation I83.10 Surgical History Surgery Date(Month/Year) colonoscopy- dr yu 12/02/2024 Right GSV Ablation
--- OUTSIDE RECORDS SUMMARY | 2025-03-29 07:47 | XMS_ITS | Encounter Summary ---
Author Organization [facility] 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 Name Role Phone Pelon Tierney MD Primary Care Provider [phone] Encounter Details Date Type Department Care Team (Latest Contact Info) Description 06/17/2022 Transcribe Orders [facility] [address] [place] [address] Pelon Tierney MD [address] [place] [address] Well adult exam (Primary Dx) Social History Tobacco Use Types [...] Description 04/20/2025 9:00 AM EDT Office Visit [facility] Part of [address] [place] [address] Myah Brush, ERIC - TAD [address] [place] [address] [address] [place] [address] 3 month med check, RS from 03/16 per pt 12/21/2025 8:45 AM EDT Office Visit [facility] Part of [address] [place] [address] Myah Brush, INSTRUMENTATION AND CONTROLS TECHNICIAN - [address] [place] [address] yearly documented as of this encounter Visit Diagnoses Diagnosis Well adult exam- Primary Routine general medical examination at a health care facility documented in this encounter Care Teams In Home Baby Sitter Relationship Specialty Start Date End Date Pelon Tierney MD [address] [place], [place] [id number] PCP - General 04/02/15 documented as of this encounter
--- NOTE | 2025-03-29 07:48 | MR_ITS ---
The [place] [id number] Patient Name: JOHN MONTAÑO MRN: [facility]:[id number] date: 1975 Sex: F Assigned Patient Location: MRI Current Patient Location: MRI Accession/Order Number: [id number] Exam Date: 03/29/2025 09:25 Report Date: 03/29/2025 09:31 At the request of: GINA ROBERT MD Procedure: MR lumbar spine wo con EXAMINATION: MRI LUMBAR SPINE WITHOUT IV CONTRAST CLINICAL HISTORY: Low back pain with spasms radiating into left leg. COMPARISON: Lumbar spine series 03/16/2025 TECHNIQUE: Multiecho imaging was performed in the sagittal and axial planes without contrast administration. FINDINGS: Vertebral body heights appear maintained. No bone marrow edema is seen. Modic endplate degenerative changes L4-L5 and L5-S1. Spinal cord terminates in normal position without abnormal cord signal. No paraspinal mass. Visualized retroperitoneum demonstrates no acute findings. At L1-L2: No posterior disc pathology. No neural canal or foraminal stenosis. At L2-L3: Diffuse broad-based disc bulge is present with ligamentum flavum hypertrophy and facet joint degenerative changes causing moderate canal and bilateral neural foraminal stenosis. At L3-L4: Diffuse broad-based disc bulge is present with right paracentral extrusion-type disc herniation present extending superiorly along the L3 vertebral body posteriorly approximately 1.5 cm. There is ligament flavum hypertrophy and facet joint degenerative changes. Moderate canal stenosis. Mild left-sided neural foraminal stenosis. Severe right-sided neural foraminal stenosis bilaterally herniation. At L4-L5: Diffuse broad-based disc bulge is present with ligamentum flavum hypertrophy facet joint degenerative changes causing moderate canal and bilateral neural foraminal stenosis. At L5-S1: Diffuse broad-based disc bulge is present with facet joint degenerative changes. Findings are causing mild canal and moderate bilateral foraminal stenosis. MR/MR lumbar spine wo con IMPRESSION: Multilevel degenerative disease as described above worst at L3-L4 with right paracentral extrusion type disc herniation. Impression dictated by: Rogelio Daugherty Jr., D.O. 03/29/2025 9:31 AM Dictation Location: [place] [address] Electronically authenticated by: [id number] Y Date: 03/29/2025 09:31
== END 2025-03-29 07:46 | disposition home or self-care (01) ==
LOC: MRI 07:45
PROVIDERS: PCP Family Medicine; Visit Provider Family Medicine
DX: M54.50 Low back pain, unspecified (principal); M51.369 Other intervertebral disc degeneration, lumbar region without mention of lumbar back pain or lower extremity pain
CPT/HCPCS: 72148

== ENCOUNTER 2025-07-07 14:20 | Outpatient (OUT) | payer OTHER, SELFPAY ==
--- OUTSIDE RECORDS SUMMARY | 2024-10-19 10:30 | XMS_ITS ---
Author Organization The [facility] [place] Address [address] [place] [address] Care Team Providers Care Puttier Name Role Phone Rylan Tierney Primary Care Provider REASON FOR VISIT annual Encounters Encounter Location Date Provider Diagnosis [facility] [address] [place] [address] 10/19/2024 Rylan Tierney Plan Of Treatment No Information Progress Notes * Cyndi MONTAÑOeDOB:1975 ([age] yo F)Acc No.[id number]:10/19/2024 UNLOCKED PROGRESS NOTE Progress Note Patient: Toya DEL VALLE :?Pelon Tierney (BRANDEE), MDDOB:1975???Age: 49 Y???Sex:FemaleDate:10/19/2024Phone:[phone]:[address] [place], [place] [id number] Subjective: * Chief Complaints: * 1 . Annual. * Medical History: Objective: * Vitals: Assessment: Plan: * Treatment: * * Electronic signature of Rylan Tierney MD, [id number] on 07/07/2025 at 02:24 PM EST Sign off status: PendingVisit Status:?CANC (Cancelled) * Provider: Angie Tierney MD (TTC) Date: 0 10/19/2024 Generated for Printing/Faxing/eTransmitting on:?07/07/2025 02:24 PM EST
--- OUTSIDE RECORDS SUMMARY | 2025-07-03 09:15 | XMS_ITS ---
Author Organization [facility] in [place] Address [address] [place] [address] Care Team Providers Care Automotive Sales Associate Name Role Phone Kelsy Rylan Primary Care Provider Allergies No Known Allergies Reason For Referral Diagnosis 1 GERD (gastroesophage al reflux disease) (K21.9) Referral Organization [facility] Referring Provider First Name Rylan Referring Provider Last Name Kelsy Referring Provider Speciality Family Med lorena Referred Provider Blayne Yu Referred Provider Specialty General Surg cyndee Referral Priority Routine REASON FOR VISIT Hypertension patient was at physical therapy and bp was 160/? , some reynolds's or head pressure at times Medications Medication SIG (Take, Route, Frequency, Duration) Notes Start Date End Date Status Lisinopril 10 MG 1 tablet Orally Once a day; Dur ation: 30 days 5ActivetiZANidine HCl 4 MG2 tabs Orally qhs; Duration: 30 daysPRN 4ActiveMeloxicam 15 MG1 tablet Orally Once a day; Duration: 30 days 5ActiveChantix 1 MG1 capsule Orally bid; Duration: 90 daysActive Protonix 40 MG1 tablet Orally Every Evening; Duration: 30 day(s)ActiveBreo Ellipta 100-25 MCG/ACT1 puff Inhalation Once a day5ActiveAlbuterol Sulfate HFA 108 (90 Base) MCG/ACTINHALE 2 PUFFS BY MOUTH 4 TIMES DAILY NEEDED; Duration: 25 daysActiveVarenicline Tartrate (Starter) 0.5 MG X 11 & 1 MG X 42as directed Orally BID5Active Social History Tobacco Use: Social History Observation Description Date Details (start date - stop date) Former Smoker NA - 08/31/2023 Tobacco Use/Smoking Question Answer Notes Patient is a former smoker When did you stop smoking?08/31/2023How long has it been since you last smoked?< 1 monthAUDIT-C (Standard) Question Answer Notes Did you have a drink containing alcohol in the p ast year? Yes How often did you have a drink containing alcohol in the past year?Monthly or less (1 point)How many drinks did you have on a typical day when you were drinking in the past year?3 or 4 drinks (1 point)How often did you have six or more drinks on one occasion in the past year?2 to 3 times per week (3 points) Rgmfwo3VqmrsskxfxoxsbJlmooyfx Problems Problem Type SNOMED Code ICD Code Onset Dates Problem Status W/U Status Risk Notes Problem Gastroesophageal ref lux disease (576772070) GERD (gastroesophageal reflux disease) (K21.9) ActiveconfirmedProblemElevated blood pressure reading without diagnosis of hypertension (550304809)Borderline hypertension (R03.0)Activeconfirmed Vital Signs Weight 180 lbs 07/03/2025 Height 63 in 07/03/2025 Blood pressure systolic 130 mm Hg 07/03/20 25 Blood pressure diastolic 82 mm Hg 025 BMI 31.88 kg/m2 07/03/2025 Encounters Encounter Location Date Provider Diagnosis [facility] [address] [place] [address] 07/03/2025 Rylan Tierney Borderline hypertens ion R03.0 and GERD (gastroesophageal reflux disease) K21.9 Assessments Encounter Date Diagnosis (ICD Code) Assessment Notes Treatment Notes Treatment Clinical Notes Section Notes 07/03/2025 Borderline hypertension (ICD-10 - R03.0) 07/03/2025GERD (gastroesophageal reflux disease) (ICD-10 - K21.9) Plan Of Treatment Medication Medication Name Sig Start Date Stop Date Notes Lisinopril 10 MG 1 tablet Orally Once a day; Duration: 30 days 07/03/2025 Chantix 1 MG1 capsule Orally bid; Duration: 90 daysReferrals Referral Date Details 07/03/2025 07/03/2025, Blayne Yu Progress Notes * Cyndi MONTAÑOeDOB:1975 (4 0 yo F)Acc No.[id number]:07/03/2025 Progress Note Patient: Toya DEL VALLE :?Pelon Tierney ([facility]), MDDOB:1975???Age: 49 Y???Sex:FemaleDate:07/03/2025Phone:[phone]:[address], [place]-[address]Check In:02:06 PM ESTCheck Out:02:39 PM EST Subjective: * Chief Complaints: * H ypertension patient was at physical therapy and bp was 160/? , some reynolds's or head pressure at times * HPI: ???General:? SBrunning consistenty over 160's. * ROS: ???EENT:?hearing changes?denies.?visual changes?denies. non-healing mouth sores?denies.?swollen glands or neck lumps?denies.?hoarseness?denies.?sore throat?denies.?difficulty swallowing?denies.?nose bleeds?denies.?nasal congestion?denies.?ear ache?denies.?ear discharge denies.?ringing in ears?denies.?light sensitivity?denies.?eye pain?denies.?blurring?denies.?eye irritation?denies.?double vision?denies. vision loss?denies.?General/Constitutional:?Sweats:?Denies.?Fatigue?denies.?Sleep proble ms?denies.?Anorexia?denies.?Malaise?denies.?Weight loss?denies. Fatigue or Weakness?denies.?Fever or Chills?denies.?Cardiovascular:?Shortness of Breath w/lying flat?denies.?Lightheadedne ss/dizziness?denies.?Chest tightness/ heavy pressure?denies.?Swelling of legs, a nkles, or feet?denies.?Waking up with shortness of breath?denies.?Chest pain&#16 0;denies.?Palpitations?denies.?Weight gain?denies.?Respiratory:?Chronic or frequent cough?denies.?Coughing up blood&#1 60;denies.?Difficulty breathing?denies.?Productive cough?denies.?Snoring&#1 60;denies.?Shortness of breath that awakens from sleep (PND)?denies.?Chest pain? denies.?Sputum production?denies.?Wheezing?denies.?Musculoskeletal:?Joint pain?denies.?Joint Fluid?denies.?Backpain?denies.?Knee pain?denies.?Neck pain?denies.?Joint Stiffness?denies.?Muscle cramps?denies.?Weakness of muscles?denies.?Arthritis?denies.?Muscle aches?denies.?Pain in shoulder(s)?denies.?Swollen joints?denies.? * Active Problem List Z00.00 Well adult Modified On:11/16/2023U Status:ofjosjizvJ39.893Varicose veins of bilateral lower extremities with other complications Modified On:09/18/2023U Status:gdedncewuA40.2Venous insufficiency (chronic) (peripheral) Modified On:07/07/2023U Status:fqbhsbfxuK11.100Rotator cuff tear Modified On:11/16/2023U Status:cwknsvoxlZ29.8Dysfunctional uterine bleeding Modified On:11/16/2023U Status:cwnhrycsiU99.9Hypothyroid Modified On:11/19/2023U Status:imidoztjuM24.562Left knee pain Modified On:04/18/2024U Status:guoezexxcG34.0Borderline hypertension Modified On:07/03/2025U Status:avgnsryvaI25.9GERD (gastroesophageal reflux disease) Modified On:07/03/2025U Status:caadjyaovU41.50Lumbar pain Modified On:11/04/2025W/U Status:confirmed * Medical History: * Surgical History: R ight GSV Ablation colonoscopy- dr yu 12/02/2024 * Hospitalization/Major Diagno stic Procedure: N o Hospitalization History. * Family History: F ather: , diagnosed with Diabetes, Hypertension. M other: alive, diagnosed with Diabetes. 2 daughter(s) . . * Social History: ???Tobacco Use:?Tobacco Use/Smoking?Patient is a?former smoker ?When did you stop smoking??08/31/2023 ?How long has it been since you last smoked? < 1 month ???Drug/Alcohol:?AUDIT-C (Standard)?Did you have a drink containing alcohol in the past year??Yes ?How often did you have a drink containing alcohol in the past year?? Monthly or less (1 point) ?How many drinks did you have on a typical daywhen you were drinking in the past year??3 or 4 drinks (1 point) ?How often did you have six or more drinks on one occasion in the past year??2 to 3 times per week (3 points) ?Points?5 ?Interpretation?Positive * Medications: T akingAlbuterol Sulfate HFA 108 (90 Base) MCG/ACT Aerosol Solution INHALE 2 PUFFS BY MOUTH 4 TIMES DAILY NEEDED Breo Ellipta(Fluticasone Furoate-Vilanterol) 100- 25 MCG/ACT Aerosol Powder Breath Activated 1 puff Inhalation Once a day Meloxicam 15 MG Tablet 1 tablet Orally Once a day Protonix(Pantoprazole Sodium) 40 MG Tablet Delayed Release 1 tablet Orally Every Evening tiZANidine HCl 4 MG Tablet 2 tabs Orally qhs , Notes to Pharmacist: PRNVarenicline Tartrate (Starter) 0.5 MG X 11 & 1 MG X 42 Tablet Therapy Pack as directed Orally BID Taking Albuterol Sulfate HFA 108 (90 Base) MCG/ACT Aerosol Solution INHALE 2 PUFFS BY MOUTH 4 TIMES DAILY NEEDED Taking Breo Ellipta(Fluticasone Furoate-Vilanterol) 100-25 MCG/ACT Aerosol Powder Breath Activated 1 puff Inhalation Once a day Taking Meloxicam 15 MG Tablet 1 tablet Orally Once a day Taking Protonix(Pantoprazole Sodium) 40 MG Tablet Delayed Release 1 tablet Orally Every Evening Taking tiZANidine HCl 4 MG Tablet 2 tabs Orally qhs , Notes to Pharmacist: PRNTaking Varenicline Tartrate (Starter) 0.5 MG X 11 & 1 MG X 42 Tablet Therapy Pack as directed Orally BID Not-Taking/PRNChantix(Varenicline Tartrate) 1 MG Tablet 1 capsule Orally bid Medication List reviewed and reconciled with the patientNot-Taking/PRN Chantix(Varenicline Tartrate) 1 MG Tablet 1 capsule Orally bid Medication List reviewed and reconciled with the patient * Allergies: N .K.D.A.no[Allergies Verified] Objective: * Vitals: W t:180lbs, Ht: 63 in, BP:130/82mm Hg, BMI:31.88Index, Ht-cm: 160.02 cm, Wt-k.65 kg. * Examination: ???Physical Exam: ?GENERAL:?well developed, well nourished, in no acute distress.?HEAD:?normocephalic/atraumatic.?EYES:?pupils equal, round and reactive to light, conjunctivae and sclerae normal.?EARS:?no deformity or lesion of external ear, canals and TM appear normal bilaterally, TM's intact, not inflamed with normal light reflex, hearing grossly normal to conversational speech.?NOSE:?no deformity, discharge, inflammation, or lesions. ?MOUTH:?mucous membranes moist, normal oropharynx and posterior pharynx without lesions or exudates, tongue normal, dentition normal.?NECK:?neck supple, no masses or palpable cervical nodes, trachea midline, thyroid without nodules, masses, tenderness, or enlargement.?CHEST:?no chest wall deformity, no chest wall tenderness. ?LUNGS:?normal respiratory effort and clear to auscultation, no wheezes, rales, or rhonchi, good air exchange.?CARDIO:?regular rate and rhythm, normal S1 and S2, nor murmur, rub, or gallop.?PULSES:?normal capillary refill.?ABDOMEN:?soft, non-distended, non-tender, no masses.?MUSCULOSKELETAL:?no deformity or scoliosis noted, normal range of motion, joints normal, no erythema, edema, effusion, or ecchymosis.?EXTREMITY:?no clubbing, cyanosis, edema, or deformity withnormal ROM in both upper and lower bilateral extremities.?NEUROLOGIC:?grossly normal.?SKIN:?no rashes, ulcerations, or suspicious lesions.?LYMPH NODES:?no cervical adenopathy, nodes normal.?MENTAL STATUS:?alert and oriented x3, normal mood and affect.? Assessment: * Assessment: 1.?Borderline hypertension - R03.0 (Primary)???2.?GERD (gastroesophageal reflux disease) - K21.9??? Plan: * Treatment: Start Lisinopril Tablet, 10 MG, 1 tablet, Orally, Once a day, 30 days, 30 Tablet, Refills 11;?Refill Chantix Tablet, 1 MG, 1 capsule, Orally, bid, 90 days, 180 Capsule, Refills 0.??2.?GERD (gastroesophageal reflux disease)? Referral To:Blayne Yu??General Surgery ?Reason: * Procedure Codes: 3 079F DIAST BP 80-89 MM [id number] SYST BP GE 130 - 139MM HG * Preventive Medicine: ??Screenings/Counseling:?BMI ACTION PLAN?Above Normal BMI Follow-up?Dietary management education, guidance, and counseling ?TOBACCO ACTION PLAN?Patient counselled on the dangers of tobacco use and urged to quit.?. * * Sign off status: CompletedVisit Status:?CHK (Check Out) true * Provider: Angie Tierney ([facility])MD Date: 09/02/2024 Generated for Printing/Faxing/eTransmitting on:?07/07/2025 02:24 PM EST History and Physical Notes * HPI (History of Present Illness) CategorySub-CategoryDetailNotesCategory NotesGeneralSBrunning consistenty over 160's Examination CategorySub-CategoryDetailNotesCategory NotesPhysical ExamGENERAL:well developed, well nourished, in no acute distressHEAD:normocephalic/atraumatic EYES:pupils equal, round and reactive to light, conjunctivae and sclerae normal EARS:no deformity or lesion of external ear, canals and TM appear normal bilaterally, TM's intact, not inflamed with normal light reflex, hearing grossly normal to conversational speechNOSE:no deformity, discharge, inflammation, or lesionsMOUTH:mucous membranes moist, normal oropharynx and posterior pharynx without lesions or exudates, tonguenormal, dentition normalNECK:neck supple, no masses or palpable cervical nodes, trachea midline, thyroid without nodules, masses, tenderness, or enlargementCHEST:no chest wall deformity, no chest wall tendernessLUNGS:normal respiratory effort and clear to auscultation, no wheezes, rales, or rhonchi, good air exchangeCARDIO:regular rate and rhythm, normal S1 and S2, nor murmur, rub, or gallopPULSES:normal capillary refillABDOMEN:soft, non-distended, non-tender, no massesRECTAL:MUSCULOSKELETAL:no deformity or scoliosis noted, normal range of motion, joints normal, no erythema, edema, effusion, or ecchymosisEXTREMITY:no clubbing, cyanosis, edema, or deformity with normal ROM in both upper and lower bilateral extremitiesNEUROLOGIC:grossly normalSKIN:no rashes, ulcerations, or suspicious lesionsLYMPH NODES:no cervical adenopathy, nodes normalMENTAL STATUS:alert and oriented x3, normal mood and affect Consultation Request Notes Referral Date Referring Provider Referred Provider Not es 07/03/2025 Rylan Tierney Michael
--- OUTSIDE RECORDS SUMMARY | 2025-07-04 04:15 | XMS_ITS ---
Author Organization [facility] in [place] Address [address] [place] [address] Care Team Providers Care Pin Inserter Name Role Phone Luissamuel Rylan Primary Care Provider Reason For Referral Diagnosis 1 GERD (gastroesophage al reflux disease) (K21.9) Referral Organization [facility] Referring Provider First Name Rylan Referring Provider Last Name Kelsy Referring Provider [facility] Referred Provider Arabella Earl Referred Provider Specialty Gastroentero logy Referral Priority Routine REASON FOR VISIT needs referral to GI Encounters Encounter Location Date Provider Diagnosis [facility] [address] [place] [address] 07/04/2025 Rylan Tierney GERD (gastroesophage al reflux disease) K21.9 Assessments Encounter Date Diagnosis (ICD Code) Assessment Notes Treatment Notes Treatment Clinical Notes Section Notes 07/04/2025 GERD (gastroesophageal reflux di sease) (ICD-10 - K21.9) Plan Of Treatment Referrals Referral Date Details 07/04/2025 07/04/2025Arabella Progress Notes * Gwen MONTAÑOOB:1975 (4 0 yo F)Acc No.[id number]:07/04/2025 Patient:?Toya MONTAÑO :1975???Age:49 Y???Sex:FemalePhone:[phone] Address:[address] [place] [address], [address] Subjective: * Chief Complaints: * n eeds referral to GI * Medical History: * Surgical History: * Hospitalization/Major Diagno stic Procedure: * Medications: Objective: * Vitals: * Physical Examination: ??? Assessment: * Assessment: 1.?GERD (gastroesophageal reflux disease) - K21.9 (Primary)??? Plan: * Treatment: ? Referral To:Arabella Earl??Gastroenterology ?Reason: * Procedure Codes: * true * Date:?Generated for Printing/Faxing/eTransmitting on:?07/07/2025 02:23 PM EST Consultation Request Notes Referral Date Referring Provider Referred Provider Not es 07/04/2025 Rylan Tierney Mohamad
--- OUTSIDE RECORDS SUMMARY | 2025-07-04 06:30 | XMS_ITS ---
Author Organization [facility] Address [address] [place] [address] Care Team Providers Care After School Program Teacher Name Role Phone Kelsy Pelon Primary Care Provider Unavailabl e Rusty Pinedo Unavailable [phone] Salbador Newman Unavailable [phone] Allergies No Known Allergies REASON FOR VISIT Lumbar Pain- Referral- Shahida, Lower back pain extending into left hip and down left leg, Pain inlower back down left leg. Medications Medication SIG (Take, Route, Frequency, Duration) Notes Start Date End Date Status meloxicam 15 mg 1 tab(s) orally once a day Activepantoprazole 40 mg1 tab(s) orally once a dayActivebuPROPion 150 mg/12 hours1 tab(s) orally dailyActivevareniclineActive Social History Tobacco Use: Social History Observation Description Date Details (start date - stop date) Current Smoker NA - NA AUDIT-C (Standard) Question Answer Notes Did you have a drink containing alcohol in the p ast year? Yes How often did you have a drink containing alcohol in the past year?Declined to specify (0 point)How many drinks did you have on a typical day when you were drinking in the past year?1 or 2 drinks (0 point)How often did you have six or more drinks on one occasion in the past year?Declined to specify (0 point)Points 0InterpretationNegativeTobacco Control (Standard) Question Answer Notes Tobacco use: Current every day smoker Problems Problem Type SNOMED Code ICD Code Onset Dates Problem Status W/U Status Risk Notes Problem Lumbar spondylosis (342475495) Lumbar spo ndylosis (M47.816) Activeconfirmed Vital Signs Blood pressure systolic 188 mm Hg 07/04/20 25 Blood pressure diastolic 100 mm Hg 025 Height 63 in 07/04/2025 Weight 180 lbs 07/04/2025 BMI 31.88 07/04/2025 Procedures Procedure Date Ordered Date Performed Result Body Sit e LUMBAR LENI 07/04/2025 07/04/2025 N/A Encounters Encounter Location Date Provider Diagnosis [facility] [facility] [address] [place] [address] 07/04/2025 Salbador Bushdianna Radiculopathy, lumba r region M54.16 ; Spinal stenosis, lumbar region with neurogenic claudication M48.062 and Lumbar spondylosis M47.816 Assessments Encounter Date Diagnosis (ICD Code) Assessment Notes Treatment Notes Treatment Clinical Notes Section Notes 07/04/2025 Radiculopathy, lumbar region (IC D-10 - M54.16) 07/04/2025Spinal stenosis, lumbar region with neurogenic claudication (ICD-10 - M48.062)07/04/2025Lumbar spondylosis (ICD-10 - M47.816)07/04/2025Other After thorough history, physical examination, and review of patient's previous treatments and imaging results, a description of the patient's painful diagnoses was performed. This was discussed with patient today with use of diagrams and plastic models. Risks and benefits associated with treatmentswere discussed and the following plan was developed with the patient: 1. Interventional: The patient will be scheduled for lumbar LENI at L4-L5 to the left of midline. Weare hopeful this to reduce many of her symptoms extending down her left leg. 2. Medications: The patient will continue with her current medications including meloxicam without changes. 3. Activity: The patient was advised to continue with formal physical therapy and home exercise program. 4. Follow up: The patient will follow-up with our office after upcoming injection for further recommendations. Today we discussed a multi-focal approach to the management of the patient's pain symptoms including, but not limited to, behavioral health practices, activity modifications, physical therapy exercises and home exercise programming along with medication management both prescriptive and gjnk-ary-zwuypyh. I did spend 30 minutes with the patient today discussing their chronic pain condition and chart review. This will suffice as an H&P for any interventional procedure. import current medications Plan Of Treatment Treatment Notes Assessment Notes Other After thorough history, physical examination, and review of patient's previous treatments and imaging results, a description of the patient's painful diagnoses was performed. This was discussed with patient today with use of diagrams and plastic models. Risks and benefits associated with treatments were discussed and the following plan was developed with the patient: 1. Interventional: The patient will be scheduled for lumbar LENI at L4-L5 to the left of midline. We are hopeful this to reduce many of her symptoms extending down her left leg. 2. Medications: The patient will continue with her current medications including meloxicam without changes. 3. Activity: The patient was advised to continue with formal physical therapy and home exercise program. 4. Follow up: The patient will follow-up with our office after upcoming injection for further recommendations. Today we discussed a multi-focal approach to the management of the patient's pain symptoms including, but not limited to, behavioral health practices, activity modifications, physical therapy exercises and home exercise programming along with medication management both prescriptive and puov-txf-abgffli. I did spend 30 minutes with the patient today discussing their chronic pain condition and chart review. This will suffice as an H&P for any interventional procedure. import current medications Next Appt Details Provider Name:Salbador Bushdianna, 1 09/13/2024 11:45:00 AM, [address] [place] [address], [phone], Provider Name:Paulina García rd, 08/15/2025 08:00:00 AM, [address] [place] [address], [phone], Progress Notes * JOHN MONTAÑO ADOB:1975 (49 yo F)Acc No.[id number]:07/04/2025 Patient:?JOHN MONTAÑO :?Salbador Bushdianna, MDDOB:1975???Age:49 Y???Sex: FemaleDate:07/04/2025Phone:[phone]:[address] [place], [place] [id number]:Pelon Tierney Subjective: * Chief Complaints: * L umbar Pain- [facility] pain extending into left hip and down left legPain in lower back down left leg. * HPI: ???General Info per Patient Report:?Bahn?MEDICATIONS TAKEN IN THE PAST:?Advil/Motrin/Ibuprofen, Tylenol, Flexeril,?PAIN STARTED AFTER:?I do not know,?WORST PAIN SCORE:?7,?LEAST PAIN SCORE:?1,?USUAL PAIN SCORE:?2,?MY PAIN IS:?Always present, intensity varies,?MY PAIN IS?Time of day or night has NO association with my pain,?THE TYPE OF PAIN I FEEL IS:?Aching, Throbbing,?I ALSO HAVE ASSOCIATED:?Numbness, Tingling, Stiffness, Spasms,?MY PAIN GETS WORSE WITH:?Sitting, Laying Down,?MY PAIN GETS B JACINDA WITH:?Other walking,?MY PAIN IS INTERFERING WITH MY:?Sleep, Work performance, BECAUSE OF MY PAIN, I HAVE PROBLEMS WITH?Wake up frequently,?TREATMENTS RECEIVED: Physical Therapy, Chiropractic,?SEEN ADDITIONAL PROVIDERS:?Neurosurgeon, Chiropractor, TESTING FOR CURRENT PROBLEM?X-rays, MRI scan,?WITHIN THE LAST YEAR I HAVE SUFFERED FROM:?Weight gain, Blurred Vision, Leg Swelling, Muscle Weakness, Numbness,?SUFFERING FROM NECK PAIN:?No,?SUFFERING FROM HEADACHES?No.?HPI:? The patient presents today as a new evaluation for a referred by Dr. Pineda with complaints of ongoing pain in her low back extending down her left leg. The patient states that this current episode has been ongoing since around February of this year. She has had a several year history of multiple different episodes which usually resolve on her own or with time get better with conservative care. She does state that she underwent injection in the past which washelpful for her. The patient states that this episode has been ongoing and persistent. She does report an aching and throbbing type pain across her lower back with numbness and tingling down her leftleg as well as stiffness and spasms. She does report that lying down and sitting can make her symptoms worse while walking seems to improve her pain. The patient rates her worst pain is a 7 out of 10, least pain is a 1 out of 10, or her usual pain is a 2 out of 10. She has a difficult time waking up frequently in the evening because of the pain. She has been going to physical therapy with some improvements and day care aide provide short-term relief. The patient has undergone x-ray as well as MRI of the lumbar spine. MRI was reviewed by her spine surgeon and referred to our office for consideration of lumbar epidural steroid junction at L4-5. Her MRI does show multilevel degenerative disc disease worse at L3-L4 with right paracentral disc extrusion. Her symptoms are all isolated to the left. At L4-5 she does have moderate canal stenosis and foraminal narrowing. Her symptom pattern seems to follow an L4 and L5 dermatome. I would recommend lumbar LENI at L4-5. Patient would like to proceed. She should continue with therapy. * Medical History: * Surgical History: W isdom teeth extraction * Family History: M other: diagnosed with Diabetes. F ather: diagnosed with Diabetes, Heart disease. * Social History: E xercise regularly D o you exercise? N o. W hat is your place of residence? W here do you live? P rivate home. A ELLA-C (Standard) D id you have a drink containing alcohol in the past year? Y es, H ow often did you have a drink containing alcohol in the past year? D eclined to specify (0 point), H ow many drinks did you have on a typical day when you were drinking in the past year? 1 or 2 drinks (0 point), H ow often did you have six or more drinks on one occasion in the past year? D eclined to specify (0 point), P oints 0 , I nterpretation N egative. T obacco Control (Standard) T obacco use: C urrent every day smoker. * Medications: T akingvarenicline buPROPion 150 mg/12 hours tablet, extended release 1 tab(s) orally daily meloxicam 15 mg tablet 1 tab(s) orally once a day pantoprazole 40 mg delayed release tablet 1 tab(s) orally once a day Medication List reviewed and reconciled with the patientTaking varenicline Taking buPROPion 150 mg/12 hours tablet, extended release 1 tab(s) orally daily Taking meloxicam 15 mg tablet 1 tab(s) orally once a day Taking pantoprazole 40 mg delayed release tablet 1 tab(s) orally once a day Medication List reviewed and reconciled with the patient * Allergies: N .K.D.A.no[Allergies Verified] Objective: * Vitals: P ain Scale (NRS): 2, Ht: 63 in, Wt: 180 lbs, BMI:31.88, BP: 188/100 mm Hg, Pulse: 93. * Examination: ???General examination: ???General Examination: Well-developed, well nourished. Alert and cooperative. Reliable historian. General Examination: Pain in lower back with left hip flexion. ???MRI Imaging Studies: ???03/29/2025 MRI of lumbar spine:Multilevel degenerative disc disease as described worse at L3-L4 with right paracentral disc extrusion. At L4-5 there is moderate central canal stenosis secondary to disc bulge and ligamentum flavum thickening and facet arthropathy. There is also moderate foraminal stenosis. At L2-L3 there is also disc bulge present. ???Skin: ???Warm, dry and intact. ???Chest: ???Equal expansion, clear to auscultation bilaterally. ???Neurologic exam: ???Normal sensation bilateral lower extremities in all dermatomes tested. Motor strength prececal bilaterally lower extremities. ???HEENT: ???Extraocular movements intact, head is normocephalic and atraumatic. ???Cardiovascular: ???Regular rate and rhythm without murmurs, rubs or gallops. ???Lumbar Spine: ???Tenderness palpation over lower lumbar facet joints much worse on the LEFT side. Increased pain with facet joint loading. Tenderness present over LEFT SI joint. Increased pain with Marguerite's [place] compression test. Seated straight leg raise is positive on the left for radicular pain. ???Psychological: ???Normal affect. ??? Assessment: * Assessment: 1.?Radiculopathy, lumbar region - M54.16 (Primary)???2.?Spinal stenosis, lumbar region with neurogenic claudication - M48.062???3.?Lumbar spondylosis - M47 .816??? Plan: * Treatment: ?Procedure: LUMBAR LENI (Performed Date - 07/04/2025)2.?Others? Notes: After thorough history, physical examination, and review of patient's previous treatments and imaging results, a description of the patient's painful diagnoses was performed. This was discussed with patient today with use of diagrams and plastic models. Risks and benefits associated with treatments were discussed and the following plan was developed with the patient: 1. Interventional: The patient will be scheduled for lumbar LENI at L4-L5 to the left of midline. Weare hopeful this to reduce many of her symptoms extending down her left leg. 2. Medications: The patient will continue with her current medications including meloxicam without changes. 3. Activity: The patient was advised to continue with formal physical therapy and home exercise program. 4. Follow up: The patient will follow-up with our office after upcoming injection for further recommendations. Today we discussed a multi-focal approach to the management of the patient's pain symptoms including, but not limited to, behavioral health practices, activity modifications, physical therapy exercises and home exercise programming along with medication management both prescriptive and sfsc-rjv-cedtkec. I did spend 30 minutes with the patient today discussing their chronic pain condition and chart review. This will suffice as an H&P for any interventional procedure. import current medications?? * Procedure Codes: G 3002 Chronic pain management and treatment * Preventive Medicine: ??MIPS Measures:?AWV408 Fall Risk?Screening:?No falls in the past year. Forms: * Images: * ign off status: Completed true * Provider: Stalin Newman MD Date: 09/03/2024 Generated for Printing/Faxing/eTransmitting on:?07/07/2025 02:24 PM EST History and Physical Notes * HPI (History of Present Illness) CategorySub-CategoryDetailNotesCategory NotesGeneral Info per Patient ReportBahn MEDICATIONS TAKEN IN THE PAST:: Advil/Motrin/Ibuprofen, Tylenol, FlexerilPAIN STARTED AFTER:: I do not knowWORST PAIN SCORE:: 7LEAST PAIN SCORE:: 1USUAL PAIN SCORE:: 2MY PAIN IS:: Always present, intensity variesMY PAIN IS: Time of day or night has NO association with my painTHE TYPE OF PAIN I FEEL IS:: Aching, ThrobbingI ALSO HAVE ASSOCIATED:: Numbness, Tingling, Stiffness, SpasmsMY PAIN GETS WORSE WITH:: Sitting, Laying DownMY PAIN GETS BETTER WITH:: OtherwalkingMY PAIN IS INTERFERING WITH MY:: Sleep, Work performanceBECAUSE OF MY PAIN, I HAVE PROBLEMS WITH: Wake up frequentlyTREATMENTS RECEIVED:: Physical Therapy, ChiropracticSEEN ADDITIONAL PROVIDERS:: Neurosurgeon, ChiropractorTESTING FOR CURRENT PROBLEM: X-rays, MRI scanWITHIN THE LAST YEAR I HAVE SUFFERED FROM:: Weight gain, Blurred Vision, Leg Swelling, Muscle Weakness, NumbnessSUFFERING FROM NECK PAIN:: NoSUFFERING FROM HEADACHES: NoHPI The patient presents today as a new evaluation for a referred by Dr. Pineda with complaints of ongoing pain in her low back extending down her left leg. The patient states that this current episode has been ongoing since around February of this year. She has had a several year history of multiple different episodes which usually resolve on her own or with time get better with conservative care. She does state that she underwent injection in the past which was helpful for her. The patient states that this episode has been ongoing and persistent. She does report an aching and throbbing type painacross her lower back with numbness and tingling down her left leg as well as stiffness and spasms.She does report that lying down and sitting can make her symptoms worse while walking seems to improve her pain. The patient rates her worst pain is a 7 out of 10, least pain is a 1 out of 10, or her usual pain is a 2 out of 10. She has a difficult time waking up frequently in the evening because of the pain. She has been going to physical therapy with some improvements and day care aide provide short-term relief. The patient has undergone x-ray as well as MRI of the lumbar spine. MRI was reviewed by her spine surgeon and referred to our office for consideration of lumbar epidural steroid junction at L4-5. Her MRI does show multilevel degenerative disc disease worse at L3-L4 with right paracentral disc extrusion. Her symptoms are all isolated to the left. At L4-5 she does have moderate canal stenosis and foraminal narrowing. Her symptom pattern seems to follow an L4 and L5 dermatome. I would recommend lumbar LENI at L4-5. Patient would like to proceed. She should continue with therapy. Examination CategorySub-CategoryDetailNotesCategory NotesGeneral examination General Examination: Well-developed, well nourished. Alert and cooperative. Reliable historian. General Examination: Pain in lower back with left hip flexion. MRI Imaging Studies03/29/2025 MRI of lumbar spine:Multilevel degenerative disc disease as described worse at L3-L4 withright paracentral disc extrusion. At L4- 5 there is moderate central canal stenosis secondary to disc bulge and ligamentum flavum thickening and facet arthropathy. There is also moderate foraminal stenosis. At L2-L3 there is also disc bulge present.SkinWarm, dry and intactChestEqual expansion, clear to auscultation bilaterallyNeurologic exam Normal sensation bilateral lower extremities in all dermatomes tested. Motor strength prececal bilaterally lower extremities.HEENTExtraocular movements intact, head is normocephalic and atraumaticCardiovascularRegular rate and rhythm without murmurs, rubs or gallopsLumbar SpineTenderness palpation over lower lumbar facet joints much worse on the LEFT side. Increased pain with facet joint loading. Tenderness present over LEFT SI joint. Increased pain with Marguerite's [place] compression test. Seated straight leg raise is positive on the left for radicular pain.PsychologicalNormal affect
--- OUTSIDE RECORDS SUMMARY | 2025-07-07 14:24 | XMS_ITS | Clinical Summary ---
Author Organization [facility] Address [address] [place] [address] Care Team Providers Care Station Master Name Role Phone Unavailable Primary Care Provider Unavailabl e Medications MedicationSigDispense QuantityRefillsLast FilledStart DateEnd DateStatus albuterol HFA 90 mcg/act inhaler Inhale 2 puffs every 4 (four) hours if needed for wheezingActive pantoprazole (ProtoNix) 40 MG EC tablet Take 40 mg by mouth in the morning. Take before meals. Do not crush, chew, or split.Active varenicline (Chantix) 1 MG tablet Take 1 mg by mouth in the morning and 1 mg before bedtime. Take with full glass of water.Active Social History Tobacco UseTypesPacks/DayYears UsedDateSmoking Tobacco: FormerCigarettes Tobacco Cessation:Counseling Given: Not Answered Comments:Former Smoker 01/12/2024 Alcohol UseStandard Drinks/WeekCommentsYes0 (1 standard drink = 0.6 oz pure alcohol)SocialCommentsUnknownSex and Gender InformationValueDate RecordedSex Assigned at BirthNot on fileLegal FygApswdf10/16/2024 1:01 PM EDT Gender IdentityNot on fileSexual OrientationNot on file Last Filed Vital Signs Vital SignReadingTime TakenCommentsBlood Lyxsqjla588/9208 11:32 AM EDT Yfumd058904/20/2024 11:32 AM EDTTemperature--Respiratory Gqjx097104/20/2024 11:32 AM EDTOxygen Saturation--Inhaled Oxygen Concentration--Hceeqa20.8 kg (186 lb 15.9 oz)04/20/2024 11:32 AM IGMFhpzdk193 cm (5' 2.99 )04/20/2024 11:32 AM EDTBody Mass Index33.1308 11:32 AM EDT Plan of Treatment Not on file
--- OUTSIDE RECORDS SUMMARY | 2025-07-07 14:24 | XMS_ITS | Clinical Summary ---
Author Organization [facility] Address [address] [place] [address] Care Team Providers Care Museum Security Chief Name Role Phone Pelon Tierney MD Unavailable [phone] Allergies No known active allergies Medications MedicationSigDispense QuantityRefillsLast FilledStart DateEnd DateStatus albuterol HFA (PROVENTIL HFA, VENTOLIN HFA) 90 mcg/actuation inhaler Inhale 2 puffs as instructed as needed for wheezing/shortness of breath. 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 Lumbosacral radiculopathy at L5 (Primary Dx); Degeneration of intervertebral disc of lumbar region with discogenic back pain and lower extremity pain; Nicotine use /09/0234Bfrmeg15/11/2025bstract Neurology [address] [place] [address] (Hist), Unk Pcp from Last 3 Months Social History Tobacco UseTypesPacks/DayYears UsedDateSmoking Tobacco: Every DayCigarettes Smokeless Tobacco: Never Tobacco Cessation:Ready to Q uit: Not Asked; Counseling Given: Not Answered Area Deprivation IndexAnswerDate RecordedNational Score (1-100), lower number is lower wdet661605/09/2025State Score (1-10), lower number is lower flir65605/09/2025 Data from: https://www.neighborhoodatlas.medicine.[facility].edu/. Last address used for loozzytkkhf[address]05/09/2025CommentsNoSex and Gender InformationValueDate RecordedSex Assigned at BirthNot on fileLegal SexFemale 04/04/2025 12:08 PM EDTGender IdentityNot on fileSexual OrientationNot on file Last Filed Vital Signs Vital SignReadingTime TakenCommentsBlood Wptjrrff108/8605/09/2025 9:42 AM EDT Teewm481005/09/2025 9:42 AM EDTTemperature--Respiratory Mbcx6724 9:42 AM EDTOxygen Ejerypwdiq03%05/09/2025 9:42 AM EDTInhaled Oxygen Concentration-- Mivrng17.6 kg (180 lb)05/09/2025 9:42 AM BVJBnguow832 cm (5' 3 )05/09/2025 9:42 AM EDTBody Mass Index31.8905/09/2025 9:42 AM EDT Plan of Treatment Health MaintenanceDue DateLast DoneCommentsAnxiety Lsrmyyafn38/05/1992Depression Qpggvltdv90/05/1992HIV Ughpkzgbi52/05/1992Hepatitis C Ygjmfiojx01/05/1992 DTaP,Tdap,Td Vaccine (1 - Tdap)1993Hepatitis B Vaccine (1 of 3 - 19+ 3- dose series)1993Pneumococcal Vaccine: 50+ (1 of 2 - PCV)1993Cervical Cancer Fkxjwgxrh13/05/1995CT Kjjhleryacmi2019Cologuard (FIT-DNA)2019 Azbmzokjgom31/05/2859Tduztdhulbdtv09/05/2019Colorectal Cancer Screening 07/01/2023Fecal Occult Bloodhingrix Vaccine (1 of 2) 2024Mammogram Xchcckqqe82/22/377078/, 12/21/2023, 08/18/2022, Additional history existsCovid-19 Vaccine (3 - 2024- season)2025 07/21/2021, 06/28/2021Influenza Vaccine (#1)2025Diabetes Screening , 06/20/2022, 06/20/2022Lipid Ltjzgjqfu96 Procedures Procedure NamePriorityDate/TimeAssociated DiagnosisCommentsEXTERNAL IMAGING 04/10/2025 8:45 AM EDT from Last 3 Months Results * EXTERNAL IMAGING (04/10/2025 8:45 AM EDT)Anatomical RegionLateralityModality Other Narrative Authorizing ProviderResult TypeResult StatusExternal Provider PA-CRADIOLOGYFinal Result from Last 3 Months Insurance Care Teams Team MemberRelationshipSpecialtyStart DateEnd Date Pelon Tierney MD [address] [place] [address] [facility]Family [facility]04/04/25
--- OUTSIDE RECORDS SUMMARY | 2025-07-07 14:24 | XMS_ITS | Patient Health Record ---
Author Organization [facility] Address [address] [place] [address] Care Team Providers Care Kiln Stoker Name Role Phone LuisRylan bakerlas Primary Care Provider UnavailRusty Saldivar Unavailable [phone] Peter Gil Unavailable [phone] Salbador Newman Unavailable [phone] Allergies No Known Allergies Reason For Referral Reason referral to Dr. 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) Referral Organization [facility] Referring Provider First Name Rusty Referring Provider Last Name Shahida Referring Provider Speciality Orthopedic Surgery Referred Organization [facility] Referred Address [address] [place] [phone], General Notes Yaquelin Castro 05/2025 08:51:38 AM >Meg Amanda 06/09/2025 08:24:27 AM > Called and lmovm to schedule with Dr Newman- 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.//arMeg Amanda 06/13/2025 08:17:19 AM >Called and scheduled.//ar Referral Priority Routine Reason Lumbar LENI at L4-L5 with local at [facility] Diagnosis 1 Radiculopathy, lumba r region (M54.16) Referral Organization [facility] Referring Provider First Name Salbador Referring Provider Last Name Trent Referring Provider Speciality Pain Manag ement Referred Organization [facility] Referred Provider Salbador Newman Referred Address [address] [place] [phone], Referred Provider Specialty Pain Managem ent Procedure 1 NJX INTERLAMINAR LMB R/SAC (15619) General Notes Cyndy Valdez 07/04/2025 01:35:20 PM > UMR For approval - pending, Cyndy Valdez 2025 06:46:06 AM > checked status - MARTINA - ref#[id number] - scanned in chart Referral Priority Routine Medications Medication SIG (Take, [...] Problem Status W/U Status Risk Notes Problem [id number] Radiculopathy, lumbar region (M54.16) ActiveconfirmedProblemLumbar spondylosis (607991132)Lumbar spondylosis (M47.816) NchbkedvrboeglxMcjojuf59675363Ifynqq stenosis, lumbar region with neurogenic claudication (M48.062)FpejdsdqfkpptjtFkdtxjp95668409Mdbzk intervertebral disc degeneration, lumbar region with discogenic back pain and lower extremitypain (M51.362)Activeconfirmed Vital Signs Blood pressure diastolic 100 mm Hg 07/04/2025 Ncfjzm54 in07/04/2025lood pressure wuyldokd540 mm Hg07/04/20257196Ugktyx502 lbs 07/04/2025BMI31.8807/04/2025 Procedures Procedure Date Ordered Date Performed Result Body Sit e LUMBAR LENI 07/04/2025 07/04/2025 N/A Encounters Encounter Location Date Provider Diagnosis [facility] [address] [place] [phone] 06/08/2025 Peter Gil Other intervertebral disc degeneration, lumbar region with discogenic back pain and lower extremity pain M51.362 ; Spinal stenosis, lumbar region with neurogenic claudication M48.062 and Radiculopathy, lumbar region M54.16 [facility] [address] [place] [address] 07/04/2025 Salbador Newman Radiculopathy, lumba r region M54.16 ; Spinal stenosis, lumbar region with neurogenic claudication M48.062 and Lumbar spondylosis M47.816 Assessments Encounter Date Diagnosis (ICD Code) Assessment Notes Treatment Notes Treatment Clinical Notes Section Notes 06/08/2025 Spinal stenosis, lum bar region with neurogenic claudication (ICD-10 - M48.062) 1. L3-S1 degenerative disc disease with stenosis neuroforaminal stenosis and radiculopathy 2. L3-4 disc herniation 06/08/2025Other intervertebral disc degeneration, lumbar region with discogenic back pain and lower extremitypain (ICD-10 - M51.362) 1. L3-S1 degenerative disc disease with stenosis neuroforaminal stenosis and radiculopathy 2. L3-4 disc herniation 07/04/2025Radiculopathy, lumbar region (ICD-10 - M54.16)06/08/2025Radiculopathy, lumbar region (ICD-10 - M54.16) 1. L3-S1 degenerative disc disease with stenosis neuroforaminal stenosis and radiculopathy 2. L3-4 disc herniation 07/04/2025Spinal stenosis, lumbar region with neurogenic claudication (ICD-10 - M48.062)07/04/2025Lumbar spondylosis (ICD-10 - M47.816)06/08/2025Other Thanks once again. If we can be of further service to your patients with disorders of the spine, cervical, thoracic, or lumbar, please do not hesitate to contact Dr. Pineda. Best regards, 1. L3-S1 degenerative disc disease with stenosis neuroforaminal stenosis and radiculopathy 2. L3-4 disc herniation 07/04/2025Other After thorough history, physical examination, and review [...] along with medication management both prescriptive and xubc-zbz-yoqiqrl. I did spend 30 minutes with the patient today discussing their chronic pain condition and chart review. This will suffice as an H&P for any interventional procedure. import current medications Plan Of Treatment Pending Test Test Name Order Date SFS - Lumbar Spine PT Order, Isometrics & Strenghening w/Modalities as needed, 2-3 times per week for 6 weeks 06/08/2025 Next Appt Details Provider Name:Salbador Newman, 1 09/13/2024 11:45:00 AM, [address] [place] [address], [phone], Provider Name:Paulina García rd, 08/15/2025 08:00:00 AM, [address] [place] [address], [phone], Insurance Providers Payer Name Payer Address Payer Phone Subscriber Number Group Number Insured Name Patient Relationship to Insured Coverage Start Date Coverage End Date [employer] [address] [address] [place] [address] [id number] JOHN MONTAÑO Self - patient is the insured Medical (General) History Medical History History ICD Code Asthma BronchitisThyroid diseaseGastric RefluxSurgical History Surgery Date(Month/Year) [place] teeth extraction
--- NOTE | 2025-07-07 14:25 | MM_ITS ---
Patient Name: JOHN MONTAÑO MR#: [id number] : 1975 Exam Date: 07/07/2025 Ordering Doctor: DR ORACIO RECINOS [facility] RADIOLOGY REPORT PROCEDURE: MM TOMOSYNTHESIS SCREENING BI COMPARISON: MM TOMOSYNTHESIS SCREENING BI, 12/21/2023. MM DIAGNOSTIC MAMMO BI, 05/18/2023. MAMMO POST BIOPSY RIGHT, 09/22/2022. MG STEREO CORE NDL W CLIP RT, 09/22/2022. INDICATIONS: Screening Calculator Name NCI Breast Cancer Risk Assessment Tool 5 Year Breast Cancer Risk Not Reported. Lifetime Breast Cancer Risk Not Reported. Personal Breast Cancer No Personal Ovarian Cancer No Treatments None Family Cancers None LOCATION: [facility] BREAST COMPOSITION: The breasts are heterogeneously dense, which may obscure small masses. FINDINGS: RIGHT BREAST: No significant suspicious finding. LEFT BREAST: No significant suspicious finding. DIAGNOSTIC CATEGORY 1--NEGATIVE. NO CHANGE FROM COMPARISON ASSESSMENT. RECOMMENDATIONS: ROUTINE MAMMOGRAM AND CLINICAL EVALUATION IN 12 MONTHS. Dictated by: Ramirez Zuleta MD on 07/10/2025 at 10:45 Approved by: Ramirez Zuleta MD on 07/10/2025 at 10:55
--- OUTSIDE RECORDS SUMMARY | 2025-07-07 14:25 | XMS_ITS | Patient Health Record ---
Author Organization [facility] [place] Address [address] [place] [address] Care Team Providers Care Sow Farm Technician Name Role Phone Rylan Tierney Primary Care Provider Allergies No Known Allergies Results Component Value Reference Range Notes CBC AUTO DIFF Reviewed date:10/19/2024 07:25:20 PM Interpretation: Performing Lab: Notes/Report: [facility] , White Blood Count 7.1 4.0-11.0 10 3/uL Red Blood Count4.544.20-5.40 10 6/aBUyjraqcoen16.712.0-16.0 g/zAMgpmrsdtjq69.3 36.0-48.0 %Mean Corpuscular Qqqtaw97.481.0-99.0 fLMean Corpuscular Hemoglobin 32.426.7-34.0 pgMean Corpuscular HGB Conc33.929.9-35.2 g/dLRed Cell Distribution Width12.611.0-15.0 %Platelet Cgzdn763395-454 10 3/uLMean Platelet Ywgymu37.69.5- 13.5 fLNeutrophils Percent Auto33.543.0-75.0 %Lymphocytes Percent Auto48.120.5- 60.0 %Monocytes Percent Auto8.71.7-12.0 %Eosinophils Percent Auto8.70.9-7.0 % Basophils Percent Auto0.70.2-2.0 %Immature Granulocytes Pct Auto0.30.0-0.5 % Neutrophils Absolute Auto2.41.4-6.5 10 3/uLLymphocytes Absolute Auto3.41.2-3.8 10 3/uLMonocytes Absolute Auto0.60.3-0.8 10 3/uLEosinophils Absolute Auto0.60.0- 0.7 10 3/uLBasophils Absolute Auto0.10.0-0.1 10 3/uLImmature Granulocytes Abs Auto0.020.00-0.03 10 3/uLPerforming Lab:see note - [facility] FREE T3 Reviewed date:10/19/2024 07:25:20 PM Interpretation: Performing Lab: Notes/Report: [facility] ,Free T32.542.18-3.98 pg/mLPerforming Lab:see note - [facility] GLYCOHEMOGLOBIN A1C Reviewed date:10/19/2024 07:25:20 PM Interpretation: Performing Lab: Notes/Report: [facility] ,Glycohemoglobin A1C5.54.5-6.2 % ADA THERAPEUTIC TARGET < 7.0 ACTION SUGGESTED > 7.0 ADA RECOMMENDED LIMIT 4.0 - 6.0 Estimated Average Gurdlke423Imfpcigztz Lab:see note - [facility] INSULIN Reviewed date:10/23/2024 10:02:02 AM Interpretation: Performing Lab: Notes/Report: Andrea ,Zvpkzjs43.82.6-24.9 uIU/mL Calibration Technician: Alejandro Paige PhD, Phone: [phone] [address] [place], [place] [phone] Performed at: [facility] Performing Lab:see note - [facility] [place] Reviewed date:10/19/2024 07:25:20 PM Interpretation: Performing Lab: Notes/Report: [facility] ,Wvjj316.050.0-170.0 ug/dLPerforming Lab:see Critical access hospital - [facility] LIPID PROFILE Reviewed date:10/19/2024 07:25:20 PM Interpretation: Performing Lab: Notes/Report: [facility] ,Dvaarcjwofhgf47<=150 mg/oMKarrmeilvfk172<=200 mg/dLHDL Poqyrrrwwhu3844-07 mg/dL <40 mg/dl - HIGH CARDIOVASCULAR RISK > or =60 mg/dl - LOW CARDIOVASCULAR RISK LDL Cholesterol Eztjsgzdou934.0 130-159 mg/dl BORDERLINE HIGH 160-189 mg/dl HIGH >190 mg/dl VERY HIGH 100-129 mg/dl NEAR OR ABOVE OPTIMAL <100 mg/dl OPTIMAL VLDL TJMTEPMHBYC98.6Chol HDL Ratio2.4 3.3 - 4.4 LOW RISK 4.4 - 7.1 AVERAGE RISK 7.1 - 11.0 MODERATE RISK >11.0 HIGH RISK Performing Lab:see noteML - [facility] LBPROF 14(COMP METB) Reviewed date:10/19/2024 07:25:20 PM Interpretation: Performing Lab: Notes/Report: [facility] ,Rydsyg902993-569 mmol/LPotassium3.73.5-5.1 mmol/GWochgwep46288-546 mmol/LCarbon Nljmlso87.121.0-32.0 mmol/LAnion Gap12.6Ytgjbyl1432-620 mg/dLBlood Urea Nitrogen 11.07.0-18.0 mg/dLCreatinine0.690.55-1.02 mg/dLEstimated GFR ( Latrice>60 >=60 mL/min/1.73m 2Estimated GFR (Non- Kelly>60>=60 mL/min/1.73m 2BUN Creatinine Ratio15.1Wrkzcid9.98.5-10.1 mg/dLBilirubin Total0.60.2-1.0 mg/dL Aspartate Amino Uulvlfsmbtq5961-65 U/LAlanine Pofqjfjtagnzoryk5778-65 U/L Alkaline Dbqyhzkbgjk2273-995 U/LTotal Protein7.16.4-8.2 g/dLAlbumin Level3.73.4- 5.0 g/dLGlobulin3.4Albumin Globulin Ratio1.1Performing Lab:see noteML - [facility] LBT4 Reviewed date:10/19/2024 07:25:20 PM Interpretation: Performing Lab: Notes/Report: [facility] ,T4 Elkpbrieo77.204.80-13.90 ug/dLPerforming Lab:see noteML - [facility] LBTSH Reviewed date:10/19/2024 07:25:20 PM Interpretation: Performing Lab: Notes/Report: [facility] ,Thyroid Stimulating Hormone2.1680.358-3.740 uIU/mLPerforming Lab:see noteML - [facility] LBMR lumbar spine wo con Reviewed date:03/29/2025 03:58:31 PM Interpretation: Performing Lab: Notes/Report: Source Facility: [facility]-[address] [place] [address] Magnetic Resonance Report Signed Patient: TOYA MONTAÑO MR#: [id number] : 1975 Acct:[id number] Age/Sex: 49 / F ADM Date: 03/29/25 Loc: MRI Attending Dr: Gina Tierney M.D. Ordering Physician: Gina Tierney M.D. Date of Service: 03/29/25 Procedure(s): MR lumbar spine wo con Accession Number(s): [id number] cc: Gian Tierney M.D. [place] [address] Patient Name: TOYA MONTAÑO MRN: [id number] date: 1975 Sex: F Assigned Patient Location: MRI Current Patient Location: MRI Accession/Order Number: [id number] Exam Date: 03/29/2025 09:25 Report Date: 03/29/2025 09:31 At the request of: GINA TIERNEY MD Procedure: MR lumbar spine wo con EXAMINATION: MRI LUMBAR SPINE WITHOUT IV CONTRAST CLINICAL HISTORY: Low back pain with spasms radiating into left leg. COMPARISON: Lumbar spine series 03/16/2025 TECHNIQUE: Multiecho imaging was performed in the sagittal and axial planes without contrast administration. FINDINGS: Vertebral body heights appear maintained. No bone marrow edema is seen. Modic endplate degenerative changes L4-L5 and L5-S1. Spinal cord terminates in normal position without abnormal cord signal. No paraspinal mass. Visualized retroperitoneum demonstrates no acute findings. At L1-L2: No posterior disc pathology. No neural canal or foraminal stenosis. At L2-L3: Diffuse broad-based disc bulge is present with ligamentum flavum hypertrophy and facet joint degenerative changes causing moderate canal and bilateral neural foraminal stenosis. At L3-L4: Diffuse broad-based disc bulge is present with right paracentral extrusion-type disc herniation present extending superiorly along the L3 vertebral body posteriorly approximately 1.5 cm. There is ligament flavum hypertrophy and facet joint degenerative changes. Moderate canal stenosis. Mild left-sided neural foraminal stenosis. Severe right-sided neural foraminal stenosis bilaterally herniation. At L4-L5: Diffuse broad-based disc bulge is present with ligamentum flavum hypertrophy facet joint degenerative changes causing moderate canal and bilateral neural foraminal stenosis. At L5-S1: Diffuse broad-based disc bulge is present with facet joint degenerative changes. Findings are causing mild canal and moderate bilateral foraminal stenosis. MR/MR lumbar spine wo con IMPRESSION: Multilevel degenerative disease as described above worst at L3-L4 with right paracentral extrusion type disc herniation. Impression dictated by: Rogelio Daugherty Jr., D.O. 03/29/2025 9:31 AM Dictation Location: [place] [address] Electronically authenticated by: [id number] Y Date: 03/29/2025 09:31 Dictated By: Rogelio Daugherty M.D. Signed By: 03/29/2534 DD/ TD/TT: Legal Adviser:XR lumbar spine min 4V Reviewed date:03/18/2025 03:29:39 PM Interpretation: Performing Lab: Notes/Report: Source Facility: [place] [address] XRay Report Signed Patient: TOYA MONTAÑO MR#: [id number] : 1975 Acct:[id number] Age/Sex: 49 / F ADM Date: 03/16/25 Loc: RAD Attending Dr: Gina Tierney M.D. Ordering Physician: Gina Tierney M.D. Date of Service: 03/16/25 Procedure(s): XR lumbar spine min 4V Accession Number(s): [id number] cc: Gina Tierney M.D. [place] [address] Patient Name: TOYA MONTAÑO MRN: [id number] date: 1975 Sex: F Assigned Patient Location: RAD Current Patient Location: RAD Accession/Order Number: [id number] Exam Date: 03/16/2025 20:14 Report Date: 03/16/2025 20:15 At the request of: GINA TIERNEY MD Procedure: XR lumbar spine min 4V [...] Gaines M.D. 03/16/2025 8:15 PM [facility] Electron[facility] authenticated by: [id number] Y Date: 03/16/2025 20:15 Dictated By: Yosef Gaines D.O. Signed By: 03/16/252016 DD/ 14 TD/TT: Legal Adviser: Reason For Referral Diagnosis 1 Encounter for screen ing for malignant neoplasm of colon (Z12.11) Referral Organization [facility] Referring Provider First Name Rylan Referring Provider Last Name Kelsy Referring Provider [facility] lorena Referred Provider Blayne Yu Referred Provider Specialty General Surg cyndee Referral Priority Routine Diagnosis 1 GERD (gastroesophage al reflux disease) (K21.9) Referral Organization [facility] Referring Provider First Name Rylan Referring Provider Last Name Kelsy Referring Provider [facility] lorena Referred Provider Blayne Yu Referred Provider Specialty General Surg cyndee Referral Priority Routine Diagnosis 1 GERD (gastroesophage al reflux disease) (K21.9) Referral Organization [facility] Referring Provider First Name Rylan Referring Provider Last Name Kelsy [facility] Arabella Earl Referred Provider Specialty Gastroentero logy Referral Priority Routine Medications Medication SIG (Take, Route, Frequency, Duration) Notes Start Date End Date Status Breo Ellipta 100-25 MCG/ACT 1 puff Inhalation On day 5ActiveAlbuterol Sulfate HFA 108 (90 Base) MCG/ACTINHALE 2 PUFFS BY MOUTH 4 TIMES DAILY NEEDED; Duration: 25 daysActiveLisinopril 10 MG1 tablet Orally Once a day; Duration: 30 days5ActivetiZANidine HCl 4 MG2 tabs Orally qhs; Duration: 30 khguBGO74/19/2024ActiveVarenicline Tartrate (Starter) 0.5 MG X 11 & 1 MG X 42as directed Orally BID5ActiveMeloxicam 15 MG1 tablet Orally Once a day; Duration: 30 days5ActiveChantix 1 MG1 capsule Orally bid; Duration: 90 daysActiveProtonix 40 MG1 tablet Orally Every Evening; Duration: 30 day(s)Active Social History Tobacco Use: Social History Observation Description Date Details (start date - stop date) Former Smoker NA - 08/31/2023 Tobacco Use/Smoking Question Answer Notes Patient is a former smoker When did you stop smoking?08/31/2023How long has it been since you last smoked?< 1 monthAlcohol Screen (Audit-C) Question Answer Notes Did you have a drink containing alcohol in the p ast year? 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) ActiveconfirmedProblemPeripheral venous insufficiency (67111804)Venous insufficiency (chronic) (peripheral) (I87.2)ActiveconfirmedProblem Gastroesophageal reflux disease (332655216)GERD (gastroesophageal reflux disease) (K21.9)ActiveconfirmedProblemHypothyroid (87048078)Hypothyroid (E03.9) ActiveconfirmedProblemLeft knee pain (003030592088900)Left knee pain (M25.562) ActiveconfirmedProblemElevated blood pressure reading without diagnosis of hypertension (586589805)Borderline hypertension (R03.0)ActiveconfirmedProblem Well adult (753750796)Well adult (Z00.00)ActiveconfirmedProblemRotator cuff tear (998713836)Rotator cuff tear (M75.100)ActiveconfirmedProblemDysfunctional uterine bleeding (88741171744731)Dysfunctional uterine bleeding (N93.8)Active confirmedProblemLumbar pain (572679998)Lumbar pain (M54.50)Activeconfirmed Vital Signs Blood pressure diastolic 82 mm Hg 07/03/2025 Aftxrl39 in07/03/2025lood pressure mvqwmyzy745 mm Hg07/03/20250878Usxdoa998 lbs 07/03/2025BMI31.88 kg/m207/03/2025 Encounters Encounter Location Date Provider Diagnosis [place] [address] [place] [address] 10/19/2024 Rylan Tierney [facility] [place] [address] 03/18/2025[facility] [place] [address]/[facility] [place] [address]/12/2024[facility] [place] [address]/Doug [facility] adult [address] [address] [place] [address]/11/2024 Rylan Posey (gastroesophageal reflux disease) [facility].9[facility] [place] [address]/Doug HoyEncounter for screening for malignant neoplasm of colon Z12.11[place] [address] [place] [address]/Doug HoyWell adult [address]00.[address] [address] [place] [address]/Doug HoyLow back pain at multiple sites M54.50 and Well adult [address]00.[address] [address] [place] [address]/10/2024Doug HoyBorderline hypertension R03.0 and GERD (gastroesophageal reflux disease) K21.9 Assessments Encounter Date Diagnosis (ICD Code) Assessment Notes Treatment Notes Treatment Clinical Notes Section Notes 03/16/2025 Low back pain at multiple sites (ICD-10 - M54.50) 03/16/2025Well adult (ICD-10 - Z00.00)07/03/2025orderline hypertension (ICD-10 - R03.0)07/03/2025GERD (gastroesophageal reflux disease) (ICD-10 - K21.9) 10/19/2024Encounter for screening for malignant neoplasm of colon (ICD-10 - Z12.11)06/28/2025Well adult (ICD-10 - Z00.00)07/04/2025GERD (gastroesophageal reflux disease) (ICD-10 - K21.9)10/19/2024Well adult (ICD-10 - Z00.00)03/16/2025 OtherRecommended to rest and use a heating pad [...] HERPES SIMPLEX 1,2 IGM AB (IFA) 11/16/19 24 CHLAMYDIA AND GC (URINE, VAG, OR SWAB) [...] Coverage End Date [employer] [address] [address] [place] [address] [id number] Erin Montaño - patient is the insured Medications Administered Medication Instructions Date of Administration Dosage Notes Kenalog-40 20 hy464Jatsmktde Uzjyreizylwl74/19/202460 wa02Fdhezecnd Tromethamine mgOrphenadrine Bsjoomb01 mgTriamcinolone 40 mg/ml 20 mg Medical (General) History Medical History History [...]
--- OUTSIDE RECORDS SUMMARY | 2025-07-07 14:25 | XMS_ITS | CCD ---
Author Organization [facility] Care Team Providers Care Spring Up Supervisor Name Role Phone Gina Tierney Primary Care Provider DR GINA TIERNEY Admitting Unavailable YESICA, DR FUENTES Primary Care Unavailable YESICA, DR FUENTES Consulting Unavailable YESICA, DR FUENTES Attending Unavailable YESICA, DR FUENTES Primary Care Unavailable YESICA, DR FUENTES Consulting Unavailable YESICA, DR FUENTES Attending Unavailable YESICA, DR FUENTES Admitting Unavailable Zieber, DR Vásquez Consulting Unavailable Gina Tierney MD Primary Care Provider [phone] Gina Tierney MD Primary Care Provider [phone] Gina Tierney Primary Care Physician Gina Tierney MD Unavailable MYAH BRUSH Referring UnavailGINA Lozada Primary Care Unavailable MYAH BRUSH Referring UnavailGINA Lozada Primary Care Unavailable GINA TIERNEY Primary Care Unavailable GINA TIERNEY Referring Unavailable SAGE KENNEY Attending Unavailable GINA TIERNEY Referring Unavailable Blayne MORELOS Attending Unavailable Blayne MORELOS Referring Unavailable Blayne MORELOS Admitting Unavailable Arabella Earl Attending Unavailable Blayne MORELOS Attending Unavailable Gina Tierney Referring Unavailable Allergies Allergy ClassificationReported Allergen(s)Allergy TypeDate of OnsetReaction(s) Facility (1 source)No Known Medication Allergies; Translations: [No Known Medication Allergies]Propensity to adverse reactions (disorder)[facility] Repository Medications Current Medications MedicationDrug Class(es)DatesSig (Normalized)Sig (Original)Albuterol (6 sources)beta2-Adrenergic AgonistStart: 56-08-6220bfzu 2 puff(s) by inhalation every six hoursAlbuterol (Eqv-ProAir HFA) 2 puff(s), Inhalation, q6hr Shortness of breath or wheezing, Refill(s) 0Start Date: 10/31/24 Status: Ordered Repeat number: 1Start: 55-10-8635wymciosrk HFA (PROVENTIL HFA, VENTOLIN HFA) 90 mcg/actuation inhaler Inhale 2 puffs as instructed as needed for wheezing/shortness of breath. 09/01/2022 ActiveStart: 91-91-4079qmmz 2 puff(s) by mouth four times daily as neededalbuterol sulfate HFA (PROVENTIL;VENTOLIN;PROAIR) 108 (90 Base) MCG/ACT inhaler INHALE 2 PUFFS BY MO UT 4 TIMES DAILY NEEDED 09/01/2022 Uulypm48 hr buPROPion hydrochloride 150 mg extended release oral tablet (3 sources)AminoketoneStart: 32-86-1174ietm 1 tablet by mouth once daily in the morningbuPROPion XL (WELLBUTRIN XL) 150 mg 24 hr tablet Take 150 mg by mouth every morning. 05/04/2025 ActiveStart: 56-68-5363xvsq 1 tablet by mouth once daily in the morningbuPROPion (WELLBUTRIN XL) 150 MG extended release tablet Indications: Smoking trying to quit Take 1tablet by mouth every morning 30 tablet 3 12/15/2024 Activecitalopram 20 mg oral tablet (9 sources)Serotonin Reuptake InhibitorStart: 96-99-7195cgjr 1 tablet by mouth once dailycitalopram (CELEXA) 20 MG tablet Indications: Adjustment disorder with mixed anxiety and depressed mood Take 1 tablet by mouth daily 30 tablet 5 07/27/2018 Activemeloxicam 15 mg oral tablet (4 sources)Nonsteroidal Anti-inflammatory DrugStart: 08-52-7455tpas 1 tablet by mouth once dailymeloxicam (MOBIC) 15 mg tablet Take 15 mg by mouth once daily. 05/04/2025 Activepantoprazole 40 mg delayed release oral tablet (15 sources)Proton Pump InhibitorStart: 76-59-2846qoti 1 tablet by mouth once dailypantoprazole DR (PROTONIX) 40 mg tablet Take 40 mg by mouth once daily. 07/31/2019 Activesucralfate 1000 mg oral tablet (9 sources)Aluminum ComplexStart: 95-41-6237hsmn 1 tablet by mouth at bedtime sucralfate (CARAFATE) 1 GM tablet TAKE 1 TABLET BY MOUTH BEFORE MEAL(S) AND AT BEDTIME 0 07/31/2019Activevarenicline 1 mg oral tablet (2 sources)Partial Cholinergic Nicotinic AgonistCHANTIX CONTINUING MONTH MARGY 1 MG tablet 1 capsule Active Problems Active Problems Problem ClassificationProblemDateDocumented DateEpisodic/ChronicChronic obstructive pulmonary disease and bronchiectasis (1 source)Chronic obstructive lung panlbcq76-38-2461CskcuxkLxptqnstyvvdn symptoms and ill-defined conditions (1 source)Splitting of urinary stream; Translations: [Urinary stream splitting] EpisodicHeadache; including migraine (1 source)Bfdbxxpx26-25-3783IadzxkjTevetyjme disorders (3 sources)Irregular periods; Translations: [Irregular menstruation, unspecified]Onset: 60-49-0783QhpqlzhOyrdmcglylau breast conditions (6 sources)Mammographic calcification found on diagnostic imaging of breast; Translations: [Other benign mammary dysplasias of right breast]Onset: 09-18-2022 EpisodicOther circulatory disease (1 source)Vascular ndphsbgibvfdr27-10-7902DztqzorxItdvm gastrointestinal disorders (1 source)Zhnzzolad80-49-4383HhtiyyvsDowdy non-traumatic joint disorders (1 source)Pain in right knee; Translations: [Pain in joint, lower leg]Episodic Other non-traumatic joint disorders (1 source)Pain in left knee; Translations: [Pain in joint, lower leg]04-19-2024 EpisodicOther nutritional; endocrine; and metabolic disorders (1 source)Body mass index 30+ - dsqvizp66-09-4871BrxwndyNhrdt nutritional; endocrine; and metabolic disorders (1 source)Obesity caused by energy rlrugmebs66-62-0121KjwttbtJdjlfuji codes; unclassified (1 source)Procedure and treatment not carried out for other reasons; Translations: [PROC AND TX NOT CARRIED OUT OTH REASONS]Onset: 74-88-0826Jwbwumuj Residual codes; unclassified (1 source)Tobacco uhbw16-67-0671VbyuwjbeNcsndhygafo; intervertebral disc disorders; other back problems (3 sources)Cervical disc disorder; Translations: [Degeneration of lumbar intervertebral disc]53-23-1147PfwmpcpSjgaibbtlqd; intervertebral disc disorders; other back problems (3 sources)Lumbosacral radiculopathy; Translations: [Radiculopathy, lumbosacral region]Onset: 439539-25-8099CttlhblvMpcewxyzz-afnizth disorders (2 sources)Nicotine dependence, unspecified, uncomplicated; Translations: [Tobacco use disorder]Onset: 808244-09-1885OsxttmcAgmpmbu disorders (1 source)Wlvqblxnrvwqcz30-01-0035RgbaigbCbmnxhemivhd (2 sources)Patient encounter statusUnclassified (1 source)Degeneration of intervertebral disc of lumbar region with discogenic back pain and lower extremity pain; Translations: [Degeneration of intervertebral disc of lumbar region with discogenic back pain and lower extremity pain]Onset: 84-66-7761Wojpeoso veins of lower extremity (1 source)Varicose veins of lower mgsjktbsu01-80-6698Oddfvjtd Past or Other Problems Problem ClassificationProblemDateDocumented DateEpisodic/ChronicOther female genital disorders (14 sources)Cervical intraepithelial neoplasia grade 2; Translations: [Moderate cervical dysplasia]Onset: 214318-49-3338UxkwwolbQfylb screening for suspected conditions (not mental disorders or infectious disease) (5 sources)Mammography abnormal; Translations: [Other abnormal and inconclusive findings on diagnostic imagingof breast]Onset: 15-87-1724WzsrqgxiYocugmqgmtzo (1 source)Nicotine use binmojqj73-69-8128 Results Test NameValueInterpretationReference RangeFacilityCNOVon 05-05-8732JOKYIfwyzo Visit (SPNSMN) TOYA SHAFFER ([id number]) 1975 F Date Time Provider Department 05/09/25 9:45 AM SAGE KENNEY SONJANJ During your visit today, we recorded the following information about you: Pulse Respiration Blood pressure Weight 61/minute 18/minute 144/86 81.6 kg Height Last Period 1.6 m 05/02/25 Sage Kenney, HAIRSPRING ASSEMBLER.HOGSHEAD WRECKER 05/09/2025 11:01 AM Signed SPINE SURGERY NEW PATIENT This is an in-person visit. PCP: No primary care provider on file. REFERRING PROVIDER: Gina Tierney MD SUBJECTIVE HISTORY OF PRESENT ILLNESS: Toya Shaffer is a 49 year old female presenting with partner. CHIEF COMPLAINT: Low back and left leg pain PRECIPITATING EVENT: None DURATION OF SYMPTOMS: Less Than 6 Weeks Toya Shaffer is a 49-year-old female, current 6 cigarette per day smoker, non-diabetic, with no cancer or cardiac history, with a BMI of 31. 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 She is presenting for evaluation of chronic back pain with recent exacerbation. Toya reports a long history of back pain, with intermittent flares over the years. The current flare has persisted for a month without relief. The pain originates in the back and radiates down the posterolateral aspect of the left leg to the big toe, accompanied by numbness and tingling along this pathway. Sitting worsens the pain. She has not undergone spine surgery. Denies any right sided lower extremity symptoms. Denies weakness, leg heaviness, loss of control of bowel/bladder, saddle anesthesia, impaired dexterity, impaired balance, or recent falls. Toya has been managing the pain with meloxicam and a recent pain shot administered by her doctor. She has not participated in physical therapy or epidural steroid injections. She has tried muscle relaxants in the past without relief. She has not attempted membrane stablilizers for nerve related pain. Additionally, she experiences positional numbness in both hands, particularly when lying down. She is right-hand dominant. Toya has a history of neck pain since childhood, limiting her range of motion. Past Diagnostic Results: - MRI: - L3-L4: Right-sided disc herniation. - L4-L5: Central canal compression, nerve compression from arthritis, loss of disc height. - L5-S1: Arthritis, mild to moderate neural compression on both sides. - X-ray: Scoliotic curve, no acute fractures. PAIN EVALUATION 05/09/2025 0938 Pain Level: 3 Pain Location: Back-Lower pain radiates down left leg Description: Radiating Duration Amount of Time: 1 Duration Units: Months Frequency: Continuous Intervention/Comfort measure: Medication Pain Radiation: down the left thigh and below the left knee Aggravating Factors: Lifting, sitting Alleviating Factors: Medications Pain Ratio: Pain in the back and leg(s) is equal DERMATOMAL DISTRIBUTION: Left: L5 AMBULATORY STATUS: Independent Community Distances ANTIPLATELET OR ANTICOAGULATION STATUS: No PREVIOUS CONSERVATIVE TREATMENTS: RX NSAIDS for 3 Months or Greater (meloxicam (Mobic)) Chiropractor Muscle relaxant in past PREVIOUS SPINAL SURGERY: None There is no problem list on file for this patient. No past medical history on file. No past surgical history on file. No family history on file. SOCIAL HISTORY[1] ALLERGIES No Known Allergies MEDICATIONS: albuterol HFA (PROVENTIL HFA, VENTOLIN HFA) 90 mcg/actuation inhaler Inhale 2 puffs as instructed as needed for wheezing/shortness of breath. buPROPion XL (WELLBUTRIN XL) 150 mg 24 hr tablet Take 150 mg by mouth every morning. meloxicam (MOBIC) 15 mg tablet Take 15 mg by mouth once daily. pantoprazole DR (PROTONIX) 40 mg tablet Take 40 mg by mouth once daily. REVIEW OF SYSTEMS: Neck: (+) neck pain, (+) neck stiffness Genitourinary: (+) urinary urgency Musculoskeletal: (+) low back pain, (+) left leg pain Neurological: (+) bilateral hand numbness, (-) electrical shooting pain down spine Patient Entered Questionnaires PROMIS Score Percentiles Percentiles provide an indication of how the patient's score ranks in relation to the general population. Higher percentile rankings indicate better function/quality of life. 50th percentile is the average of the general population and indicates half of respondents had a worse score. Depression Screening: PHQ-9 Self-Harm (Item 9) response options: 0 Not at all 1 Several days 2 More than half the days 3 Nearly every day PHQ-9 Levels: 0-4 No to mild depression 5-9 Mild depression 10-14 Moderate depression 15-19 Moderately severe depression 20-27 Severe depression OBJECTIVE: PHYSICAL EXAM BP 144/86 Pulse 61 Resp 18 Ht 160 cm (5' 3 ) Wt 81.6 kg (180 lb) LMP 05/02/2025 (Approximate) SpO2 98% BMI 31.89 kg/m? GENERAL APPEARANCE: Well nourished, well developed, and no apparent distress. NEURO PSYCH: Patient oriented to person (more content not included)...Normal [facility] HospitalEstradiolon 15-03-2585Ebqggluci56.0 pg/mLBon Community Memorial HospitalComment on above: FEMALES: Normally menstruating Luteal phase 60-232 Follicular phase 31-90 Midcycle phase 60-533 Postmenopausal (untreated) <138 Fulvestrant treatment will show an increased estradiol concentration with this methodology. Alternate methodologies are available upon request. Uofkoanja67.0 pg/mLNThe MetroHealth SystemComment on above:Result Comment: FEMALES: Normally menstruating Luteal phase 60-232 Follicular phase 31-90 Midcycle phase 60-533 Postmenopausal (untreated) <138 Fulvestrant treatment will show an increased estradiol concentration with this methodology. Alternate methodologies are available upon request.Performed By: #### LH, E2, FSH #### [address] [place], [place] [id number] [employer] Coin Collector: Tc Atkins MDFollicle Stim. Hormon 67-31-8049Kykplbox Stim. Horm14.1 mIU/mLNThe MetroHealth SystemComment on above:Result Comment: Reference Range: Male: 1.5-12.4 Ovulating Female: Follicular Phase 3.5-12.5 Ovulation Phase 4.7-21.5 Luteal Phase 1.7-7.7 Postmenopausal Female: 25.8-134.8Performed By: #### LH, E2, FSH #### [address] [place], [place] [id number] [employer] Collector: Tc Atkins MDFollicle Stimulating Hormoneon 05-04-2025 Follitropin Qn14.1 m[IU]/mLmIU/mLBon Secours Maryview Medical CenterComment on above: Reference Range: Male: 1.5-12.4 Ovulating Female: Follicular Phase 3.5-12.5 Ovulation Phase 4.7-21.5 Luteal Phase 1.7-7.7 Postmenopausal Female: 25.8-134.8 Luteinizing Hormoneon 33-85-0725Ehbxhvos Qn8.6 m[IU]/mLBon Secours Maryview Medical Center Comment on above:Reference Range: Male: 1.7-8.6 Ovulating Female: Follicular Phase 2.4-12.6 Ovulation Phase 14.0-95.6 Luteal Phase 1.0-11.4 Postmenopausal Female: 7.7-58.5 Luteinizing Hormone8.6 mIU/mLNormal1.7-8.6Mer[facility] Mt. Sinai HospitalComment on above: Result Comment: Reference Range: Male: 1.7-8.6 Ovulating Female: Follicular Phase 2.4-12.6 Ovulation Phase 14.0-95.6 Luteal Phase 1.0-11.4 Postmenopausal Female: 7.7-58.5Performed By: #### LH, E2, FSH #### [facility] [address] [place] [address] [employer]ukebox Coin Collector: Calli Bass Panel Informationon 41-14-7802Hjr Community Memorial HospitalCytology Reporton 84-44-4282Chdkgxbs report Cyto stain.thin prep Doc (Cvx/Vag)(NOTE) Path Number: [id number] DIAGNOSIS Imaged ThinPrep Pap - Cervical (1 monolayer slide): Specimen Adequacy: Satisfactory for evaluation. - Endocervical/transformation zone component present. Descriptive Diagnosis: Negative for intraepithelial lesion or malignancy. Comments: Specimen was screened at [place] [address] [employer] Screener: ANTOINETTE Electronically Signed Out TIARA Aguilera(ASCP) cs/12/24/2024 Source of Specimen: A: Imaged ThinPrep Pap - Cervical (1 monolayer slide) HPV Reflex?......................HPV if ASCUS Clinical History Prior cervical dysplasia LEEP Z12.4 Encounter for screening for malignant neoplasm of cervix LMP: 11/19/2024 Processing Lab: [facility] [address] [place] [address] [place] [address] This Pap Test has been evaluated with [...] REPORT Patient Name: TOYA SHAFFER Med Rec: [id number] [facility] MEDICAL CENTERJouleX [facility] PATHOLOGISTS [facility] ANATOMIC PATHOLOGY [address] [place] [address]. [place] [phone] NormalAshtabula [facility] Center Pineville HospitalMain OR Intraoperative Recordon 95-56-2394Lkrd OR Intraoperative RecordMain OR Intraoperative Record IntraOp Document Type FT Summary Primary Physician: Balyne MORELOS MD Finalized Date/Time: 12/05/24 14:54:01 Pt. Name: TOYA SHAFFER /Sex: 1975 Female Med Rec #: [id number] Physician: Blayne MORELOS MD Financial #: [id number] Pt. Type: O Room/Bed: / Admit/Disch: 12/02/24 [...] Case Attendee Nic Willis CRNA, MD, Blayne Morales RN, Radha Hoffman Role Performed ANDIE Surgeon - Primary Letterer - Primary Time In 12/02/24 08:56:00 12/02/24 08:56:00 12/02/24 08:56:00 Time Out 12/02/24 09:15:00 12/02/24 09:15:00 12/02/24 09:15:00 Procedure COLONOSCOPY(.) COLONOSCOPY(.) COLONOSCOPY(.) Comments DR. Christian supervising case Last Modified By: Andrew ROSS, Radha Morales RN, Radha Radha Morales RN 12/02/24 09:15:35 F 12/02/24 09:15:35 F 12/02/24 09:15:35 Entry 4 Case Attendee Tristan Mckeon Role Performed Scrub - Primary Time In 12/02/24 08:56:00 Time Out 12/02/24 09:15:00 Procedure COLONOSCOPY(.) Comments Last Modified By: Radha Morales RN 12/02/24 09:15:35 Perioperative Protocols FT Pre-Care Text: [...] Time Out Nic Willis CRNA, Given Participants Blayne MORELOS MD, Dendinger RN, Madaline F, Sparks, Micala E Time Out Complete 12/02/24 [...] Procedure Yes Primary Surgeon Blayne MORELOS MD Start 12/02/24 09:00:00 Stop 12/02/24 09:13:00 Anesthesia Type [...] and tissue Entry 1 Skin Integrity Intact, [place], Warm, & Skin Abnormality No Dry Outcomes [...] Head Large Press Points Checked Yes By Radha Morales RN (more content not included)...[facility] 39-90-9077BuylmtdwyUpklwoyuj From: Vickie Yanez LPN To: N - Clinical; Sent: 12/05/2024 09:53:35 EDT Show up: 11/01/2034 07:00:00 EST Subject: colonoscopy recall Due Date/Time: 12/02/2034 07:00:00 EDT Reminder/Recall Patient due for screening colonoscopy 12/02/2034.[facility] CenterDischarge Instructionson 58-26-2460Wherxlmur InstructionsDischarge Instructions TOYA SHAFFER :1975 Visit Date:12/02/2024 Inpatient Discharge Instructions Your Care Team Admitting Physician - Blayne MORELOS MD Referring Physician - Blayne MORELOS MD Reason for Your Visit SCREENING This Is Your Medications List albuterol (Albuterol (Eqv-ProAir HFA)) meloxicam (Mobic 15 mg Tab) pantoprazole (Protonix 40 mg Tab-DR) Procedure History EGD - esophagogastroduodenoscopy (05/25/2019), Percutaneous [...] When: Comments: Call for any problems. Where: [address] [place], [place] [address]dict Justina, [address] [place] [phone] [facility] (1) Medications What How Much When Instructions [...] on caring [facility] Your doctor may also give you specific [...] your survey. Thank you for choosing (more contentnot included)...[facility] CenterComment on above:Result Comment: Electronically Signed By: Tayla Mcknight RN\.br\Date and Time Signed: 12/02/24 09:24 EDTMain OR PACU II Record on 73-53-8467Yreg OR PACU II RecordMain OR PACU II Record PACU Phase II Document Type FT Summary Primary Physician: Blayne MORELOS MD Finalized Date/Time: 12/02/24 12:29:57 Pt. Name: TOYA SHAFFER Manisha Pickard/Sex: 1975 Female Med Rec #: [id number] Physician: Blayne MORELOS MD Financial #: [id number] Pt. Type: O Room/Bed: / Admit/Disch: 12/02/24 [...] and monitors body temperature Evaluates postoperative respiratory statusEvaluates postoperative cardiac status Evaluates postoperative neurological status [...] individualized perioperative plan of care The patient's rightto privacy is maintained The patient's value system, [...] with or improved from baseline levels established preoperativelyThe patient's cardiovascular status is consistent with or improved from baseline levels established preoperatively The patient's neurological status is consistent with or improved from baseline levels established preoperatively The patient demonstrates and/or reports adequate pain control throughout the perioperative period The patient received appropriate medication(s), safely administered during the perioperativeperiod Finalized By: Tayla Mcknight RN Document Signatures Signed By: Tayla Mcknight RN 12/02/24 12:29[facility] CenterMain OR Preoperative Recordon 54-28-2948Xehq OR Preoperative RecordMain OR Preoperative Record Holding Area Document Type FT Summary Primary Physician: Blayne MORELOS MD Finalized Date/Time: 12/02/24 08:28:03 Pt. Name: TOYA SHAFFER Manisha Pickard/Sex: 1975 Female Med Rec #: [id number] Physician: Blayne MORELOS MD Financial #: [id number] Pt. Type: O Room/Bed: / Admit/Disch: 12/02/24 [...] or her perioperative plan of care The patient'sright to privacy is maintained Surgery Checklist FT [...] Signatures Signed By: Haim Neri RN 12/02/24 08:28NoCleveland Clinic Fairview HospitalXR Knee - left 3 Viewson 95-73-2224Tmznhea osteoarthritis affecting the left knee with chondrocalcinosis. Nonspecific small knee joint effusion. [facility] CONSOLIDATEDEXAMINATION: THREE XRAY VIEWS OF THE LEFT KNEE 04/19/2024 10:17 am COMPARISON: None. HISTORY: ORDERING SYSTEM PROVIDED HISTORY: Pain, joint, knee, left FINDINGS: Minimal osteoarthritis affects the left knee. There is chondrocalcinosis. No radiographic evidence of acute fracture or dislocation seen there is small knee joint effusion. No radiopaque foreign body seen [facility] Jeancarlos Nunez MD - 04/19/2024 EXAMINATION: THREE XRAY VIEWS [...] with chondrocalcinosis. Nonspecific small knee joint effusion. [facility]PITALRadiology Study observation (narrative)[facility] InadcoPROMEDICA DEFIANCE REGIONAL HOSPITALXR Knee - left 3 ViewsOrdered By: Jeancarlos Lopes on 52-43-6161QZI [facility] [employer] Work Phone: Estradiolon 35-88-3357Lvvdvmppi776.9 pg/mL27 - 314 pg/mLBON VICTOR VALLEY [facility]PITAL [employer]Comment on above: FEMALES: Normally menstruating Luteal phase 33-298 Follicular phase 27-156 Midcycle phase 48-314 Postmenopausal (untreated) 5-50 Fulvestrant treatment will show an increased estradiol concentration with this methodology. Alternate methodologies are available upon request. Follicle Stimulating Hormoneon 68-56-7407LMP5.4BON [facility] CHARLES HOSPITALComment on above:Reference Range: Male: 1.5-12.4 Ovulating Female: Follicular Phase 3.5-12.5 Ovulation Phase 4.7-21.5 Luteal Phase 1.7-7.7 Postmenopausal Female: 25.8-134.8 Luteinizing Hormoneon 85-48-8858FI7.4BON [facility] CHARLES HOSPITALComment on above: Reference Range: Male: 1.7-8.6 Ovulating Female: Follicular Phase 2.4-12.6 Ovulation Phase 14.0-95.6 Luteal Phase 1.0-11.4 Postmenopausal Female: 7.7-58.5 No Panel Informationon 26-36-5802FYB [facility]. CHARLES HOSPITALMAMMO POST BIOPSY RIGHT on 72-72-4445FEVYC POST BIOPSY RIGHTPatient: TOYA SHAFFER Exam Date: 09/22/2022 : 1975 Gender:F Ordering : DR GINA TIERNEY . Admission #: [id number] Family : Order #: [id number] CLICK HERE TO VIEW EXAM This report [...] by: Fahad Barrett M.D. on 09/25/2022 at 10:37[facility] HospitalMG STEREO CORE NDL W CLIP RTon 29-54-0295BH STEREO CORE NDL W CLIP RT Patient: TOYA SHAFFER Exam Date: 09/22/2022 : 1975 Gender:F Ordering : DR GINA TIERNEY . Admission #: [id number] Family : Order #: [id number] CLICK HERE TO VIEW EXAM This report [...] by: Fahad Barrett M.D. on 09/25/2022 at 10:36NormAvita Health System ARIELLE DIGITAL DIAGNOSTIC BILATERALon 29-11-3580Lnywjpzqz Study observation (narrative)[employer] Phone: no Panel InformationOrdered By: Angie Moore on 38-83-4237Rnnhsdlmncxsxf and review of laboratory resultsAbnormalBON [employer] Phone: [employer] Phone: no Panel Informationon 91-67-1859Mzwtz breast: Suspicious calcifications upper-outer posterior right breast [...] patient at the time of service. A patient relations representative from the radiology department will be contacting your office and assisting the patient in getting appropriate follow-up. LEFT BREAST: BIRADS - CATEGORY 3 Findings are probably benign. A short interval follow-up left breast mammogram is recommended in 6 months. OVERALL ASSESSMENT - PROBABLY BENIGN. A letter of notification will be sent to the patient regarding the results.[facility] RIS CONSOLIDATEDEXAMINATION: DIAGNOSTIC DIGITAL BILATERAL BREASTS MAMMOGRAM WITH TOMOSYNTHESIS; [...] of the left axilla reveals no abnormality. [facility] CONSOLIDATEDUS BREAST LIMITED LEFTon 17-26-3068Cdoujbvxd Study observation (narrative)[employer] Work Phone: mam ARIELLE DIGITAL SCREEN SELF REFERRAL W OR WO CAD BILATERALon . New cluster calcifications in the superolateral right breast. Recommend diagnostic mammogram spot magnification views for further evaluation. 2. Two focal asymmetries in the medial and lateral left breast. Recommend diagnostic mammogram spot tomosynthesis views and possible ultrasound for further evaluation. BI-RADS 0 BIRADS: BIRADS - CATEGORY 0 Incomplete: Needs Additional Imaging Evaluation OVERALL ASSESSMENT - INCOMPLETE:NEED ADDITIONAL IMAGING EVALUATION.[facility] CONSOLIDATEDEXAMINATION: SCREENING DIGITAL BILATERAL MAMMOGRAM WITH TOMOSYNTHESIS, 08/06/2022 [...] in the medial left breast, posterior depth. [facility] CONSOLIDATEDRadiology Study observation (narrative)[facility] Management Phone: maM ARIELLE DIGITAL SCREEN SELF REFERRAL W OR WO CAD BILATERALOrdered By: Ara Turner on 35-71-3185THD [employer] Phone: Occult Blood Screenon 63-89-1413Cvlk, Stool #[id number] [facility] Flat.toHemoglobin.gastrointestinal spec 1 Ql (Stl)Negative NEGATIVEBON Flat.toTime, Stool #[id number] Flat.toBON Flat.toXR KNEE RIGHT (3 VIEWS)on . No acute abnormality involving the right knee. 2. Degenerative changes involving the patellofemoral compartment. 3. Chondrocalcinosis. [facility] CONSOLIDATEDEXAMINATION: THREE XRAY VIEWS OF THE RIGHT KNEE 06/20/2022 3:21 pm COMPARISON: None. HISTORY: ORDERING SYSTEM PROVIDED HISTORY: Right knee pain, unspecified chronicity FINDINGS: The bone mineralization is within normal limits. There is joint space narrowing involving the patellofemoral compartment. No acute fractures or dislocations are seen. Note is made of chondrocalcinosis. [facility] Donal Chapa MD - 06/21/2022 EXAMINATION: THREE XRAY VIEWS [...] changes involving the patellofemoral compartment. 3. Chondrocalcinosis. [facility] Management Phone: XR KNEE RIGHT (3 VIEWS)Ordered By: Donal Nesbitt on 71-96-8300DDL [employer] Phone: XR KNEE RIGHT (3 VIEWS)on 49-11-9049Wnprewcfz Study observation (narrative)STEWART [employer] Phone: Urinalysis with Microscopicon 94-07-9131Lfyzykbme, UA NOT REPORTEDNoneMercy Health- [place], KYBacteria, UATRACEAbnormalNoneMercy Health- [place], [place]Bilirubin UrineNegativeNEGATIVEMercy Health- [place], KYCasts UANOT REPORTED /LPFMercy Health- [place], KYColor, UAYELLOWYELLOWMercy Health- [place], KYCrystals, UANOT REPORTEDNone /HPFMercy Health- [place], KYEpithelial Cells UA0 TO 2[facility] [place], KYGlucose, UrNegativeNEGATIVEMercy Health- [place], KYInterpretation and review of laboratory resultsAbnormalMercy Health- [place], KYKetones Ql (U)NegativeNEGATIVE [facility] [place], KYLeukocyte esterase Test strip Ql (U)NegativeNEGATIVEMercy Health- [place], KYMucus, UANOT REPORTEDNoneMer[facility] Health- [place], KYNitrite, Urine NegativeNEGATIVEMercy Health- [place], [place]Other Observations UANOT REPORTEDNOT REQ. [facility] [place], KYpH, UA7.5[facility] [place], KYProtein (U) [Mass/Vol]Negative NEGATIVEMercy Health- [place], KYRBC (U) [#/Vol]NoneMer[facility] Health- [place], KYRenal Epithelial, UANOT REPORTED0 /HPFMercy Health- [place], KYSpecific [place], UA1.010 [facility] [place], KYTrichomonas, UANOT REPORTEDNoneMer[facility]- [place], KYTurbidity UACLEARCLEARMercy Health- [place], KYUrinalysis CommentsNOT REPORTEDMercy Health- [place], KYUrine HgbNegativeNEGATIVEMercy Health- [place], KYUrobilinogen, UrineNormal NormalMercy Health- [place], KYWBC, UA0 TO 2[facility] [place], KYYeast, UANOT REPORTED NoneMercy Health- [place], [place]-[facility] [place] Vital Signs Date TimeVital SignValuePerforming RqoxqhbhgTipwvgjm64-23-8061 09:42-0400Body szfufg067 cmAlexa Pacenta HAIRSPRING ASSEMBLER.[employer] Work Phone: [phone]09-09-2025 09:42-0400Body mass index (BMI) [Ratio]31.89 kg/y6Dvlay Pacenta HAIRSPRING ASSEMBLER.[employer] Work Phone: [phone]09-09-2025 09:42-0400Body icdhna96.65 kgAlexa Pacenta HAIRSPRING ASSEMBLER.[employer] Work Phone: [phone]09-09-2025 09:42-0400Diastolic blood mm[Hg]Sage Pacenta HAIRSPRING ASSEMBLER.[employer] Work Phone: [phone]09-09-2025 09:42-0400Heart rate61 /min Sage Pacenta HAIRSPRING ASSEMBLER.[employer] Work Phone: [phone]09-09-2025 09:42-0400Respiratory rate 18 /minAlexa Pacenta HAIRSPRING ASSEMBLER.[employer] Work Phone: [phone]09-09-2025 09:42-9398LyW3% (BldA) [Mass fraction]98 %Sage Pacenta HAIRSPRING ASSEMBLER.[employer] Work Phone: [phone]09-09-2025 09:42-0400Systolic blood aolqnego458 mm[Hg]Sage Pacenta HAIRSPRING ASSEMBLER.[facility] Work Phone: [facility]04-04-2025 09:38-0400Heart rate78 /min Blayne MORELOS [facility]04-04-2025 09:38-9638PzF5% (BldA) [Mass fraction]98 %Blayne MORELOS [facility]04-04-2025 09:38-0400 Respiratory rate14 /minMichael NILL [facility]04-04-2025 09:37-0400Heart rate76 /minMichael NILL [address] [place], [place] 4205404-04-2025 09:37-0400 Respiratory rate13 /minMichael NILL [facility]04-04-2025 09:37-8135FqL1% (BldA) [Mass fraction]97 %Blayne NILL [facility]04-04-2025 09:37-0400 Diastolic blood ioiavlqh67 mm[Hg]Blayne NILL [facility]04-04-2025 09:37-0400 Systolic blood kwbnhbyb000 mm[Hg]Blayne NILL [facility]04-04-2025 09:37-0400Blood Pressure LocationMichael NILL [address] [place], [place] 4205404-04-2025 09:37-0400Mean blood edijgngx20 mm[Hg]Blayne ALDRIDGEL [facility]04-04-2025 09:30-7681SeH9% (BldA) [Mass fraction]97 %Blayne NILL [facility]04-04-2025 09:30-0400Heart rate73 /minMichael NILL [facility]04-04-2025 09:30-0400 Respiratory rate18 /minMichael NILL [facility]04-04-2025 09:30-0400Blood Pressure LocationMichael NILL [facility]04-04-2025 09:30-0400 Diastolic blood ldendazf87 mm[Hg]Blayne NILL [facility]04-04-2025 09:30-0400Mean blood iwykrzlq48 mm[Hg]Blayne NILL [address] [place], [place] 5511004-04-2025 09:30-0400 Systolic blood oiwwkhvo956 mm[Hg]Blayne MORELOS [facility]04-04-2025 09:26-0400 Diastolic blood qkjcojdv77 mm[Hg]Blayne ALDRIDGEL [facility]04-04-2025 09:26-0400 Systolic blood hjlfxxly137 mm[Hg]Blayne ALDRIDGEL [facility]04-04-2025 09:26-0400Blood Pressure LocationMicadonay ALDRIDGEL [facility]04-04-2025 09:26-0400Mean blood yjbmknxn37 mm[Hg]Blayne ALDRIDGEL [facility]04-04-2025 09:18-0400Body akbkjmuzxaf50.7 [degF]Blayne ALDRIDGEL [facility]04-04-2025 08:24-0400Body bxtatoquors77.06 [degF]Blayne MORELOS [facility] Encounters Encounter DateEncounter TypeCare ProviderFacilityStart: 52-06-4266rqdbpdarxx Arabella EarlFacility:Baldo DHStart: 41-91-3531dljpfswovzBazmryh NILLFacility:Baldo DHStart: 05-09-2025 End: 99-28-4997Asixmes encounter procedureAlexa Pacenta HAIRSPRING ASSEMBLER.[employer] W[employer]CKER Work Phone: Spine InstituteComment on above:Lumbosacral radiculopathy at L5 (Primary Dx); Degeneration of intervertebral disc of lumbar region with discogenic back pain and lower extremity pain; Nicotine use disorderStart: 05-09-2025 End: 84-97-9971iktppqzxquKNWHL PACENTAFacility:[facility] Hospitaltart: 05-04-2025 End: 31-43-9131bqayljusprWWLNITom DavidsonYale New Haven Children's Hospitaltart: 05-04-2025 End: 56-84-4711Gqgtrprwir hospital visit by Cielo Tierney MD Work Phone: [facility] [employer] [place] LABComment on above:Irregular mensesStart: 04-10-2025 End: 78-11-2903Vgxid abstractingUnk Pcp (Hist)NeurologyStart: 12-15-2024 End: 87-48-3759qruwooujuyBHGTI JEAN-CLAUDE [facility] HospitalStart: 12-15-2024 End: 08-20-1262Upwsgsgtzl hospital visit by Cielo Tierney MD Work Phone: [employer] [place] LABComment on above:Screening for malignant neoplasm of cervixStart: 12-02-2024 End: 31-32-9911akueyzrpuaNstlipr R NILLFacility:FTMCStart: 12-02-2024 End: 19-66-2577Sxwlwjs encounter procedureMichael R NILL [facility] Start: 11-09-2024 End: 17-38-6192fvhchjovlbEjvxkrb R NILLFacility:GS BellevueStart: 04-19-2024 End: 15-93-8657Ehpkgikdjg hospital visit by [facility] Farshad Cohen [facility] [employer] [place] RadiologyComment on above:Pain, joint, knee, leftStart: 12-11-2022 End: 71-20-6957Zomhgpdkpk hospital visit by Cielo Tierney MD Work Phone: [facility] LaboratoryComment on above:Irregular mensesStart: 09-22-2022 End: 27-99-9613iqwdljyqjkYT GINA HOYFacility:X7Rrodx: 09-12-2022 End: 75-60-5433focjqcptkuIU GINA HOYFacility:J1Xywxf: 08-18-2022 End: 76-42-6817Phityqpmqr hospital visit by Adalid [facility] UltrasoundComment on above:Abnormal screening mammogramStart: 08-06-2022 End: 71-84-2997Vfdoppw encounter statusK[facility] Start: 08-06-2022 End: 43-22-5010Jreveptucb hospital visit by physicianNewyork-[facility]ammography [facility] MammographyComment on above:Well adult examStart: 07-01-2022 End: 18-47-5758Zthhhuozkn hospital visit by Cielo Tierney MD Work Phone: mthz LaboratoryStart: 06-20-2022 End: 16-97-5857Jziflonukq hospital visit by Orsharon Xr Dr Room [address] [place] [address] RadiologyComment on above:Right knee pain, unspecified chronicity Start: 03-19-2021 End: 41-15-8403Jbiwlkblhp hospital visit by Brian Covid Screening ScheduleU.S. [facility] Covid ScreeningComment on above:ArrivedStart: 11-03-2019 End: 10-94-4249Qryzvetzjh hospital visit by Cielo Castellanos Laboratory Comment on above:Urinary stream splittingStart: 09-20-2019 End: 48-58-2310Bgrtzertyx hospital visit by Cielo Tierney MD Work Phone: mthz LaboratoryComment on above:Encounter for annual routine gynecological examination Procedures DateProcedureProcedure DetailPerforming ClinicianStart: 21-50-8142Soujyuzlqkbx follicle stimulating hormoneSusan Jean-Claude Brush HAIRSPRING ASSEMBLER - CNM Work Phone: Start: 10-96-5192Skeqtjazdak observation [Identifier] in Cervix by Cyto Julia Tierney MD Work Phone: Start: 43-31-9626DfvaurylmfnAplfuxa NILL Start: 52-93-5439Tgrrrwceoa examination knee 3 views Gina Tierney MD Work Phone: art: 71-91-5695Aicxplhrwpt observation [Identifier] in Cervix by Cyto Osmany 2Start: 72-14-4045Evsnnytdaahe follicle stimulating hormoneSusan Jean-Claude Brush HAIRSPRING ASSEMBLER - CNM Work Phone: Start: 70-14-0721Oukrsqkwrtp observation [Identifier] in Cervix by Cyto stainGina Tierney MD Work Phone: [phone]-art: 67-48-5666Mk breast uni real time with image limitedGina Tierney MD Work Phone: Start: 75-85-1033Sgmvoyrmiv mammography computer-aided detcj Nir Tierney MD Work Phone: [phone]-art: 40-04-1517Inljclnxn mammography bi 2-view breast inc cadGina Tierney MD Work Phone: [phone]: 83-66-7767Jwlnf occult peroxidase actv qual other sourcesGina Tierney MD Work Phone: Start: 35-68-2437Lghvujyfqx examination knee 3 views Gina Tierney MD Work Phone: Start: 17-47-1952Osuap 1996 panel - Serum or Plasma Sage Kenney APRN.[employer] Work Phone: Start: 79-42-5915Jkpzd dip stick/tablet reagent auto microscopyBethdenise Hammonds Work Phone: Start: 64-59-5057Fdhvnvbdwtn observation [Identifier] in Cervix by Cyto Julia Tierney MD Work Phone: Start: 28-04-7145WmdqmibzvkqawtyzzzqlsysakfIajqlmq NILL Ultrasonography guided percutaneous radiofrequency ablation of long saphenous veinMichael NILL Plan of Treatment DateCare ActivityDetailAuthorStart: 42-42-3332Msmezkkcn for malignant neoplasm of cervixBon Community Memorial HospitalStart: 14-47-6753Hmmsi panelBON [facility] HOSPITALStart: 28-88-5269Ocdrxtrmb for malignant neoplasm of cervixBON [facility] HOS[facility]ITALStart: 74-43-9756Vobsyyhplg ScreenDepression ScreenBon Community Memorial HospitalStart: 12-21-2025 End: 65-83-9699Rbnkxkg encounter /23/2026 8:45 AM EDT Office Visit [facility] OBSTETRICS & GYNECOLOGY Part of [address] [place] [address] Myah Brush, ERIC -CNWilly [address] [place] [address] [address] [place] [address] yearlyUN[facility]Y Part [facility] CenterComment on above:yearlyStart: 19-60-3719Yxvwzrzhg for malignant neoplasm of breastBreast cancer screenBON [facility] HOSPITALStart: 12-03-2025 Screening for malignant neoplasm of cervixBON [facility] HOSPITALStart: 07-12-2025 End: 76-11-1870Ayxwpkx encounter vxohhrcbi72/12/2025 8:30 AM EST Appointment [facility] Mammography [address] [place] [address] LbibeCommunity [facility] Center MammographyStart: 92-24-5374mzblbgoblcGljjoutxkc [facility] HospitalStart: 22-46-4077Jtnuctii ScreeningDiabetes Screening [facility] Systemtart: 06-06-2025 End: 18-88-8563Kegydbk encounter iicagsokj83/07/2025 10:00 AM EDT Office Visit [facility] OBSTETRICS & GYNECOLOGY Part of [address] [place] [address] Myah Brush, HAIRSPRING ASSEMBLER - CNWilly [address] [place] [address] [address] [place] [address] rn gynecology US for irregular menses.[facility] OBSTETRICS & GYNECOLOGY Part of [facility] HospitalComment on above:rn gynecology US for irregular menses. Start: 06-06-2025 End: 86-85-8448Xauordexvhkv / ancillary services gaaiqjbelh41/07/2025 9:30 AM EDT Ancillary Procedure [facility] OBSTETRICS & GYNECOLOGY Part of [address] [place] [id number] rn gynecology US for irregular menses.[facility] OBSTETRICS & GYNECOLOGY Part of [facility] HospitalComment on above:rn gynecology US for irregular menses.Start: 05-01-2025 COVID-19 Vaccine ( season)COVID-19 Vaccine ( season)[facility] CenterStart: 77-05-0219Djvhthuom vaccinationInfluenza Vaccine (#1) [facility] Systemtart: 92-83-6546Pctehktdn vaccinationBon [facility]ours [facility] Start: 03-16-2025 End: 07-93-8822Wfnrdog encounter ywnqlkzfq82/17/2025 8:00 AM EDT Office Visit [facility] OBSTETRICS & GYNECOLOGY Part [address] [place] [address] Myah Brush, HAIRSPRING ASSEMBLER -CNM [address] [place] [address] [address] [place] [address] 3 month med checkUNIVERS[facility] OB[facility]ICS [facility] HospitalComment on above:3 month med checkStart: 12-20-2024 Screening for malignant neoplasm of breastMammogram ScreeningParma [facility] Start: 12-14-2024 End: 97-79-1011Bryfize encounter zyfwaoeul92/16/2025 8:15 AM EDT Office Visit [facility] OBSTETRICS [address] [place] [address] Myah Brush, HAIRSPRING ASSEMBLER -CN[address] [place] [address] [facility] OBSTETRICS [facility] HospitalComment on above:PAPStart: 85-47-8213Fmzjuwqebn ScreenDepression Screen [facility]ITALStart: 66-63-8344Ykgfywcg cancer screenCervical cancer screenMount Carmel Health System- [place], KYStart: 45-54-3222Xdnjznhdd for malignant neoplasm of cervixWellmont Lonesome Pine Mt. View Hospitalart: 86-86-9605Hjotilmkkmhh 50+ years Vaccine (1 of 1 - PCV)Pneumococcal 50+ years Vaccine (1 of 1 - PCV)[facility] Centerart: 37-06-5419Gbqpgrixn for malignant neoplasm of lungLung Cancer Screening &/or CounselingBon Community Memorial HospitalStart: 78-50-7133Igzjcffv Vaccine (1 of 2)Shingles Vaccine (1 of 2)[facility] Centerart: 15-13-7059Bymrdylm Vaccine (1 of 2)Shingrix Vaccine (1 of 2)[facility] Start: 33-33-1746PSSOR-19 Vaccine ( season)COVID-19 Vaccine ( season)[facility] Centerart: 46-31-5332Ayqdbwbeb vaccinationFlu vaccine (#1)[facility]: 12-10-2023 End: 25-49-7902Bcdfteq encounter brwdtxukt26/11/2024 Office Visit Obstetrics and Gynecology Myah Brush, ERIC - [facility] [address] [facility] [address] [address] [facility] OBSTETRICS & GYNECOLOGY Part of [facility] Hospitaltart: 37-30-2166Agrixktv cancer screen Cervical cancer [facility] Work Phone: start: 19-46-4582Kcczaoenx for malignant neoplasm of colonBON [facility] Healthart: 25-84-9866ACTFA-19 Vaccine ( season)COVID-19 Vaccine ()[facility] Hospitalart: 13-03-1926Swtlnpzcj vaccinationFlu vaccine (Season Ended)[facility] Hospitalart: 30-17-8111Uealrjpjl for malignant neoplasm of cervixPap smearBON [facility]: 08-18-2022 End: 73-26-1876Ldngffh encounter ibzooovef15/19/2022 Appointment Radiology Radiologist, [facility] MammographyStart: 08-06-2022 End: 38-97-5879Vhmhyro encounter ylazcpucq84/07/2022 Appointment [facility] MammographyStart: 96-04-4968Ttiunnjmr vaccinationFlu vaccine (#1) [facility]: 96-23-4473REBXG-19 Vaccine (3 - Booster for Pfizer series)COVID-19 Vaccine (3 - Booster for Pfizer series)[facility]ITALStart: 06-06-7836Pmolpqcs screenDiabetes screenAshtabula County Medical Center [employer] Work Phone: start: 02-61-6907Iurupdayv vaccinationFlu vaccine (#1) [facility] [employer] Phone: start: 16-23-1403Tgyfjdzsv vaccinationFlu vaccine (#1) [facility] [employer] Phone: comment on above:Postponed from 05/01/2019 (Patient Refused)Start: 83-22-6727Uxvej screenLipid screenAshtabula County Medical Center [employer] Work Phone: comment on above:Postponed from 2014 (Not Indicated)Start: 12-58-0666Jztpsleuedyx 0-64 years Vaccine (1 of 1 - PPSV23) Pneumococcal 0-64 years Vaccine (1 of 1 - PPSV23)[facility] [employer] Phone: comment on above:Postponed from 1980 (Unavailable)Start: 03-97-1750XKgC/Tdap/Td vaccine (1 - Tdap)DTaP/Tdap/Td vaccine (1 - Tdap)[facility] CenterMary on above:Postponed from 1985 (Not Indicated)Start: 10-13-2019 End: 57-02-2697Qiwumgs encounter edbrdcyzq14/13/2020 Office Visit Obstetrics and Gynecology Myah Brush, HAIRSPRING ASSEMBLER - CNM [address] [facility] [address] [place] [address] [facility] OBSTETRICS & GYNECOLOGYStart: 10-13-2019 End: 44-82-7999Uxaoxgkvvslw / ancillary services elksqnbgor54/13/2020 Ancillary Procedure [facility] Gy[facility]cologyMER[facility] & GYNECOLOGYStart: 42-13-0176GGeL/Tdap/Td vaccine (1 - Tdap)DTaP/Tdap/Td vaccine (1 - Tdap)[facility] Phone: compzco on above:Postponed from 1985 (Not Indicated)Start: 61-77-8053Wsyquclng for malignant neoplasm of colonBON [facility]: 10-57-6822Vknqn panelLipid screenAshtabula County Medical Center [employer] Work Phone: start: 21-68-8899Wtsejsrcf for malignant neoplasm of cervixCervical Cancer ScreeningMemorial Health Systemtart: 16-29-2868QJmG/Tdap/Td vaccine (1 - Tdap)DTaP/Tdap/Td vaccine (1 - Tdap)[facility]: 78-81-8837Bvfhodkwr B vaccine (1 of 3 - 19+ 3-dose series)Hepatitis B vaccine (1 of 3 - 19+ 3-dose series)[facility]: 11-28-4827Pdgnqwvfgffm 50+ years Vaccine (1 of 2 - PCV)Pneumococcal 50+ years Vaccine (1 of 2 - PCV)[facility]: 60-21-1288Omgrpmykvpqz Vaccine: 50+ (1 of 2 - PCV) Pneumococcal Vaccine: 50+ (1 of 2 - PCV)[facility] Systemtart: 43-37-0923Ifwsj microalbumin profileDTaP,Tdap,Td Vaccine (1 - Tdap)[facility] Systemtart: 52-77-5711Ncuhmrd ScreeningAnxiety ScreeningMemorial Health Systemtart: 1992 Depression ScreeningDepression ScreeningMemorial Health Systemtart: 1992 Hepatitis C screeningBON [facility]: 68-28-8247ZCJ screeningHIV ScreeningMemorial Health Systemtart: 42-07-4203IZYNM-19 Vaccine (1)COVID-19 Vaccine (1)[facility] Phone: start: 65-94-7933Zxvanzvdfz ScreenDepression ScreenBON [facility]: 59-58-1561Cqgoagpaeqwg 0-64 years Vaccine (1 - PCV) Pneumococcal 0-64 years Vaccine (1 - PCV)[facility]: 87-88-2539Vdukjpegtrke 0-64 years Vaccine (1 of 2 - PPSV23)Pneumococcal 0-64 years Vaccine (1 of 2 - PPSV23)[facility] Phone: start: 74-35-3693Josopovkp C screeningHepatitis C screenLUXeXceL Group Phone: End: 55-34-0355Urkzjbjw identified Cx Nom (U)Urine Culture Microbiology Routine Urinary stream splitting 1 Occurrences starting 11/03/2019 until11/03/2019[facility] HospitalChase MedicalComment on above:1 Occurrences starting 11/03/2019 until 11/03/2019Bacteria identified Cx Nom (U)Urine Culture Microbiology Routine Urinary stream splitting 11/03/2019 11:16 AM [facility]ieED[place] [place] End: 73-28-7962KQUIN-19COVID-19 Lab Routine Once for 1 Occurrences starting 03/19/2021 until 03/19/2021[employer] Phone: comment on above:Once for 1 Occurrences starting 03/19/2021 until 3694UAVQO-06QBBJG-52 Lab Routine 03/19/2021 3:31 PM [facility] [employer] Phone: End: 92-39-1220Vfvzqstmpiqqv procedure, preparation of smear, genital sourcePAP SMEAR Lab Routine Encounter for annual routine gynecological examination 1 Occurrences vwoffgts18/21/2020 until 09/20/2019[employer] Phone: comment on above:1 Occurrences starting 09/20/2019 until 09/20/2019 End: 90-49-6046Edxznrurvliey procedure, preparation of smear, genital sourcePAP SMEAR Lab Routine Screening for malignant neoplasm of cervix 1 Occurrences starting 12/15/2024 until 5Bon Instilling ValuesComment on above:1 Occurrences starting 12/15/2024 until 12/15/2024 End: 30-98-2541EV BREAST COMPLETE RIGHTUS BREAST COMPLETE RIGHT Imaging Routine Abnormal screening mammogram 1 Occurrences starting 08/18/2022 until 08/18/2022 [facility] [employer] Phone: Comment on above:1 Occurrences starting 08/18/2022 until 08/18/2022 Immunizations Immunization DateImmunizationNotesCare WumnunylKqmakbtl86-35-5395KDMV-FwV-3 (COVID-19) mRNA BNT-162b2 vaxMichael NILL [phone]-UgjntThe [facility] [place] 53-90-2746RTUY-CoV-2 (COVID-19) mRNA BNT-162b2 vaxMichael NILL [phone]-HdbfcThe [facility] [place] Payers DatePayer CategoryPayerPolicy [id number] [id number] Health Insurance [id number] [employer] BENEFIT xxxxxxxxx 2016-Present [phone] [address] [place] [address]noyzzijav [id number] [id number]. [id number] 2.0.1.085916.3.57[id number] 2.0.1.535895.3.57[id number] 2.0.1.563515.3.57[id number] 2.0.1.108605.3.57[id number] 2.0.1.362212.3.57[id number] 2.840.1.751060.3.57[id number] 2.16.840.1.090600.3.57[id number] 2.16.840.1.260611.3.57[id number] Social History DateTypeDetailFacilityStart: 11-03-2019 End: 91-63-8723Wjperhn smoking status NHISCurrent every day smokerWooster Community HospitalPapayaMobile Phone: start: 11-03-2019 End: 66-92-7256Vsuchrm intakeCurrent drinker of alcohol (finding)[facility] Center[facility]olo[facility] Phone: start: 32-51-1072Odhopad CommentSSilver Lake Medical CenterPapayaMobile Phone: start: 74-72-1787Dqs Assigned At BirthNot on [facility] CenterPapayaMobile Phone: start: 02-22-2020 End: 58-15-0906Uqnllcy use and exposureNever [facility] HealthP[facility] – NormanTyraTechStart: 08-08-2022 End: 36-08-3973Cfcuabag to SARS-CoV-2 (event)Not sureHUNT MEMORIAL HOSPITALCoopkanics [facility] [employer] Start: 08-09-1189Qpw Assigned At BirthFemaleBON [facility] VALLEYCoopkanics [facility]ITALStart: [id number] smoking status NHISNever smoked tobaccoHUNT MEMORIAL HOSPITALCoopkanics [facility] [employer]Start: 08-31-1989 End: [id number] of tobacco useCigarette [facility] HospitalCoopkanics [facility] Start: 12-21-2023 End: 40-40-0685Gqaahxtlot smoked current (pack per day) - [id number] [facility]OSPITALHistory of tobacco usePassive smokerDOMINION HOSPITALStart: 12-21-2023 End: 80-22-4323Cgfnrkk use panelDOMINION HOSPITALStart: 15-43-4857Nju hard is it for you to pay for the very basics like food, housing, medical care, and heatingNot hard at allBON Flat.to(I/We) worried whether (my/our) food would run out before (I/we) got money to buy more.Never trueBON [facility]OS[facility] OF EAST VALLEYISABEL CoPromote [facility]PITALStart: 02-99-2598Islvyxz CommentQuit for 4 months now only once and a whileBON [facility]OS[facility] EAST VALLEYISABEL CoPromote [facility]ITALStart: 56-96-3178Vgsfvw identity Identifies as female gender (finding)[facility]ITALItsGoinOn [facility]OS[facility]ITALStart: 11-09-2024 Tobacco smoking statusHeavy tobacco smoker (finding)[facility] BellevueSexual OrientationMercy Health Willard Hospital Start: 10-10-2012 End: 54-16-2389AriJfwzry (finding)[facility] HospitalHas the electric, gas, oil, or water company threatened to shut off services in your home in past 12MoNoBon Community Memorial HospitalTobacco smoking status NHISTobacco smoking consumption unknownParma Community General Hospital Functional Status OgbxGlrcdsowcbPreavhTrxoevlb06-02-5516Xivdspswkc StatusN/AFGood [facility]aritan [facility] Clinical Notes 11-09-2024 to 05-09-2025 Note Date & [id number] Instructions* Patient Instructions* Sage Kenney APRN.HOGSHEAD WRECKER - 05/09/2025 10:38 AM EDT - Continue taking meloxicam (Mobic) as prescribed for inflammation and pain. - Use your prescribed muscle relaxant on an as-needed basis to relieve muscle spasms. - Avoid narcotic (opioid) pain medications for this condition. - For nerve-related leg pain, you can start a medication such as gabapentin or pregabalin, or if you prefer, proceed directly to a spinal injection without daily pills. - Arrange an appointment with a local painter rough to discuss injection options (epidural steroid injections for radiating leg pain and medial branch blocks for back pain). If you have difficulty scheduling locally, you may use the consult placed for [facility] pain management. Right now with your current symptoms, I think you would benefit from a left sided L5 TFESI (Transforaminal epidural steroid injection) - Bring your MRI and X-ray images to your pain management visit so they can review your spinal imaging. - You currently do not exhibit symptoms from the right sided L3-4 disc herniation, so no indicationfor surgery. - Begin physical therapy focused on core strengthening, gentle stretching, and activity modification to support your back and reduce muscular strain. - Use ice or heat and perform gentle stretching at home during muscle flares to ease discomfort. - Work on quitting smoking, as nicotine can impair healing and worsen spinal degeneration. documented in this encounterParma Community General Hospital09-09-2025 NoteHNO ID: [id number] Author: SAGE KENNEY APRN.CNP Service: ? Author Type: Nurse Practitioner Type: Progress Notes Filed: 05/09/2025 11:01 Note Text: SPINE SURGERY NEW PATIENT This is an in-person visit. PCP: No primary care provider on file. REFERRING PROVIDER: Gina Tierney MD SUBJECTIVE HISTORY OF PRESENT ILLNESS: Toya Shaffer is a 49 year old female presenting with partner. CHIEF COMPLAINT: Low back and left leg pain PRECIPITATING EVENT: None DURATION OF SYMPTOMS: Less Than 6 Weeks Toya Shaffer is a 49-year-old female, current 6 cigarette per day smoker, non-diabetic, with no cancer or cardiac history, with a BMI of 31. 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 She is presenting for evaluation of chronic back pain with recent exacerbation. Toya reports a long history of back pain, with intermittent flares over the years. The current flare has persisted for a month without relief. The pain originates in the back and radiates down the posterolateral aspect of the left leg to the big toe, accompanied by numbness and tingling along this pathway. Sitting worsens the pain. She has not undergone spine surgery. Denies any right sided lower extremity symptoms. Denies weakness, leg heaviness, loss of control of bowel/bladder, saddle anesthesia, impaired dexterity, impaired balance, or recent falls. Toya has been managing the pain with meloxicam and a recent pain shot administered by her doctor. She has not participated in physical therapy or epidural steroid injections. She has tried muscle relaxants in the past without relief. She has not attempted membrane stablilizers for nerve related pain. Additionally, she experiences positional numbness in both hands, particularly when lying down. She is right-hand dominant. Toya has a history of neck pain since childhood, limiting her range of motion. Past Diagnostic Results: - MRI: - L3-L4: Right-sided disc herniation. - L4-L5: Central canal compression, nerve compression from arthritis, loss of disc height. - L5-S1: Arthritis, mild to moderate neural compression on both sides. - X-ray: Scoliotic curve, no acute fractures. PAIN EVALUATION 05/09/2025 0975 Pain Level: 3 Pain Location: Back-Lower pain radiates down left leg Description: Radiating Duration Amount of Time: 1 Duration Units: Months Frequency: Continuous Intervention/Comfort measure: Medication Pain Radiation: down the left thigh and below the left knee Aggravating Factors: Lifting, sitting Alleviating Factors: Medications Pain Ratio: Pain in the back and leg(s) is equal DERMATOMAL DISTRIBUTION: Left: L5 AMBULATORY STATUS: Independent Community Distances ANTIPLATELET OR ANTICOAGULATION STATUS: No PREVIOUS CONSERVATIVE TREATMENTS: RX NSAIDS for 3 Months or Greater (meloxicam (Mobic)) Chiropractor Muscle relaxant in past PREVIOUS SPINAL SURGERY: None There is no problem list on file for this patient. No past medical history on file. No past surgical history on file. No family history on file. SOCIAL HISTORY[1] ALLERGIES No Known Allergies MEDICATIONS: albuterol HFA (PROVENTIL HFA, VENTOLIN HFA) 90 mcg/actuation inhaler Inhale 2 puffs as instructed as needed for wheezing/shortness of breath. buPROPion XL (WELLBUTRIN XL) 150 mg 24 hr tablet Take 150 mg by mouth every morning. meloxicam (MOBIC) 15 mg tablet Take 15 mg by mouth once daily. pantoprazole DR (PROTONIX) 40 mg tablet Take 40 mg by mouth once daily. REVIEW OF SYSTEMS: Neck: (+) neck pain, (+) neck stiffness Genitourinary: (+) urinary urgency Musculoskeletal: (+) low back pain, (+) left leg pain Neurological: (+) bilateral hand numbness, (-) electrical shooting pain down spine Patient Entered Questionnaires PROMIS Score Percentiles Percentiles provide an indication of how the patient's score ranks in relation to the general population. Higher percentile rankings indicate better function/quality of life. 50th percentile is the average of the general population and indicates half of respondents had a worse score. Depression Screening: PHQ-9 Self-Harm (Item 9) response options: 0 Not at all 1 Several days 2 More than half the days 3 Nearly every day PHQ-9 Levels: 0-4 No to mild depression 5-9 Mild depression 10-14 Moderate depression 15-19 Moderately severe depression 20-27 Severe depression OBJECTIVE: PHYSICAL EXAM BP 144/86 Pulse 61 Resp 18 Ht 160 cm (5' 3 ) Wt 81.6 kg (180 lb) LMP 05/02/2025 (Approximate) SpO2 98% BMI 31.89 kg/m? GENERAL APPEARANCE: Well nourished, well developed, and no apparent distress. NEURO PSYCH: Patient oriented to person, place, and time. Mood pleasant. Benign affect. Spine Exam Neck No obvious deformity, normal ROM Back No stepoffs/deformities. No tenderness or instability to palpation along spinous processes or paravertebral musculature Upper Extremity Motor UE BICEPS TRICEPS DELTS Wrist (more content not included)...[facility]09-09-2025 History of Present illness Narrative* S[facility] Kenney APRN.[facility] - 05/09/2025 9:56 AM EDT Images from the original note were not included. SPINE SURGERY NEW PATIENT This is an in-person visit. PCP: No primary care provider on file. REFERRING PROVIDER: Gina Tierney MD SUBJECTIVE HISTORY OF PRESENT ILLNESS: Toya Shaffer is a 49 year old female presenting with partner. CHIEF COMPLAINT: Low back and left leg pain PRECIPITATING EVENT: None DURATION OF SYMPTOMS: Less Than 6 Weeks Toya hSaffer is a 49-year-old female, current 6 cigarette per day smoker, non- diabetic, with no cancer or cardiac history, with a BMI of 31. 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 She is presenting for evaluation of chronic back pain with recent exacerbation. Toya reports a long history of back pain, with intermittent flares over the years. The current flare has persisted for amonth without relief. The pain originates in the back and radiates down the posterolateral aspect of the left leg to the big toe, accompanied by numbness and tingling along this pathway. Sitting worsens the pain. She has not undergone spine surgery. Denies any right sided lower extremity symptoms. Denies weakness, leg heaviness, loss of control of bowel/bladder, saddle anesthesia, impaired dexterity, impaired balance, or recent falls. Toya has been managing the pain with meloxicam and a recent pain shot administered by her doctor. She has not participated in physical therapy or epidural steroid injections. She has tried muscle relaxants in the past without relief. She has not attempted membrane stablilizers for nerve related pain. Additionally, she experiences positional numbness in both hands, particularly when lying down. She is right-hand dominant. Toya has a history of neck pain since childhood, limiting her range of motion. Past Diagnostic Results: - MRI: - L3-L4: Right-sided disc herniation. - L4-L5: Central canal compression, nerve compression from arthritis, loss of disc height. - L5-S1: Arthritis, mild to moderate neural compression on both sides. - X-ray: Scoliotic curve, no acute fractures. PAIN EVALUATION 05/09/2025 8717 Pain Level: 3 Pain Location: Back-Lower pain radiates down left leg Description: Radiating Duration Amount of Time: 1 Duration Units: Months Frequency: Continuous Intervention/Comfort measure: Medication Pain Radiation: down the left thigh and below the left knee Aggravating Factors: Lifting, sitting Alleviating Factors: Medications Pain Ratio: Pain in the back and leg(s) is equal DERMATOMAL DISTRIBUTION: Left: L5 AMBULATORY STATUS: Independent Community Distances ANTIPLATELET OR ANTICOAGULATION STATUS: No PREVIOUS CONSERVATIVE TREATMENTS: RX NSAIDS for 3 Months or Greater (meloxicam (Mobic)) Chiropractor Muscle relaxant in past PREVIOUS SPINAL SURGERY: None There is no problem list on file for this patient. No past medical history on file. No past surgical history on file. No family history on file. SOCIAL HISTORY[1] ALLERGIES No Known Allergies MEDICATIONS: albuterol HFA (PROVENTIL HFA, VENTOLIN HFA) 90 mcg/actuation inhaler Inhale 2 puffs as instructed as needed for wheezing/shortness of breath. buPROPion XL (WELLBUTRIN XL) 150 mg 24 hr tablet Take 150 mg by mouth every morning. meloxicam (MOBIC) 15 mg tablet Take 15 mg by mouth once daily. pantoprazole DR (PROTONIX) 40 mg tablet Take 40 mg by mouth once daily. REVIEW OF SYSTEMS: Neck: (+) neck pain, (+) neck stiffness Genitourinary: (+) urinary urgency Musculoskeletal: (+) low back pain, (+) left leg pain Neurological: (+) bilateral hand numbness, (-) electrical shooting pain down spine Patient Entered Questionnaires PROMIS Score Percentiles Percentiles provide an indication of how the patient's score ranks in relation to the general population. Higher percentile rankings indicate better function/quality of life. 50th percentile is the average of the general population and indicates half of respondents had a worse score. Depression Screening: PHQ-9 Self-Harm (Item 9) response options: 0 Not at all 1 Several days 2 More than half the days 3 Nearly every day PHQ-9 Levels: 0-4 No to mild depression 5-9 Mild depression 10-14 Moderate depression 15-19 Moderately severe depression 20-27 Severe depression OBJECTIVE: PHYSICAL EXAM BP 144/86 Pulse 61 Resp 18 Ht 160 cm (5' 3 ) Wt 81.6 kg (180 lb) LMP 05/02/2025 (Approximate) SpO2 98% BMI 31.89 kg/m GENERAL APPEARANCE: Well nourished, well developed, and no apparent distress. NEURO PSYCH: Patient oriented to person, place, and time. Mood pleasant. Benign affect. Spine Exam Neck No obvious deformity, normal ROM Back No stepoffs/deformities. No tenderness or instability to palpation along spinous processes or paravertebral musculature Upper Extremity Motor UE BICEPS TRICEPS DELTS Wrist Ext Wrist Flex Quality Assurance Consultant HI R 5 5 5 5 5 5 5 L 5 5 5 5 5 5 5 Sensation to light touch intact to bilateral upper extremities UE Reflexes Right: Triceps, Biceps, Brachial normoreflexic Left: Triceps, Biceps, Brachial normoreflexic Pruitt's: Negative bilaterally L'Hermitte's Sign: Negative Spurling's Test: Negative Positive tinnel's at the elbow on right Lower Extremity Motor LE Hip Flex Knee Flex Knee Extend Plantarflex Dorsiflex EHL R 5 5 5 5 5 5 L 5 5 5 5 5 5 Sensation intact to light tough in bilateral lower extremities in spn, dpn, sural, saphenous, and tibial nerves. STRAIGHT LEG TEST: Ipsilateral: Negative. TAN'S FINGER: Negative CLAUDIA RIGHT: Negative; LEFT: Negative LE Reflexes Right: Patellar, Ankle normoreflexic Left: Patellar, Ankle normoreflexic Clonus: 1 beat bilaterally Toe Walk: Able Heel Walk: Able Tandem Walk: Able Ambulatory status: Independent DATA REVIEW Images independently reviewed with the patient Lumbar MRI 03/29/25: L2-3 with moderate canal and bilateral foraminal stenosis L3-4 with right paracentral disc extrusion and moderate canal and severe right foraminal stenosis L4-5 with moderate canal and bilateral foraminal stenosis L5-S1 with moderate foraminal stenosis ASSESSMENT/PLAN (M54.17) Lumbosacral radiculopathy at L5 (primary encounter diagnosis) (M51.362) Degeneration of intervertebral disc of lumbar region with discogenic back pain and lower extremity pain (F17.200) Nicotine use disorder Toya Shaffer is not a candidate for surgery at this time and will continue with medical management ofhis/her condition. 1. Lumbosacral radiculopathy at L5 (M54.17) 2. Degeneration of intervertebral disc of lumbar region with discogenic back pain and lower extremity pain (M51.362) - Chronic low back pain with acute flare for one month; pain radiates from back to left leg and bigtoe, consistent with L5 radiculopathy. - MRI shows right-sided disc herniation at L3-4 (asymptomatic), moderate bilateral neural compression at L4-5, L5-S1, and degenerative disc disease. - No evidence of severe stenosis or spinal cord compression; no acute surgical indication. - Continue Mobic (meloxicam) for pain management. - Discussed options for nerve-related pain management, including gabapentin or Lyrica, and muscle relaxants for muscular pain. Declines medication at this time. - Refer to local pain management for consideration of epidural steroid injections and other interventions. - Advised initiation of physical therapy after pain control to strengthen core and reduce muscular overuse. - Educated on degenerative nature of arthritis and expected progression; explained that surgery is only considered after failure of conservative management and requires nicotine cessation. - Discussed risks and benefits of injections, medications, and surgery; advised against narcotics for this condition. - Patient expressed understanding of conservative treatment approach and rationale for avoiding surgery at this time. 3. Nicotine use disorder (F17.200) - Smokes 6 cigarettes per day. - Advised on the importance of nicotine cessation to reduce risk of complications and to be eligible for potential future surgical interventions. Follow up: PRN Considerations: Update imaging and discuss surgery if symptoms refractory to conservative management and smoking cessation completed Imaging Ordered: None The majority of the visit was spent counseling and/or coordinating care for the patient. The patient was counseled regarding lumbar radiculopathy. Total face to face time was 45 minutes. SIGNATURE: Sage Kenney APRN.CNP PATIENT NAME: Toya Shaffer DATE: May 09, 2025 TIME: 9:56 AM PAGER: [1] Social History Tobacco Use Smoking status: Every Day Types: Cigarettes Smokeless tobacco: Never documented in this encounterParma [facility]08-[facility]-2025 NoteHNO ID: [id number] Author: SAGE KENNEY APRN.CNP Service: ? Author Type: Nurse Practitioner Type: Progress Notes Filed: 04/12/2025 14:58 Note Text: Triage review note- Spine Surgery: BMI: 32 A1C: n/a Current Smoker Studies (Reports unless indicated) Lumbar MRI 03/29/25: L2-3 with moderate canal and bilateral foraminal stenosis L3-4 with right paracentral disc extrusion and moderate canal and severe right foraminal stenosis L4-5 with moderate canal and bilateral foraminal stenosis L5-S1 with moderate foraminal stenosis Disposition: Please schedule with surgical spine DIVYA. Indications for recommendations: moderate ML lumbar canal and foraminal stenosis. Not a candidate for surgery given nicotine use. Can attempt further CMT. Also reporting neck and upper extremity symptoms but no cervical imaging- may need to work up depending on exam. Please advise pt to send/upload images prior to visit or hand carry on CD to visit (spine MRIs, xrays). Patient should also have recent PT records faxed to [facility] and placed in chart. Sage Kenney APRN.CNP Patient name: Toya Shaffer Are you being referred by a [facility] for [facility] Provider or Pain Management Provider at [facility]? No If answer is YES please schedule directly with surgeon, triage does not need to be completed. Is this a self-referral NO If not, who is the Referring Provider Dr. Tierney Is this a 2nd opinion from another spine surgeon? No Were you offered surgery? No MRI/CT/myelogram within 12 months? Yes If NO , please refer to medical spine or PCP to complete above imaging, triage does not need to be completed If YES,? please ask for the name/address of the facility where the MRI/CT/myelogram was completed: [place] [address] MRI/CT/myelogram viewable in Epic: No If not, please provide [phone] to fax in imaging reports for review. Also, please inform patient to hand carry imaging disc to appointment. XR (spine) within 12 months: Yes If YES,? please ask for the name/address of the facility where the XR was completed: [place] [address] Dr. Mejia's patients: Have you had previous EMG/Nerve Conduction Study, Ultrasound, or MRI for these same symptoms? If YES,? please ask for the name/address of the facility where they were completed: Requested provider (First and Last name): Are you interested in a virtual visit if offered? No 1. Where are you having symptoms related to this visit? Back pain Yes - lower back. Pt gets stiff and hunched over. Leg pain Yes - left leg Arm pain Yes - Rt shoulder Neck pain Yes 2. Are you having any of the following symptoms: Difficulty walking Yes - sometimes Numbness Yes - left leg Weakness YES Trouble using your hands? Yes - weak in the hands sometimes 3. What is your height? 5'3 What is your weight? 185 4. Are you a current smoker? Yes 5. Have you had any injections or physical therapy in the last 12 months? Yes If YES then please ask for the name/address of the facility where the injections and/or physical therapy [place] [address] Have you tried any other kinds of non-surgical treatments in the last 12 months? (For example: NSAIDS, muscle relaxants, analgesics, oral steroids, Chiropractor, Acupuncture): Uses muscle relaxants and goes to the chiropractor 6. Are you currently taking daily prescribed narcotic medications for your current symptoms (For example Oxycodone, Hydrocodone, Tramadol, Morphine, Other)? No 7. Have you had previous spinal surgery for this same symptoms? No If YES? please ask for the name of facility/address of where the surgery was completed: Additional Comments C/B # [phone] History of Present illness Narrative* Sage Kenney, ERIC.HOGSHEAD WRECKER - 04/10/2025 8:24 AM EDT Triage review note- Spine Surgery: BMI: 32 A1C: n/a Current Smoker Studies (Reports unless indicated) Lumbar MRI 03/29/25: L2-3 with moderate canal and bilateral foraminal stenosis L3-4 with right paracentral disc extrusion and moderate canal and severe right foraminal stenosis L4-5 with moderate canal and bilateral foraminal stenosis L5-S1 with moderate foraminal stenosis Disposition: Please schedule with surgical spine DIVYA. Indications for recommendations: moderate ML lumbar canal and foraminal stenosis. Not a candidate for surgery given nicotine use. Can attempt further CMT. Also reporting neck and upper extremity symptoms but no cervical imaging- may need to work up depending on exam. Please advise pt to send/upload images prior to visit or hand carry on CD to visit (spine MRIs, xrays). Patient should also have recent PT records faxed to [facility] and placed in chart. Sage Kenney APRN.HOGSHEAD WRECKER Patient name: Toya Shaffer Are you being referred by a [place] for Spine Health Provider or Pain Management Provider at [facility]? No If answer is YES please schedule directly with surgeon, triage does not need to be completed. Is this a self-referral NO If not, who is the Referring Provider Dr. Tierney Is this a 2nd opinion from another spine surgeon? No Were you offered surgery? No MRI/CT/myelogram within 12 months? Yes If NO , please refer to medical spine or PCP to complete above imaging, triage does not need to be completed If YES, please ask for the name/address of the facility where the MRI/CT/myelogram was completed: [place] [address] MRI/CT/myelogram viewable in [facility]: No If not, please provide [phone] to fax in imaging reports for review. Also, please inform patient to hand carry imaging disc to appointment. XR (spine) within 12 months: Yes If YES, please ask for the name/address of the facility where the XR was completed: [place] [address] Dr. Mejia's patients: Have you had previous EMG/Nerve Conduction Study, Ultrasound, or MRI for thesesame symptoms? If YES, please ask for the name/address of the facility where they were completed: Requested provider (First and Last name): Are you interested in a virtual visit if offered? No 1. Where are you having symptoms related to this visit? Back pain Yes - lower back. Pt gets stiff and hunched over. Leg pain Yes - left leg Arm pain Yes - Rt shoulder Neck pain Yes 2. Are you having any of the following symptoms: Difficulty walking Yes - sometimes Numbness Yes - left leg Weakness YES Trouble using your hands? Yes - weak in the hands sometimes 3. What is your height? 5'3 What is your weight? 185 4. Are you a current smoker? Yes 5. Have you had any injections or physical therapy in the last 12 months? Yes If YES then please ask for the name/address of the facility where the injections and/or physical therapy was completed [place] [id number] Have you tried any other kinds of non-surgical treatments in the last 12 months? (For example: NSAIDS, muscle relaxants, analgesics, oral steroids, Chiropractor, Acupuncture): Uses muscle relaxants and goes to the chiropractor 6. Are you currently taking daily prescribed narcotic medications for your current symptoms (For example Oxycodone, Hydrocodone, Tramadol, Morphine, Other)? No 7. Have you had previous spinal surgery for this same symptoms? No If YES please ask for the name of facility/address of where the surgery was completed: Additional Comments C/B # [phone] [facility] NoteProgress Note-Physician Patient: TOYA SHAFFER Age: 49 years Sex: Female : 1975 Associated Diagnoses: None Author: Kenneth Christian MD Postoperative Information Postoperative disposition: Postoperative disposition: To PACU. Optimetrix number: Optimetrix number [id number]. Anesthetic utilized: General. Health Status Allergies: Allergic Reactions (Selected) No Known Allergies No Known Medication Allergies Physical Examination VS/Measurements Pain Assessment: Controlled. General: Awake, Appropriate. Respiratory: Adequate air exchange. Cardiovascular: Stable. Neurological Assessment Anesthetic outcome No anesthetic complications noted. Adequate pain relief. Review / Management Condition: Stable. Plan Transfer/Discharge: Transfer/Discharge Discharge when meets criteria ( To home ).[facility]:Result Comment: Electronically Signed By: Kenneth Christian MD\.br\Date and Time Signed: 12/04/24 12:30 EDT 12-02-2024 Evaluation + Plan noteExtracted from:Title:ANES Pre-operative Note uthor:Kenneth Christian MDDate:12/02/24 Plan [place] [employer] (ASA) physical status classification: Class II. Anesthetic Preoperative Plan: Anesthesia General.[facility] 04-04-2025 NoteColonoscopy Procedure Report Patient: TOYA [...] Plan Diagnosis: Encounter for colorectal cancer screening (QIN91-BP Z12.11, Working, Medical). Course: Progressing as expected. Recommendations: Repeat colonoscopy:: In 10 years. Follow-up:: if problems/questions. Diet:: Regular diet. Medication resumption:: Continue current medications. Return to activities:: After 24 hours. Education and Follow-up: Counseled: Family.[facility]Comment on above:Other Comment: Missing Attachment - attachment storage system not supported [id number] Can be viewed in source system Missing Attachment - attachment storage system not supported [id number] Can be viewed in source [id number] Hospital Discharge instructions Patient Education 12/02/2024 09:23:53 Colonoscopy, Care After Surgery Salam (CUSTOM) Colonoscopy Care After Surgery Please read the instructions outlined below and refer to this sheet in the next few weeks. These discharge instructions provide you with general information on [facility] Your doctor may also give you specific [...] Care 11/09/2024 16:09:19 With:Blayne MORELOS Address: [address] [place] [address], [address] [place] [id number]- Business (1) When: Unknown Comments:Call for any problems. [facility] 04-04-2025 NotePatient Education - Text Colonoscopy Care After Surgery Please read the instructions outlined below and refer to this sheet in the next few weeks. These discharge instructions provide you with general information on caring [facility] Your doctor may also give you specific [...] is severe or gets worse throughout the day.[facility]04-04-[facility] NoteHistory and Physical Patient: TOYA SHAFFER Age: 49 years Sex: Female : 1975 Associated Diagnoses: None Author: Blayne MORELOS MD Subjective no changes to H & PFDiley Ridge [facility] CenterComment on above:Result Comment: Electronically Signed By: Blayne MORELOS MD\.br\Date and Time Signed: 12/02/24 08:53 [id number] NoteProgress Note-Physician Patient: TOYA SHAFFER Age: 49 [...] All Problems BMI 32.0-32.9,adult / SNOMED CT 704490337 / Confirmed Cervical disc disease / SNOMED CT 0571447421 / Confirmed Cervical intraepithelial neoplasia grade 2 / SNOMED CT 285525577 / Confirmed Chronic obstructive pulmonary disease / SNOMED CT 481548649 / Confirmed Dysphagia / SNOMED CT 16994799 / Confirmed Hypothyroidism / SNOMED CT 76247872 / Confirmed Migraines / SNOMED CT 38266080 / Confirmed Obesity due to excess calories / SNOMED CT 3139709138 / Confirmed Screening for malignant neoplasm of colon / SNOMED CT 347763848 / Confirmed Tobacco use / SNOMED CT 1839021878 / Confirmed Varicose veins of lower extremity / SNOMED CT 749511272 / Confirmed Vascular insufficiency / SNOMED CT 414367955 / Confirmed, Active Problems (12) BMI 32.0-32.9,adult [...] Father Mother Procedure history: EGD - esophagogastroduodenoscopy (7824404446) on 05/25/2019 at 43 Years. Percutaneous radiofrequency ablation of great saphenous vein using ultrasonographic guidance ([id number]). Social History Social & Psychosocial Habits Alcohol [...] 08:24) Heart Rate Monitored 76 bpm (DEC 02 08:24) Resp Rate 13 br/min (DEC 02 08:24) SBP 133 mmHg (DEC 02 08:24) DBP H 98 mmHg (DEC 02 08:24) Weight 83.1 kg (DEC 02 08:28) BMI 32.46 (DEC 02 08:) Measurements from flowsheet : Measurements 12/02/2024 8:28 [...] review: No qualifying data available . Plan [place] [employer] (ASA) physical status classification: Class II. Anesthetic Preoperative Plan: Anesthesia General.[facility] Comment on above:Result Comment: Electronically Signed By: Gino BENAVIDES, Kenneth Conde\.br\Date and Time Signed: 12/02/24 08:42 [id number] NoteGeneral Surgery Office/Clinic Note Chief Complaint consultation [...] Smokeless Tobacco Use:. Cigar (more content not included)...[facility] CampusComment on above:Result Comment: Electronically Signed By: MALLORY BENAVIDES, Blayne Boswell\Date and Time Signed: 11/09/24 15:53 EDTEvaluation note* Diagnosis Encounter for annual routine gynecological examination documented in this encounter [employer] Phone: evaluation note* Diagnosis Right knee pain, unspecified chronicity documented in this encounter [employer] Phone: evaluation note* Diagnosis Well adult exam Routine general medical examination at a health care facility documented in this encounter [employer] Phone: evaluation note* Diagnosis Abnormal screening mammogram documented in this encounter [employer] Phone: evaluation note* Diagnosis Abnormal screening mammogram documented in this encounter [employer] Phone: evaluation note* Diagnosis Irregular menses Irregular menstrual cycle documented in this encounter [employer] Phone: evaluation note* Diagnosis Pain, joint, knee, left Pain in joint, lower leg documented in this encounter [employer] note* Diagnosis Screening for malignant neoplasm of cervix Screening for malignant neoplasm of the cervix documented in this encounter [employer] note* Diagnosis Irregular menses Irregular menstrual cycle documented in this encounter [employer] note* Diagnosis Lumbosacral radiculopathy at L5- Primary Thoracic or lumbosacral neuritis or radiculitis, unspecified Degeneration of intervertebral disc of lumbar region with discogenic back pain and lower extremity pain Nicotine use disorder Tobacco use disorder documented in this encounter [facility] course Narrative No data available for this section [facility] Progress note No data available for this section [facility] Assessments Diagnosis Urinary stream splitting Splitting of urinary stream Advance Directives No Advanced Directives Records FoundDocuments on File TypeDate RecordedPatient RepresentativeExplanationAdvance Directives and Living WillPower of AttorneyTypeDate RecordedPatient RepresentativeExplanationACP- Advance DirectiveACP-Power of Clinical Dietetic Technician Reason for Referral SpecialtyDiagnoses / ProceduresReferred By ContactReferred To ContactRadiology Diagnoses Abnormal screening mammogram Procedures US BREAST COMPLETE RIGHT Gina Tierney MD [address] [place] [address] Phone: Referral IDStatusReasonStart DateExpiration DateVisits RequestedVisits [id number]/8/202212/8/122870RywgovllzAuxywfhzu / Procedures Referred By ContactReferred To ContactRadiology Diagnoses Abnormal screening mammogram Procedures [facility] ARIELLE DIGITAL DIAGNOSTIC BILATERAL Gina Tierney MD [address] [place] [address] Phone: Referral IDStatusReasonStart DateExpiration DateVisits RequestedVisits [id number]/8/202212/8/202311 Summary Purpose Family History No Family History Records Found No data available for this section No Family History Records FoundNo Family History Records FoundNo Family History Records Found Additional Source Comments Care Teams (unrecognized sec tion and content) Team MemberRelationshipSpecialtyStart DateEnd Date Gina Tierney MD [address] [place] [phone] PCP - General04/02/15Team MemberRelationshipSpecialtyStart DateEnd Date Gina Tierney MD [address] [place] [phone] PCP - General04/02/15Team MemberRelationshipSpecialtyStart DateEnd Date Gina Tierney MD [address] [place] [phone] PCP - General04/02/15Team MemberRelationshipSpecialtyStart DateEnd Date Gina Tierney MD [address] [place] [phone] PCP - General04/02/15Team MemberRelationshipSpecialtyStart DateEnd Date Gina Tierney MD [address] [place] [phone] PCP - General04/02/15Te MemberRelationshipSpecialtyStart DateEnd Date Gina Tierney MD [address] [place] [phone] PCP - General04/02/15Te MemberRelationshipSpecialtyStart DateEnd Date Gina Tierney MD [address] [place] [phone] PCP - General04/02/15Te MemberRelationshipSpecialtyStart DateEnd Date Gina Tierney MD [address] [place] [phone] ReferringFaHouston [facility]04/04/25Team MemberRelationshipSpecialtyStart DateEnd Date Gina Tierney MD [address] [place] [phone] PCP - [facility]04/02/15Te MemberRelationshipSpecialtyStart DateEnd Date Gina Tierney MD [address] [place] [phone] ReferringFaumass memorial medical center Medicine04/04/25 Reason for Visit (unrecogniz ed section and content) SpecialtyDiagnoses / ProceduresReferred By ContactReferred To ContactRadiology Diagnoses Well adult exam Procedures JORDAN ARIELLE DIGITAL SCREEN SELF REFERRAL W OR WO CAD BILATERAL JORDAN DIGITAL SCREEN W OR WO CAD BILATERAL Gina Tierney MD [address] [place] [address] Phone: Referral IDStatusReasonStart DateExpiration DateVisits RequestedVisits [id number]/18/202210/18/734071VgutnfekfIthmlsvhk / Procedures Referred By ContactReferred To ContactRadiology Diagnoses Abnormal screening mammogram Procedures US BREAST LIMITED LEFT US BREAST COMPLETE LEFT Gnia Tierney MD [address] [place] [address] Referral IDStatusReasonStart DateExpiration DateVisits RequestedVisits [id number]/8/202212/8/[id number] / Procedures Referred By ContactReferred To ContactRadiology Diagnoses Abnormal screening mammogram Procedures JORDAN ARIELLE DIGITAL DIAGNOSTIC BILATERAL Gina Tierney MD [address] [place] [address] Referral IDStatusReasonStart DateExpiration DateVisits RequestedVisits [id number]/8/202212/8/667737YpxgirYqrywibjYhw PatientSpecialty Diagnoses / ProceduresReferred By ContactReferred To ContactNeurosurgery Diagnoses Herniation of intervertebral disc at L3-L4 level Procedures OFFICE/OUTPATIENT [facility] 60 [place] [address] [place] [address] Phone: tel: fax: Referral IDStatusReasonStart DateExpiration DateVisits RequestedVisits [id number] PCP Requested Referral INFORMATION SOURCE (unrecogn ized section and content) DATE CREATED AUTHOR 09/25/2022 [facility] DATE CREATED AUTHOR AUTHOR'S ORGANIZ ATION 05/06/2025 [facility] DATE CREATED AUTHOR AUTHOR'S ORGANIZ ATION 05/15/2025 [facility] DATE CREATED AUTHOR AUTHOR'S ORGANIZ ATION 2025 [facility] Source Comments (unrecognize d section and content) In the event this informatio n is protected by the Federal Confidentiality of Alcohol and Drug Abuse Patient Records regulations: The Federal rules restrict any use of the information to criminally investigate or prosecute any alcohol or drug abuse patient.[facility] HospitalIn the event this information is protected by the Federal Confidentiality of Alcohol and Drug Abuse Patient Records regulations: The Federal rules restrict any use of the information to criminally investigate or prosecute any alcohol or drug abuse patient.[facility] FOR RECORDS PERTAINING TO PATIENTS WHO [...] BE BASED ON THE PRIMARY CLINICAL RECORDS. [facility] [employer] [facility]. provides no warranty or guarantee of the accuracy or completeness of information in this document.
== END 2025-07-07 14:21 | disposition home or self-care (01) ==
LOC: MAMMO 14:20
PROVIDERS: PCP Family Medicine; Visit Provider Midwife
DX: Z12.31 Encounter for screening mammogram for malignant neoplasm of breast (principal)
CPT/HCPCS: 77063; 77067